=== PATIENT | female | born 1965 | race African-American/Black ===

== ENCOUNTER 2017-09-26 06:50 | Inpatient (IN) | payer OTHER ==
[2017-09-26] MEDS ORDERED: Metoclopramide HCl 10 MG/2 ML VIAL ONE (08:36)
[2017-09-26] MEDS ORDERED: diphenhydrAMINE 50 MG/ML VIAL ONE ×2 (08:36→11:48)
[2017-09-26] MEDS ORDERED: methylPREDNISolone Sod Succ/PF 125 MG/2 ML VIAL ONE (08:36)
[2017-09-26] MEDS ORDERED: Magnesium Sulfate 2 GM/100 ML BAG ONE (10:21)
[2017-09-26] MEDS ORDERED: Ketorolac Tromethamine 30 MG/ML VIAL ONE (11:48)
[2017-09-26] MEDS ORDERED: SODIUM CHLORIDE 0.9% IVPB SCH ×2 (13:45→16:48)
[2017-09-26] MEDS ORDERED: VALPROATE SODIUM IVPB SCH ×2 (13:45→16:48)
--- NOTE | 2017-09-26 14:20 | CT ---
CT OF HEAD NONCONTRAST: INDICATION: Headache. COMPARISON: No prior comparison. FINDINGS: The ventricular system is normal in size. There is no mass effect or midline shift. No evidence of intracranial hemorrhage. The imaged paranasal sinuses and mastoid air cells are clear. IMPRESSION: No acute intracranial abnormalities. POS: [facility]
--- NOTE | 2017-09-26 16:01 | HP ---
PRIMARY CARE PHYSICIAN: Gretchen Hudson M.D. REASON FOR ADMISSION: Intractable migraine headache. HISTORY OF PRESENT ILLNESS: A 52-year-old -[place] female who has long history of migraine h eadache as well as fibromyalgia and she is on disability. She reports that she is originally from [facility] and she had all kind of treatment done in [place]. Over there, she had neurologist, rheumatologi st, psychiatrist and primary care physician. She reports that her migraine headache year by year get ting worse. Most of the time she is getting headache. She has low grade headache all the time, but it is manageable with her routine medication, but her neurologist also required her to go to hospital every few months to get DHE treatment. After that treatment is over, patient remains headache free with a maintenance medication for about a week, but again headache starts and after that intermittent ly she gets severe headache even before going to neurologist's office or primary care physician's off [place] to the abort her headache. Her headache most of the time so intense she requires frequent emerge ncy room visit. Patient reports that she tried all kind of triptan medication in market. She tried had nerve block, Botox injection and new therapy was tried by her neurologist to control her headache. Patient does not have any obvious trigger and her headache is getting so intense so she cannot manage herself and she has to come to the ER as well. After [place], patient went to [place] to live with her brother who . The patient [facility] er and now patient is alone and she moved to [facility]. Here locally, s he does not have any neurologist, but her primary care physician gave appointment with neurologist on coming Saturday. Today, patient was having migraine headache for about 12 hours, it was not getting better. Her home medication was not working. She was feeling miserable. She was having diffuse body ache. She denie s any focal motor symptoms. She denies any nausea, vomiting, or diarrhea. She denies any UTI sympto ms. She denies any fever or chills. She denies any abdominal pain. In the emergency room, this patient was started on valproic acid treatment. After that her headache slowly came down, but even before that patient was given Toradol, magnesium sulfate, Reglan, Solu-Med rol, Benadryl and IV fluid that did not work and that is why ER physician decided to keep this patien t in the hospital for control of her headache. REVIEW OF SYSTEMS: The following complete review of systems was negative, unless otherwise mentioned in the HPI or below: Constitutional: Weight loss or gain, ability to conduct usual activities. Skin: Rash, itching. Eyes: Double vision, pain. ENT/Mouth: Nose bleeding, neck stiffness, pain, tenderness. Cardiovascular: Palpitations, dyspnea on exertion, orthopnea. Respiratory: Shortness of breath, wheezing, cough, hemoptysis, fever or night sweats. Gastrointestinal: Poor appetite, abdominal pain, heartburn, nausea, vomiting, constipation, or diarr hea. Genitourinary: Urgency, frequency, dysuria, nocturia. Musculoskeletal: Pain, swelling. Neurologic/Psychiatric: Anxiety, depression. Allergy/Immunologic: Skin rash, bleeding tendency. Please see my HPI for pertinent positive and negative. All other review of systems reviewed and nega tive except as mentioned in the HPI. ALLERGIES: MOTRIN, PENICILLIN, PHENERGAN, and TORADOL. CURRENT HOME MEDICATIONS: Amitriptyline 100 mg p.o. at bedtime, Klonopin 2 mg p.o. daily, Nexium 20 mg p.o. daily, and Pristiq 50 mg p.o. daily. PAST MEDICAL HISTORY: Chronic migraine headache, hypertension, fibromyalgia, and obesity. PAST SURGICAL HISTORY: Gastric bypass surgery, appendicectomy, , and hysterectomy. PAST PSYCHIATRIC HISTORY: Anxiety and depression. SOCIAL HISTORY: Patient is . She has 2 kids. No history of tobacco, alcohol or illicit dr ug abuse. She is on disability. FAMILY HISTORY: No strong family history of premature coronary artery disease, stroke or cancer. EMERGENCY ROOM COURSE: Patient is given valproic acid, Toradol 30 mg, Solu-Medrol 125 mg, Reglan 10 mg, Benadryl 25 mg x2, IV fluid 2 liter, magnesium sulfate 2 grams. PHYSICAL EXAMINATION: VITAL SIGNS: Blood pressure 153/95, pulse 90, respiratory rate 18, temperature 98.4, saturation 98% on room air, and weight 89.3 kilograms. GENERAL: Patient is currently alert, awake, no obvious acute distress. HEAD: Normocephalic, atraumatic. The patient feels tenderness all over her head. EYES: Pupils round, reactive to light. Extraocular muscle intact. ENT: Oropharynx within normal limits. Moist mucous membranes. NECK: Supple, no JVD, no thyromegaly, no carotid bruits. LUNGS: Clear to auscultation without any rhonchi or rales. CARDIAC: S1 and S2 regular without any murmur. ABDOMEN: Soft, bowel sounds present, nontender, nondistended. No organomegaly, no mass, no suprapub ic tenderness. BACK: Examination unremarkable, no CVA tenderness. EXTREMITIES: Upper extremity passive movements of all joints are normal. Lower extremities: No huber ma. Good peripheral pulsation. No calf tenderness. SKIN: No skin rash. HEMATOLOGICAL SYSTEM: No lymphadenopathy. PSYCHIATRIC: Normal affect. NEUROLOGIC: The patient is alert and oriented x3. Cranial nerves II-XII intact. Motor 5/5 in all f our limbs. Sensation bilaterally symmetrical. Reflexes symmetrical. Gait normal. Planter bilatera l flexor. No focal neurological deficit noted. IMAGING DATA AND LABORATORY DATA: CT brain based on my review, no acute intracranial process. Blood test has not done in the emergency room, but I am going to order CBC, CMP, urine drug screen, urinal ysis. ASSESSMENT AND PLAN/IMPRESSION: 1. Intractable migraine headache, failed emergency room treatment. 2. Obesity. 3. Fibromyalgia. 4. Hypertension. 5. Anxiety and depression. 6. Gastroesophageal reflux disease. PLAN: Observation to medical floor. Neurology consultation for intractable migraine headache. We w ill continue valproic acid drip which has helped the patient in the emergency room. We will continue Toradol p.r.n. basis. We will resume her preventive migraine headache medicine. While in hospital, we will do symptomatic treatment. DVT prophylaxis not needed because we are expecting discharge in 24 hours. Gastrointestinal prophylaxis, Pepcid 20 mg p.o. b.i.d. Code status: The patient is FULL CODE. Patient does not have any surrogate decision maker. Disposition plan based on clinical course , likely 24-48 hours. Pending clinical improvement.
[2017-09-26] MEDS ORDERED: Diabetic Tussin 200 MG/10 ML UDCUP PO PRN (16:48)
[2017-09-26] MEDS ORDERED: Chloraseptic Spray 180 ml Bottle PO PRN (16:48)
[2017-09-26] MEDS ORDERED: Loperamide HCl 2 MG CAP PO PRN (16:48)
[2017-09-26] MEDS ORDERED: Metoclopramide HCl 10 MG/2 ML VIAL IVP PRN (16:48)
[2017-09-26] MEDS ORDERED: Eucerin (Mineral Oil/Petrolatum,White) 30 gm Jar TOP PRN (16:48)
[2017-09-26] MEDS ORDERED: Senokot 8.6 MG TAB PO PRN (16:48)
[2017-09-26] MEDS ORDERED: Artificial Tears 18 DROP/0.9 ML EA EYE PRN (16:48)
[2017-09-26] MEDS ORDERED: Zolpidem Tartrate 5 MG TAB PO PRN (16:48)
[2017-09-26] MEDS ORDERED: Milk Of Magnesia 30 ML UDCUP PO PRN (16:48)
[2017-09-26] MEDS ORDERED: Ondansetron PF 4 MG/2 ML Vial IVP PRN (16:48)
[2017-09-26] MEDS ORDERED: Sodium Chloride 0.65% Nasal 44 ML BOT EA NARE PRN (16:48)
[2017-09-26] MEDS ORDERED: hydrALAZINE 20 MG/ML VIAL SLOW IVP PRN (16:48)
[2017-09-26] MEDS ORDERED: Labetalol HCl 100 MG/20 ML VIAL SLOW IVP PRN (16:48)
[2017-09-26] MEDS ORDERED: Ondansetron ODT 4 MG TAB PO PRN (16:48)
[2017-09-26] MEDS ORDERED: Morphine 5 MG/ML SYRINGE SLOW IVP PRN (16:57)
[2017-09-26 17:01] VITALS: BMI 34.7
[2017-09-26 17:34] LABS: #Lymphocytes 1.2 thou/uL (1.20-3.40); #Monocytes 0.1 thou/uL (0.11-0.59); #Neutrophils 5.5 thou/uL (1.40-6.50); %Basophils 0.7 % (0.0-1.0); %Eosinophils 0.5 % (0.0-10.0); %Lymphocytes 17.9 % (21.0-51.0); %Monocytes 1.5 % (0.0-10.0); %Neutrophils 79.4 % (42.0-75.0); Hemoglobin 12.4 g/dL (12.0-16.0); Mean Corpuscular HGB CONC 31.5 g/dL (32.0-36.0); Mean Corpuscular Hemoglobin 31.1 pg (27.0-31.0); Mean Corpuscular Volume 98.7 fl (81.0-99.0); Mean Platelet Volume 9.2 fL (7.4-10.4); Platelet Count 232 thou/uL (130-400); RBC Distribution Width 11.7 % (11.5-14.5); White Blood Cell (WBC) Count 6.9 thou/uL (4.8-10.8)
[2017-09-26] MEDS: HYDROcodone/Acetaminophen 10/325 mg Tablet PO PRN ×2 (17:58→22:30)
[2017-09-26 17:59] LABS: ALT (SGPT) 24 U/L (8-55); AST (SGOT) 26 U/L (5-34); Alkaline Phosphatase 83 U/L (40-150); Anion Gap 17 mmol/L (10-20); BUN (Urea Nitrogen) 10 mg/dL (9.8-20.1); Bilirubin, Total 0.3 mg/dL (0.2-1.2); Calc. Creatinine Clearance 120 mL/min (70-130); Calcium 9.1 mg/dL (7.8-10.44); Carbon Dioxide 19 mmol/L (22-29); Chloride 109 mmol/L (98-107); Estimated GFR-MDRD Greater than 90; Globulin 3.4 g/dL (2.4-3.5); Glucose 150 mg/dL (70-105); Potassium 4.5 mmol/L (3.5-5.1); Protein, Total 7.4 g/dL (6.0-8.3); Sodium 140 mmol/L (136-145)
[2017-09-26 19:29] LABS: Bilirubin Negative (Negative); Blood, Urine Negative (Negative); Clarity CLEAR (Clear); Glucose, Urine (Dipstick) 100 mg/dL (Negative); Leukocyte Negative (Negative); Nitrite Negative (Negative); Protein, Urine (Dipstick) Negative (Neg-Trace); Specific Gravity, Urine 1.008 (1.002-1.036)
[2017-09-26 19:32] LABS: Bacteria/HPF None Seen HPF (None Seen); Hyaline Casts/LPF 0-3 HYALINE CAST LPF (0-3 Hyaline); RBC/HPF 0-3 HPF (0-3); Squamous Epithelial 0-3 HPF (0-3); WBC/HPF None Seen HPF (0-3)
[2017-09-26] MEDS ORDERED: Famotidine 20 MG TAB PO SCH (21:00)
[2017-09-27] MEDS: Ketorolac Tromethamine 30 MG/ML VIAL IVP PRN ×2 (00:24→09:18)
[2017-09-27] MEDS: diphenhydrAMINE 50 MG/ML VIAL IVP PRN ×2 (00:24→04:50)
[2017-09-27] MEDS: HYDROcodone/Acetaminophen 10/325 mg Tablet PO PRN (04:49)
[2017-09-27] MEDS: Polyethylene Glycol 3350 17 GM Packet PO SCH (07:59)
[2017-09-27] MEDS: Venlafaxine HCl XR 150 MG CAP PO SCH (07:59)
[2017-09-27] MEDS: Atenolol 25 MG TAB PO SCH (08:00)
[2017-09-27] MEDS: Diazepam 5 MG TAB PO SCH ×2 (08:00→19:49)
[2017-09-27] MEDS: Lisinopril 2.5 MG TAB PO SCH (08:01)
[2017-09-27] MEDS: Pregabalin 75 MG CAP PO SCH (08:01)
[2017-09-27] MEDS: Naproxen 500 MG TAB PO SCH ×2 (08:03→19:51)
[2017-09-27] MEDS ORDERED: NAPROXEN 375 MG PO SCH (09:00)
[2017-09-27] MEDS ORDERED: Lisinopril 20 MG TAB PO SCH (09:00)
[2017-09-27] MEDS ORDERED: Pregabalin 25 MG CAP PO SCH (09:00)
[2017-09-27] MEDS ORDERED: Atenolol 50 MG TAB PO SCH (09:00)
[2017-09-27] MEDS ORDERED: Non-Formulary Item 1 EACH (Desvenlafaxine Succinate [Pristiq] 100 MG) PO SCH (09:00)
--- NOTE | 2017-09-27 09:06 | PDOC.PN ---
- Subjective Encounter Start Date: 09/27/17 Encounter Start Time: 07:20 -: old records requested/rev this morning pt reports that she has 8/10 migraine headache, she has not improved yet, when she was talking I did not see any objective signs of pain on her face, her vitals stable. Patient seen and examined. No overnight events - Objective Resuscitation Status: Resuscitation Status FULL:Full Resuscitation MAR Reviewed: Yes Vital Signs & Weight: Vital Signs (12 hours) Temp Pulse Resp BP BP Pulse Ox 09/27/17 08:01 75 129/80 09/27/17 08:00 98.1 F 75 16 129/80 129/80 98 09/27/17 03:37 75 18 120/60 09/27/17 00:24 73 18 160/72 H Weight Weight 202 lb 11.2 oz I&O: 09/26/17 09/27/17 09/28/17 06:59 06:59 06:59 Intake Total 360 Balance 360 Result Diagrams: 09/26/17 17:18 09/26/17 17:18 Phys Exam - Physical Examination Constitutional: NAD HEENT: PERRLA, moist MMs, sclera anicteric Neck: no JVD, supple Respiratory: no wheezing, no rales, no rhonchi Cardiovascular: RRR, no significant murmur, no rub Gastrointestinal: soft, non-tender, no distention, positive bowel sounds Musculoskeletal: no edema, pulses present Neurological: non-focal, normal sensation Lymphatic: no nodes Psychiatric: normal affect, A&O x 3 Skin: no rash, normal turgor Dx/Plan (1) Intractable migraine Code(s): G43.919 - MIGRAINE, UNSP, INTRACTABLE, WITHOUT STATUS MIGRAINOSUS Status: Acute (2) Anxiety and depression Code(s): F41.8 - OTHER SPECIFIED ANXIETY DISORDERS Status: Chronic (3) Fibromyalgia Status: Chronic (4) GERD (gastroesophageal reflux disease) Code(s): K21.9 - GASTRO-ESOPHAGEAL REFLUX DISEASE WITHOUT ESOPHAGITIS Status: Chronic (5) Hypertension Code(s): I10 - ESSENTIAL (PRIMARY) HYPERTENSION Status: Chronic (6) Obesity (BMI 30-39.9) Code(s): E66.9 - OBESITY, UNSPECIFIED Status: Chronic - Plan cont current plan of care * doubt pt is interested in going home * I really doubt that pt is in pain distress objectively. * neurology opinion pending * medication reviewed as below * symptomatic treatment * currently on therapeutic and preventive therapy for migraine * home medication reconciled Review of Systems - Review of Systems Constitutional: negative: fever, chills, sweats, weakness, malaise, other ENT: negative: Ear Pain, Ear Discharge, Nose Pain, Nose Discharge, Nose Congestion, Mouth Pain, Mouth Swelling, Throat Pain, Throat Swelling, Other Respiratory: negative: Cough, Dry, Shortness of Breath, Hemoptysis, SOB with Excertion, Pleuritic Pain, Sputum, Wheezing Cardiovascular: negative: chest pain, palpitations, orthopnea, paroxysmal nocturnal dyspnea, edema, light headedness, other Gastrointestinal: negative: Nausea, Vomiting, Abdominal Pain, Diarrhea, Constipation, Melena, Hematochezia, Other Genitourinary: negative: Dysuria, Frequency, Incontinence, Hematuria, Retention , Other Musculoskeletal: negative: Neck Pain, Shoulder Pain, Arm Pain, Back Pain, Hand Pain, Leg Pain, Foot Pain, Other Neurological: Other (headache). negative: Weakness, Numbness, Incoordination, Change in Speech, Confusion, Seizures - Medications/Allergies Allergies/Adverse Reactions: Allergies Allergy/AdvReac Type Severity Reaction Status Date / Time ibuprofen [From Motrin] Allergy Severe Short of Verified 09/26/17 17:58 Breath promethazine [From Phenergan] Allergy Severe Short of Verified 09/26/17 17:06 Breath Penicillins Allergy Intermediate Severe Verified 09/26/17 17:06 Hives Medications: Current Medications Acetaminophen (Tylenol) 650 mg PO Q4H PRN PRN Reason: Headache/Fever or Pain Hydrocodone Bitart/Acetaminophen ([place] 10/325) 1 tab PO Q4H PRN PRN Reason: Moderate Pain (4-6) Last Admin: 09/27/17 04:49 Dose: 1 tab Al Hydroxide/Mg Hydroxide (Maalox) 30 ml PO Q6H PRN PRN Reason: Heartburn or Indigestion Amitriptyline HCl (Elavil) 100 mg PO HS [facility] Artificial Tears (Tears Naturale) 0 drop EA EYE PRN PRN PRN Reason: Dry Eyes Atenolol (Tenormin) 25 mg PO DAILY [facility] Last Admin: 09/27/17 08:00 Dose: 25 mg Diazepam (Valium) 5 mg PO BID [facility] Last Admin: 09/27/17 08:00 Dose: 5 mg Diphenhydramine HCl (Benadryl) 25 mg IVP Q6H PRN PRN Reason: Anxiety/Restlessness/Sleep Last Admin: 09/27/17 04:50 Dose: 25 mg Guaifenesin (Robitussin Sf) 200 mg PO Q4H PRN PRN Reason: Cough Hydralazine HCl (Apresoline) 10 mg SLOW IVP Q4H PRN PRN Reason: Systolic BP > 180 Ketorolac Tromethamine (Toradol) 15 mg IVP Q6H PRN PRN Reason: Pain Stop: 10/01/17 16:49 Last Admin: 09/27/17 00:24 Dose: 15 mg Labetalol HCl (Normodyne) 20 mg SLOW IVP Q4H PRN PRN Reason: Systolic BP > 180 Lisinopril (Zestril) 2.5 mg PO DAILY [facility] Last Admin: 09/27/17 08:01 Dose: 2.5 mg Loperamide HCl (Imodium) 2 mg PO PRN PRN PRN Reason: Diarrhea/Loose Stools Magnesium Hydroxide (Milk Of Magnesium) 30 ml PO DAILYPRN PRN PRN Reason: Constipation Metoclopramide HCl (Reglan) 5 mg IVP Q4H PRN PRN Reason: Nausea Mineral Oil/White Petrolatum (Eucerin Cream) 0 gm TOP BIDPRN PRN PRN Reason: Dry Skin Morphine Sulfate (Morphine) 4 mg SLOW IVP Q4H PRN PRN Reason: Moderate Pain (4-6) Last Admin: 09/27/17 03:37 Dose: 4 mg Naproxen (Naprosyn) 375 mg PO BID [facility] Last Admin: 09/27/17 08:03 Dose: 375 mg Ondansetron HCl (Zofran Odt) 4 mg PO Q6H PRN PRN Reason: Nausea/Vomiting Last Admin: 09/26/17 17:58 Dose: 4 mg Ondansetron HCl (Zofran) 4 mg IVP Q6H PRN PRN Reason: Nausea/Vomiting Pantoprazole Sodium (Protonix) 40 mg PO DAILY [facility] Last Admin: 09/27/17 07:59 Dose: 40 mg Phenol (Chloraseptic [place] 180 Ml Bot) 0 ml PO PRN PRN PRN Reason: Sore Throat Polyethylene Glycol (Miralax) 17 gm PO DAILY [facility] Last Admin: 09/27/17 07:59 Dose: 17 gm Pregabalin (Lyrica) 150 mg PO DAILY [facility] Last Admin: 09/27/17 08:01 Dose: 150 mg Senna (Senokot) 2 tab PO HSPRN PRN PRN Reason: Constipation Sodium Chloride ([place] Nasal [place] 0.65%) 0 ml EA NARE QIDPRN PRN PRN Reason: Nasal Congestion Sodium Chloride (Flush - Normal Saline) 10 ml IVF Q12HR [facility] Last Admin: 09/27/17 08:03 Dose: 10 ml Sodium Chloride (Flush - Normal Saline) 10 ml IVF PRN PRN PRN Reason: Saline Flush Tramadol HCl (Ultram) 50 mg PO TID PRN PRN Reason: Pain Venlafaxine HCl (Effexor Xr) 150 mg PO DAILY [facility] Last Admin: 09/27/17 07:59 Dose: 150 mg Zolpidem Tartrate (Ambien) 5 mg PO HSPRN PRN PRN Reason: Insomnia Last Admin: 09/26/17 21:07 Dose: 5 mg
[2017-09-27] MEDS ORDERED: Morphine 5 MG/ML SYRINGE SLOW IVP PRN (09:24)
[2017-09-27] MEDS ORDERED: Metoclopramide HCl 10 MG/2 ML VIAL IVP SCH (09:30)
[2017-09-27] MEDS ORDERED: Dexamethasone 4 mg/ml Vial SLOW IVP SCH (09:30)
[2017-09-27] MEDS ORDERED: Valproate Sodium 500 MG in Sodium Chloride 0.9% 100 ML IVPB SCH (09:30)
--- NOTE | 2017-09-27 10:30 | CON ---
DATE OF CONSULTATION: 09/27/2017 CONSULTING PHYSICIAN: Hospitalist Service IMPRESSION: 1. Intractable migraine. 2. Depression. 3. Fibromyalgia. 4. Hypertension. 5. Borderline diabetes. PLAN: 1. Sotero protocol was ordered. 2. Depakote 1000 mg per day for prevention. 3. Office followup once the headache was broken. Ms. Small is a 52-year-old black female who has a reported history of chronic migraines for the last several years. She was seeing a neurologist in [place]. She has been admitted on several occasions f or treatment of intractable migraine. She reports that she was given DHE and lidocaine infusions for 5-10 days at a time. She would have brief intervals of headache relief lasting 1-2 weeks. She has previously failed a beta rashawn, lithium, Topamax, Botox injections, occipital nerve blocks and is c urrently on amitriptyline. She reports never having tried valproic acid. Her headache currently is an 8/10 level at this point. She has previously tried triptans which she was unresponsive to. She i s not having any nausea or vomiting. She was preparing to eat an omelet for breakfast. PAST MEDICAL HISTORY: As listed above. ALLERGIES: MOTRIN, PENICILLIN, TORADOL, PHENERGAN. SOCIAL HISTORY: Unremarkable. FAMILY HISTORY: Noncontributory. REVIEW OF SYSTEMS: No complaints of nausea, vomiting, chest pain, shortness of breath. PHYSICAL EXAMINATION: GENERAL: She is an overweight, middle-aged woman sitting up in bed with her eyes closed. HEENT: Pupils equal and reactive. Conjunctivae clear. Oropharynx clear. VITAL SIGNS: Blood pressure 163/78, pulse 80, respirations 17, temperature 98.6. NEUROLOGIC: She is alert and cooperative. She gives a coherent history. Her speech is fluent and c lear. Exam is nonfocal. CT scan of the brain without contrast was unremarkable. LABORATORY STUDIES: Reviewed. SUMMARY: This is a middle-aged woman with a reported history of chronic migraines which have been fa irly intractable to the numerous treatments. We can try the Sotero protocol and start Depakote as a preventative measure.
[2017-09-27] MEDS: Dihydroergotamine Mesylate 1 MG/ML AMP SLOW IVP SCH ×3 (11:24→23:29)
--- NOTE | 2017-09-27 11:56 | DIS ---
DATE OF ADMISSION: 09/26/2017 DATE OF DISCHARGE: 09/27/2017 PRIMARY CARE PHYSICIAN: Dr. Gretchen Hudson. DISCHARGE DISPOSITION: Home. PRIMARY DISCHARGE DIAGNOSIS: Intractable migraine headache. SECONDARY DISCHARGE DIAGNOSES: Anxiety, depression, fibromyalgia, gastroesophageal reflux disease, h ypertension, obesity with body mass index 34. PRIMARY PROCEDURE/OPERATION: None. RADIOLOGICAL INVESTIGATION: CT brain was normal. SIGNIFICANT LABORATORY DATA: WBC 6.9, hemoglobin 12.4, platelets 232. Sodium 140, creatinine 0.78. LFTs normal. Urinalysis normal. DISCHARGE MEDICATIONS: Amitriptyline 100 mg p.o. at bedtime, atenolol 25 mg p.o. daily, Pristiq 100 mg p.o. daily, diazepam 5 mg p.o. t.i.d., lisinopril 2.5 mg p.o. daily, naproxen one tablet twice yady ly p.r.n., Protonix 40 mg p.o. daily, MiraLax 17 grams p.o. daily, Lyrica 150 mg p.o. daily, tramadol 50 mg p.o. t.i.d. p.r.n., Ambien 10 mg p.o. at bedtime p.r.n. CONTRAINDICATIONS: None. CODE STATUS: FULL CODE. INPATIENT CONSULTANTS: Dr. Constantine Contreras, neurologist, was consulted while in hospital. TEST RESULTS PENDING ON DISCHARGE: None. ALLERGIES: IBUPROFEN, PROMETHAZINE, PENICILLIN. DISCHARGE PLAN: Post hospital, the patient is advised to follow up with primary care physician. The patient is also advised to follow up with neurologist as instructed. HOSPITAL COURSE: A 52-year-old female with above-mentioned medical problem, who was admitted by me. Please see my HPI from yesterday for further details. This patient has a long history of migraine h eadache. She was having unbearable migraine headache and that is why she required an emergency room visit. In the emergency room, she was treated with medicine, but her condition did not improve, requ ired admission. We observed her on the medical floor. We consulted Neurology. During this admissio n, CT brain was normal. All blood tests were unremarkable. She was treated with IV valproic acid, b ut her condition is slowly improving. At this point, the patient is seen and examined at bedside today. Neurologic already saw this patien t. As long as her pain is under control, then we will consider discharging her home later on today a nd she has to follow up with her primary care physician and Neurology after discharge. For further d etails, please see my progress note from today.
[2017-09-27] MEDS: Metoclopramide HCl 10 MG/2 ML VIAL IVP SCH ×2 (15:46→21:51)
[2017-09-27] MEDS: Amitriptyline HCl 100 MG TAB PO SCH (19:50)
[2017-09-28] MEDS: HYDROcodone/Acetaminophen 10/325 mg Tablet PO PRN ×2 (02:40→11:46)
[2017-09-28] MEDS: Metoclopramide HCl 10 MG/2 ML VIAL IVP SCH ×3 (03:41→17:31)
[2017-09-28] MEDS: Dihydroergotamine Mesylate 1 MG/ML AMP SLOW IVP SCH ×3 (04:35→17:40)
[2017-09-28] MEDS: Ketorolac Tromethamine 30 MG/ML VIAL IVP PRN ×2 (06:02→14:55)
[2017-09-28] MEDS: Pregabalin 75 MG CAP PO SCH (08:27)
[2017-09-28] MEDS: Polyethylene Glycol 3350 17 GM Packet PO SCH (08:27)
[2017-09-28] MEDS: Venlafaxine HCl XR 150 MG CAP PO SCH (08:29)
[2017-09-28] MEDS: Naproxen 500 MG TAB PO SCH ×2 (08:29→21:07)
[2017-09-28] MEDS: Lisinopril 2.5 MG TAB PO SCH (08:30)
[2017-09-28] MEDS: Atenolol 25 MG TAB PO SCH (08:30)
[2017-09-28] MEDS: Diazepam 5 MG TAB PO SCH ×2 (08:30→21:06)
[2017-09-28] MEDS: diphenhydrAMINE 50 MG/ML VIAL IVP PRN (14:55)
--- NOTE | 2017-09-28 16:59 | PDOC.PN ---
- Subjective Encounter Start Date: 09/28/17 Encounter Start Time: 13:00 Patient seen and examined. Migraine headache 8.5/10. Slight photophobia. No overnight events. No focal deficits. - Objective Resuscitation Status: Resuscitation Status FULL:Full Resuscitation MAR Reviewed: Yes Vital Signs & Weight: Vital Signs (12 hours) Temp Pulse Resp BP Pulse Ox 09/28/17 15:23 98.4 F 70 16 129/71 95 09/28/17 11:25 98.3 F 71 16 122/70 96 09/28/17 08:30 66 09/28/17 08:00 98.5 F 66 16 09/28/17 07:28 98.5 F 66 16 170/74 H 97 Weight Weight 206 lb 11.2 oz I&O: 09/27/17 09/28/17 09/29/17 06:59 06:59 06:59 Intake Total 360 2224 Output Total 2800 Balance 360 -576 Result Diagrams: 09/26/17 17:18 09/26/17 17:18 Additional Labs: Accuchecks 09/28/17 09/28/17 09/27/17 11:37 05:37 20:58 POC Glucose 134 H 125 H 187 H Phys Exam - Physical Examination Pt in mild-mod distress Respiratory: no wheezing, no rhonchi Cardiovascular: RRR, no rub Gastrointestinal: soft, non-tender, positive bowel sounds Musculoskeletal: no edema Neurological: normal sensation, moves all 4 limbs Dx/Plan - Plan DVT proph w/SCDs IMPRESSION: 1. Intractable Migraine - uncontrolled despite multiple meds. 2. Obesity BMI 35.5 3. HTN 4. Fibromyalgia/Anxiety/Depression. Denies suicidal ideation. 5. GERD PLAN: * Neurology following * DHE per Neurology with Toradol * Started on Valproic acid 1000 mg HS * Will change to inpt status due to intractable Migraine requiring multiple meds * Cont other meds as below Review of Systems - Review of Systems Respiratory: negative: Cough, Dry, Shortness of Breath, Hemoptysis, SOB with Excertion, Pleuritic Pain, Sputum, Wheezing Cardiovascular: negative: chest pain, palpitations, orthopnea, paroxysmal nocturnal dyspnea, edema, light headedness Gastrointestinal: Nausea. negative: Vomiting, Abdominal Pain, Diarrhea, Constipation, Melena, Hematochezia - Medications/Allergies Allergies/Adverse Reactions: Allergies Allergy/AdvReac Type Severity Reaction Status Date / Time ibuprofen [From Motrin] Allergy Severe Short of Verified 09/26/17 17:58 Breath promethazine [From Phenergan] Allergy Severe Short of Verified 09/26/17 17:06 Breath Penicillins Allergy Intermediate Severe Verified 09/26/17 17:06 Hives Medications: Current Medications Acetaminophen (Tylenol) 650 mg PO Q4H PRN PRN Reason: Headache/Fever or Pain Hydrocodone Bitart/Acetaminophen ([place] 10/325) 1 tab PO Q4H PRN PRN Reason: Moderate Pain (4-6) Last Admin: 09/28/17 11:46 Dose: 1 tab Al Hydroxide/Mg Hydroxide (Maalox) 30 ml PO Q6H PRN PRN Reason: Heartburn or Indigestion Amitriptyline HCl (Elavil) 100 mg PO [facility] Last Admin: 09/27/17 19:50 Dose: 100 mg Artificial Tears (Tears Naturale) 0 drop EA EYE PRN PRN PRN Reason: Dry Eyes Atenolol (Tenormin) 25 mg PO DAILY [facility] Last Admin: 09/28/17 08:30 Dose: 25 mg Diazepam (Valium) 5 mg PO BID [facility] Last Admin: 09/28/17 08:30 Dose: 5 mg Dihydroergotamine Mesylate (D.H.E. 45) 1 mg SLOW IVP Q4H [facility] Stop: 09/28/17 17:01 Last Admin: 09/28/17 14:19 Dose: 1 mg Diphenhydramine HCl (Benadryl) 25 mg IVP Q6H PRN PRN Reason: Anxiety/Restlessness/Sleep Last Admin: 09/28/17 14:55 Dose: 25 mg Divalproex Sodium (Depakote Er) 1,000 mg PO [facility] Last Admin: 09/27/17 19:50 Dose: 1,000 mg Guaifenesin (Robitussin Sf) 200 mg PO Q4H PRN PRN Reason: Cough Hydralazine HCl (Apresoline) 10 mg SLOW IVP Q4H PRN PRN Reason: Systolic BP > 180 Last Admin: 09/27/17 19:10 Dose: 10 mg Ketorolac Tromethamine (Toradol) 30 mg IVP Q6H PRN PRN Reason: Pain Stop: 10/03/17 12:57 Last Admin: 09/28/17 14:55 Dose: 30 mg Labetalol HCl (Normodyne) 20 mg SLOW IVP Q4H PRN PRN Reason: Systolic BP > 180 Lisinopril (Zestril) 2.5 mg PO DAILY [facility] Last Admin: 09/28/17 08:30 Dose: 2.5 mg Loperamide HCl (Imodium) 2 mg PO PRN PRN PRN Reason: Diarrhea/Loose Stools Magnesium Hydroxide (Milk Of Magnesium) 30 ml PO DAILYPRN PRN PRN Reason: Constipation Metoclopramide HCl (Reglan) 5 mg IVP Q4H PRN PRN Reason: Nausea Metoclopramide HCl (Reglan) 10 mg IVP Q4H [facility] Stop: 09/28/17 17:01 Last Admin: 09/28/17 13:49 Dose: 10 mg Mineral Oil/White Petrolatum (Eucerin Cream) 0 gm TOP BIDPRN PRN PRN Reason: Dry Skin Morphine Sulfate (Morphine) 4 mg SLOW IVP Q4H PRN PRN Reason: Moderate Pain (4-6) Last Admin: 09/27/17 03:37 Dose: 4 mg Morphine Sulfate (Morphine) 5 mg SLOW IVP Q4H PRN PRN Reason: Pain Naproxen (Naprosyn) 375 mg PO BID [facility] Last Admin: 09/28/17 08:29 Dose: 375 mg Ondansetron HCl (Zofran Odt) 4 mg PO Q6H PRN PRN Reason: Nausea/Vomiting Last Admin: 09/26/17 17:58 Dose: 4 mg Ondansetron HCl (Zofran) 4 mg IVP Q6H PRN PRN Reason: Nausea/Vomiting Pantoprazole Sodium (Protonix) 40 mg PO DAILY [facility] Last Admin: 09/28/17 08:30 Dose: 40 mg Phenol (Chloraseptic [place] 180 Ml Bot) 0 ml PO PRN PRN PRN Reason: Sore Throat Polyethylene Glycol (Miralax) 17 gm PO DAILY [facility] Last Admin: 09/28/17 08:27 Dose: 17 gm Pregabalin (Lyrica) 150 mg PO DAILY [facility] Last Admin: 09/28/17 08:27 Dose: 150 mg Senna (Senokot) 2 tab PO HSPRN PRN PRN Reason: Constipation Sodium Chloride ([place] Nasal [place] 0.65%) 0 ml EA NARE QIDPRN PRN PRN Reason: Nasal Congestion Sodium Chloride (Flush - Normal Saline) 10 ml IVF Q12HR [facility] Last Admin: 09/28/17 08:32 Dose: 10 ml Sodium Chloride (Flush - Normal Saline) 10 ml IVF PRN PRN PRN Reason: Saline Flush Tramadol HCl (Ultram) 50 mg PO TID PRN PRN Reason: Pain Venlafaxine HCl (Effexor Xr) 150 mg PO DAILY [facility] Last Admin: 09/28/17 08:29 Dose: 150 mg Zolpidem Tartrate (Ambien) 5 mg PO HSPRN PRN PRN Reason: Insomnia Last Admin: 09/26/17 21:07 Dose: 5 mg
[2017-09-28] MEDS ORDERED: Dihydroergotamine Mesylate 1 MG/ML AMP SLOW IVP SCH (18:30)
[2017-09-28] MEDS: Amitriptyline HCl 100 MG TAB PO SCH (21:06)
[2017-09-29] MEDS: Pregabalin 75 MG CAP PO SCH (09:28)
[2017-09-29] MEDS: Naproxen 500 MG TAB PO SCH ×2 (09:29→20:06)
[2017-09-29] MEDS: Lisinopril 2.5 MG TAB PO SCH (09:29)
[2017-09-29] MEDS: Atenolol 25 MG TAB PO SCH (09:29)
[2017-09-29] MEDS: Polyethylene Glycol 3350 17 GM Packet PO SCH (09:30)
[2017-09-29] MEDS: Diazepam 5 MG TAB PO SCH ×2 (09:30→20:06)
[2017-09-29] MEDS: Venlafaxine HCl XR 150 MG CAP PO SCH (09:30)
[2017-09-29] MEDS: diphenhydrAMINE 50 MG/ML VIAL IVP PRN (13:34)
[2017-09-29] MEDS: Mag-Al 1200 mg/1200 mg/30 ML UDCUP PO PRN (13:34)
[2017-09-29] MEDS: Ketorolac Tromethamine 30 MG/ML VIAL IVP PRN (13:43)
[2017-09-29] MEDS: HYDROcodone/Acetaminophen 10/325 mg Tablet PO PRN (17:23)
[2017-09-29] MEDS: Amitriptyline HCl 100 MG TAB PO SCH (20:06)
--- NOTE | 2017-09-29 22:17 | PDOC.PN ---
- Subjective Encounter Start Date: 09/29/17 Encounter Start Time: 16:30 Patient seen and examined. Intractable headache 03/28 - controlled with IV Toradol/Reglan. No overnight events - Objective Resuscitation Status: Resuscitation Status FULL:Full Resuscitation MAR Reviewed: Yes Vital Signs & Weight: Vital Signs (12 hours) Temp Pulse Resp BP Pulse Ox 09/29/17 20:00 97.9 F 71 18 09/29/17 16:23 97.9 F 71 18 160/87 H 100 09/29/17 11:12 98 F 70 20 122/68 94 L Weight Weight 206 lb 11.2 oz I&O: 09/28/17 09/29/17 09/30/17 06:59 06:59 06:59 Intake Total 2224 1050 700 Output Total 2800 Balance -576 1050 700 Result Diagrams: 09/26/17 17:18 09/26/17 17:18 Additional Labs: Accuchecks 09/29/17 09/29/17 09/29/17 16:01 10:51 05:24 POC Glucose 117 H 122 H 90 Phys Exam - Physical Examination Constitutional: NAD Respiratory: no wheezing, no rhonchi Cardiovascular: RRR, no rub Gastrointestinal: soft, non-tender, positive bowel sounds Musculoskeletal: no edema Neurological: non-focal, normal sensation, moves all 4 limbs photophobia Psychiatric: A&O x 3 Dx/Plan - Plan DVT proph w/SCDs IMPRESSION: 1. Intractable Migraine - uncontrolled despite multiple meds. 2. Obesity BMI 35.5 3. HTN 4. Fibromyalgia/Anxiety/Depression. Denies suicidal ideation. 5. GERD PLAN: * Neurology following * s/p DHE per Neurology with Toradol * Cont Valproic acid 1000 mg HS * Not stable for dc due to persistent headache * Cont other meds as below * Possible dc in AM if Headache improves Review of Systems - Review of Systems Respiratory: negative: Cough, Dry, Shortness of Breath, Hemoptysis, SOB with Excertion, Pleuritic Pain, Sputum, Wheezing Cardiovascular: negative: chest pain, palpitations, orthopnea, paroxysmal nocturnal dyspnea, edema, light headedness - Medications/Allergies Allergies/Adverse Reactions: Allergies Allergy/AdvReac Type Severity Reaction Status Date / Time ibuprofen [From Motrin] Allergy Severe Short of Verified 09/26/17 17:58 Breath promethazine [From Phenergan] Allergy Severe Short of Verified 09/26/17 17:06 Breath Penicillins Allergy Intermediate Severe Verified 09/26/17 17:06 Hives Medications: Current Medications Acetaminophen (Tylenol) 650 mg PO Q4H PRN PRN Reason: Headache/Fever or Pain Hydrocodone Bitart/Acetaminophen ([place] 10/325) 1 tab PO Q4H PRN PRN Reason: Moderate Pain (4-6) Last Admin: 09/29/17 17:23 Dose: 1 tab Al Hydroxide/Mg Hydroxide (Maalox) 30 ml PO Q6H PRN PRN Reason: Heartburn or Indigestion Last Admin: 09/29/17 13:34 Dose: 30 ml Amitriptyline HCl (Elavil) 100 mg PO [facility] Last Admin: 09/29/17 20:06 Dose: 100 mg Artificial Tears (Tears Naturale) 0 drop EA EYE PRN PRN PRN Reason: Dry Eyes Atenolol (Tenormin) 25 mg PO DAILY [facility] Last Admin: 09/29/17 09:29 Dose: 25 mg Diazepam (Valium) 5 mg PO BID [facility] Last Admin: 09/29/17 20:06 Dose: 5 mg Diphenhydramine HCl (Benadryl) 25 mg IVP Q6H PRN PRN Reason: Anxiety/Restlessness/Sleep Last Admin: 09/29/17 13:34 Dose: 25 mg Divalproex Sodium (Depakote Er) 1,000 mg PO [facility] Last Admin: 09/29/17 20:06 Dose: 1,000 mg Guaifenesin (Robitussin Sf) 200 mg PO Q4H PRN PRN Reason: Cough Hydralazine HCl (Apresoline) 10 mg SLOW IVP Q4H PRN PRN Reason: Systolic BP > 180 Last Admin: 09/27/17 19:10 Dose: 10 mg Ketorolac Tromethamine (Toradol) 30 mg IVP Q6H PRN PRN Reason: Pain Stop: 10/03/17 12:57 Last Admin: 09/29/17 13:43 Dose: 30 mg Labetalol HCl (Normodyne) 20 mg SLOW IVP Q4H PRN PRN Reason: Systolic BP > 180 Lisinopril (Zestril) 2.5 mg PO DAILY [facility] Last Admin: 09/29/17 09:29 Dose: 2.5 mg Loperamide HCl (Imodium) 2 mg PO PRN PRN PRN Reason: Diarrhea/Loose Stools Magnesium Hydroxide (Milk Of Magnesium) 30 ml PO DAILYPRN PRN PRN Reason: Constipation Metoclopramide HCl (Reglan) 5 mg IVP Q4H PRN PRN Reason: Nausea Mineral Oil/White Petrolatum (Eucerin Cream) 0 gm TOP BIDPRN PRN PRN Reason: Dry Skin Morphine Sulfate (Morphine) 4 mg SLOW IVP Q4H PRN PRN Reason: Moderate Pain (4-6) Last Admin: 09/27/17 03:37 Dose: 4 mg Morphine Sulfate (Morphine) 5 mg SLOW IVP Q4H PRN PRN Reason: Pain Naproxen (Naprosyn) 375 mg PO BID [facility] Last Admin: 09/29/17 20:06 Dose: 375 mg Ondansetron HCl (Zofran Odt) 4 mg PO Q6H PRN PRN Reason: Nausea/Vomiting Last Admin: 09/26/17 17:58 Dose: 4 mg Ondansetron HCl (Zofran) 4 mg IVP Q6H PRN PRN Reason: Nausea/Vomiting Pantoprazole Sodium (Protonix) 40 mg PO DAILY [facility] Last Admin: 09/29/17 09:30 Dose: 40 mg Phenol (Chloraseptic [place] 180 Ml Bot) 0 ml PO PRN PRN PRN Reason: Sore Throat Polyethylene Glycol (Miralax) 17 gm PO DAILY [facility] Last Admin: 09/29/17 09:30 Dose: Not Given Pregabalin (Lyrica) 150 mg PO DAILY [facility] Last Admin: 09/29/17 09:28 Dose: 150 mg Senna (Senokot) 2 tab PO HSPRN PRN PRN Reason: Constipation Sodium Chloride ([place] Nasal [place] 0.65%) 0 ml EA NARE QIDPRN PRN PRN Reason: Nasal Congestion Sodium Chloride (Flush - Normal Saline) 10 ml IVF Q12HR [facility] Last Admin: 09/29/17 13:43 Dose: 10 ml Sodium Chloride (Flush - Normal Saline) 10 ml IVF PRN PRN PRN Reason: Saline Flush Tramadol HCl (Ultram) 50 mg PO TID PRN PRN Reason: Pain Venlafaxine HCl (Effexor Xr) 150 mg PO DAILY [facility] Last Admin: 09/29/17 09:30 Dose: 150 mg
[2017-09-30] MEDS: Ketorolac Tromethamine 30 MG/ML VIAL IVP PRN ×4 (02:32→20:45)
[2017-09-30] MEDS: traMADol HCl 50 MG TAB PO PRN ×2 (02:33→11:06)
[2017-09-30] MEDS: Acetaminophen 325 MG TAB PO PRN (02:33)
[2017-09-30] MEDS: diphenhydrAMINE 50 MG/ML VIAL IVP PRN ×3 (08:38→22:04)
[2017-09-30] MEDS: Atenolol 25 MG TAB PO SCH (08:43)
[2017-09-30] MEDS: Diazepam 5 MG TAB PO SCH ×2 (08:43→20:44)
[2017-09-30] MEDS: Pregabalin 75 MG CAP PO SCH (08:43)
[2017-09-30] MEDS: Lisinopril 2.5 MG TAB PO SCH (08:43)
[2017-09-30] MEDS: Polyethylene Glycol 3350 17 GM Packet PO SCH (08:44)
[2017-09-30] MEDS: Naproxen 500 MG TAB PO SCH ×2 (08:46→20:44)
[2017-09-30] MEDS: Venlafaxine HCl XR 150 MG CAP PO SCH (08:51)
[2017-09-30] MEDS: Mag-Al 1200 mg/1200 mg/30 ML UDCUP PO PRN (10:15)
[2017-09-30] MEDS ORDERED: Mag-Al 1200 mg/1200 mg/30 ML UDCUP PO PRN (10:42)
[2017-09-30] MEDS ORDERED: Calcium Carbonate 500 MG ChewTAB PO PRN (10:42)
[2017-09-30] MEDS ORDERED: Gadobenate Dimeglumine 529 MG/1 ML (20ML VIAL) ONE (11:15)
[2017-09-30 12:03] LABS: #Basophils 0.1 thou/uL (0.0-0.2); #Eosinphils 0.6 thou/uL (0.0-0.7); #Monocytes 0.4 thou/uL (0.11-0.59); #Neutrophils 3.4 thou/uL (1.40-6.50); %Basophils 0.9 % (0.0-1.0); %Lymphocytes 30.5 % (21.0-51.0); %Monocytes 6.7 % (0.0-10.0); %Neutrophils 52.9 % (42.0-75.0); Hemoglobin 11.5 g/dL (12.0-16.0); Mean Corpuscular HGB CONC 31.9 g/dL (32.0-36.0); Mean Corpuscular Hemoglobin 31.1 pg (27.0-31.0); Mean Corpuscular Volume 97.6 fl (81.0-99.0); Mean Platelet Volume 8.8 fL (7.4-10.4); Platelet Count 224 thou/uL (130-400); RBC Distribution Width 11.8 % (11.5-14.5); White Blood Cell (WBC) Count 6.5 thou/uL (4.8-10.8)
[2017-09-30 12:24] LABS: ALT (SGPT) 17 U/L (8-55); AST (SGOT) 19 U/L (5-34); Albumin 3.6 g/dL (3.5-5.0); Alkaline Phosphatase 70 U/L (40-150); Anion Gap 12 mmol/L (10-20); BUN (Urea Nitrogen) 10 mg/dL (9.8-20.1); Bilirubin, Total 0.3 mg/dL (0.2-1.2); Calc. Creatinine Clearance 118 mL/min (70-130); Calcium 8.9 mg/dL (7.8-10.44); Carbon Dioxide 24 mmol/L (22-29); Chloride 109 mmol/L (98-107); Estimated GFR-MDRD 89; Globulin 2.8 g/dL (2.4-3.5); Glucose 92 mg/dL (70-105); Magnesium 2.3 mg/dL (1.6-2.6); Potassium 4.2 mmol/L (3.5-5.1); Protein, Total 6.4 g/dL (6.0-8.3); Sodium 141 mmol/L (136-145)
--- NOTE | 2017-09-30 14:50 | MRI ---
BRAIN MRI WITH AND WITHOUT CONTRAST: History Intractable headache. COMPARISON: None. TECHNIQUE: A brain MRI is performed with and without intravenous Gadolinium administration. Multisequential, mu ltiplanar imaging is performed. FINDINGS: No hemorrhage on the axial gradient echo sequence. No parenchymal mass, mass effect, or midline shift. Brain volume is age appropriate. Cortical balderrama-white matter differentiation is preserved. Ventricles and sulci are patent and symmetric. Central arterial flow voids are maintained. Absent restricted diffusion. Minimal T2 and FLAIR white matter hyperintensities, nonspecific. Calvarium has a normal marrow signal intensity. Midline brain parenchymal structures are unremarkabl e. Adequate aeration of the mastoid air cells. Mucous retention cyst in the left maxillary sinus. No pathologic enhancement of the brain parenchyma. IMPRESSION: Unremarkable pre- and postcontrast brain MRI. POS: [facility]
[2017-09-30] MEDS ORDERED: Zolpidem Tartrate 5 MG TAB PO PRN (15:56)
[2017-09-30] MEDS: Amitriptyline HCl 100 MG TAB PO SCH (20:44)
--- NOTE | 2017-09-30 22:17 | PDOC.PN ---
- Subjective Encounter Start Date: 09/30/17 Encounter Start Time: 12:30 Patient seen and examined. Still has intractable headache 7-03/28 with photophobia. Patient states that this headache is slightly different than her usual migraine attacks. No overnight events - Objective Resuscitation Status: Resuscitation Status FULL:Full Resuscitation MAR Reviewed: Yes Vital Signs & Weight: Vital Signs (12 hours) Temp Pulse Resp BP Pulse Ox 09/30/17 20:00 98.2 F 77 16 144/79 H 97 09/30/17 16:00 97.3 F L 69 15 158/88 H 100 09/30/17 12:24 98.5 F 77 14 125/77 97 Weight Weight 206 lb 11.2 oz I&O: 09/29/17 09/30/17 10/01/17 06:59 06:59 06:59 Intake Total 1050 1700 450 Balance 1050 1700 450 Result Diagrams: 09/30/17 11:53 09/30/17 11:53 Additional Labs: Accuchecks 09/30/17 09/30/17 09/30/17 20:31 15:54 10:48 POC Glucose 158 H 143 H 164 H 09/30/17 09/29/17 06:16 21:04 POC Glucose 126 H 170 H Phys Exam - Physical Examination Constitutional: NAD Respiratory: no wheezing, no rhonchi Cardiovascular: RRR, no rub Gastrointestinal: soft, non-tender, positive bowel sounds Musculoskeletal: no edema Neurological: non-focal, normal sensation, moves all 4 limbs Psychiatric: A&O x 3 Dx/Plan - Plan DVT proph w/SCDs IMPRESSION: 1. Intractable Migraine - uncontrolled despite multiple meds. 2. Obesity BMI 35.5 3. HTN 4. Fibromyalgia/Anxiety/Depression. Denies suicidal ideation. 5. GERD PLAN: * Neurology notified of peristent headache - Dr Contreras to see her later today per RN * Will r/o other serious causes of headache since this is different than her usual episode * s/p DHE per Neurology with Toradol * Cont Valproic acid 1000 mg HS * Not stable for dc due to persistent headache * Cont other meds as below * Check labs today Review of Systems - Review of Systems Respiratory: negative: Cough, Dry, Shortness of Breath, Hemoptysis, SOB with Excertion, Pleuritic Pain, Sputum, Wheezing Cardiovascular: negative: chest pain, palpitations, orthopnea, paroxysmal nocturnal dyspnea, edema, light headedness - Medications/Allergies Allergies/Adverse Reactions: Allergies Allergy/AdvReac Type Severity Reaction Status Date / Time ibuprofen [From Motrin] Allergy Severe Short of Verified 09/26/17 17:58 Breath promethazine [From Phenergan] Allergy Severe Short of Verified 09/26/17 17:06 Breath Penicillins Allergy Intermediate Severe Verified 09/26/17 17:06 Hives Medications: Current Medications Acetaminophen (Tylenol) 650 mg PO Q4H PRN PRN Reason: Headache/Fever or Pain Last Admin: 09/30/17 02:33 Dose: 650 mg Hydrocodone Bitart/Acetaminophen ([place] 10/325) 1 tab PO Q4H PRN PRN Reason: Moderate Pain (4-6) Last Admin: 09/29/17 17:23 Dose: 1 tab Al Hydroxide/Mg Hydroxide (Maalox) 30 ml PO Q6H PRN PRN Reason: Heartburn or Indigestion Last Admin: 09/30/17 10:15 Dose: 30 ml Al Hydroxide/Mg Hydroxide (Maalox) 30 ml PO Q6H PRN PRN Reason: Heartburn or Indigestion Amitriptyline HCl (Elavil) 100 mg PO [facility] Last Admin: 09/30/17 20:44 Dose: 100 mg Artificial Tears (Tears Naturale) 0 drop EA EYE PRN PRN PRN Reason: Dry Eyes Atenolol (Tenormin) 25 mg PO DAILY [facility] Last Admin: 09/30/17 08:43 Dose: 25 mg Calcium Carbonate (Tums) 1,000 mg PO Q4H PRN PRN Reason: Heartburn or Indigestion Diazepam (Valium) 5 mg PO BID [facility] Last Admin: 09/30/17 20:44 Dose: 5 mg Diphenhydramine HCl (Benadryl) 25 mg IVP Q6H PRN PRN Reason: Anxiety/Restlessness/Sleep Last Admin: 09/30/17 22:04 Dose: 25 mg Divalproex Sodium (Depakote Er) 1,000 mg PO [facility] Last Admin: 09/30/17 20:44 Dose: 1,000 mg Guaifenesin (Robitussin Sf) 200 mg PO Q4H PRN PRN Reason: Cough Hydralazine HCl (Apresoline) 10 mg SLOW IVP Q4H PRN PRN Reason: Systolic BP > 180 Last Admin: 09/27/17 19:10 Dose: 10 mg Ketorolac Tromethamine (Toradol) 30 mg IVP Q6H PRN PRN Reason: Pain Stop: 10/03/17 12:57 Last Admin: 09/30/17 20:45 Dose: 30 mg Labetalol HCl (Normodyne) 20 mg SLOW IVP Q4H PRN PRN Reason: Systolic BP > 180 Lisinopril (Zestril) 2.5 mg PO DAILY [facility] Last Admin: 09/30/17 08:43 Dose: 2.5 mg Loperamide HCl (Imodium) 2 mg PO PRN PRN PRN Reason: Diarrhea/Loose Stools Magnesium Hydroxide (Milk Of Magnesium) 30 ml PO DAILYPRN PRN PRN Reason: Constipation Metoclopramide HCl (Reglan) 5 mg IVP Q4H PRN PRN Reason: Nausea Mineral Oil/White Petrolatum (Eucerin Cream) 0 gm TOP BIDPRN PRN PRN Reason: Dry Skin Morphine Sulfate (Morphine) 4 mg SLOW IVP Q4H PRN PRN Reason: Moderate Pain (4-6) Last Admin: 09/27/17 03:37 Dose: 4 mg Morphine Sulfate (Morphine) 5 mg SLOW IVP Q4H PRN PRN Reason: Pain Naproxen (Naprosyn) 375 mg PO BID [facility] Last Admin: 09/30/17 20:44 Dose: 375 mg Ondansetron HCl (Zofran Odt) 4 mg PO Q6H PRN PRN Reason: Nausea/Vomiting Last Admin: 09/26/17 17:58 Dose: 4 mg Ondansetron HCl (Zofran) 4 mg IVP Q6H PRN PRN Reason: Nausea/Vomiting Pantoprazole Sodium (Protonix) 40 mg PO BID [facility] Last Admin: 09/30/17 20:45 Dose: 40 mg Phenol (Chloraseptic [place] 180 Ml Bot) 0 ml PO PRN PRN PRN Reason: Sore Throat Polyethylene Glycol (Miralax) 17 gm PO DAILY [facility] Last Admin: 09/30/17 08:44 Dose: 17 gm Pregabalin (Lyrica) 150 mg PO DAILY [facility] Last Admin: 09/30/17 08:43 Dose: 150 mg Senna (Senokot) 2 tab PO HSPRN PRN PRN Reason: Constipation Sodium Chloride ([place] Nasal [place] 0.65%) 0 ml EA NARE QIDPRN PRN PRN Reason: Nasal Congestion Sodium Chloride (Flush - Normal Saline) 10 ml IVF Q12HR [facility] Last Admin: 09/30/17 22:00 Dose: 10 ml Sodium Chloride (Flush - Normal Saline) 10 ml IVF PRN PRN PRN Reason: Saline Flush Tramadol HCl (Ultram) 50 mg PO TID PRN PRN Reason: Pain Last Admin: 09/30/17 11:06 Dose: 50 mg Venlafaxine HCl (Effexor Xr) 150 mg PO DAILY [facility] Last Admin: 09/30/17 08:51 Dose: 150 mg Zolpidem Tartrate (Ambien) 5 mg PO HSPRN PRN PRN Reason: Insomnia Last Admin: 09/30/17 20:52 Dose: 5 mg
[2017-10-01] MEDS: Acetaminophen 325 MG TAB PO PRN (02:01)
[2017-10-01] MEDS: traMADol HCl 50 MG TAB PO PRN (02:01)
[2017-10-01] MEDS: Lisinopril 2.5 MG TAB PO SCH (07:55)
[2017-10-01] MEDS: Naproxen 500 MG TAB PO SCH (07:55)
[2017-10-01] MEDS: Venlafaxine HCl XR 150 MG CAP PO SCH (07:55)
[2017-10-01] MEDS: Pregabalin 75 MG CAP PO SCH (07:55)
[2017-10-01] MEDS: Atenolol 25 MG TAB PO SCH (07:56)
[2017-10-01] MEDS: Diazepam 5 MG TAB PO SCH (07:56)
[2017-10-01] MEDS: diphenhydrAMINE 50 MG/ML VIAL IVP PRN (07:57)
[2017-10-01] MEDS: Polyethylene Glycol 3350 17 GM Packet PO SCH (07:57)
[2017-10-01] MEDS: Ketorolac Tromethamine 30 MG/ML VIAL IVP PRN (07:57)
[2017-10-01 12:48] VITALS: BP 138/80; TEMP 98.2
--- NOTE | 2017-10-01 19:21 | DIS ---
DATE OF DISCHARGE: 10/01/2017 DISCHARGE DISPOSITION: Home. FOLLOWUP: Follow up with primary care physician Dr. Gretchen Hudson in 1 week. Follow up with Ne urology, Dr. Contreras in one week. The patient was seen and examined on the day of discharge. Denies any new complaints. No chest pain , shortness of breath, palpitations. Headache has significantly improved. BRIEF HOSPITAL COURSE: Patient is a 52-year-old -[place] female with long history of migrain e headaches, fibromyalgia, and hypertension, who presented to the emergency room with intractable hea dache. Please refer to the history and physical dated 09/26/2017 for further details. The patient was admitted to the hospital with a diagnosis of intractable migraine. She failed headac he protocol. She was admitted to the hospital. Due to persistent headache, patient was evaluated by Neurology, Dr. Contreras. She also received DHE due to persistent headache despite Sotero protocol. She was also started on Depakote 1000 mg daily for prevention. Two days later, the patient had MRI d ue to persistent headache that was negative. Today, her headache has significantly improved. She wi ll continue Depakote 1000 mg at bedtime. Other home medications were resumed. Plan of care was discussed with the patient in detail. She stated understanding. FINAL DIAGNOSES: 1. Intractable migraine headaches. 2. Obesity with a BMI of 35.5 3. Fibromyalgia. 4. Hypertension. 5. Anxiety and depression. 6. Gastroesophageal reflux disease.
== END 2017-10-01 15:15 | disposition home or self-care (01) | DRG 103 ==
LOC: ERS 06:50 → 2SW 15:01 → OBSVTOIN 15:01 → SURG B 09-28 18:24
PROVIDERS: ADMIT Internal Medicine; ATTEND Internal Medicine
DX: G43.919 Migraine, unspecified, intractable, without status migrainosus (principal); E66.9 Obesity, unspecified; Z68.35 Body mass index [BMI] 35.0-35.9, adult; M79.7 Fibromyalgia; I10 Essential (primary) hypertension; F41.8 Other specified anxiety disorders; K21.9 Gastro-esophageal reflux disease without esophagitis; R73.03 Prediabetes; F32.9 Major depressive disorder, single episode, unspecified
CPT/HCPCS: 36415; 36416; 70450; 70553; 80053; 81001; 83735; 85025; 96360; 96361; 96365; 96366; 96367; 96375; 96376; J2270; A9579; J0360; J1100; J1110; J1200; J1885; J2765; J2930; J3475; J7050; Q0162

== ENCOUNTER 2017-10-12 12:25 | Emergency (ER) | payer OTHER ==
[2017-10-12] MEDS ORDERED: Ketorolac Tromethamine 30 MG/ML VIAL ONE (13:37)
[2017-10-12] MEDS ORDERED: HYDROcodone/Acetaminophen 10/325 mg Tablet ONE (14:00)
--- NOTE | 2017-10-12 15:32 | RAD ---
RIGHT FOREARM TWO VIEWS: 10/12/17 HISTORY: Right forearm pain. FINDINGS/IMPRESSION: There is a mildly displaced fracture involving the distal metaphysis of the right radius. POS: [facility]
--- NOTE | 2017-10-12 15:33 | RAD ---
RIGHT HAND THREE VIEWS: 10/12/17 HISTORY: Right wrist pain. FINDINGS/IMPRESSION: There is a fracture involving the distal radial metaphysis. The bones of the hand appear intact. POS: [facility]
--- NOTE | 2017-10-12 15:33 | RAD ---
RIGHT WRIST THREE VIEWS 10/12/17 HISTORY: Right wrist pain. FINDINGS/IMPRESSION: There is a fracture involving the distal radial metaphysis with mild displacement. POS: [facility]
== END 2017-10-12 15:12 | disposition home or self-care (01) ==
LOC: ERS 12:25
DX: S52.501A Unspecified fracture of the lower end of right radius, initial encounter for closed fracture (principal); E11.9 Type 2 diabetes mellitus without complications; I10 Essential (primary) hypertension; G43.909 Migraine, unspecified, not intractable, without status migrainosus; F41.9 Anxiety disorder, unspecified; F32.9 Major depressive disorder, single episode, unspecified; Z79.899 Other long term (current) drug therapy; W06.XXXA Fall from bed, initial encounter
CPT/HCPCS: 29125; 96372; J1885

== ENCOUNTER 2017-12-24 11:02 | Day surgery (SDC) | payer OTHER ==
[2017-12-23 15:37] VITALS: BMI 32.1
[2017-12-24] MEDS ORDERED: Fentanyl 100 MCG/2 ML VIAL ONE ×2 (12:10→13:01)
[2017-12-24] MEDS ORDERED: Midazolam HCl 2 mg/2 ml Vial ONE ×2 (12:10→12:59)
[2017-12-24] MEDS ORDERED: Clindamycin/D5W 600 mg/50 ml Premix Bag ONE (12:14)
[2017-12-24] MEDS ORDERED: Ondansetron HCl/PF 4 MG/2 ML Vial IVP PRN (13:38)
[2017-12-24] MEDS ORDERED: Ropivacaine HCl/PF 1,000 MG in Sodium Chloride 0.9% 400 ML NERVE BLCK SCH ×2 (13:38→14:00)
[2017-12-24] MEDS ORDERED: Promethazine HCl 25 MG/ML VIAL IM PRN (13:38)
[2017-12-24] MEDS ORDERED: Ketorolac Tromethamine 30 MG/ML VIAL IVP PRN (13:38)
[2017-12-24] MEDS ORDERED: traMADol HCl 50 MG TAB PO PRN ×2 (13:38)
[2017-12-24] MEDS ORDERED: Zolpidem Tartrate 5 MG TAB PO PRN (13:38)
[2017-12-24] MEDS ORDERED: HYDROcodone/Acetaminophen 10/325 mg Tablet PO PRN ×2 (13:38)
[2017-12-24] MEDS ORDERED: Fentanyl 100 MCG/2 ML VIAL IV PRN (13:40)
[2017-12-24] MEDS ORDERED: ROPIVACAINE HCL NERVE BLCK SCH (14:00)
[2017-12-24] MEDS ORDERED: SODIUM CHLORIDE NERVE BLCK SCH (14:00)
[2017-12-24] MEDS ORDERED: ADMIXTURE FEE NERVE BLCK SCH (14:00)
--- NOTE | 2017-12-24 15:55 | RAD ---
TWO VIEWS OF THE RIGHT FOREARM 12/24/17 COMPARISON: 12/08/17 HISTORY: ORIF of distal forearm fracture. FINDINGS/IMPRESSION: Two limited intraoperative fluoroscopic views of the right forearm were submitted for interpretation. The patient has a fracture of the distal radius which appears to be healing. There is a plate and sc rew spanning a fracture of the distal diaphysis of the ulnar. No perihardware lucency is identified. POS: [facility]
--- NOTE | 2017-12-24 19:43 | OP ---
DATE OPERATION: 12/24/2017 OPERATION: Right ulnar shortening osteotomy. PREOPERATIVE DIAGNOSIS: Radial shortening secondary to fracture with ulnar positive variance. POSTOPERATIVE DIAGNOSIS: Radial shortening secondary to fracture with ulnar positive variance. COMPLICATIONS: None. ESTIMATED BLOOD LOSS: Minimal. SURGEON: Antonio Meza M.D. REVENUE ENFORCEMENT COLLECTION AGENT: Denis Santana PA-C. IMPLANTS: A Synthes 3.5 mm LCDC plate x6 hole. INDICATIONS: Ms. Small is a 52-year-old female who fell. She fractured her distal radius. This hea led in a shortened position and she had ulnar positive variance with chronic pain. She was indicated for ulnar shortening osteotomy to rebalance the wrist. Risks have been reviewed which do include on going pain, nerve or vascular injury, nonunion, malunion, hardware complications and others. DESCRIPTION OF PROCEDURE: Ms. Small was identified in the preoperative holding area. Her correct ex tremity was marked. She was carried to the operating room. She was positioned supine. General anes thesia was induced. A multidisciplinary timeout was performed. The right upper extremity was preppe d and draped in sterile fashion. We began the procedure with a lateral incision over the ulna. We d issected down through the subcutaneous tissues to the bony level. We cleared the dorsal surface of t he ulna. At this point, we made 2 boat pilot drill holes for our screw fixation. Next, we measured appro priate length of the ulna based on the patient's contralateral x-ray. We decided to remove 1 cm of t he ulnar bone. This was measured at the diaphysis of the ulna. We then resected this with an oscill ating saw. We protected the soft tissue structures. Next, we placed our push pull guide from Martha long along the proximal fragment of the ulna using a screw outside of the plate. We compressed the oste otomy site. We then placed multiple screws in an eccentric position allowing further compression of our osteotomy through our plate. Six screws were placed. We took x-ray images confirming hardware p lacement. There were no complications. The ulna was of appropriate length when we were finished. A t this point, we thoroughly irrigated with copious lavage. We then closed with 0 Vicryl suture, 2-0 Vicryl suture, and then vani for the skin. A splint was placed.
== END 2017-12-24 16:35 | disposition home or self-care (01) ==
LOC: SDC 11:02
PROVIDERS: ATTEND Orthopaedic Surgery
PROC: 0PBK0ZZ Excision of Right Ulna, Open Approach (ICD-10-PCS; principal; 2017-12-24)
DX: S52.91XA Unspecified fracture of right forearm, initial encounter for closed fracture (principal); I10 Essential (primary) hypertension; E11.9 Type 2 diabetes mellitus without complications; K21.9 Gastro-esophageal reflux disease without esophagitis; G43.909 Migraine, unspecified, not intractable, without status migrainosus; Z79.899 Other long term (current) drug therapy; Z88.0 Allergy status to penicillin; Z88.8 Allergy status to other drugs, medicaments and biological substances; Z99.89 Dependence on other enabling machines and devices; W19.XXXA Unspecified fall, initial encounter
CPT/HCPCS: 76001; C1713; J2250; J3010; J3490; J7050

== ENCOUNTER 2017-12-30 14:55 | Emergency (ER) | payer OTHER ==
[2017-12-30] MEDS ORDERED: Acetaminophen/Codeine 30-300mg Tablet ONE (17:30)
--- NOTE | 2017-12-30 17:30 | RAD ---
TWO VIEWS RIGHT FOREARM: HISTORY: Postoperative radiograph. TECHNIQUE: AP and lateral views of the right forearm are obtained. FINDINGS: Images demonstrate a distal right radial fracture. This appears to be slightly laterally and dorsall y displaced. There is a plate and screws across the distal shaft of the right ulna. Osteotomy changes, as well as plates and screws are in place. IMPRESSION: Postoperative changes seen in the distal right forearm. POS: [facility]
[2017-12-30] MEDS ORDERED: Ketorolac Tromethamine 60 MG/2 ML VIAL ONE (17:59)
== END 2017-12-30 18:26 | disposition home or self-care (01) ==
LOC: ERS 14:55
DX: T84.84XA Pain due to internal orthopedic prosthetic devices, implants and grafts, initial encounter (principal); E11.9 Type 2 diabetes mellitus without complications; I10 Essential (primary) hypertension; G43.909 Migraine, unspecified, not intractable, without status migrainosus; F41.9 Anxiety disorder, unspecified; F32.9 Major depressive disorder, single episode, unspecified; Z79.899 Other long term (current) drug therapy
CPT/HCPCS: 29125; 96372; J1885

== ENCOUNTER 2018-01-27 06:56 | Emergency (ER) | payer OTHER ==
[2018-01-27] MEDS ORDERED: Metoclopramide HCl 10 MG/2 ML VIAL ONE (08:17)
[2018-01-27] MEDS ORDERED: Ketorolac Tromethamine 30 MG/ML VIAL ONE (08:17)
[2018-01-27] MEDS ORDERED: diphenhydrAMINE 50 MG/ML VIAL ONE (08:17)
[2018-01-27] MEDS ORDERED: methylPREDNISolone Sod Succ/PF 125 MG/2 ML VIAL ONE (09:47)
[2018-01-27] MEDS ORDERED: Magnesium Sulfate 2 GM/100 ML BAG ONE (09:49)
== END 2018-01-27 10:55 | disposition home or self-care (01) ==
LOC: ERS 06:56
DX: G43.909 Migraine, unspecified, not intractable, without status migrainosus (principal); E11.9 Type 2 diabetes mellitus without complications; I10 Essential (primary) hypertension; F41.9 Anxiety disorder, unspecified; F32.9 Major depressive disorder, single episode, unspecified; Z79.899 Other long term (current) drug therapy
CPT/HCPCS: 96365; 96367; 96375; J1200; J1885; J2765; J2930; J3475

== ENCOUNTER 2018-04-03 08:46 | Outpatient (CLI) | payer OTHER ==
[2018-04-03] MEDS ORDERED: ISOVUE-370 76%-LOCM 1 ML ONE (12:48)
== END 2018-04-03 08:47 | disposition home or self-care (01) ==
LOC: BICCT 08:46
PROVIDERS: ATTEND Internal Medicine Gastroenterology
DX: R10.13 Epigastric pain (principal); K21.0 Gastro-esophageal reflux disease with esophagitis; Z87.19 Personal history of other diseases of the digestive system; Z98.84 Bariatric surgery status
CPT/HCPCS: 74177

== ENCOUNTER 2018-04-08 03:35 | Emergency (ER) | payer OTHER ==
[2018-04-08] MEDS ORDERED: diphenhydrAMINE 50 MG/ML VIAL ONE ×2 (04:16→07:28)
[2018-04-08] MEDS ORDERED: Metoclopramide HCl 10 MG/2 ML VIAL ONE (04:16)
[2018-04-08] MEDS ORDERED: Acetaminophen 500 MG TAB ONE (04:16)
[2018-04-08] MEDS ORDERED: Ketorolac Tromethamine 30 MG/ML VIAL ONE (04:16)
[2018-04-08] MEDS ORDERED: Magnesium Sulfate 2 GM/100 ML BAG ONE (07:28)
[2018-04-08] MEDS ORDERED: methylPREDNISolone Sod Succ/PF 125 MG/2 ML VIAL ONE (07:28)
[2018-04-08] MEDS ORDERED: Water For Inject, Bacteriostat 30 ML ONE (07:28)
== END 2018-04-08 08:04 | disposition home or self-care (01) ==
LOC: ERS 03:35
DX: G43.909 Migraine, unspecified, not intractable, without status migrainosus (principal); E11.9 Type 2 diabetes mellitus without complications; I10 Essential (primary) hypertension; F41.9 Anxiety disorder, unspecified; F32.9 Major depressive disorder, single episode, unspecified; Z79.899 Other long term (current) drug therapy
CPT/HCPCS: 96365; 96367; 96375; 96376; J1200; J1885; J2765; J2930; J3475

== ENCOUNTER 2018-04-08 19:16 | Emergency (ER) | payer OTHER ==
[2018-04-08] MEDS ORDERED: Haloperidol Lactate 5 MG/ML VIAL ONE (21:18)
[2018-04-08] MEDS ORDERED: Acetaminophen 500 MG TAB ONE (21:18)
== END 2018-04-08 22:10 | disposition home or self-care (01) ==
LOC: ERS 19:16
DX: R51 Headache (principal); F41.9 Anxiety disorder, unspecified; F32.9 Major depressive disorder, single episode, unspecified; I10 Essential (primary) hypertension; E11.9 Type 2 diabetes mellitus without complications; Z79.891 Long term (current) use of opiate analgesic; Z79.899 Other long term (current) drug therapy
CPT/HCPCS: 96372; J1630

== ENCOUNTER 2018-05-05 08:04 | Outpatient (CLI) | payer OTHER ==
--- NOTE | 2018-05-05 14:09 | RAD ---
UPPER GI AND SMALL BOWEL FOLLOW THROUGH: DATE: 05/05/18. HISTORY: History of gastroesophageal reflux disease. History of gastric bypass and intestinal obstruction. I ntractable reflux symptoms. FLUOROSCOPY: Total fluoroscopy time is 1.7 minutes with a total dose of 64.8 uGy*^cm2. FINDINGS: The esophagus has a normal appearance without evidence of a mucosal irregularity. There is no eviden ce of a hiatal hernia. There are postsurgical changes related to gastric bypass procedure, and contr ast does traverse the GE junction and to the small intestine without evidence of holdup. There are p rominent loops of small bowel seen within the mid abdomen, but this finding was also seen on the CT s can examination obtained at [facility] [place] on 04/03/18 and was in the servando on of postsurgical change related to the small bowel anastomosis. There is mild reflux into the duod enum and in the region of the pylorus of the gastric remnant. No additional dilated loops of small b owel are seen. No definite filling defect is seen. Proximal transit time of contrast through the sm all bowel is 1 hour. No gastroesophageal reflux was demonstrated during this examination. IMPRESSION: 1. Postsurgical changes related to gastric bypass procedure. There is no holdup or obstruction at t he level of postsurgical changes. Prominent loops of small bowel in the left mid abdomen are noted i n the region of small bowel anastomosis which were also seen on prior CT exam and likely related to p rior postsurgical changes. There is no evidence of obstruction at this level. 2. Approximate transit time of contrast through the small bowel is 1 hour. POS: [facility]
== END 2018-05-05 08:05 | disposition home or self-care (01) ==
LOC: RAD 08:04
PROVIDERS: ATTEND Internal Medicine Gastroenterology
DX: R93.3 Abnormal findings on diagnostic imaging of other parts of digestive tract (principal); K21.0 Gastro-esophageal reflux disease with esophagitis; Z87.19 Personal history of other diseases of the digestive system; Z98.84 Bariatric surgery status
CPT/HCPCS: 74245

== ENCOUNTER 2018-05-09 14:38 | Emergency (ER) | payer OTHER ==
[2018-05-09 17:22] LABS: #Basophils 0.1 thou/uL (0.0-0.2); #Eosinphils 0.2 thou/uL (0.0-0.7); #Lymphocytes 2.8 thou/uL (1.20-3.40); #Monocytes 0.5 thou/uL (0.11-0.59); #Neutrophils 3.7 thou/uL (1.40-6.50); %Basophils 1.4 % (0.0-1.0); %Eosinophils 2.4 % (0.0-10.0); %Lymphocytes 38.3 % (21.0-51.0); %Monocytes 6.8 % (0.0-10.0); %Neutrophils 51.1 % (42.0-75.0); Hemoglobin 12.3 g/dL (12.0-16.0); Mean Corpuscular Hemoglobin 30.6 pg (27.0-31.0); Mean Corpuscular Volume 95.7 fL (78.0-98.0); Mean Platelet Volume 9.7 fL (7.4-10.4); Platelet Count 218 thou/uL (130-400); RBC Distribution Width 11.8 % (11.5-14.5); Red Blood Cell (RBC) Count 4.02 mill/uL (4.20-5.40); White Blood Cell (WBC) Count 7.2 thou/uL (4.8-10.8)
[2018-05-09 17:42] LABS: ALT (SGPT) 17 U/L (8-55); AST (SGOT) 22 U/L (5-34); Albumin 4.1 g/dL (3.5-5.0); Alkaline Phosphatase 58 U/L (40-150); Anion Gap 15 mmol/L (10-20); BUN (Urea Nitrogen) 18 mg/dL (9.8-20.1); Bilirubin, Total 0.3 mg/dL (0.2-1.2); Calc. Creatinine Clearance 0 mL/min (70-130); Calcium 9.7 mg/dL (7.8-10.44); Carbon Dioxide 22 mmol/L (22-29); Chloride 108 mmol/L (98-107); Estimated GFR-MDRD 86; Globulin 3.2 g/dL (2.4-3.5); Glucose 89 mg/dL (70-105); Potassium 4.7 mmol/L (3.5-5.1); Protein, Total 7.3 g/dL (6.0-8.3); Sodium 140 mmol/L (136-145)
[2018-05-09] MEDS ORDERED: Acetaminophen 500 MG TAB ONE (19:30)
[2018-05-09] MEDS ORDERED: Metoclopramide HCl 10 MG/2 ML VIAL ONE (19:30)
[2018-05-09] MEDS ORDERED: diphenhydrAMINE 50 MG/ML VIAL ONE (19:30)
--- NOTE | 2018-05-09 21:01 | CT ---
CT OF BRAIN PERFORMED WITHOUT CONTRAST ENHANCEMENT: 05/09/18 HISTORY: Headache. COMPARISON: 10/06/17 study. Ventricular and cisternal system is within normal limits. There are no signs of intracerebral hemorrh age or extra-axial fluid collections. The mastoid air cells and visualized sinuses are clear. IMPRESSION: No acute intracranial abnormalities. POS: [facility]
[2018-05-09] MEDS ORDERED: Magnesium Sulfate 2 GM/100 ML BAG ONE (21:07)
[2018-05-09] MEDS ORDERED: Haloperidol Lactate 5 MG/ML VIAL ONE (21:18)
== END 2018-05-09 22:26 | disposition home or self-care (01) ==
LOC: ERS 14:38
DX: R51 Headache (principal); E11.9 Type 2 diabetes mellitus without complications; I10 Essential (primary) hypertension; F41.9 Anxiety disorder, unspecified; Z79.891 Long term (current) use of opiate analgesic; Z79.899 Other long term (current) drug therapy
CPT/HCPCS: 36415; 70450; 80053; 85025; 96365; 96367; 96375; J1200; J1630; J2765; J3475

== ENCOUNTER 2018-06-04 12:33 | Emergency (ER) | payer OTHER ==
[2018-06-04] MEDS ORDERED: Acetaminophen 500 MG TAB ONE (13:10)
[2018-06-04] MEDS ORDERED: diphenhydrAMINE 50 MG/ML VIAL ONE (13:10)
[2018-06-04] MEDS ORDERED: Metoclopramide HCl 10 MG/2 ML VIAL ONE (13:10)
[2018-06-04] MEDS ORDERED: Dexamethasone 10 MG/ML VIAL ONE (13:10)
[2018-06-04] MEDS ORDERED: Ketorolac Tromethamine 30 MG/ML VIAL ONE (13:10)
[2018-06-04] MEDS ORDERED: diphenhydrAMINE 25 MG CAP ONE (13:29)
[2018-06-04] MEDS ORDERED: Haloperidol Lactate 5 MG/ML VIAL ONE (15:43)
[2018-06-04] MEDS ORDERED: Diazepam 5 MG TAB ONE (15:48)
== END 2018-06-04 16:23 | disposition home or self-care (01) ==
LOC: ERS 12:33
DX: G43.909 Migraine, unspecified, not intractable, without status migrainosus (principal); E11.9 Type 2 diabetes mellitus without complications; F32.9 Major depressive disorder, single episode, unspecified; F41.9 Anxiety disorder, unspecified; I10 Essential (primary) hypertension; Z79.899 Other long term (current) drug therapy
CPT/HCPCS: 96372; J1100; J1200; J1630; J1885; J2765

== ENCOUNTER 2018-08-01 00:10 | Emergency (ER) | payer OTHER ==
[2018-08-01] MEDS ORDERED: HYDROcodone/Acetaminophen 5/325 mg Tablet ONE (00:34)
[2018-08-01] MEDS ORDERED: Ondansetron ODT 8 MG TAB ONE (00:34)
[2018-08-01] MEDS ORDERED: Ketorolac Tromethamine 60 MG/2 ML VIAL ONE (00:34)
[2018-08-01] MEDS ORDERED: Acetaminophen 500 MG TAB ONE (00:34)
[2018-08-01] MEDS ORDERED: Dexamethasone 10 MG/ML VIAL ONE (00:34)
[2018-08-01] MEDS ORDERED: diphenhydrAMINE 50 MG CAP ONE (00:34)
[2018-08-01] MEDS ORDERED: Haloperidol Lactate 5 MG/ML VIAL ONE (01:10)
== END 2018-08-01 01:33 | disposition home or self-care (01) ==
LOC: ERS 00:10
DX: G43.909 Migraine, unspecified, not intractable, without status migrainosus (principal); I10 Essential (primary) hypertension; F41.9 Anxiety disorder, unspecified; F32.9 Major depressive disorder, single episode, unspecified; E11.9 Type 2 diabetes mellitus without complications; Z79.899 Other long term (current) drug therapy; Z79.891 Long term (current) use of opiate analgesic
CPT/HCPCS: 96372; J1100; J1630; J1885

== ENCOUNTER 2018-10-22 17:09 | Emergency (ER) | payer OTHER ==
[2018-10-22] MEDS ORDERED: Promethazine HCl 25 MG/ML VIAL ONE (17:47)
[2018-10-22] MEDS ORDERED: diphenhydrAMINE 50 MG/ML VIAL ONE (18:05)
[2018-10-22] MEDS ORDERED: Metoclopramide HCl 10 MG/2 ML VIAL ONE (18:05)
[2018-10-22] MEDS ORDERED: Ketorolac Tromethamine 30 MG/ML VIAL ONE (19:20)
[2018-10-22] MEDS ORDERED: methylPREDNISolone Sod Succ/PF 125 MG/2 ML VIAL ONE (19:20)
[2018-10-22] MEDS ORDERED: Magnesium 2 GM/50 ML BAG (IN WATER) ONE (19:43)
[2018-10-22] MEDS ORDERED: Haloperidol Lactate 5 MG/ML VIAL ONE (20:25)
== END 2018-10-22 20:34 | disposition home or self-care (01) ==
LOC: ERS 17:09
DX: R51 Headache (principal); E11.9 Type 2 diabetes mellitus without complications; I10 Essential (primary) hypertension; F41.9 Anxiety disorder, unspecified; F32.9 Major depressive disorder, single episode, unspecified; Z79.899 Other long term (current) drug therapy
CPT/HCPCS: 96365; 96366; 96368; 96375; J1200; J1630; J1885; J2550; J2765; J2930; J3475

== ENCOUNTER 2018-11-06 08:28 | Outpatient (CLI) | payer OTHER ==
--- NOTE | 2018-11-06 11:47 | RAD ---
DOUBLE CONTRAST UPPER GI: INDICATIONS: History of Benoit-en-Y gastric bypass. Concern for fistulous communication between gastric pouch and e xcluded stomach. The patient is also having some reflux symptoms and esophagitis symptoms. COMPARISON: Prior upper GI evaluation on 05/05/2018. FINDINGS: Again seen are post surgical changes, consistent with a Benoit-en-Y gastric bypass. Contrast is seen t o fill the gastric pouch and empty immediately, across gastrojejunal anastomosis and into the jejunum . There was no kelvin intraluminal mass or ulceration demonstrated. The visualized distal esophagus demonstrated a normal mucosal pattern and contour. There are numerous tertiary contractions involvin g the mid to distal esophagus, which can be seen with esophagitis or presbyesophagus. No hiatal makayla ia was evident. No gastroesophageal reflux was elicited with the Valsalva maneuvers. Additional man euvers were performed in the supine position, to interrogate for the presence of a gastric fistula be tween the gastric pouch and residual stomach. No fistula was demonstrated. There was reflux of cont rast into the excluded duodenal loop, at the later portions of the examination. IMPRESSION: 1. Tertiary contractions of the mid to distal esophagus can be seen with esophagitis or presbyesopha kay. No intraluminal mass, stricture, or gross ulceration is evident within the esophagus. 2. Post surgical change of a Benoit-en-Y gastric bypass, without visualization of a fistula between th e gastric pouch and excluded stomach. POS: [facility]
== END 2018-11-06 08:29 | disposition home or self-care (01) ==
LOC: RAD 08:28
DX: K21.9 Gastro-esophageal reflux disease without esophagitis (principal); R13.10 Dysphagia, unspecified; R14.0 Abdominal distension (gaseous); K22.8 Other specified diseases of esophagus; Z98.84 Bariatric surgery status
CPT/HCPCS: 74247

== ENCOUNTER 2018-11-17 12:22 | Emergency (ER) | payer OTHER ==
[2018-11-17 14:13] LABS: #Eosinphils 0.1 thou/uL (0.0-0.7); #Lymphocytes 1.4 thou/uL (1.20-3.40); #Monocytes 0.6 thou/uL (0.11-0.59); #Neutrophils 3.9 thou/uL (1.40-6.50); %Basophils 0.3 % (0.0-1.0); %Eosinophils 1.5 % (0.0-10.0); %Lymphocytes 23.5 % (21.0-51.0); %Monocytes 9.6 % (0.0-10.0); %Neutrophils 65.2 % (42.0-75.0); Hemoglobin 11.4 g/dL (12.0-16.0); Mean Corpuscular HGB CONC 31.4 g/dL (32.0-36.0); Mean Corpuscular Hemoglobin 31.2 pg (27.0-31.0); Mean Corpuscular Volume 99.1 fL (78.0-98.0); Mean Platelet Volume 8.7 fL (7.4-10.4); Platelet Count 209 thou/uL (130-400); RBC Distribution Width 12.4 % (11.5-14.5); Red Blood Cell (RBC) Count 3.65 mill/uL (4.20-5.40)
--- NOTE | 2018-11-17 14:25 | RAD ---
FExam: Chest one view HISTORY:Weakness Comparison: None available FINDINGS: Lungs: Mild patchy left lateral basilar density Cardiac silhouette:Accentuated by technique Pulmonary vessels: Mild prominence Pleural Spaces: Clear Pneumothorax: None Osseous abnormalities: None IMPRESSION: Mild patchy left lateral basilar density, which could relate to a small area of consolida tion. Recommend follow-up 2 view chest.
[2018-11-17 14:28] LABS: ALT (SGPT) 19 U/L (8-55); AST (SGOT) 30 U/L (5-34); Alkaline Phosphatase 53 U/L (40-150); Anion Gap 12 mmol/L (10-20); BUN (Urea Nitrogen) 11 mg/dL (9.8-20.1); Bilirubin, Total 0.4 mg/dL (0.2-1.2); CK (CPK) 139 U/L (29-168); Calc. Creatinine Clearance 0 mL/min (70-130); Calcium 9.1 mg/dL (7.8-10.44); Carbon Dioxide 24 mmol/L (22-29); Chloride 110 mmol/L (98-107); Estimated GFR-MDRD 82; Globulin 2.7 g/dL (2.4-3.5); Glucose 113 mg/dL (70-105); Potassium 4.3 mmol/L (3.5-5.1); Protein, Total 6.7 g/dL (6.0-8.3); Sodium 142 mmol/L (136-145)
[2018-11-17] MEDS ORDERED: Ketorolac Tromethamine 30 MG/ML VIAL ONE (16:27)
[2018-11-17] MEDS ORDERED: Metoclopramide HCl 10 MG/2 ML VIAL ONE (16:27)
[2018-11-17] MEDS ORDERED: diphenhydrAMINE 50 MG/ML VIAL ONE (16:29)
[2018-11-17] MEDS ORDERED: Haloperidol Lactate 5 MG/ML VIAL ONE (16:38)
[2018-11-17] MEDS ORDERED: Dexamethasone 4 mg/ml Vial ONE (16:38)
== END 2018-11-17 17:28 | disposition home or self-care (01) ==
LOC: ERS 12:22
DX: R51 Headache (principal); R53.1 Weakness; K21.9 Gastro-esophageal reflux disease without esophagitis; E11.9 Type 2 diabetes mellitus without complications; F41.9 Anxiety disorder, unspecified; F32.9 Major depressive disorder, single episode, unspecified; Z79.899 Other long term (current) drug therapy
CPT/HCPCS: 36415; 71045; 80053; 82550; 83880; 84484; 85025; 93005; 96361; 96374; 96375; J1100; J1200; J1630; J1885; J2765

== ENCOUNTER 2018-11-25 17:05 | Emergency (ER) | payer OTHER ==
[~2018-11-25 17:05] MED LIST: ISOVUE-370 76%-LOCM 1 ML ONE
[2018-11-25] MEDS ORDERED: Methocarbamol 1 GM in Sodium Chloride 0.9% 250 ML 250 ML IVPB SCH (17:45)
[2018-11-25] MEDS ORDERED: Acetaminophen 1,000 MG in Premix Bag 1 BAG IVPB SCH (17:45)
[2018-11-25 18:30] LABS: #Basophils 0.1 thou/uL (0.0-0.2); #Eosinphils 0.1 thou/uL (0.0-0.7); #Lymphocytes 2.1 thou/uL (1.20-3.40); #Monocytes 0.7 thou/uL (0.11-0.59); #Neutrophils 3.6 thou/uL (1.40-6.50); %Basophils 0.8 % (0.0-1.0); %Lymphocytes 31.6 % (21.0-51.0); %Neutrophils 54.7 % (42.0-75.0); Hemoglobin 11.5 g/dL (12.0-16.0); Mean Corpuscular HGB CONC 30.8 g/dL (32.0-36.0); Platelet Count 232 thou/uL (130-400); RBC Distribution Width 12.3 % (11.5-14.5); Red Blood Cell (RBC) Count 3.71 mill/uL (4.20-5.40); White Blood Cell (WBC) Count 6.7 thou/uL (4.8-10.8)
--- NOTE | 2018-11-25 18:36 | CT ---
CT BRAIN WITHOUT CONTRAST: HISTORY:Trauma to the head with loss of consciousness. Headache COMPARISON:05/09/2018 FINDINGS: No evidence of acute infarct, hemorrhage, midline shift or abnormal extra-axial fluid collections is seen. The ventricular size is appropriate and the basilar cisterns are patent. The bony calvarium is intact. The visualized paranasal sinuses and mastoid air cells are well aerated. IMPRESSION: No CT evidence of acute intracranial process.
--- NOTE | 2018-11-25 18:39 | CT ---
CT CERVICAL SPINE WITH CORONAL AND SAGITTAL REFORMATIONS AND NO IV CONTRAST: HISTORY: Trauma, neck pain FINDINGS: There is loss of cervical lordosis with straightening of the cervical spine. Degenerative changes are present. No acute fracture, subluxation or facet malalignment is identified.
[2018-11-25 18:49] LABS: BHCG - Serum Negative (NEGATIVE); Pregs Control Background? CLEAR/WHITE (CLR/WHITE); Pregs Control Bar Appear? YES (CONTROL BAR)
[2018-11-25 18:54] LABS: ALT (SGPT) 19 U/L (8-55); AST (SGOT) 34 U/L (5-34); Alkaline Phosphatase 58 U/L (40-150); Anion Gap 12 mmol/L (10-20); BUN (Urea Nitrogen) 11 mg/dL (9.8-20.1); Bilirubin, Total 0.2 mg/dL (0.2-1.2); CK (CPK) 80 U/L (29-168); Calc. Creatinine Clearance 0 mL/min (70-130); Calcium 9.4 mg/dL (7.8-10.44); Carbon Dioxide 23 mmol/L (22-29); Chloride 110 mmol/L (98-107); Estimated GFR-MDRD 84; Globulin 2.8 g/dL (2.4-3.5); Glucose 121 mg/dL (70-105); Potassium 4.3 mmol/L (3.5-5.1); Protein, Total 6.8 g/dL (6.0-8.3); Sodium 141 mmol/L (136-145)
--- NOTE | 2018-11-25 21:05 | CT ---
CT CHEST WITH IV CONTRAST CT ABDOMEN WITH IV CONTRAST CT PELVIS WITH IV CONTRAST CORONAL AND SAGITTAL REFORMATIONS OF THE THORACOLUMBAR SPINE 11/25/18 HISTORY: Trauma, chest and abdominal pain. FINDINGS: No mediastinal hematoma or intimal flap in the aorta is seen to suggest transection. No pleural or pe ricardial effusions are identified. No pneumothoraces are seen. There are mild patchy infiltrates in the lower lung zones, left greater than right. The liver, spleen, pancreas, adrenal glands and kidneys are intact. No free air or free fluid is seen in the abdomen or pelvis. There is fecal material in the rectum and colon. Postop changes are seen i n the stomach. There are degenerative changes in the thoracolumbar spine with mild S-shaped scoliosis. No acute frac ture or subluxation is seen. The urinary bladder is intact. There is mild edema/induration of the sub cutaneous fat of the lower abdominal wall. IMPRESSION: 1. Mild bilateral lung infiltrates. 2. No CT evidence of solid organ injury. POS: [facility]
[2018-11-25] MEDS ORDERED: Azithromycin 250 MG TAB ONE (21:53)
--- NOTE | 2018-11-29 15:34 | EKG ---
Test Reason : Blood Pressure : / mmHG Vent. Rate : 088 BPM Atrial Rate : 088 BPM P-R Int : 154 ms QRS Dur : 084 ms QT Int : 360 ms P-R-T Axes : 040 017 049 degrees QTc Int : 435 ms Normal sinus rhythm Minimal voltage criteria for LVH, may be normal variant Borderline ECG Confirmed by JOSE LUIS CAMPBELL ([id number]), index editor ADAN OGLESBY ([id number]) on 11/29/2018 3:34:01 PM Referred By: Confirmed By:JOSE LUIS CAMPBELL
== END 2018-11-25 22:31 | disposition home or self-care (01) ==
LOC: ERS 17:05
DX: M54.2 Cervicalgia (principal); R91.8 Other nonspecific abnormal finding of lung field; K21.9 Gastro-esophageal reflux disease without esophagitis; M06.9 Rheumatoid arthritis, unspecified; E11.9 Type 2 diabetes mellitus without complications; G43.909 Migraine, unspecified, not intractable, without status migrainosus; F41.9 Anxiety disorder, unspecified; F32.9 Major depressive disorder, single episode, unspecified; Z79.899 Other long term (current) drug therapy; W07.XXXA Fall from chair, initial encounter
CPT/HCPCS: 36415; 70450; 71260; 72125; 74177; 80053; 82550; 84484; 84703; 85025; 93005; 96361; 96365; 96367; J0131; J2800; J7050; Q9966

== ENCOUNTER 2018-11-29 12:36 | Emergency (ER) | payer OTHER ==
[2018-11-29] MEDS ORDERED: Lidocaine 1% w/Epinephrine 1:100K 20 ML VIAL ONE (13:26)
[2018-11-29 13:36] LABS: #Basophils 0.1 thou/uL (0.0-0.2); #Eosinphils 0.1 thou/uL (0.0-0.7); #Lymphocytes 1.4 thou/uL (1.20-3.40); #Monocytes 0.5 thou/uL (0.11-0.59); #Neutrophils 3.5 thou/uL (1.40-6.50); %Basophils 1.5 % (0.0-1.0); %Eosinophils 1.7 % (0.0-10.0); %Lymphocytes 25.9 % (21.0-51.0); %Monocytes 8.5 % (0.0-10.0); %Neutrophils 62.4 % (42.0-75.0); Mean Corpuscular HGB CONC 32.4 g/dL (32.0-36.0); Mean Corpuscular Hemoglobin 32.3 pg (27.0-31.0); Mean Corpuscular Volume 99.7 fL (78.0-98.0); Mean Platelet Volume 7.9 fL (7.4-10.4); Platelet Count 232 thou/uL (130-400); RBC Distribution Width 12.4 % (11.5-14.5); Red Blood Cell (RBC) Count 3.72 mill/uL (4.20-5.40); White Blood Cell (WBC) Count 5.5 thou/uL (4.8-10.8)
--- NOTE | 2018-11-29 13:48 | CT ---
CT OF THE BRAIN WITHOUT CONTRAST: Date: 11/29/18 INDICATION: History of fall with head injury. COMPARISON: Prior exam dated 11/25/18. FINDINGS: No acute infarct, hemorrhage, or hydrocephalus is present. Septum pellucidum and third ventricle are midline. There is a mucus retention cyst within the left inferior maxillary sinus. Mastoid air cells are clear. Skull is intact. IMPRESSION: No acute intracranial abnormality. POS: [facility]
[2018-11-29 13:49] LABS: PTT 29.4 SEC (22.9-36.1); Prothrombin Time 13.6 SEC (12.0-14.7)
[2018-11-29 14:14] LABS: ALT (SGPT) 21 U/L (8-55); AST (SGOT) 48 U/L (5-34); Albumin 3.9 g/dL (3.5-5.0); Alcohol Less than 10 mg/dL (Less than 10); Alkaline Phosphatase 51 U/L (40-150); Anion Gap 16 mmol/L (10-20); BUN (Urea Nitrogen) 11 mg/dL (9.8-20.1); Bilirubin, Total 0.3 mg/dL (0.2-1.2); Calc. Creatinine Clearance 0 mL/min (70-130); Calcium 9.2 mg/dL (7.8-10.44); Carbon Dioxide 19 mmol/L (22-29); Chloride 110 mmol/L (98-107); Estimated GFR-MDRD 88; Globulin 3.8 g/dL (2.4-3.5); Glucose 139 mg/dL (70-105); Magnesium 2.7 mg/dL (1.6-2.6); Potassium 4.8 mmol/L (3.5-5.1); Protein, Total 7.7 g/dL (6.0-8.3); Sodium 140 mmol/L (136-145)
[2018-11-29 14:31] LABS: Bilirubin Negative (Negative); Blood, Urine Negative (Negative); Clarity CLEAR (Clear); Glucose, Urine (Dipstick) Negative (Negative); Leukocyte Negative (Negative); Nitrite Negative (Negative); Protein, Urine (Dipstick) Negative (Neg-Trace); Specific Gravity, Urine 1.005 (1.002-1.036)
[2018-11-29] MEDS ORDERED: Meclizine HCl 25 MG TAB ONE (14:34)
--- NOTE | 2018-11-29 14:43 | RAD ---
EXAM: Portable chest PROVIDED CLINICAL HISTORY: Syncope COMPARISON: 11/17/2018 FINDINGS: Cardiac and mediastinal silhouette is within normal limits. No focal consolidation, pleural fluid or pneumothorax evident. IMPRESSION: No evidence for an acute cardiopulmonary process.
[2018-11-29 14:52] LABS: Amphetamine Not Detected (NotDetected); Barbiturates Screen Detected (NotDetected); Benzodiazepine Screen Not Detected (NotDetected); Cocaine Metabolite Screen Not Detected (NotDetected); Medtox Control Line Valid? VALID (VALID); Medtox Reader # READER 4; Methadone Not Detected (NotDetected); Methamphetamine Not Detected (NotDetected); Opiate Screen Detected (NotDetected); Oxycodone Screen Not Detected (NotDetected); Phencyclidine (PCP) Not Detected (NotDetected); THC/Cannabinoid Screen Not Detected (NotDetected); Tricyclic Screen Detected (NotDetected)
[2018-11-29] MEDS ORDERED: Ketorolac Tromethamine 30 MG/ML VIAL ONE (16:14)
[2018-11-29] MEDS ORDERED: Acetaminophen 500 MG TAB ONE (18:15)
== END 2018-11-29 18:56 | disposition home or self-care (01) ==
LOC: ERS 12:36
DX: R55 Syncope and collapse (principal); S01.512A Laceration without foreign body of oral cavity, initial encounter; R42 Dizziness and giddiness; K21.9 Gastro-esophageal reflux disease without esophagitis; K58.9 Irritable bowel syndrome, unspecified; M06.9 Rheumatoid arthritis, unspecified; E11.9 Type 2 diabetes mellitus without complications; I10 Essential (primary) hypertension; G43.909 Migraine, unspecified, not intractable, without status migrainosus; F41.9 Anxiety disorder, unspecified; F32.9 Major depressive disorder, single episode, unspecified; Z79.899 Other long term (current) drug therapy; W18.30XA Fall on same level, unspecified, initial encounter
CPT/HCPCS: 12013; 36416; 40650; 70450; 71045; 80053; 80306; 80307; 81003; 83735; 83880; 84443; 84484; 85025; 85610; 85730; 93005; 96361; 96374; J1885; J2001; J8499

== ENCOUNTER 2018-12-03 20:49 | Emergency (ER) | payer OTHER ==
--- NOTE | 2018-12-03 21:42 | CT ---
EXAM: Brain CT scan Without contrast: HISTORY: Injury from a ground-level fall COMPARISON: 11/29/2018 FINDINGS: Atrophy and chronic white matter ischemic change. No focal mass or midline shift. No intra or extra-axial hemorrhage. IMPRESSION: No mass or bleed or other significant acute intracranial process.
[2018-12-03] MEDS ORDERED: Ketorolac Tromethamine 30 MG/ML VIAL ONE (22:07)
[2018-12-03] MEDS ORDERED: Ondansetron ODT 4 MG TAB ONE (22:07)
== END 2018-12-03 22:55 | disposition home or self-care (01) ==
LOC: ERS 20:49
DX: R51 Headache (principal); E11.9 Type 2 diabetes mellitus without complications; I10 Essential (primary) hypertension; F41.9 Anxiety disorder, unspecified; F32.9 Major depressive disorder, single episode, unspecified; Z79.899 Other long term (current) drug therapy; W22.8XXA Striking against or struck by other objects, initial encounter
CPT/HCPCS: 70450; 96372; J1885; Q0162

== ENCOUNTER 2018-12-04 18:15 | Inpatient (IN) | payer OTHER ==
[2018-12-04 19:28] LABS: #Lymphocytes 1.2 thou/uL (1.20-3.40); #Monocytes 0.6 thou/uL (0.11-0.59); #Neutrophils 9.9 thou/uL (1.40-6.50); %Basophils 0.1 % (0.0-1.0); %Eosinophils 0.3 % (0.0-10.0); %Lymphocytes 10.1 % (21.0-51.0); %Monocytes 4.9 % (0.0-10.0); %Neutrophils 84.5 % (42.0-75.0); Hemoglobin 11.9 g/dL (12.0-16.0); Mean Corpuscular HGB CONC 31.1 g/dL (32.0-36.0); Mean Corpuscular Hemoglobin 30.3 pg (27.0-31.0); Mean Corpuscular Volume 97.7 fL (78.0-98.0); Platelet Count 271 thou/uL (130-400); RBC Distribution Width 12.3 % (11.5-14.5); Red Blood Cell (RBC) Count 3.92 mill/uL (4.20-5.40); White Blood Cell (WBC) Count 11.7 thou/uL (4.8-10.8)
[2018-12-04 19:45] LABS: ALT (SGPT) 17 U/L (8-55); AST (SGOT) 31 U/L (5-34); Albumin 4.1 g/dL (3.5-5.0); Alkaline Phosphatase 61 U/L (40-150); Anion Gap 14 mmol/L (10-20); BUN (Urea Nitrogen) 10 mg/dL (9.8-20.1); Bilirubin, Total 0.4 mg/dL (0.2-1.2); Calc. Creatinine Clearance 0 mL/min (70-130); Calcium 9.4 mg/dL (7.8-10.44); Carbon Dioxide 25 mmol/L (22-29); Chloride 108 mmol/L (98-107); Estimated GFR-MDRD 80; Globulin 3.2 g/dL (2.4-3.5); Glucose 105 mg/dL (70-105); Potassium 4.3 mmol/L (3.5-5.1); Protein, Total 7.3 g/dL (6.0-8.3); Sodium 143 mmol/L (136-145)
[2018-12-04] MEDS ORDERED: Ketorolac Tromethamine 30 MG/ML VIAL ONE (20:38)
[2018-12-04 21:04] LABS: Acetaminophen Less than 6.0 mcg/mL (10.0-30.0); Alcohol Less than 10 mg/dL (Less than 10); Salicylate Less than 8.0 mg/dL (15.0-30.0)
[2018-12-04 21:09] LABS: Bilirubin Small (Negative); Blood, Urine Negative (Negative); Clarity CLEAR (Clear); Glucose, Urine (Dipstick) Negative (Negative); Leukocyte Negative (Negative); Nitrite Negative (Negative); Protein, Urine (Dipstick) Negative (Neg-Trace); Specific Gravity, Urine 1.013 (1.002-1.036); pH, Urine 6.5 (5.0-9.0)
[2018-12-04 21:23] LABS: Amphetamine Not Detected (NotDetected); Barbiturates Screen Detected (NotDetected); Benzodiazepine Screen Not Detected (NotDetected); Cocaine Metabolite Screen Not Detected (NotDetected); Medtox Control Line Valid? VALID (VALID); Medtox Reader # READER 4; Methadone Not Detected (NotDetected); Methamphetamine Not Detected (NotDetected); Opiate Screen Detected (NotDetected); Oxycodone Screen Not Detected (NotDetected); Phencyclidine (PCP) Not Detected (NotDetected); THC/Cannabinoid Screen Not Detected (NotDetected); Tricyclic Screen Detected (NotDetected)
[2018-12-05] MEDS ORDERED: Senokot S 8.6-50 MG TAB PO PRN (11:16)
--- NOTE | 2018-12-05 12:36 | CT ---
CT HEAD WITHOUT IV CONTRAST COMPARISON: 12/03/2018 HISTORY: Syncope after head injury. Chronic migraine headaches. TECHNIQUE: Axial CT imaging at 5 mm intervals from vertex through skull base without contrast FINDINGS: Mild cerebral volume loss is seen similar to prior study. There is no evidence of an acute infarction , hemorrhage, mass effect, or midline shift. The ventricular system is normal in size, shape, and position. Visualized paranasal sinuses are clear. Osseous structures appear intact. IMPRESSION: No acute intracranial abnormality demonstrated.
[2018-12-05] MEDS: HYDROcodone/Acetaminophen 5/325 mg Tablet PO PRN ×3 (13:18→21:09)
[2018-12-05] MEDS ORDERED: HumaLOG 300 UNITS/3 ML VIAL SC PRN ×2 (13:35)
[2018-12-05] MEDS ORDERED: Dextrose 5% in Water 1,000 ML IV PRN (13:35)
[2018-12-05] MEDS ORDERED: Dextrose 50% Abboject 50 ML SYRINGE SLOW IVP PRN (13:35)
[2018-12-05 14:17] LABS: #Eosinphils 0.1 thou/uL (0.0-0.7); #Lymphocytes 1.9 thou/uL (1.20-3.40); #Monocytes 0.7 thou/uL (0.11-0.59); #Neutrophils 8.5 thou/uL (1.40-6.50); %Basophils 0.3 % (0.0-1.0); %Eosinophils 0.9 % (0.0-10.0); %Lymphocytes 16.8 % (21.0-51.0); %Monocytes 6.2 % (0.0-10.0); %Neutrophils 75.8 % (42.0-75.0); Hemoglobin 11.2 g/dL (12.0-16.0); Mean Corpuscular HGB CONC 31.9 g/dL (32.0-36.0); Mean Corpuscular Hemoglobin 31.3 pg (27.0-31.0); Mean Corpuscular Volume 98.1 fL (78.0-98.0); Mean Platelet Volume 7.9 fL (7.4-10.4); Platelet Count 247 thou/uL (130-400); RBC Distribution Width 12.3 % (11.5-14.5); White Blood Cell (WBC) Count 11.2 thou/uL (4.8-10.8)
--- NOTE | 2018-12-05 14:17 | RAD ---
EXAM: CHEST ONE VIEW HISTORY: Dizziness. COMPARISON: 11/29/2018 FINDINGS: The cardiac silhouette and pulmonary vasculature is within normal limits. The lungs are clear. The os seous structures are intact. There is right convex curvature of the thoracolumbar spine which is probably positional. The patient is also rotated to the left. Radiopaque suture material and surgical clips overlie the left upper quadrant. IMPRESSION: No acute cardiopulmonary process.
[2018-12-05 14:23] LABS: Hemoglobin A1c 4.2 % (4.0-6.0)
[2018-12-05 14:25] LABS: Lactic Acid 1.2 mmol/L (0.5-2.2)
[2018-12-05 14:30] LABS: Anion Gap 14 mmol/L (10-20); BUN (Urea Nitrogen) 13 mg/dL (9.8-20.1); CK (CPK) 443 U/L (29-168); Calc. Creatinine Clearance 109 mL/min (70-130); Carbon Dioxide 21 mmol/L (22-29); Chloride 108 mmol/L (98-107); Estimated GFR-MDRD Greater than 90; Glucose 73 mg/dL (70-105); Potassium 4.3 mmol/L (3.5-5.1); Sodium 139 mmol/L (136-145)
--- NOTE | 2018-12-05 14:38 | HP ---
REASON FOR ADMISSION: Syncope and right head injury. HISTORY OF PRESENT ILLNESS: Ms. Small is a 53-year-old woman, who has a history of vertigo and multiple falls, for which she has been seen recently on 11/29/2018 after she presented with a mechanical fall associated with dizziness after attempting to get out of bed. She was evaluated for any intracranial abnormality and had a CT of the brain that was negative. She fell and landed on the left side of her face and sustained a laceration to the left lower lip, which required suturing. Laboratory studies done at that time were unremarkable and she was discharged home. The patient had a urine drug screen done, which was positive for TCA, barbiturates, and opiates at that time. She was advised to follow up with her primary care physician, as it was felt that her medications may have contributed to the lightheaded and dizzy episode causing her fall. The patient has now returned and once again has experienced a dizzy episode when standing. She complains of a feeling of clogged sensation in her right ear, but denies having any pain or drainage. She has not had any fevers, chills, or sweats recently. Denies having any headaches prior to the fall. She states that she recalls sitting on the edge of the bed having a dizzy spell and felt she had taken her time for standing. Upon standing, she immediately fell and hit the right side of her head. She sustained no lacerations or other injuries. Her brother heard the loud noise and came to her bedside. He states that she was awake, but disoriented for a couple of minutes. There was no full loss of consciousness. She has had generalized weakness at baseline. The patient states that she feels pain involving the right side of her head and face. She denies having any sensory deficits anywhere on her face or upper/lower extremities. She denies experiencing any chest pain or shortness of breath. She has not had any nausea or vomiting. Denies any abdominal pain or cramping. REVIEW OF SYSTEMS: All other review of systems apart from those mentioned above in HPI are negative. PAST MEDICAL HISTORY: 1. Fibromyalgia. 2. Vertigo. 3. Headaches. 4. GERD. 5. Irritable bowel syndrome. 6. Rheumatoid arthritis. 7. Diabetes type 2. 8. Hypertension. 9. Migraine headaches. 10. Anxiety. 11. Depression. PAST SURGICAL HISTORY: 1. Gastric bypass in 2013 and revision in 2014. 2. Hernia repair in November 2015. 3. Appendectomy. 4. . 5. Total hysterectomy in 1993. 6. Plastic surgery in abdominal region in June 2016. 7. Arm surgery in December 2017. SOCIAL HISTORY: The patient lives at home with family. Denies any alcohol use or illicit drug use. She does not smoke. ALLERGIES: 1. PENICILLIN. 2. PHENERGAN. 3. PROMETHAZINE. CURRENT MEDICATIONS: 1. Zonisamide 100 mg p.o. daily. 2. Levsin 0.125 mg sublingual q.4 hours as needed. 3. Famotidine 40 mg p.o. twice daily. 4. Pristiq 100 mg p.o. daily. 5. Perphenazine 2 mg p.o. twice daily. 6. Atarax 25 mg p.o. 3 times daily. 7. Fioricet 1 tablet p.o. 3 times daily as needed. 8. Savella 25 mg p.o. 3 times daily. 9. Lisinopril 2.5 mg p.o. daily. 10. Methocarbamol 500 mg p.o. q.6 hours as needed. 11. Desvenlafaxine succinate ER 100 mg p.o. at bedtime. 12. Elavil 100 mg p.o. at bedtime. 13. MiraLAX 17 g p.o. at bedtime. 14. Depakote ER 1000 mg p.o. at bedtime. 15. Atenolol 25 mg p.o. every morning. PHYSICAL EXAMINATION: GENERAL: The patient appears well developed and well nourished. She is in no acute distress. She is found resting comfortably. VITAL SIGNS: Temperature 98.3, pulse 87, respirations 16, O2 saturation 98% on room air, and blood pressure 175/84. HEENT: Normocephalic and atraumatic. No contusions, swelling, or bruising on her head. She does have an area of bruising over her left cheek, which is old from recent fall 6 days ago. Unable to assess for any bony deformity as the patient does not allow me to palpate. Extraocular movements are normal. No nystagmus. The patient has mild left drooping of the lip, which the patient states has been present since her fall and lip injury last week. She has normal sensation to her face. Oropharynx is clear. No tenderness over the temporal artery bilaterally. NECK: Supple without lymphadenopathy. No cervical spine tenderness. LUNGS: Clear to auscultation bilaterally without any wheezes, rales, or rhonchi. CARDIAC: Regular rate and rhythm. ABDOMEN: Soft, nontender, and nondistended. Normoactive bowel sounds present. No guarding or rigidity. No renal angle tenderness. EXTREMITIES: Without lower limb edema. No calf pain or tenderness. NEUROLOGIC: Alert and oriented x3. The patient is with flat affect. She has power 5/5 in all limbs with no sensory deficit. Physical exam findings were somewhat inconsistent and contradicting. The patient did not allow me to palpate her face or right scalp due to pain and was wincing. However, when asked to point out areas that she felt were not painful, she firmly palpated most of her face, except for the left cheek, and also her forehead, which she did not allow me to palpate due to pain initially. LABORATORY DATA: White blood count 11.7, hemoglobin 11.9, hematocrit 38.3, and platelets 271. Sodium 142, potassium 4.3, BUN 10, creatinine 0.89, GFR 80, calcium 9.4, total bilirubin 0.4, AST 31, ALT 17, and alkaline phosphatase 61. Urinalysis notable for trace ketones, small bilirubin, and 2.0 urobilinogen. Otherwise, negative. Urine toxicology showed less than 8 salicylates, less than 10 plasma alcohol, and less than 6 acetaminophen. Opiates, barbiturates, and tricyclics seen. IMAGING DATA: None. IMPRESSION AND PLAN: 1. Ms. Small is a 53-year-old woman attending again to the ER with complaints of dizziness causing a fall and subsequent injury to the right side of her head. No abnormalities or deformity appreciated on exam. However, exam was limited due to the patient stating she had too much pain to have her head examined. She denies having any headache or blurred vision. She states she continues to experience episodes of dizziness when attempting to stand. CT of the brain has been requested to rule out bleed. The patient is on multiple medications that may be contributing to her symptoms. We will discuss with Dr. Ricketts if MRI and carotid Dopplers would be indicated to ensure she has not experienced a TIA/stroke. Orthostatic blood pressures have been requested. We will repeat laboratory studies today. 2. Type 2 diabetes. We will verify home medications. We will initiate insulin sliding scale and monitor glucose. We will check hemoglobin A1c. 3. Hypertension. Monitor blood pressure. 4. Gastrointestinal prophylaxis. 5. Deep venous thrombosis prophylaxis with mechanical sequential compression devices. 6. Full code status. Her surrogate decision maker is her brother, Rayo Mahajan. The patient's case will be discussed with Dr. Ricketts for further recommendations. Job ID: [id number]
[2018-12-05] MEDS ORDERED: MILNACIPRAN HCL 25 MG PO SCH (17:00)
[2018-12-05] MEDS ORDERED: DESVENLAFAXINE SUCCINATE 100 MG PO SCH (21:00)
[2018-12-05] MEDS: Venlafaxine HCl XR 150 MG CAP PO SCH (21:11)
[2018-12-05] MEDS: Perphenazine 2 MG TAB PO SCH (21:13)
[2018-12-05] MEDS: Amitriptyline HCl 100 MG TAB PO SCH (21:13)
[2018-12-05] MEDS: Famotidine 20 MG TAB PO SCH (21:13)
[2018-12-05] MEDS: Sodium Chloride 0.9% 1,000 ML IV SCH (21:14)
[2018-12-06] MEDS: HYDROcodone/Acetaminophen 5/325 mg Tablet PO PRN ×3 (05:26→19:33)
[2018-12-06 05:45] LABS: #Basophils 0.1 thou/uL (0.0-0.2); #Eosinphils 0.2 thou/uL (0.0-0.7); #Monocytes 0.5 thou/uL (0.11-0.59); #Neutrophils 4.8 thou/uL (1.40-6.50); %Basophils 0.8 % (0.0-1.0); %Eosinophils 2.9 % (0.0-10.0); %Lymphocytes 26.3 % (21.0-51.0); %Neutrophils 63.9 % (42.0-75.0); Hemoglobin 11.5 g/dL (12.0-16.0); Mean Corpuscular HGB CONC 31.8 g/dL (32.0-36.0); Mean Corpuscular Hemoglobin 31.1 pg (27.0-31.0); Mean Corpuscular Volume 97.8 fL (78.0-98.0); Mean Platelet Volume 8.2 fL (7.4-10.4); Platelet Count 240 thou/uL (130-400); RBC Distribution Width 12.2 % (11.5-14.5); White Blood Cell (WBC) Count 7.4 thou/uL (4.8-10.8)
[2018-12-06 06:00] LABS: Anion Gap 14 mmol/L (10-20); BUN (Urea Nitrogen) 15 mg/dL (9.8-20.1); CK (CPK) 268 U/L (29-168); Calc. Creatinine Clearance 106 mL/min (70-130); Calcium 9.3 mg/dL (7.8-10.44); Carbon Dioxide 24 mmol/L (22-29); Chloride 108 mmol/L (98-107); Estimated GFR-MDRD Greater than 90; Glucose 99 mg/dL (70-105); Potassium 4.2 mmol/L (3.5-5.1); Sodium 142 mmol/L (136-145)
[2018-12-06] MEDS ORDERED: Venlafaxine HCl XR 150 MG CAP PO SCH (09:00)
[2018-12-06] MEDS: Famotidine 20 MG TAB PO SCH ×2 (09:12→20:45)
[2018-12-06] MEDS: Venlafaxine HCl XR 150 MG CAP PO SCH ×2 (09:12→20:44)
[2018-12-06] MEDS: Atenolol 25 MG TAB PO SCH (09:12)
[2018-12-06] MEDS: Zonisamide 100 MG CAP PO SCH (09:12)
[2018-12-06] MEDS: Perphenazine 2 MG TAB PO SCH ×2 (09:12→20:44)
[2018-12-06] MEDS ORDERED: ISOVUE-370 76%-LOCM 1 ML ONE (11:07)
--- NOTE | 2018-12-06 13:31 | MRI ---
MRI Brain WO Con: 12/06/2018 6:30 PM CLINICAL HISTORY: Dizziness and collapse. COMPARISON: Head CT previous day FINDINGS: Extra axial spaces: Mild prominence due to parenchymal atrophy. Hemorrhage: None. Ventricular system: Normal in size and morphology for the patient's age. Basal cisterns: Normal. Cerebral parenchyma: Microvascular ischemic changes. Midline shift: None. Cerebellum: Normal. Brainstem: Normal. Paranasal sinuses:Mucosal thickening and retention cyst formation. IMPRESSION: No acute intracranial abnormality. Mild chronic ischemic disease in cerebral white matter.
--- NOTE | 2018-12-06 17:36 | PDOC.PN ---
- Subjective Encounter Start Date: 12/06/18 Encounter Start Time: 15:33 Subjective: Patient with persistent pain across forehead and on left side of head. -: No change from yesterday. States she has been seen by PT and -: given exercises to do. Not mobilising on her own. States she has continued to have issues with her balance, uses furniture and kay to get around at home. This has been ongoing. Reports seeing Neurologist this upcoming week in [place]. Wants to switch to a local neurologist, so has cancelled appointments. Has been tolerating food intake. Per nurse has been sleeping heavily throughout the day. Has been woken up to assess how she is feeling. Patient then requests analgesia and states she is in significant pain. When told it has been just an hour since last dose, she states she is feeling well enough to wait for her next scheduled dose. Denies any chest pain, or sob. No lower leg swelling. No n/v. No abdo pain. No urinary symptoms or bowel problems. Remains afebrile. No cough or hemoptysis. - Objective Vital Signs & Weight: Vital Signs (12 hours) Temp Pulse Resp BP Pulse Ox 12/06/18 15:28 98.6 F 65 18 130/83 96 12/06/18 11:32 98.6 F 65 17 117/78 91 L 12/06/18 07:08 98.6 F 79 19 133/82 92 L 12/06/18 05:47 98.6 F 90 16 111/76 94 L Weight Weight 181 lb 10.574 oz I&O: 12/05/18 12/06/18 12/07/18 06:59 06:59 06:59 Intake Total 240 Balance 240 Result Diagrams: 12/06/18 05:20 12/06/18 05:20 Additional Labs: Accuchecks 12/06/18 12/06/18 12/05/18 11:33 05:47 20:04 POC Glucose 154 H 93 171 H Phys Exam - Physical Examination Constitutional: NAD HEENT: PERRLA, oral pharynx no lesions no tenderness to bilateral temples Neck: supple, full ROM patient reluctant but able to move neck without difficulty when encouraged and when distracted. Respiratory: clear to auscultation bilateral Cardiovascular: RRR Gastrointestinal: soft, non-tender, no distention Musculoskeletal: no edema Neurological: non-focal, normal sensation, moves all 4 limbs Psychiatric: normal affect, A&O x 3 Skin: no rash, normal turgor Dx/Plan (1) Intractable migraine Code(s): G43.919 - MIGRAINE, UNSP, INTRACTABLE, WITHOUT STATUS MIGRAINOSUS Status: Acute (2) Anxiety and depression Code(s): F41.8 - OTHER SPECIFIED ANXIETY DISORDERS Status: Chronic (3) Fibromyalgia Status: Chronic (4) Hypertension Code(s): I10 - ESSENTIAL (PRIMARY) HYPERTENSION Status: Chronic (5) Obesity (BMI 30-39.9) Code(s): E66.9 - OBESITY, UNSPECIFIED Status: Chronic - Plan cont current plan of care, PT/OT, incentive spirometry, DVT proph w/SCDs Hypoxia, 92% on RA. Possibly due to sleeping heavily with head flexed fwd -: D-Dimer requested, if elevated will obtain CTA Chest. -: COLLINS persisting, will check ESR and ANTHONY despite unremarkable exam -: S/P MRI no acute changes. Awaiting Echo results. -: UE weakness. Generally unsteady. Consult placed for rehab screening. * .
[2018-12-06] MEDS: Sodium Chloride 0.9% 1,000 ML IV SCH (18:46)
--- NOTE | 2018-12-06 18:50 | CT ---
CONTRAST ENHANCED CTA CHEST: 12/06/18 HISTORY: Elevated D-dimer. Contrast enhanced CTA of the chest is performed. 2D and 3D reconstructed images performed on an [employer] 3D workstation. Images demonstrate gastric surgical changes seen. There is areas of lung parenchymal scarring in both lung bases, left worse than right. There is a small filling defect in the right upper lobe pulmonary artery compatible with pulmonary em bolus. No other definite pulmonary emboli seen. IMPRESSION: Right upper lobe pulmonary endovascular arterial filling defect compatible with a pulmonary embolus. POS: [facility]
[2018-12-06] MEDS: Amitriptyline HCl 100 MG TAB PO SCH (20:45)
[2018-12-06] MEDS ORDERED: Enoxaparin Sodium 80 MG/0.8 ML SYRINGE SC SCH (23:15)
[2018-12-07] MEDS: HYDROcodone/Acetaminophen 5/325 mg Tablet PO PRN ×2 (06:03→18:42)
[2018-12-07 06:49] LABS: #Basophils 0.1 thou/uL (0.0-0.2); #Eosinphils 0.2 thou/uL (0.0-0.7); #Lymphocytes 2.5 thou/uL (1.20-3.40); #Monocytes 0.5 thou/uL (0.11-0.59); #Neutrophils 3.1 thou/uL (1.40-6.50); %Basophils 0.9 % (0.0-1.0); %Lymphocytes 39.7 % (21.0-51.0); %Monocytes 7.7 % (0.0-10.0); %Neutrophils 48.7 % (42.0-75.0); Hemoglobin 10.5 g/dL (12.0-16.0); Mean Corpuscular HGB CONC 31.6 g/dL (32.0-36.0); Mean Corpuscular Hemoglobin 31.4 pg (27.0-31.0); Mean Corpuscular Volume 99.4 fL (78.0-98.0); Mean Platelet Volume 8.2 fL (7.4-10.4); Platelet Count 212 thou/uL (130-400); RBC Distribution Width 12.1 % (11.5-14.5); Red Blood Cell (RBC) Count 3.33 mill/uL (4.20-5.40); White Blood Cell (WBC) Count 6.4 thou/uL (4.8-10.8)
[2018-12-07 07:03] LABS: Anion Gap 13 mmol/L (10-20); BUN (Urea Nitrogen) 14 mg/dL (9.8-20.1); CK (CPK) 157 U/L (29-168); Calc. Creatinine Clearance 106 mL/min (70-130); Calcium 8.8 mg/dL (7.8-10.44); Carbon Dioxide 23 mmol/L (22-29); Chloride 110 mmol/L (98-107); Estimated GFR-MDRD Greater than 90; Glucose 66 mg/dL (70-105); Potassium 4.6 mmol/L (3.5-5.1); Sodium 141 mmol/L (136-145)
[2018-12-07] MEDS ORDERED: Enoxaparin Sodium 80 MG/0.8 ML SYRINGE SC SCH (09:00)
[2018-12-07] MEDS: Atenolol 25 MG TAB PO SCH (09:02)
[2018-12-07] MEDS: Famotidine 20 MG TAB PO SCH ×2 (09:02→19:44)
[2018-12-07] MEDS: Perphenazine 2 MG TAB PO SCH ×2 (09:02→19:44)
[2018-12-07] MEDS: Venlafaxine HCl XR 150 MG CAP PO SCH ×2 (09:02→19:44)
[2018-12-07] MEDS: Zonisamide 100 MG CAP PO SCH (09:02)
[2018-12-07] MEDS ORDERED: diphenhydrAMINE 50 MG/ML VIAL IVP SCH (13:15)
[2018-12-07] MEDS ORDERED: Metoclopramide HCl 10 MG/2 ML VIAL IVP SCH (13:15)
[2018-12-07] MEDS ORDERED: Sodium Chloride 0.9% 500 ML IV SCH (13:15)
--- NOTE | 2018-12-07 14:17 | PDOC.PN ---
- Subjective Encounter Start Date: 12/07/18 Encounter Start Time: 10:00 Subjective: Patient reports she still has a headache on the left side of her face -: Denies CP, SOB when in bed, but LOU -: Denies other complaints today - Objective Vital Signs & Weight: Vital Signs (12 hours) Temp Pulse Resp BP BP Pulse Ox 12/07/18 07:13 97.3 F L 71 18 135/83 95 12/07/18 04:00 97.4 F L 58 L 20 108/56 L 93 L Weight Weight 82.4 kg I&O: 12/06/18 12/07/18 12/08/18 06:59 06:59 06:59 Intake Total 490 Balance 490 Result Diagrams: 12/07/18 05:54 12/07/18 05:54 Additional Labs: Accuchecks 12/07/18 12/07/18 12/06/18 11:54 04:19 19:21 POC Glucose 90 77 95 12/06/18 15:32 POC Glucose 115 H Phys Exam - Physical Examination Constitutional: NAD HEENT: PERRLA, moist MMs Mild pain with palpation to left side of head and forehead Neck: no nodes, full ROM Respiratory: clear to auscultation bilateral Cardiovascular: RRR Gastrointestinal: soft, non-tender Musculoskeletal: no edema, pulses present multiple phalanges with avulsion fractures, left foot Neurological: non-focal, normal sensation Psychiatric: normal affect, A&O x 3 Skin: no rash, normal turgor Dx/Plan (1) Pulmonary embolism Code(s): I26.99 - OTHER PULMONARY EMBOLISM WITHOUT ACUTE COR PULMONALE Status : Acute (2) Intractable migraine Code(s): G43.919 - MIGRAINE, UNSP, INTRACTABLE, WITHOUT STATUS MIGRAINOSUS Status: Acute (3) Anxiety and depression Code(s): F41.8 - OTHER SPECIFIED ANXIETY DISORDERS Status: Chronic (4) Fibromyalgia Status: Chronic (5) GERD (gastroesophageal reflux disease) Code(s): K21.9 - GASTRO-ESOPHAGEAL REFLUX DISEASE WITHOUT ESOPHAGITIS Status: Chronic (6) Hypertension Code(s): I10 - ESSENTIAL (PRIMARY) HYPERTENSION Status: Chronic - Plan out of bed/ambulate Fluids/reglan/benadryl for COLLINS, may try mag IVPB, consult added for neuro -: Will convert patient to Eliquis from [place] for PE -: Continue home meds * . Review of Systems - Medications/Allergies Allergies/Adverse Reactions: Allergies Allergy/AdvReac Type Severity Reaction Status Date / Time promethazine [From Phenergan] Allergy Severe Short of Verified 12/23/17 15:38 Breath Penicillins Allergy Intermediate Severe Verified 12/23/17 15:38 Hives Medications: Current Medications Acetaminophen (Tylenol) 650 mg PO Q4H PRN PRN Reason: Fever > 101 Hydrocodone Bitart/Acetaminophen ([place] 5/325) 1 tab PO Q4H PRN PRN Reason: Moderate Pain (4-6) Last Admin: 12/07/18 06:03 Dose: 1 tab Amitriptyline HCl (Elavil) 100 mg PO [facility] Last Admin: 12/06/18 20:45 Dose: 100 mg Apixaban (Eliquis) 5 mg PO BID [facility] Atenolol (Tenormin) [facility] Last Admin: 12/07/18 09:02 Dose: 25 mg Dextrose/Water (Dextrose 50%) 25 gm SLOW IVP PRN PRN PRN Reason: Hypoglycemia Diphenhydramine HCl (Benadryl) 50 mg IVP NOW [facility] Stop: 12/07/18 15:15 Last Admin: 12/07/18 13:23 Dose: 50 mg Divalproex Sodium (Depakote Er) 1,000 mg PO [facility] Last Admin: 12/06/18 20:46 Dose: 1,000 mg Famotidine (Pepcid) 20 mg PO BID [facility] Last Admin: 12/07/18 09:02 Dose: 20 mg Glucagon (Glucagon) 1 mg IM PRN PRN PRN Reason: Hypoglycemia Dextrose/Water (D5w) 1,000 mls @ 0 mls/hr IV .Q0M PRN PRN Reason: Hypoglycemia Insulin Human Lispro (Humalog) 0 units SC .MILD SLIDING SCALE PRN PRN Reason: Mild Correctional Scale Insulin Human Lispro (Humalog) 0 units SC .BEDTIME SLIDING SC PRN PRN Reason: Bedtime Correctional Scale Metoclopramide HCl (Reglan) 10 mg IVP NOW [facility] Stop: 12/07/18 15:15 Last Admin: 12/07/18 13:23 Dose: 10 mg Milnacipran Hcl [ (Savella] 25 Mg) 0 each PO [facility] Perphenazine (Trilafon) 2 mg PO BID [facility] Last Admin: 12/07/18 09:02 Dose: 2 mg Senna/Docusate Sodium (Senokot S) 2 tab PO BID PRN PRN Reason: Constipation Sodium Chloride (Flush - Normal Saline) 10 ml IVF Q12HR PRN PRN Reason: Saline Flush Sodium Chloride (Flush - Normal Saline) 10 ml IVF PRN PRN PRN Reason: Saline Flush Venlafaxine HCl (Effexor Xr) 150 mg PO BID [facility] Last Admin: 12/07/18 09:02 Dose: 150 mg Zonisamide (Zonisamide) 100 mg PO DAILY [facility] Last Admin: 12/07/18 09:02 Dose: 100 mg
[2018-12-07] MEDS: Amitriptyline HCl 100 MG TAB PO SCH (19:44)
[2018-12-07] MEDS: Apixaban 5 MG TAB PO SCH (19:44)
[2018-12-08 06:20] LABS: #Eosinphils 0.2 thou/uL (0.0-0.7); #Lymphocytes 1.8 thou/uL (1.20-3.40); #Monocytes 0.4 thou/uL (0.11-0.59); #Neutrophils 2.8 thou/uL (1.40-6.50); %Basophils 0.4 % (0.0-1.0); %Eosinophils 3.3 % (0.0-10.0); %Monocytes 8.3 % (0.0-10.0); %Neutrophils 52.9 % (42.0-75.0); Hemoglobin 10.3 g/dL (12.0-16.0); Mean Corpuscular HGB CONC 31.5 g/dL (32.0-36.0); Mean Corpuscular Volume 98.3 fL (78.0-98.0); Mean Platelet Volume 8.1 fL (7.4-10.4); Platelet Count 238 thou/uL (130-400); RBC Distribution Width 12.3 % (11.5-14.5); Red Blood Cell (RBC) Count 3.34 mill/uL (4.20-5.40); White Blood Cell (WBC) Count 5.2 thou/uL (4.8-10.8)
[2018-12-08 07:04] LABS: Anion Gap 14 mmol/L (10-20); BUN (Urea Nitrogen) 14 mg/dL (9.8-20.1); Calc. Creatinine Clearance 105 mL/min (70-130); Calcium 8.9 mg/dL (7.8-10.44); Carbon Dioxide 22 mmol/L (22-29); Chloride 110 mmol/L (98-107); Estimated GFR-MDRD Greater than 90; Glucose 80 mg/dL (70-105); Potassium 5.2 mmol/L (3.5-5.1); Sodium 141 mmol/L (136-145)
[2018-12-08] MEDS ORDERED: Loperamide HCl 2 MG CAP PO PRN (08:31)
[2018-12-08] MEDS ORDERED: Artificial Tears 18 DROP/0.9 ML EA EYE PRN (08:31)
[2018-12-08] MEDS ORDERED: Cepastat Lozenges 1 LOZ PO PRN (08:31)
[2018-12-08] MEDS ORDERED: Ondansetron ODT 4 MG TAB PO PRN (08:31)
[2018-12-08] MEDS ORDERED: Loratadine 10 MG TAB PO PRN (08:31)
[2018-12-08] MEDS ORDERED: hydrALAZINE 20 MG/ML VIAL SLOW IVP PRN (08:31)
[2018-12-08] MEDS ORDERED: Sodium Chloride 0.65% Nasal 44 ML BOT EA NARE PRN (08:31)
[2018-12-08] MEDS ORDERED: Diabetic Tussin 200 MG/10 ML UDCUP PO PRN (08:31)
[2018-12-08] MEDS ORDERED: Bisacodyl 10 MG SUPP PR PRN (08:31)
[2018-12-08] MEDS ORDERED: Eucerin (Mineral Oil/Petrolatum,White) 30 gm Jar TOP PRN (08:31)
[2018-12-08] MEDS ORDERED: Ondansetron PF 4 MG/2 ML Vial IVP PRN (08:31)
[2018-12-08] MEDS: HYDROcodone/Acetaminophen 5/325 mg Tablet PO PRN ×2 (09:30→21:06)
[2018-12-08] MEDS: Apixaban 5 MG TAB PO SCH ×2 (09:31→21:05)
[2018-12-08] MEDS: Venlafaxine HCl XR 150 MG CAP PO SCH ×2 (09:31→21:06)
[2018-12-08] MEDS: Perphenazine 2 MG TAB PO SCH ×2 (09:31→21:05)
[2018-12-08] MEDS: Zonisamide 100 MG CAP PO SCH (09:32)
[2018-12-08] MEDS: Famotidine 20 MG TAB PO SCH ×2 (09:32→21:05)
[2018-12-08] MEDS: Atenolol 25 MG TAB PO SCH (09:33)
--- NOTE | 2018-12-08 10:41 | PDOC.PN ---
- Subjective Encounter Start Date: 12/08/18 Encounter Start Time: 07:50 -: old records requested/rev Patient seen and examined. No new complaints. No overnight events - Objective MAR Reviewed: Yes Vital Signs & Weight: Vital Signs (12 hours) Temp Pulse Resp BP BP Pulse Ox 12/08/18 09:33 65 146/87 H 12/08/18 07:26 98.1 F 64 20 113/75 96 Weight Weight 181 lb 10.574 oz I&O: 12/07/18 12/08/18 12/09/18 06:59 06:59 06:59 Intake Total 490 490 Balance 490 490 Result Diagrams: 12/08/18 05:41 12/08/18 05:41 Additional Labs: Accuchecks 12/08/18 12/07/18 12/07/18 05:58 19:25 15:59 POC Glucose 92 110 92 12/07/18 11:54 POC Glucose 90 Radiology Reviewed by me: Yes Phys Exam - Physical Examination Constitutional: NAD HEENT: PERRLA, moist MMs, sclera anicteric Neck: no JVD, supple Respiratory: no wheezing, no rales, no rhonchi Cardiovascular: RRR, no significant murmur, no rub Gastrointestinal: soft, non-tender, no distention, positive bowel sounds Musculoskeletal: no edema, pulses present Neurological: non-focal, normal sensation, moves all 4 limbs Lymphatic: no nodes Psychiatric: normal affect, A&O x 3 Skin: no rash, normal turgor Dx/Plan (1) Pulmonary embolism Code(s): I26.99 - OTHER PULMONARY EMBOLISM WITHOUT ACUTE COR PULMONALE Status : Acute (2) Anxiety and depression Code(s): F41.8 - OTHER SPECIFIED ANXIETY DISORDERS Status: Chronic (3) Fibromyalgia Status: Chronic (4) GERD (gastroesophageal reflux disease) Code(s): K21.9 - GASTRO-ESOPHAGEAL REFLUX DISEASE WITHOUT ESOPHAGITIS Status: Chronic (5) Hypertension Code(s): I10 - ESSENTIAL (PRIMARY) HYPERTENSION Status: Chronic (6) Obesity (BMI 30-39.9) Code(s): E66.9 - OBESITY, UNSPECIFIED Status: Chronic - Plan cont current plan of care, plan discussed w/ family, social sciences chair * continue elliquis * continue PT/OT and rehab screen * medication reviewed as below * symptomatic treatment. Review of Systems - Review of Systems ENT: negative: Ear Pain, Ear Discharge, Nose Pain, Nose Discharge, Nose Congestion, Mouth Pain, Mouth Swelling, Throat Pain, Throat Swelling, Other Respiratory: negative: Cough, Dry, Shortness of Breath, Hemoptysis, SOB with Excertion, Pleuritic Pain, Sputum, Wheezing Cardiovascular: negative: chest pain, palpitations, orthopnea, paroxysmal nocturnal dyspnea, edema, light headedness, other Gastrointestinal: negative: Nausea, Vomiting, Abdominal Pain, Diarrhea, Constipation, Melena, Hematochezia, Other Genitourinary: negative: Dysuria, Frequency, Incontinence, Hematuria, Retention , Other Musculoskeletal: negative: Neck Pain, Shoulder Pain, Arm Pain, Back Pain, Hand Pain, Leg Pain, Foot Pain, Other - Medications/Allergies Allergies/Adverse Reactions: Allergies Allergy/AdvReac Type Severity Reaction Status Date / Time promethazine [From Phenergan] Allergy Severe Short of Verified 12/23/17 15:38 Breath Penicillins Allergy Intermediate Severe Verified 12/23/17 15:38 Hives Medications: Current Medications Acetaminophen (Tylenol) 650 mg PO Q4H PRN PRN Reason: Fever > 101 Hydrocodone Bitart/Acetaminophen ([place] 5/325) 1 tab PO Q4H PRN PRN Reason: Moderate Pain (4-6) Last Admin: 12/08/18 09:30 Dose: 1 tab Amitriptyline HCl (Elavil) 100 mg PO [facility] Last Admin: 12/07/18 19:44 Dose: 100 mg Apixaban (Eliquis) 5 mg PO BID [facility] Last Admin: 12/08/18 09:31 Dose: 5 mg Artificial Tears (Tears Naturale) 2 drop EA EYE PRN PRN PRN Reason: Dry Eyes Atenolol (Tenormin) 25 mg PO QAM [facility] Last Admin: 12/08/18 09:33 Dose: 25 mg Bisacodyl (Dulcolax) 10 mg [place] DAILYPRN PRN PRN Reason: Constipation Calcium Carbonate (Tums) 1,000 mg PO Q4H PRN PRN Reason: Heartburn or Indigestion Dextrose/Water (Dextrose 50%) 25 gm SLOW IVP PRN PRN PRN Reason: Hypoglycemia Divalproex Sodium (Depakote Er) 1,000 mg PO [facility] Last Admin: 12/07/18 19:51 Dose: 1,000 mg Famotidine (Pepcid) 20 mg PO BID [facility] Last Admin: 12/08/18 09:32 Dose: 20 mg Glucagon (Glucagon) 1 mg IM PRN PRN PRN Reason: Hypoglycemia Guaifenesin (Robitussin Sf) 200 mg PO Q4H PRN PRN Reason: Cough Hydralazine HCl (Apresoline) 10 mg SLOW IVP Q4H PRN PRN Reason: SBP > 180 and HR < 70 Dextrose/Water (D5w) 1,000 mls @ 0 mls/hr IV .Q0M PRN PRN Reason: Hypoglycemia Insulin Human Lispro (Humalog) 0 units SC .MILD SLIDING SCALE PRN PRN Reason: Mild Correctional Scale Insulin Human Lispro (Humalog) 0 units SC .BEDTIME SLIDING SC PRN PRN Reason: Bedtime Correctional Scale Loperamide HCl (Imodium) 2 mg PO PRN PRN PRN Reason: Diarrhea/Loose Stools Loratadine (Claritin) 10 mg PO DAILYPRN PRN PRN Reason: Sinus Symptoms Mineral Oil/White Petrolatum (Eucerin Cream) 0 gm TOP BIDPRN PRN PRN Reason: Dry Skin Ondansetron HCl (Zofran Odt) 4 mg PO Q6H PRN PRN Reason: Nausea/Vomiting Ondansetron HCl (Zofran) 4 mg IVP Q6H PRN PRN Reason: Nausea/Vomiting Milnacipran Hcl [ (Savella] 25 Mg) 0 each PO [facility] Perphenazine (Trilafon) 2 mg PO BID [facility] Last Admin: 12/08/18 09:31 Dose: 2 mg Senna/Docusate Sodium (Senokot S) 2 tab PO BID PRN PRN Reason: Constipation Sodium Chloride (Flush - Normal Saline) 10 ml IVF Q12HR PRN PRN Reason: Saline Flush Sodium Chloride (Flush - Normal Saline) 10 ml IVF PRN PRN PRN Reason: Saline Flush Sodium Chloride ([place] Nasal [place] 0.65%) 0 ml EA NARE QIDPRN PRN PRN Reason: Nasal Congestion Throat Lozenges (Cepastat Lozenges) 1 ruthann PO Q2H PRN PRN Reason: Sore Throat Venlafaxine HCl (Effexor Xr) 150 mg PO BID [facility] Last Admin: 12/08/18 09:31 Dose: 150 mg Zonisamide (Zonisamide) 100 mg PO DAILY [facility] Last Admin: 12/08/18 09:32 Dose: 100 mg
[2018-12-08] MEDS: Dihydroergotamine Mesylate 1 MG/ML AMP SLOW IVP PRN ×2 (13:46→20:57)
[2018-12-08] MEDS: Metoclopramide HCl 10 MG/2 ML VIAL IVP PRN (20:57)
[2018-12-08] MEDS: Amitriptyline HCl 100 MG TAB PO SCH (21:05)
[2018-12-09] MEDS: HYDROcodone/Acetaminophen 5/325 mg Tablet PO PRN (03:42)
[2018-12-09] MEDS: Perphenazine 2 MG TAB PO SCH ×2 (08:13→19:59)
[2018-12-09] MEDS: Apixaban 5 MG TAB PO SCH ×2 (08:13→19:58)
[2018-12-09] MEDS: Venlafaxine HCl XR 150 MG CAP PO SCH ×2 (08:13→19:58)
[2018-12-09] MEDS: Atenolol 25 MG TAB PO SCH (08:13)
[2018-12-09] MEDS: Zonisamide 100 MG CAP PO SCH (08:14)
[2018-12-09] MEDS: Famotidine 20 MG TAB PO SCH ×2 (08:14→19:59)
[2018-12-09] MEDS: Metoclopramide HCl 10 MG/2 ML VIAL IVP PRN ×2 (09:16→17:02)
[2018-12-09] MEDS: Dihydroergotamine Mesylate 1 MG/ML AMP SLOW IVP PRN ×2 (09:17→17:02)
--- NOTE | 2018-12-09 13:35 | PDOC.PN ---
- Subjective Encounter Start Date: 12/09/18 Encounter Start Time: 09:15 Patient seen and examined. No new complaints. No overnight events - Objective MAR Reviewed: Yes Vital Signs & Weight: Vital Signs (12 hours) Temp Pulse Resp BP BP Pulse Ox 12/09/18 12:01 97.9 F 60 18 157/89 H 97 12/09/18 08:13 61 107/71 Weight Weight 181 lb 10.574 oz I&O: 12/08/18 12/09/18 12/10/18 06:59 06:59 06:59 Intake Total 490 490 Balance 490 490 Result Diagrams: 12/08/18 05:41 12/08/18 05:41 Additional Labs: Accuchecks 12/09/18 12/09/18 12/08/18 11:21 05:03 19:42 POC Glucose 77 124 H 147 H 12/08/18 16:10 POC Glucose 101 Phys Exam - Physical Examination Constitutional: NAD HEENT: PERRLA, moist MMs, sclera anicteric Neck: no JVD, supple Respiratory: no wheezing, no rales, no rhonchi Cardiovascular: RRR, no significant murmur, no rub Gastrointestinal: soft, non-tender, no distention, positive bowel sounds Musculoskeletal: no edema, pulses present Neurological: non-focal, normal sensation, moves all 4 limbs Psychiatric: normal affect Skin: no rash, normal turgor Dx/Plan (1) Pulmonary embolism Code(s): I26.99 - OTHER PULMONARY EMBOLISM WITHOUT ACUTE COR PULMONALE Status : Acute (2) Anxiety and depression Code(s): F41.8 - OTHER SPECIFIED ANXIETY DISORDERS Status: Chronic (3) Fibromyalgia Status: Chronic (4) GERD (gastroesophageal reflux disease) Code(s): K21.9 - GASTRO-ESOPHAGEAL REFLUX DISEASE WITHOUT ESOPHAGITIS Status: Chronic (5) Hypertension Code(s): I10 - ESSENTIAL (PRIMARY) HYPERTENSION Status: Chronic (6) Obesity (BMI 30-39.9) Code(s): E66.9 - OBESITY, UNSPECIFIED Status: Chronic - Plan cont current plan of care, plan discussed w/ family, PT/OT, psychosocial rehabilitation counselor * medication reviewed as below * symptomatic treatment * await placement * continue elliquis. Review of Systems - Review of Systems ENT: negative: Ear Pain, Ear Discharge, Nose Pain, Nose Discharge, Nose Congestion, Mouth Pain, Mouth Swelling, Throat Pain, Throat Swelling, Other Respiratory: negative: Cough, Dry, Shortness of Breath, Hemoptysis, SOB with Excertion, Pleuritic Pain, Sputum, Wheezing Cardiovascular: negative: chest pain, palpitations, orthopnea, paroxysmal nocturnal dyspnea, edema, light headedness, other Gastrointestinal: negative: Nausea, Vomiting, Abdominal Pain, Diarrhea, Constipation, Melena, Hematochezia, Other Genitourinary: negative: Dysuria, Frequency, Incontinence, Hematuria, Retention , Other Musculoskeletal: negative: Neck Pain, Shoulder Pain, Arm Pain, Back Pain, Hand Pain, Leg Pain, Foot Pain, Other Skin: negative: Rash, Lesions, Fadi, Bruising, Other - Medications/Allergies Allergies/Adverse Reactions: Allergies Allergy/AdvReac Type Severity Reaction Status Date / Time promethazine [From Phenergan] Allergy Severe Short of Verified 12/23/17 15:38 Breath Penicillins Allergy Intermediate Severe Verified 12/23/17 15:38 Hives Medications: Current Medications Acetaminophen (Tylenol) 650 mg PO Q4H PRN PRN Reason: Fever > 101 Hydrocodone Bitart/Acetaminophen ([place] 5/325) 1 tab PO Q4H PRN PRN Reason: Moderate Pain (4-6) Last Admin: 12/09/18 03:42 Dose: 1 tab Amitriptyline HCl (Elavil) 100 mg PO [facility] Last Admin: 12/08/18 21:05 Dose: 100 mg Apixaban (Eliquis) 5 mg PO BID [facility] Last Admin: 12/09/18 08:13 Dose: 5 mg Artificial Tears (Tears Naturale) 2 drop EA EYE PRN PRN PRN Reason: Dry Eyes Atenolol (Tenormin) [address] [facility] Last Admin: 12/09/18 08:13 Dose: 25 mg Bisacodyl (Dulcolax) 10 mg [place] DAILYPRN PRN PRN Reason: Constipation Calcium Carbonate (Tums) 1,000 mg PO Q4H PRN PRN Reason: Heartburn or Indigestion Dextrose/Water (Dextrose 50%) 25 gm SLOW IVP PRN PRN PRN Reason: Hypoglycemia Dihydroergotamine Mesylate (D.H.E. 45) 0.5 mg SLOW IVP Q6H PRN PRN Reason: Headache Last Admin: 12/09/18 09:17 Dose: 0.5 mg Divalproex Sodium (Depakote Er) 1,000 mg PO [facility] Last Admin: 12/08/18 21:05 Dose: 1,000 mg Famotidine (Pepcid) 20 mg PO BID [facility] Last Admin: 12/09/18 08:14 Dose: 20 mg Glucagon (Glucagon) 1 mg IM PRN PRN PRN Reason: Hypoglycemia Guaifenesin (Robitussin Sf) 200 mg PO Q4H PRN PRN Reason: Cough Hydralazine HCl (Apresoline) 10 mg SLOW IVP Q4H PRN PRN Reason: SBP > 180 and HR < 70 Dextrose/Water (D5w) 1,000 mls @ 0 mls/hr IV .Q0M PRN PRN Reason: Hypoglycemia Insulin Human Lispro (Humalog) 0 units SC .MILD SLIDING SCALE PRN PRN Reason: Mild Correctional Scale Insulin Human Lispro (Humalog) 0 units SC .BEDTIME SLIDING SC PRN PRN Reason: Bedtime Correctional Scale Loperamide HCl (Imodium) 2 mg PO PRN PRN PRN Reason: Diarrhea/Loose Stools Loratadine (Claritin) 10 mg PO DAILYPRN PRN PRN Reason: Sinus Symptoms Metoclopramide HCl (Reglan) 10 mg IVP Q6H PRN PRN Reason: Headache Last Admin: 12/09/18 09:16 Dose: 10 mg Mineral Oil/White Petrolatum (Eucerin Cream) 0 gm TOP BIDPRN PRN PRN Reason: Dry Skin Ondansetron HCl (Zofran Odt) 4 mg PO Q6H PRN PRN Reason: Nausea/Vomiting Ondansetron HCl (Zofran) 4 mg IVP Q6H PRN PRN Reason: Nausea/Vomiting Milnacipran Hcl [ (Savella] 25 Mg) 0 each PO [facility] Perphenazine (Trilafon) 2 mg PO BID [facility] Last Admin: 12/09/18 08:13 Dose: 2 mg Senna/Docusate Sodium (Senokot S) 2 tab PO BID PRN PRN Reason: Constipation Sodium Chloride (Flush - Normal Saline) 10 ml IVF Q12HR PRN PRN Reason: Saline Flush Sodium Chloride (Flush - Normal Saline) 10 ml IVF PRN PRN PRN Reason: Saline Flush Sodium Chloride ([place] Nasal [place] 0.65%) 0 ml EA NARE QIDPRN PRN PRN Reason: Nasal Congestion Throat Lozenges (Cepastat Lozenges) 1 ruthann PO Q2H PRN PRN Reason: Sore Throat Venlafaxine HCl (Effexor Xr) 150 mg PO BID [facility] Last Admin: 12/09/18 08:13 Dose: 150 mg Zonisamide (Zonisamide) 100 mg PO DAILY [facility] Last Admin: 12/09/18 08:14 Dose: 100 mg
[2018-12-09] MEDS: Amitriptyline HCl 100 MG TAB PO SCH (19:59)
[2018-12-10 06:01] LABS: Hemoglobin 12.3 g/dL (12.0-16.0); Platelet Count 263 thou/uL (130-400)
[2018-12-10] MEDS: Zonisamide 100 MG CAP PO SCH (07:31)
[2018-12-10] MEDS: Atenolol 25 MG TAB PO SCH (07:31)
[2018-12-10] MEDS: Famotidine 20 MG TAB PO SCH ×2 (07:31→20:06)
[2018-12-10] MEDS: Apixaban 5 MG TAB PO SCH ×2 (07:31→20:06)
[2018-12-10] MEDS: Perphenazine 2 MG TAB PO SCH ×2 (07:32→20:06)
[2018-12-10] MEDS: Venlafaxine HCl XR 150 MG CAP PO SCH ×2 (07:32→20:06)
[2018-12-10] MEDS: Dihydroergotamine Mesylate 1 MG/ML AMP SLOW IVP PRN (07:33)
[2018-12-10] MEDS: HYDROcodone/Acetaminophen 5/325 mg Tablet PO PRN ×2 (08:44→16:49)
--- NOTE | 2018-12-10 14:27 | PDOC.PN ---
- Subjective Encounter Start Date: 12/10/18 Encounter Start Time: 09:15 Patient seen and examined. No new complaints. No overnight events - Objective MAR Reviewed: Yes Vital Signs & Weight: Vital Signs (12 hours) Temp Pulse Resp BP BP Pulse Ox 12/10/18 11:15 98.2 F 63 18 145/84 H 95 12/10/18 08:01 98.1 F 61 16 115/78 93 L 12/10/18 07:31 61 12/10/18 03:00 97.6 F 62 18 101/71 94 L Weight Weight 181 lb 10.574 oz I&O: 12/09/18 12/10/18 12/11/18 06:59 06:59 06:59 Intake Total 490 500 Balance 490 500 Result Diagrams: 12/10/18 05:45 12/10/18 05:45 Additional Labs: Accuchecks 12/10/18 12/10/18 12/09/18 11:11 04:38 20:01 POC Glucose 79 114 H 146 H 12/09/18 12/09/18 16:30 14:35 POC Glucose 113 H 102 Phys Exam - Physical Examination Constitutional: NAD HEENT: PERRLA, moist MMs, sclera anicteric Neck: no JVD, supple, full ROM Respiratory: no wheezing, no rales, no rhonchi Cardiovascular: RRR, no significant murmur, no rub Gastrointestinal: soft, non-tender, no distention, positive bowel sounds Musculoskeletal: no edema, pulses present Neurological: non-focal, normal sensation Lymphatic: no nodes Psychiatric: normal affect, A&O x 3 Skin: no rash, normal turgor Dx/Plan (1) Pulmonary embolism Code(s): I26.99 - OTHER PULMONARY EMBOLISM WITHOUT ACUTE COR PULMONALE Status : Acute (2) Anxiety and depression Code(s): F41.8 - OTHER SPECIFIED ANXIETY DISORDERS Status: Chronic (3) Fibromyalgia Status: Chronic (4) GERD (gastroesophageal reflux disease) Code(s): K21.9 - GASTRO-ESOPHAGEAL REFLUX DISEASE WITHOUT ESOPHAGITIS Status: Chronic (5) Hypertension Code(s): I10 - ESSENTIAL (PRIMARY) HYPERTENSION Status: Chronic (6) Obesity (BMI 30-39.9) Code(s): E66.9 - OBESITY, UNSPECIFIED Status: Chronic - Plan cont current plan of care, plan discussed w/ family, PT/OT, social media editor * medication reviewed as below * symptomatic treatment * continue elliquis * await rehab placement * medically stable for now. Review of Systems - Review of Systems ENT: negative: Ear Pain, Ear Discharge, Nose Pain, Nose Discharge, Nose Congestion, Mouth Pain, Mouth Swelling, Throat Pain, Throat Swelling, Other Respiratory: negative: Cough, Dry, Shortness of Breath, Hemoptysis, SOB with Excertion, Pleuritic Pain, Sputum, Wheezing Cardiovascular: negative: chest pain, palpitations, orthopnea, paroxysmal nocturnal dyspnea, edema, light headedness, other Gastrointestinal: negative: Nausea, Vomiting, Abdominal Pain, Diarrhea, Constipation, Melena, Hematochezia, Other Genitourinary: negative: Dysuria, Frequency, Incontinence, Hematuria, Retention , Other Musculoskeletal: negative: Neck Pain, Shoulder Pain, Arm Pain, Back Pain, Hand Pain, Leg Pain, Foot Pain, Other Skin: negative: Rash, Lesions, Fadi, Bruising, Other - Medications/Allergies Allergies/Adverse Reactions: Allergies Allergy/AdvReac Type Severity Reaction Status Date / Time promethazine [From Phenergan] Allergy Severe Short of Verified 12/23/17 15:38 Breath Penicillins Allergy Intermediate Severe Verified 12/23/17 15:38 Hives Medications: Current Medications Acetaminophen (Tylenol) 650 mg PO Q4H PRN PRN Reason: Fever > 101 Hydrocodone Bitart/Acetaminophen ([place] 5/325) 1 tab PO Q4H PRN PRN Reason: Moderate Pain (4-6) Last Admin: 12/10/18 08:44 Dose: 1 tab Amitriptyline HCl (Elavil) 100 mg PO HS [facility] Last Admin: 12/09/18 19:59 Dose: 100 mg Apixaban (Eliquis) 5 mg PO BID [facility] Last Admin: 12/10/18 07:31 Dose: 5 mg Artificial Tears (Tears Naturale) 2 drop EA EYE PRN PRN PRN Reason: Dry Eyes Atenolol (Tenormin) 25 mg PO QAM [facility] Last Admin: 12/10/18 07:31 Dose: 25 mg Bisacodyl (Dulcolax) 10 mg [place] DAILYPRN PRN PRN Reason: Constipation Calcium Carbonate (Tums) 1,000 mg PO Q4H PRN PRN Reason: Heartburn or Indigestion Dextrose/Water (Dextrose 50%) 25 gm SLOW IVP PRN PRN PRN Reason: Hypoglycemia Dihydroergotamine Mesylate (D.H.E. 45) 0.5 mg SLOW IVP Q6H PRN PRN Reason: Headache Last Admin: 12/10/18 07:33 Dose: 0.5 mg Divalproex Sodium (Depakote Er) 1,000 mg PO [facility] Last Admin: 12/09/18 19:58 Dose: 1,000 mg Famotidine (Pepcid) 20 mg PO BID [facility] Last Admin: 12/10/18 07:31 Dose: 20 mg Glucagon (Glucagon) 1 mg IM PRN PRN PRN Reason: Hypoglycemia Guaifenesin (Robitussin Sf) 200 mg PO Q4H PRN PRN Reason: Cough Hydralazine HCl (Apresoline) 10 mg SLOW IVP Q4H PRN PRN Reason: SBP > 180 and HR < 70 Dextrose/Water (D5w) 1,000 mls @ 0 mls/hr IV .Q0M PRN PRN Reason: Hypoglycemia Insulin Human Lispro (Humalog) 0 units SC .MILD SLIDING SCALE PRN PRN Reason: Mild Correctional Scale Insulin Human Lispro (Humalog) 0 units SC .BEDTIME SLIDING SC PRN PRN Reason: Bedtime Correctional Scale Loperamide HCl (Imodium) 2 mg PO PRN PRN PRN Reason: Diarrhea/Loose Stools Loratadine (Claritin) 10 mg PO DAILYPRN PRN PRN Reason: Sinus Symptoms Metoclopramide HCl (Reglan) 10 mg IVP Q6H PRN PRN Reason: Headache Last Admin: 12/09/18 17:02 Dose: 10 mg Mineral Oil/White Petrolatum (Eucerin Cream) 0 gm TOP BIDPRN PRN PRN Reason: Dry Skin Ondansetron HCl (Zofran Odt) 4 mg PO Q6H PRN PRN Reason: Nausea/Vomiting Ondansetron HCl (Zofran) 4 mg IVP Q6H PRN PRN Reason: Nausea/Vomiting Milnacipran Hcl [ (Savella] 25 Mg) 0 each PO [facility] Perphenazine (Trilafon) 2 mg PO BID [facility] Last Admin: 12/10/18 07:32 Dose: 2 mg Senna/Docusate Sodium (Senokot S) 2 tab PO BID PRN PRN Reason: Constipation Sodium Chloride (Flush - Normal Saline) 10 ml IVF Q12HR PRN PRN Reason: Saline Flush Sodium Chloride (Flush - Normal Saline) 10 ml IVF PRN PRN PRN Reason: Saline Flush Sodium Chloride ([place] Nasal [place] 0.65%) 0 ml EA NARE QIDPRN PRN PRN Reason: Nasal Congestion Throat Lozenges (Cepastat Lozenges) 1 ruthann PO Q2H PRN PRN Reason: Sore Throat Venlafaxine HCl (Effexor Xr) 150 mg PO BID [facility] Last Admin: 12/10/18 07:32 Dose: 150 mg Zonisamide (Zonisamide) 100 mg PO DAILY [facility] Last Admin: 12/10/18 07:31 Dose: 100 mg
[2018-12-10 15:22] LABS: ANA Symphony (Qualitative) Negative (Negative); ANA Symphony (Quantitative) 0.2 Ratio (< 0.7 Negative); dsDNA IgG Antibody Less than 0.5 IU/mL (<10 Negative)
[2018-12-10] MEDS: Acetaminophen 325 MG TAB PO PRN (19:16)
[2018-12-10] MEDS: Amitriptyline HCl 100 MG TAB PO SCH (20:06)
[2018-12-11] MEDS: HYDROcodone/Acetaminophen 5/325 mg Tablet PO PRN ×3 (05:46→20:10)
[2018-12-11] MEDS: Venlafaxine HCl XR 150 MG CAP PO SCH ×2 (07:44→20:09)
[2018-12-11] MEDS: Atenolol 25 MG TAB PO SCH (07:44)
[2018-12-11] MEDS: Perphenazine 2 MG TAB PO SCH ×2 (07:44→20:09)
[2018-12-11] MEDS: Famotidine 20 MG TAB PO SCH ×2 (07:44→20:09)
[2018-12-11] MEDS: Zonisamide 100 MG CAP PO SCH (07:44)
[2018-12-11] MEDS: Apixaban 5 MG TAB PO SCH ×2 (07:45→20:09)
--- NOTE | 2018-12-11 10:21 | PDOC.PN ---
- Subjective Encounter Start Date: 12/11/18 Encounter Start Time: 08:40 Patient seen and examined. No new complaints. No overnight events - Objective MAR Reviewed: Yes Vital Signs & Weight: Vital Signs (12 hours) Temp Pulse Resp BP Pulse Ox 12/11/18 07:44 63 12/11/18 07:00 97.7 F 76 16 134/80 95 Weight Weight 181 lb 10.574 oz I&O: 12/10/18 12/11/18 12/12/18 06:59 06:59 06:59 Intake Total 500 951 Balance 500 951 Result Diagrams: 12/10/18 05:45 12/10/18 05:45 Additional Labs: Accuchecks 12/11/18 12/10/18 12/10/18 05:35 19:28 16:47 POC Glucose 70 92 81 12/10/18 11:11 POC Glucose 79 Phys Exam - Physical Examination Constitutional: NAD HEENT: PERRLA, moist MMs, sclera anicteric Neck: no JVD, supple Respiratory: no wheezing, no rales, no rhonchi Cardiovascular: RRR, no significant murmur, no rub Gastrointestinal: soft, non-tender, no distention, positive bowel sounds Musculoskeletal: no edema, pulses present Neurological: non-focal, normal sensation, moves all 4 limbs Lymphatic: no nodes Psychiatric: normal affect, A&O x 3 Skin: no rash, normal turgor Dx/Plan (1) Pulmonary embolism Code(s): I26.99 - OTHER PULMONARY EMBOLISM WITHOUT ACUTE COR PULMONALE Status : Acute (2) Anxiety and depression Code(s): F41.8 - OTHER SPECIFIED ANXIETY DISORDERS Status: Chronic (3) Fibromyalgia Status: Chronic (4) GERD (gastroesophageal reflux disease) Code(s): K21.9 - GASTRO-ESOPHAGEAL REFLUX DISEASE WITHOUT ESOPHAGITIS Status: Chronic (5) Hypertension Code(s): I10 - ESSENTIAL (PRIMARY) HYPERTENSION Status: Chronic (6) Obesity (BMI 30-39.9) Code(s): E66.9 - OBESITY, UNSPECIFIED Status: Chronic - Plan cont current plan of care, plan discussed w/ family, PT/OT, social secretary * rehab declined * will need snu vs swing bed placement * medication reviewed as below * symptomatic treatment * continue elliquis. Review of Systems - Review of Systems ENT: negative: Ear Pain, Ear Discharge, Nose Pain, Nose Discharge, Nose Congestion, Mouth Pain, Mouth Swelling, Throat Pain, Throat Swelling, Other Respiratory: negative: Cough, Dry, Shortness of Breath, Hemoptysis, SOB with Excertion, Pleuritic Pain, Sputum, Wheezing Cardiovascular: negative: chest pain, palpitations, orthopnea, paroxysmal nocturnal dyspnea, edema, light headedness, other Gastrointestinal: negative: Nausea, Vomiting, Abdominal Pain, Diarrhea, Constipation, Melena, Hematochezia, Other Genitourinary: negative: Dysuria, Frequency, Incontinence, Hematuria, Retention , Other Musculoskeletal: negative: Neck Pain, Shoulder Pain, Arm Pain, Back Pain, Hand Pain, Leg Pain, Foot Pain, Other Skin: negative: Rash, Lesions, Fadi, Bruising, Other - Medications/Allergies Allergies/Adverse Reactions: Allergies Allergy/AdvReac Type Severity Reaction Status Date / Time promethazine [From Phenergan] Allergy Severe Short of Verified 12/23/17 15:38 Breath Penicillins Allergy Intermediate Severe Verified 12/23/17 15:38 Hives Medications: Current Medications Acetaminophen (Tylenol) 650 mg PO Q4H PRN PRN Reason: Fever > 101 Last Admin: 12/10/18 19:16 Dose: 650 mg Hydrocodone Bitart/Acetaminophen ([place] 5/325) 1 tab PO Q4H PRN PRN Reason: Moderate Pain (4-6) Last Admin: 12/11/18 05:46 Dose: 1 tab Amitriptyline HCl (Elavil) 100 mg PO HS [facility] Last Admin: 12/10/18 20:06 Dose: 100 mg Apixaban (Eliquis) 5 mg PO BID [facility] Last Admin: 12/11/18 07:45 Dose: 5 mg Artificial Tears (Tears Naturale) 2 drop EA EYE PRN PRN PRN Reason: Dry Eyes Atenolol (Tenormin) 25 mg PO QAM [facility] Last Admin: 12/11/18 07:44 Dose: 25 mg Bisacodyl (Dulcolax) 10 mg [place] DAILYPRN PRN PRN Reason: Constipation Calcium Carbonate (Tums) 1,000 mg PO Q4H PRN PRN Reason: Heartburn or Indigestion Dextrose/Water (Dextrose 50%) 25 gm SLOW IVP PRN PRN PRN Reason: Hypoglycemia Dihydroergotamine Mesylate (D.H.E. 45) 0.5 mg SLOW IVP Q6H PRN PRN Reason: Headache Last Admin: 12/10/18 07:33 Dose: 0.5 mg Divalproex Sodium (Depakote Er) 1,000 mg PO HS [facility] Last Admin: 12/10/18 20:06 Dose: 1,000 mg Famotidine (Pepcid) 20 mg PO BID [facility] Last Admin: 12/11/18 07:44 Dose: 20 mg Glucagon (Glucagon) 1 mg IM PRN PRN PRN Reason: Hypoglycemia Guaifenesin (Robitussin Sf) 200 mg PO Q4H PRN PRN Reason: Cough Hydralazine HCl (Apresoline) 10 mg SLOW IVP Q4H PRN PRN Reason: SBP > 180 and HR < 70 Dextrose/Water (D5w) 1,000 mls @ 0 mls/hr IV .Q0M PRN PRN Reason: Hypoglycemia Insulin Human Lispro (Humalog) 0 units SC .MILD SLIDING SCALE PRN PRN Reason: Mild Correctional Scale Insulin Human Lispro (Humalog) 0 units SC .BEDTIME SLIDING SC PRN PRN Reason: Bedtime Correctional Scale Loperamide HCl (Imodium) 2 mg PO PRN PRN PRN Reason: Diarrhea/Loose Stools Loratadine (Claritin) 10 mg PO DAILYPRN PRN PRN Reason: Sinus Symptoms Metoclopramide HCl (Reglan) 10 mg IVP Q6H PRN PRN Reason: Headache Last Admin: 12/09/18 17:02 Dose: 10 mg Mineral Oil/White Petrolatum (Eucerin Cream) 0 gm TOP BIDPRN PRN PRN Reason: Dry Skin Ondansetron HCl (Zofran Odt) 4 mg PO Q6H PRN PRN Reason: Nausea/Vomiting Ondansetron HCl (Zofran) 4 mg IVP Q6H PRN PRN Reason: Nausea/Vomiting Milnacipran Hcl [ (Savella] 25 Mg) 0 each PO [facility] Perphenazine (Trilafon) 2 mg PO BID [facility] Last Admin: 12/11/18 07:44 Dose: 2 mg Senna/Docusate Sodium (Senokot S) 2 tab PO BID PRN PRN Reason: Constipation Sodium Chloride (Flush - Normal Saline) 10 ml IVF Q12HR PRN PRN Reason: Saline Flush Sodium Chloride (Flush - Normal Saline) 10 ml IVF PRN PRN PRN Reason: Saline Flush Sodium Chloride ([place] Nasal [place] 0.65%) 0 ml EA NARE QIDPRN PRN PRN Reason: Nasal Congestion Throat Lozenges (Cepastat Lozenges) 1 ruthann PO Q2H PRN PRN Reason: Sore Throat Venlafaxine HCl (Effexor Xr) 150 mg PO BID [facility] Last Admin: 12/11/18 07:44 Dose: 150 mg Zonisamide (Zonisamide) 100 mg PO DAILY [facility] Last Admin: 12/11/18 07:44 Dose: 100 mg
[2018-12-11] MEDS: Amitriptyline HCl 100 MG TAB PO SCH (20:09)
[2018-12-12] MEDS: HYDROcodone/Acetaminophen 5/325 mg Tablet PO PRN ×3 (02:59→20:25)
[2018-12-12] MEDS: Famotidine 20 MG TAB PO SCH ×2 (08:39→20:23)
[2018-12-12] MEDS: Venlafaxine HCl XR 150 MG CAP PO SCH ×2 (08:39→20:23)
[2018-12-12] MEDS: Perphenazine 2 MG TAB PO SCH ×2 (08:39→20:23)
[2018-12-12] MEDS: Atenolol 25 MG TAB PO SCH (08:39)
[2018-12-12] MEDS: Apixaban 5 MG TAB PO SCH ×2 (08:39→20:22)
[2018-12-12] MEDS: Zonisamide 100 MG CAP PO SCH (08:39)
[2018-12-12 10:02] LABS: Hemoglobin 12.4 g/dL (12.0-16.0); Platelet Count 275 thou/uL (130-400)
--- NOTE | 2018-12-12 10:10 | PDOC.PN ---
- Subjective Encounter Start Date: 12/12/18 Encounter Start Time: 07:40 Patient seen and examined. No new complaints. No overnight events - Objective MAR Reviewed: Yes Vital Signs & Weight: Vital Signs (12 hours) Temp Pulse Resp BP BP Pulse Ox 12/12/18 08:39 60 12/12/18 07:23 60 16 109/73 93 L 12/12/18 07:16 98.0 F 57 L 16 75/46 L 92 L Weight Weight 181 lb 10.574 oz I&O: 12/11/18 12/12/18 12/13/18 06:59 06:59 06:59 Intake Total 951 500 Balance 951 500 Result Diagrams: 12/12/18 09:41 12/10/18 05:45 Additional Labs: Accuchecks 12/12/18 12/11/18 12/11/18 04:44 19:48 16:47 POC Glucose 94 75 106 12/11/18 11:26 POC Glucose 89 Phys Exam - Physical Examination Constitutional: NAD HEENT: PERRLA, moist MMs, sclera anicteric Neck: no JVD, supple Respiratory: no wheezing, no rales, no rhonchi Cardiovascular: RRR, no significant murmur, no rub Gastrointestinal: soft, non-tender, no distention, positive bowel sounds Musculoskeletal: no edema, pulses present Neurological: non-focal, normal sensation Lymphatic: no nodes Psychiatric: normal affect, A&O x 3 Skin: no rash, normal turgor Dx/Plan (1) Pulmonary embolism Code(s): I26.99 - OTHER PULMONARY EMBOLISM WITHOUT ACUTE COR PULMONALE Status : Acute (2) Anxiety and depression Code(s): F41.8 - OTHER SPECIFIED ANXIETY DISORDERS Status: Chronic (3) Fibromyalgia Status: Chronic (4) GERD (gastroesophageal reflux disease) Code(s): K21.9 - GASTRO-ESOPHAGEAL REFLUX DISEASE WITHOUT ESOPHAGITIS Status: Chronic (5) Hypertension Code(s): I10 - ESSENTIAL (PRIMARY) HYPERTENSION Status: Chronic (6) Obesity (BMI 30-39.9) Code(s): E66.9 - OBESITY, UNSPECIFIED Status: Chronic - Plan cont current plan of care, plan discussed w/ family, psych social worker * medication reviewed as below * symptomatic treatment * see discharge summery * rehab and swing bed declined. Review of Systems - Review of Systems ENT: negative: Ear Pain, Ear Discharge, Nose Pain, Nose Discharge, Nose Congestion, Mouth Pain, Mouth Swelling, Throat Pain, Throat Swelling, Other Respiratory: negative: Cough, Dry, Shortness of Breath, Hemoptysis, SOB with Excertion, Pleuritic Pain, Sputum, Wheezing Cardiovascular: negative: chest pain, palpitations, orthopnea, paroxysmal nocturnal dyspnea, edema, light headedness, other Gastrointestinal: negative: Nausea, Vomiting, Abdominal Pain, Diarrhea, Constipation, Melena, Hematochezia, Other Genitourinary: negative: Dysuria, Frequency, Incontinence, Hematuria, Retention , Other Musculoskeletal: negative: Neck Pain, Shoulder Pain, Arm Pain, Back Pain, Hand Pain, Leg Pain, Foot Pain, Other - Medications/Allergies Allergies/Adverse Reactions: Allergies Allergy/AdvReac Type Severity Reaction Status Date / Time promethazine [From Phenergan] Allergy Severe Short of Verified 12/23/17 15:38 Breath Penicillins Allergy Intermediate Severe Verified 12/23/17 15:38 Hives Medications: Current Medications Acetaminophen (Tylenol) 650 mg PO Q4H PRN PRN Reason: Fever > 101 Last Admin: 12/10/18 19:16 Dose: 650 mg Hydrocodone Bitart/Acetaminophen ([place] 5/325) 1 tab PO Q4H PRN PRN Reason: Moderate Pain (4-6) Last Admin: 12/12/18 02:59 Dose: 1 tab Amitriptyline HCl (Elavil) 100 mg PO HS [facility] Last Admin: 12/11/18 20:09 Dose: 100 mg Apixaban (Eliquis) 5 mg PO BID [facility] Last Admin: 12/12/18 08:39 Dose: 5 mg Artificial Tears (Tears Naturale) 2 drop EA EYE PRN PRN PRN Reason: Dry Eyes Aten[facility] ([facility]in) [facility] [place] Last Admin: 12/12/18 08:39 Dose: 25 mg Bisacodyl (Dulcolax) 10 mg IN DAILYPRN PRN PRN Reason: Constipation Calcium Carbonate (Tums) 1,000 mg PO Q4H PRN PRN Reason: Heartburn or Indigestion Dextrose/Water (Dextrose 50%) 25 gm SLOW IVP PRN PRN PRN Reason: Hypoglycemia Dihydroergotamine Mesylate (D.H.E. 45) 0.5 mg SLOW IVP Q6H PRN PRN Reason: Headache Last Admin: 12/10/18 07:33 Dose: 0.5 mg Divalproex Sodium (Depakote Er) 1,000 mg PO HS [facility] Last Admin: 12/11/18 20:09 Dose: 1,000 mg Famotidine (Pepcid) 20 mg PO BID [facility] Last Admin: 12/12/18 08:39 Dose: 20 mg Glucagon (Glucagon) 1 mg IM PRN PRN PRN Reason: Hypoglycemia Guaifenesin (Robitussin Sf) 200 mg PO Q4H PRN PRN Reason: Cough Hydralazine HCl (Apresoline) 10 mg SLOW IVP Q4H PRN PRN Reason: SBP > 180 and HR < 70 Dextrose/Water (D5w) 1,000 mls @ 0 mls/hr IV .Q0M PRN PRN Reason: Hypoglycemia Insulin Human Lispro (Humalog) 0 units SC .MILD SLIDING SCALE PRN PRN Reason: Mild Correctional Scale Insulin Human Lispro (Humalog) 0 units SC .BEDTIME SLIDING SC PRN PRN Reason: Bedtime Correctional Scale Loperamide HCl (Imodium) 2 mg PO PRN PRN PRN Reason: Diarrhea/Loose Stools Loratadine (Claritin) 10 mg PO DAILYPRN PRN PRN Reason: Sinus Symptoms Metoclopramide HCl (Reglan) 10 mg IVP Q6H PRN PRN Reason: Headache Last Admin: 12/09/18 17:02 Dose: 10 mg Mineral Oil/White Petrolatum (Eucerin Cream) 0 gm TOP BIDPRN PRN PRN Reason: Dry Skin Ondansetron HCl (Zofran Odt) 4 mg PO Q6H PRN PRN Reason: Nausea/Vomiting Ondansetron HCl (Zofran) 4 mg IVP Q6H PRN PRN Reason: Nausea/Vomiting Milnacipran Hcl [ (Savella] 25 Mg) 0 each PO TID-[facility] Perphenazine (Trilafon) 2 mg PO BID [facility] Last Admin: 12/12/18 08:39 Dose: 2 mg Senna/Docusate Sodium (Senokot S) 2 tab PO BID PRN PRN Reason: Constipation Sodium Chloride (Flush - Normal Saline) 10 ml IVF Q12HR PRN PRN Reason: Saline Flush Sodium Chloride (Flush - Normal Saline) 10 ml IVF PRN PRN PRN Reason: Saline Flush Sodium Chloride ([place] Nasal [place] 0.65%) 0 ml EA NARE QIDPRN PRN PRN Reason: Nasal Congestion Throat Lozenges (Cepastat Lozenges) 1 ruthann PO Q2H PRN PRN Reason: Sore Throat Venlafaxine HCl (Effexor Xr) 150 mg PO BID [facility] Last Admin: 12/12/18 08:39 Dose: 150 mg Zonisamide (Zonisamide) 100 mg PO DAILY [facility] Last Admin: 12/12/18 08:39 Dose: 100 mg
--- NOTE | 2018-12-12 10:43 | DIS ---
DATE OF ADMISSION: 12/07/2018 DATE OF DISCHARGE: 12/12/2018 PRIMARY CARE PHYSICIAN: Dr. Gretchen Hudson. DISCHARGE DISPOSITION: Home. PRIMARY DISCHARGE DIAGNOSIS: Pulmonary embolism. SECONDARY DISCHARGE DIAGNOSES: Obesity, hypertension, gastroesophageal reflux disease, fibromyalgia, anxiety, and depression. PRIMARY PROCEDURE/OPERATION: None. RADIOLOGICAL INVESTIGATION: CT brain, MRI brain, CT angiography, echocardiography. SIGNIFICANT LABORATORY DATA: Hemoglobin 12.3. D-dimer 1.09. Creatinine 0.85. Urinalysis unremarkable. ANTHONY, negative. DISCHARGE MEDICATIONS: 1. Levsin 0.125 mg sublingual q.4 hourly p.r.n. 2. Amitriptyline 100 mg p.o. q.h.s. 3. Atenolol 25 mg p.o. daily. 4. Butalbital 1 tablet t.i.d. p.r.n. 5. Pristiq 100 mg daily and 100 mg p.o. q.h.s. 6. Pepcid 40 mg p.o. b.i.d. 7. Atarax 25 mg t.i.d. p.r.n. 8. Lisinopril 2.5 mg daily. 9. Robaxin 500 mg q.6 hourly p.r.n. 10. Savella 25 mg t.i.d. 11. Perphenazine 2 mg b.i.d. 12. MiraLAX 17 g p.o. daily. 13. Ambien 10 mg q.h.s. p.r.n. 14. Zonisamide 100 mg daily. 15. Eliquis 5 mg p.o. b.i.d. 16. Depakote ER 1000 mg p.o. at bedtime. CONTRAINDICATION: None. CODE STATUS: Full code. INPATIENT OFFSET PRESS ASSISTANT: None. ALLERGIES: 1. PROMETHAZINE. 2. PENICILLIN. DISCHARGE PLAN: Post hospital, the patient will follow up with primary care physician. HOSPITAL COURSE: A 53-year-old female, who was admitted by Rachael Chaudhary, please see her H and P for further details. During this admission, the patient was admitted for shortness of breath and she was found with pulmonary embolism based on CT angiography veining. The patient was treated with Eliquis while in the hospital. She was having recurrent admission in our hospital and that is why we consulted outpatient case manager to send her to rehab. We tried to send her to rehab skilled [facility], but all facility denied her. At this point, there is no other option. She is medically stable. She is tolerating p.o. well. Because of her psychiatric problems, she is continuously high risk for recurrent admission. Otherwise, the patient is okay to be discharged with safe discharge plan. We will ask outpatient case manager to assist with discharge needs on discharge. The patient is seen and examined at bedside today. Please see my progress note from today for further detail. Job ID: [id number]
--- NOTE | 2018-12-12 12:08 | CT ---
Head CT without contrast 12/12/2018: COMPARISON: 12/05/2018 HISTORY: Fall, trauma, pain TECHNIQUE: Axial CT imaging at 5 mm intervals from vertex through skull base without contrast FINDINGS: The imaged paranasal sinuses and mastoid air cells are well aerated. No displaced calvarial fracture. No intracranial hemorrhage, midline shift, mass effect, or ventricular enlargement. IMPRESSION: No acute findings.
[2018-12-12] MEDS: Amitriptyline HCl 100 MG TAB PO SCH (20:22)
[2018-12-13] MEDS: HYDROcodone/Acetaminophen 5/325 mg Tablet PO PRN ×2 (05:51→20:12)
[2018-12-13] MEDS: Atenolol 25 MG TAB PO SCH (08:09)
[2018-12-13] MEDS: Zonisamide 100 MG CAP PO SCH (08:09)
[2018-12-13] MEDS: Venlafaxine HCl XR 150 MG CAP PO SCH ×2 (08:09→20:09)
[2018-12-13] MEDS: Apixaban 5 MG TAB PO SCH ×2 (08:09→20:09)
[2018-12-13] MEDS: Perphenazine 2 MG TAB PO SCH ×2 (08:09→20:09)
[2018-12-13] MEDS: Famotidine 20 MG TAB PO SCH ×2 (08:10→20:09)
--- NOTE | 2018-12-13 10:05 | PDOC.PN ---
- Subjective Encounter Start Date: 12/13/18 Encounter Start Time: 08:00 Patient seen and examined. No new complaints. No overnight events - Objective MAR Reviewed: Yes Vital Signs & Weight: Vital Signs (12 hours) Temp Pulse Resp BP BP BP Pulse Ox 12/13/18 08:09 65 115/79 12/13/18 08:07 98.5 F 66 14 115/79 92 L 12/13/18 08:00 92 L 12/13/18 03:55 98.3 F 57 L 20 99/69 94 L 12/13/18 00:00 98.5 F 61 20 102/64 97 Weight Weight 181 lb 10.574 oz I&O: 12/12/18 12/13/18 12/14/18 06:59 06:59 06:59 Intake Total 500 1120 Balance 500 1120 Result Diagrams: 12/12/18 09:41 12/12/18 09:41 Additional Labs: Accuchecks 12/13/18 12/12/18 12/12/18 05:00 19:36 16:22 POC Glucose 85 178 H 81 12/12/18 11:24 POC Glucose 146 H Phys Exam - Physical Examination Constitutional: NAD HEENT: PERRLA, moist MMs, sclera anicteric Neck: no JVD, supple Respiratory: no wheezing, no rales, no rhonchi Cardiovascular: RRR, no significant murmur, no rub Gastrointestinal: soft, non-tender, no distention, positive bowel sounds Musculoskeletal: no edema, pulses present Neurological: moves all 4 limbs Lymphatic: no nodes Psychiatric: normal affect Skin: no rash, normal turgor Dx/Plan (1) Pulmonary embolism Code(s): I26.99 - OTHER PULMONARY EMBOLISM WITHOUT ACUTE COR PULMONALE Status : Acute (2) Anxiety and depression Code(s): F41.8 - OTHER SPECIFIED ANXIETY DISORDERS Status: Chronic (3) Fibromyalgia Status: Chronic (4) GERD (gastroesophageal reflux disease) Code(s): K21.9 - GASTRO-ESOPHAGEAL REFLUX DISEASE WITHOUT ESOPHAGITIS Status: Chronic (5) Hypertension Code(s): I10 - ESSENTIAL (PRIMARY) HYPERTENSION Status: Chronic (6) Obesity (BMI 30-39.9) Code(s): E66.9 - OBESITY, UNSPECIFIED Status: Chronic - Plan cont current plan of care, plan discussed w/ family, PT/OT, social media sr strategy manager * pt will need snu on discharge, otherwise she will be bounce back * continue current medical treatment * symptomatic treatment * she can not take care of herself. Review of Systems - Review of Systems ENT: negative: Ear Pain, Ear Discharge, Nose Pain, Nose Discharge, Nose Congestion, Mouth Pain, Mouth Swelling, Throat Pain, Throat Swelling, Other Respiratory: negative: Cough, Dry, Shortness of Breath, Hemoptysis, SOB with Excertion, Pleuritic Pain, Sputum, Wheezing Cardiovascular: negative: chest pain, palpitations, orthopnea, paroxysmal nocturnal dyspnea, edema, light headedness, other Gastrointestinal: negative: Nausea, Vomiting, Abdominal Pain, Diarrhea, Constipation, Melena, Hematochezia, Other Genitourinary: negative: Dysuria, Frequency, Incontinence, Hematuria, Retention , Other Musculoskeletal: negative: Neck Pain, Shoulder Pain, Arm Pain, Back Pain, Hand Pain, Leg Pain, Foot Pain, Other Other: not reliable due to cognitive status - Medications/Allergies Allergies/Adverse Reactions: Allergies Allergy/AdvReac Type Severity Reaction Status Date / Time promethazine [From Phenergan] Allergy Severe Short of Verified 12/23/17 15:38 Breath Penicillins Allergy Intermediate Severe Verified 12/23/17 15:38 Hives Medications: Current Medications Acetaminophen (Tylenol) 650 mg PO Q4H PRN PRN Reason: Fever > 101 Last Admin: 12/10/18 19:16 Dose: 650 mg Hydrocodone Bitart/Acetaminophen ([place] 5/325) 1 tab PO Q4H PRN PRN Reason: Moderate Pain (4-6) Last Admin: 12/13/18 05:51 Dose: 1 tab Amitriptyline HCl (Elavil) [address] [facility] Last Admin: 12/12/18 20:22 Dose: 100 mg Apixaban (Eliquis) 5 mg PO BID [facility] Last Admin: 12/13/18 08:09 Dose: 5 mg Artificial Tears (Tears Naturale) 2 drop EA EYE PRN PRN PRN Reason: Dry Eyes Atenolol (Tenormin) 25 mg PO QAM [facility] Last Admin: 12/13/18 08:09 Dose: 25 mg Bisacodyl (Dulcolax) 10 mg [place] DAILYPRN PRN PRN Reason: Constipation Calcium Carbonate (Tums) 1,000 mg PO Q4H PRN PRN Reason: Heartburn or Indigestion Dextrose/Water (Dextrose 50%) 25 gm SLOW IVP PRN PRN PRN Reason: Hypoglycemia Dihydroergotamine Mesylate (D.H.E. 45) 0.5 mg SLOW IVP Q6H PRN PRN Reason: Headache Last Admin: 12/10/18 07:33 Dose: 0.5 mg Divalproex Sodium (Depakote Er) 1,000 mg PO HS [facility] Last Admin: 12/12/18 20:23 Dose: 1,000 mg Famotidine (Pepcid) 20 mg PO BID [facility] Last Admin: 12/13/18 08:10 Dose: 20 mg Glucagon (Glucagon) 1 mg IM PRN PRN PRN Reason: Hypoglycemia Guaifenesin (Robitussin Sf) 200 mg PO Q4H PRN PRN Reason: Cough Hydralazine HCl (Apresoline) 10 mg SLOW IVP Q4H PRN PRN Reason: SBP > 180 and HR < 70 Dextrose/Water (D5w) 1,000 mls @ 0 mls/hr IV .Q0M PRN PRN Reason: Hypoglycemia Insulin Human Lispro (Humalog) 0 units SC .MILD SLIDING SCALE PRN PRN Reason: Mild Correctional Scale Insulin Human Lispro (Humalog) 0 units SC .BEDTIME SLIDING SC PRN PRN Reason: Bedtime Correctional Scale Loperamide HCl (Imodium) 2 mg PO PRN PRN PRN Reason: Diarrhea/Loose Stools Loratadine (Claritin) 10 mg PO DAILYPRN PRN PRN Reason: Sinus Symptoms Metoclopramide HCl (Reglan) 10 mg IVP Q6H PRN PRN Reason: Headache Last Admin: 12/09/18 17:02 Dose: 10 mg Mineral Oil/White Petrolatum (Eucerin Cream) 0 gm TOP BIDPRN PRN PRN Reason: Dry Skin Ondansetron HCl (Zofran Odt) 4 mg PO Q6H PRN PRN Reason: Nausea/Vomiting Ondansetron HCl (Zofran) 4 mg IVP Q6H PRN PRN Reason: Nausea/Vomiting Milnacipran Hcl [ (Savella] 25 Mg) 0 each PO TID-[facility] Perphenazine (Trilafon) 2 mg PO BID [facility] Last Admin: 12/13/18 08:09 Dose: 2 mg Senna/Docusate Sodium (Senokot S) 2 tab PO BID PRN PRN Reason: Constipation Sodium Chloride (Flush - Normal Saline) 10 ml IVF Q12HR PRN PRN Reason: Saline Flush Sodium Chloride (Flush - Normal Saline) 10 ml IVF PRN PRN PRN Reason: Saline Flush Sodium Chloride ([place] Nasal [place] 0.65%) 0 ml EA NARE QIDPRN PRN PRN Reason: Nasal Congestion Throat Lozenges (Cepastat Lozenges) 1 ruthann PO Q2H PRN PRN Reason: Sore Throat Venlafaxine HCl (Effexor Xr) 150 mg PO BID [facility] Last Admin: 12/13/18 08:09 Dose: 150 mg Zonisamide (Zonisamide) 100 mg PO DAILY [facility] Last Admin: 12/13/18 08:09 Dose: 100 mg
[2018-12-13] MEDS: Amitriptyline HCl 100 MG TAB PO SCH (20:09)
[2018-12-14 06:39] LABS: Hemoglobin 12.3 g/dL (12.0-16.0); Platelet Count 270 thou/uL (130-400)
[2018-12-14] MEDS: Atenolol 25 MG TAB PO SCH (08:51)
[2018-12-14] MEDS: Perphenazine 2 MG TAB PO SCH ×2 (09:43→20:15)
[2018-12-14] MEDS: Zonisamide 100 MG CAP PO SCH (09:43)
[2018-12-14] MEDS: Famotidine 20 MG TAB PO SCH ×2 (09:43→20:15)
[2018-12-14] MEDS: Apixaban 5 MG TAB PO SCH ×2 (09:43→20:14)
[2018-12-14] MEDS: Venlafaxine HCl XR 150 MG CAP PO SCH ×2 (09:43→20:15)
--- NOTE | 2018-12-14 09:50 | PDOC.PN ---
- Subjective Encounter Start Date: 12/14/18 Encounter Start Time: 08:40 Patient seen and examined. No new complaints. No overnight events - Objective MAR Reviewed: Yes Vital Signs & Weight: Vital Signs (12 hours) Temp Pulse Resp BP BP Pulse Ox 12/14/18 08:51 55 L 96/56 L 12/14/18 07:54 97.8 F 55 L 18 96/56 L 93 L 12/14/18 05:02 97.6 F 97 16 97/66 100 Weight Weight 181 lb 10.574 oz I&O: 12/13/18 12/14/18 12/15/18 06:59 06:59 06:59 Intake Total 1120 950 Balance 1120 950 Result Diagrams: 12/14/18 06:04 12/14/18 06:04 Additional Labs: Accuchecks 12/14/18 12/13/18 12/13/18 05:00 19:40 16:26 POC Glucose 87 83 77 12/13/18 12:31 POC Glucose 125 H Phys Exam - Physical Examination Constitutional: NAD HEENT: PERRLA, moist MMs Neck: no JVD, supple Respiratory: no wheezing, no rales, no rhonchi Cardiovascular: RRR, no significant murmur, no rub Gastrointestinal: soft, non-tender, no distention, positive bowel sounds Musculoskeletal: no edema, pulses present Neurological: non-focal, normal sensation Lymphatic: no nodes Psychiatric: normal affect Skin: no rash, normal turgor Dx/Plan (1) Pulmonary embolism Code(s): I26.99 - OTHER PULMONARY EMBOLISM WITHOUT ACUTE COR PULMONALE Status : Acute (2) Anxiety and depression Code(s): F41.8 - OTHER SPECIFIED ANXIETY DISORDERS Status: Chronic (3) Fibromyalgia Status: Chronic (4) GERD (gastroesophageal reflux disease) Code(s): K21.9 - GASTRO-ESOPHAGEAL REFLUX DISEASE WITHOUT ESOPHAGITIS Status: Chronic (5) Hypertension Code(s): I10 - ESSENTIAL (PRIMARY) HYPERTENSION Status: Chronic (6) Obesity (BMI 30-39.9) Code(s): E66.9 - OBESITY, UNSPECIFIED Status: Chronic - Plan cont current plan of care, plan discussed w/ family, rn social services * continue current medical treatment * symptomatic treatment * will need safe discharge plan. Review of Systems - Review of Systems ENT: negative: Ear Pain, Ear Discharge, Nose Pain, Nose Discharge, Nose Congestion, Mouth Pain, Mouth Swelling, Throat Pain, Throat Swelling, Other Respiratory: negative: Cough, Dry, Shortness of Breath, Hemoptysis, SOB with Excertion, Pleuritic Pain, Sputum, Wheezing Cardiovascular: negative: chest pain, palpitations, orthopnea, paroxysmal nocturnal dyspnea, edema, light headedness, other Gastrointestinal: negative: Nausea, Vomiting, Abdominal Pain, Diarrhea, Constipation, Melena, Hematochezia, Other Genitourinary: negative: Dysuria, Frequency, Incontinence, Hematuria, Retention , Other Musculoskeletal: negative: Neck Pain, Shoulder Pain, Arm Pain, Back Pain, Hand Pain, Leg Pain, Foot Pain, Other - Medications/Allergies Allergies/Adverse Reactions: Allergies Allergy/AdvReac Type Severity Reaction Status Date / Time promethazine [From Phenergan] Allergy Severe Short of Verified 12/23/17 15:38 Breath Penicillins Allergy Intermediate Severe Verified 12/23/17 15:38 Hives Medications: Current Medications Acetaminophen (Tylenol) 650 mg PO Q4H PRN PRN Reason: Fever > 101 Last Admin: 12/10/18 19:16 Dose: 650 mg Hydrocodone Bitart/Acetaminophen ([place] 5/325) 1 tab PO Q4H PRN PRN Reason: Moderate Pain (4-6) Last Admin: 12/13/18 20:12 Dose: 1 tab Amitriptyline HCl (Elavil) 100 mg PO HS [facility] Last Admin: 12/13/18 20:09 Dose: 100 mg Apixaban (Eliquis) 5 mg PO BID [facility] Last Admin: 12/14/18 09:43 Dose: 5 mg Artificial Tears (Tears Naturale) 2 drop EA EYE PRN PRN PRN Reason: Dry Eyes Atenolol (Tenormin) 25 mg PO QAM [facility] Last Admin: 12/14/18 08:51 Dose: Not Given Bisacodyl (Dulcolax) 10 mg [place] DAILYPRN PRN PRN Reason: Constipation Calcium Carbonate (Tums) 1,000 mg PO Q4H PRN PRN Reason: Heartburn or Indigestion Dextrose/Water (Dextrose 50%) 25 gm SLOW IVP PRN PRN PRN Reason: Hypoglycemia Dihydroergotamine Mesylate (D.H.E. 45) 0.5 mg SLOW IVP Q6H PRN PRN Reason: Headache Last Admin: 12/10/18 07:33 Dose: 0.5 mg Divalproex Sodium (Depakote Er) 1,000 mg PO [facility] Last Admin: 12/13/18 20:09 Dose: 1,000 mg Famotidine (Pepcid) 20 mg PO BID [facility] Last Admin: 12/14/18 09:43 Dose: 20 mg Glucagon (Glucagon) 1 mg IM PRN PRN PRN Reason: Hypoglycemia Guaifenesin (Robitussin Sf) 200 mg PO Q4H PRN PRN Reason: Cough Hydralazine HCl (Apresoline) 10 mg SLOW IVP Q4H PRN PRN Reason: SBP > 180 and HR < 70 Dextrose/Water (D5w) 1,000 mls @ 0 mls/hr IV .Q0M PRN PRN Reason: Hypoglycemia Insulin Human Lispro (Humalog) 0 units SC .MILD SLIDING SCALE PRN PRN Reason: Mild Correctional Scale Insulin Human Lispro (Humalog) 0 units SC .BEDTIME SLIDING SC PRN PRN Reason: Bedtime Correctional Scale Loperamide HCl (Imodium) 2 mg PO PRN PRN PRN Reason: Diarrhea/Loose Stools Loratadine (Claritin) 10 mg PO DAILYPRN PRN PRN Reason: Sinus Symptoms Metoclopramide HCl (Reglan) 10 mg IVP Q6H PRN PRN Reason: Headache Last Admin: 12/09/18 17:02 Dose: 10 mg Mineral Oil/White Petrolatum (Eucerin Cream) 0 gm TOP BIDPRN PRN PRN Reason: Dry Skin Ondansetron HCl (Zofran Odt) 4 mg PO Q6H PRN PRN Reason: Nausea/Vomiting Ondansetron HCl (Zofran) 4 mg IVP Q6H PRN PRN Reason: Nausea/Vomiting Milnacipran Hcl [ (Savella] 25 Mg) 0 each PO [facility] Perphenazine (Trilafon) 2 mg PO BID [facility] Last Admin: 12/14/18 09:43 Dose: 2 mg Senna/Docusate Sodium (Senokot S) 2 tab PO BID PRN PRN Reason: Constipation Sodium Chloride (Flush - Normal Saline) 10 ml IVF Q12HR PRN PRN Reason: Saline Flush Sodium Chloride (Flush - Normal Saline) 10 ml IVF PRN PRN PRN Reason: Saline Flush Sodium Chloride ([place] Nasal [place] 0.65%) 0 ml EA NARE QIDPRN PRN PRN Reason: Nasal Congestion Throat Lozenges (Cepastat Lozenges) 1 ruthann PO Q2H PRN PRN Reason: Sore Throat Venlafaxine HCl (Effexor Xr) 150 mg PO BID [facility] Last Admin: 12/14/18 09:43 Dose: 150 mg Zonisamide (Zonisamide) 100 mg PO DAILY [facility] Last Admin: 12/14/18 09:43 Dose: 100 mg
[2018-12-14] MEDS: HYDROcodone/Acetaminophen 5/325 mg Tablet PO PRN (19:02)
[2018-12-14] MEDS: Amitriptyline HCl 100 MG TAB PO SCH (20:15)
[2018-12-15] MEDS: Apixaban 5 MG TAB PO SCH ×2 (08:47→21:13)
[2018-12-15] MEDS: Atenolol 25 MG TAB PO SCH (08:47)
[2018-12-15] MEDS: Zonisamide 100 MG CAP PO SCH (08:47)
[2018-12-15] MEDS: Famotidine 20 MG TAB PO SCH ×2 (08:47→21:14)
[2018-12-15] MEDS: Perphenazine 2 MG TAB PO SCH ×2 (08:47→21:14)
[2018-12-15] MEDS: Venlafaxine HCl XR 150 MG CAP PO SCH ×2 (08:47→21:13)
--- NOTE | 2018-12-15 10:13 | PDOC.PN ---
- Subjective Encounter Start Date: 12/15/18 Encounter Start Time: 08:40 Patient seen and examined. No new complaints. No overnight events - Objective MAR Reviewed: Yes Vital Signs & Weight: Vital Signs (12 hours) Temp Pulse Resp BP BP Pulse Ox 12/15/18 08:47 67 107/68 12/15/18 08:45 93 L 12/15/18 08:00 97.5 F L 66 20 107/68 93 L Weight Weight 181 lb 10.574 oz I&O: 12/14/18 12/15/18 12/16/18 06:59 06:59 06:59 Intake Total 950 300 Balance 950 300 Result Diagrams: 12/14/18 06:04 12/14/18 06:04 Additional Labs: Accuchecks 12/15/18 12/14/18 12/14/18 04:21 19:42 16:25 POC Glucose 95 145 H 96 12/14/18 11:13 POC Glucose 96 Phys Exam - Physical Examination Constitutional: NAD HEENT: PERRLA, moist MMs, sclera anicteric Neck: no JVD, supple Respiratory: no wheezing, no rales, no rhonchi Cardiovascular: RRR, no significant murmur, no rub Gastrointestinal: soft, non-tender, no distention, positive bowel sounds Musculoskeletal: no edema, pulses present Neurological: non-focal, normal sensation Lymphatic: no nodes Psychiatric: normal affect Skin: no rash, normal turgor Dx/Plan (1) Pulmonary embolism Code(s): I26.99 - OTHER PULMONARY EMBOLISM WITHOUT ACUTE COR PULMONALE Status : Acute (2) Anxiety and depression Code(s): F41.8 - OTHER SPECIFIED ANXIETY DISORDERS Status: Chronic (3) Fibromyalgia Status: Chronic (4) GERD (gastroesophageal reflux disease) Code(s): K21.9 - GASTRO-ESOPHAGEAL REFLUX DISEASE WITHOUT ESOPHAGITIS Status: Chronic (5) Hypertension Code(s): I10 - ESSENTIAL (PRIMARY) HYPERTENSION Status: Chronic (6) Obesity (BMI 30-39.9) Code(s): E66.9 - OBESITY, UNSPECIFIED Status: Chronic - Plan cont current plan of care, plan discussed w/ family, director of social work * medication reviewed as below * symptomatic treatment * needs placement * stable otherwise * discussed with family. Review of Systems - Review of Systems ENT: negative: Ear Pain, Ear Discharge, Nose Pain, Nose Discharge, Nose Congestion, Mouth Pain, Mouth Swelling, Throat Pain, Throat Swelling, Other Respiratory: negative: Cough, Dry, Shortness of Breath, Hemoptysis, SOB with Excertion, Pleuritic Pain, Sputum, Wheezing Cardiovascular: negative: chest pain, palpitations, orthopnea, paroxysmal nocturnal dyspnea, edema, light headedness, other Gastrointestinal: negative: Nausea, Vomiting, Abdominal Pain, Diarrhea, Constipation, Melena, Hematochezia, Other Genitourinary: negative: Dysuria, Frequency, Incontinence, Hematuria, Retention , Other Musculoskeletal: negative: Neck Pain, Shoulder Pain, Arm Pain, Back Pain, Hand Pain, Leg Pain, Foot Pain, Other - Medications/Allergies Allergies/Adverse Reactions: Allergies Allergy/AdvReac Type Severity Reaction Status Date / Time promethazine [From Phenergan] Allergy Severe Short of Verified 12/23/17 15:38 Breath Penicillins Allergy Intermediate Severe Verified 12/23/17 15:38 Hives Medications: Current Medications Acetaminophen (Tylenol) 650 mg PO Q4H PRN PRN Reason: Fever > 101 Last Admin: 12/10/18 19:16 Dose: 650 mg Hydrocodone Bitart/Acetaminophen ([place] 5/325) 1 tab PO Q4H PRN PRN Reason: Moderate Pain (4-6) Last Admin: 12/14/18 19:02 Dose: 1 tab Amitriptyline HCl (Elavil) 100 mg PO HS [facility] Last Admin: 12/14/18 20:15 Dose: 100 mg Apixaban (Eliquis) 5 mg PO BID [facility] Last Admin: 12/15/18 08:47 Dose: 5 mg Artificial Tears (Tears Naturale) 2 drop EA EYE PRN PRN PRN Reason: Dry Eyes Atenolol (Tenormin) 25 mg PO QAM [facility] Last Admin: 12/15/18 08:47 Dose: 25 mg Bisacodyl (Dulcolax) 10 mg [place] DAILYPRN PRN PRN Reason: Constipation Calcium Carbonate (Tums) 1,000 mg PO Q4H PRN PRN Reason: Heartburn or Indigestion Dextrose/Water (Dextrose 50%) 25 gm SLOW IVP PRN PRN PRN Reason: Hypoglycemia Dihydroergotamine Mesylate (D.H.E. 45) 0.5 mg SLOW IVP Q6H PRN PRN Reason: Headache Last Admin: 12/10/18 07:33 Dose: 0.5 mg Divalproex Sodium (Depakote Er) 1,000 mg PO [facility] Last Admin: 12/14/18 20:15 Dose: 1,000 mg Famotidine (Pepcid) 20 mg PO BID [facility] Last Admin: 12/15/18 08:47 Dose: 20 mg Glucagon (Glucagon) 1 mg IM PRN PRN PRN Reason: Hypoglycemia Guaifenesin (Robitussin Sf) 200 mg PO Q4H PRN PRN Reason: Cough Hydralazine HCl (Apresoline) 10 mg SLOW IVP Q4H PRN PRN Reason: SBP > 180 and HR < 70 Dextrose/Water (D5w) 1,000 mls @ 0 mls/hr IV .Q0M PRN PRN Reason: Hypoglycemia Insulin Human Lispro (Humalog) 0 units SC .MILD SLIDING SCALE PRN PRN Reason: Mild Correctional Scale Insulin Human Lispro (Humalog) 0 units SC .BEDTIME SLIDING SC PRN PRN Reason: Bedtime Correctional Scale Loperamide HCl (Imodium) 2 mg PO PRN PRN PRN Reason: Diarrhea/Loose Stools Loratadine (Claritin) 10 mg PO DAILYPRN PRN PRN Reason: Sinus Symptoms Metoclopramide HCl (Reglan) 10 mg IVP Q6H PRN PRN Reason: Headache Last Admin: 12/09/18 17:02 Dose: 10 mg Mineral Oil/White Petrolatum (Eucerin Cream) 0 gm TOP BIDPRN PRN PRN Reason: Dry Skin Ondansetron HCl (Zofran Odt) 4 mg PO Q6H PRN PRN Reason: Nausea/Vomiting Ondansetron HCl (Zofran) 4 mg IVP Q6H PRN PRN Reason: Nausea/Vomiting Milnacipran Hcl [ (Savella] 25 Mg) 0 each PO [facility] Perphenazine (Trilafon) 2 mg PO BID [facility] Last Admin: 12/15/18 08:47 Dose: 2 mg Senna/Docusate Sodium (Senokot S) 2 tab PO BID PRN PRN Reason: Constipation Sodium Chloride (Flush - Normal Saline) 10 ml IVF Q12HR PRN PRN Reason: Saline Flush Sodium Chloride (Flush - Normal Saline) 10 ml IVF PRN PRN PRN Reason: Saline Flush Sodium Chloride ([place] Nasal [place] 0.65%) 0 ml EA NARE QIDPRN PRN PRN Reason: Nasal Congestion Throat Lozenges (Cepastat Lozenges) 1 ruthann PO Q2H PRN PRN Reason: Sore Throat Venlafaxine HCl (Effexor Xr) 150 mg PO BID [facility] Last Admin: 12/15/18 08:47 Dose: 150 mg Zonisamide (Zonisamide) 100 mg PO DAILY [facility] Last Admin: 12/15/18 08:47 Dose: 100 mg
[2018-12-15] MEDS: Amitriptyline HCl 100 MG TAB PO SCH (21:14)
[2018-12-15] MEDS: Acetaminophen 325 MG TAB PO PRN (21:14)
[2018-12-16] MEDS: Acetaminophen 325 MG TAB PO PRN (04:38)
[2018-12-16 07:55] LABS: Hemoglobin 12.1 g/dL (12.0-16.0); Platelet Count 229 thou/uL (130-400)
[2018-12-16] MEDS: Apixaban 5 MG TAB PO SCH ×2 (09:45→20:35)
[2018-12-16] MEDS: Atenolol 25 MG TAB PO SCH (09:45)
[2018-12-16] MEDS: Zonisamide 100 MG CAP PO SCH (09:46)
[2018-12-16] MEDS: Perphenazine 2 MG TAB PO SCH ×2 (09:46→20:35)
[2018-12-16] MEDS: Famotidine 20 MG TAB PO SCH ×2 (09:46→20:35)
[2018-12-16] MEDS: Venlafaxine HCl XR 150 MG CAP PO SCH ×2 (09:46→20:35)
--- NOTE | 2018-12-16 10:43 | PDOC.PN ---
- Subjective Encounter Start Date: 12/16/18 Encounter Start Time: 08:00 Patient seen and examined. No new complaints. No overnight events - Objective MAR Reviewed: Yes Vital Signs & Weight: Vital Signs (12 hours) Temp Pulse Resp BP Pulse Ox 12/16/18 09:45 76 12/16/18 08:00 98 12/16/18 06:59 97.8 F 56 L 18 118/80 98 Weight Weight 181 lb 10.574 oz I&O: 12/15/18 12/16/18 12/17/18 06:59 06:59 06:59 Intake Total 300 780 Balance 300 780 Result Diagrams: 12/16/18 07:35 12/16/18 07:35 Additional Labs: Accuchecks 12/16/18 12/15/18 12/15/18 05:09 20:04 15:23 POC Glucose 87 157 H 77 12/15/18 11:43 POC Glucose 121 H EKG Reviewed by me: Yes Phys Exam - Physical Examination Constitutional: NAD HEENT: PERRLA, moist MMs, sclera anicteric Neck: no JVD, supple Respiratory: no wheezing, no rales, no rhonchi Cardiovascular: RRR, no significant murmur, no rub Gastrointestinal: soft, non-tender, no distention, positive bowel sounds Musculoskeletal: no edema, pulses present Neurological: non-focal, normal sensation Lymphatic: no nodes Psychiatric: normal affect Skin: no rash, normal turgor Dx/Plan (1) Pulmonary embolism Code(s): I26.99 - OTHER PULMONARY EMBOLISM WITHOUT ACUTE COR PULMONALE Status : Acute (2) Anxiety and depression Code(s): F41.8 - OTHER SPECIFIED ANXIETY DISORDERS Status: Chronic (3) Fibromyalgia Status: Chronic (4) GERD (gastroesophageal reflux disease) Code(s): K21.9 - GASTRO-ESOPHAGEAL REFLUX DISEASE WITHOUT ESOPHAGITIS Status: Chronic (5) Hypertension Code(s): I10 - ESSENTIAL (PRIMARY) HYPERTENSION Status: Chronic (6) Obesity (BMI 30-39.9) Code(s): E66.9 - OBESITY, UNSPECIFIED Status: Chronic - Plan cont current plan of care, plan discussed w/ family, PT/OT, social worker health services * medication reviewed as below * symptomatic treatment * needs safe discharge plan to prevent readmission * continue elliquis. Review of Systems - Review of Systems ENT: negative: Ear Pain, Ear Discharge, Nose Pain, Nose Discharge, Nose Congestion, Mouth Pain, Mouth Swelling, Throat Pain, Throat Swelling, Other Respiratory: negative: Cough, Dry, Shortness of Breath, Hemoptysis, SOB with Excertion, Pleuritic Pain, Sputum, Wheezing Cardiovascular: negative: chest pain, palpitations, orthopnea, paroxysmal nocturnal dyspnea, edema, light headedness, other Gastrointestinal: negative: Nausea, Vomiting, Abdominal Pain, Diarrhea, Constipation, Melena, Hematochezia, Other Genitourinary: negative: Dysuria, Frequency, Incontinence, Hematuria, Retention , Other Musculoskeletal: negative: Neck Pain, Shoulder Pain, Arm Pain, Back Pain, Hand Pain, Leg Pain, Foot Pain, Other - Medications/Allergies Allergies/Adverse Reactions: Allergies Allergy/AdvReac Type Severity Reaction Status Date / Time promethazine [From Phenergan] Allergy Severe Short of Verified 12/23/17 15:38 Breath Penicillins Allergy Intermediate Severe Verified 12/23/17 15:38 Hives Medications: Current Medications Acetaminophen (Tylenol) 650 mg PO Q4H PRN PRN Reason: Fever > 101 Last Admin: 12/16/18 04:38 Dose: 650 mg Amitriptyline HCl (Elavil) 100 mg PO [facility] Last Admin: 12/15/18 21:14 Dose: 100 mg Apixaban (Eliquis) 5 mg PO BID [facility] Last Admin: 12/16/18 09:45 Dose: 5 mg Artificial Tears (Tears Naturale) 2 drop EA EYE PRN PRN PRN Reason: Dry Eyes Atenolol (Tenormin) 25 mg PO [facility] Last Admin: 12/16/18 09:45 Dose: 25 mg Bisacodyl (Dulcolax) 10 mg [place] DAILYPRN PRN PRN Reason: Constipation Calcium Carbonate (Tums) 1,000 mg PO Q4H PRN PRN Reason: Heartburn or Indigestion Dextrose/Water (Dextrose 50%) 25 gm SLOW IVP PRN PRN PRN Reason: Hypoglycemia Dihydroergotamine Mesylate (D.H.E. 45) 0.5 mg SLOW IVP Q6H PRN PRN Reason: Headache Last Admin: 12/10/18 07:33 Dose: 0.5 mg Divalproex Sodium (Depakote Er) 1,000 mg PO [facility] Last Admin: 12/15/18 21:14 Dose: 1,000 mg Famotidine (Pepcid) 20 mg PO BID [facility] Last Admin: 12/16/18 09:46 Dose: 20 mg Glucagon (Glucagon) 1 mg IM PRN PRN PRN Reason: Hypoglycemia Guaifenesin (Robitussin Sf) 200 mg PO Q4H PRN PRN Reason: Cough Hydralazine HCl (Apresoline) 10 mg SLOW IVP Q4H PRN PRN Reason: SBP > 180 and HR < 70 Dextrose/Water (D5w) 1,000 mls @ 0 mls/hr IV .Q0M PRN PRN Reason: Hypoglycemia Insulin Human Lispro (Humalog) 0 units SC .MILD SLIDING SCALE PRN PRN Reason: Mild Correctional Scale Insulin Human Lispro (Humalog) 0 units SC .BEDTIME SLIDING SC PRN PRN Reason: Bedtime Correctional Scale Loperamide HCl (Imodium) 2 mg PO PRN PRN PRN Reason: Diarrhea/Loose Stools Loratadine (Claritin) 10 mg PO DAILYPRN PRN PRN Reason: Sinus Symptoms Metoclopramide HCl (Reglan) 10 mg IVP Q6H PRN PRN Reason: Headache Last Admin: 12/09/18 17:02 Dose: 10 mg Mineral Oil/White Petrolatum (Eucerin Cream) 0 gm TOP BIDPRN PRN PRN Reason: Dry Skin Ondansetron HCl (Zofran Odt) 4 mg PO Q6H PRN PRN Reason: Nausea/Vomiting Ondansetron HCl (Zofran) 4 mg IVP Q6H PRN PRN Reason: Nausea/Vomiting Milnacipran Hcl [ (Savella] 25 Mg) 0 each PO [facility] Perphenazine (Trilafon) 2 mg PO BID [facility] Last Admin: 12/16/18 09:46 Dose: 2 mg Senna/Docusate Sodium (Senokot S) 2 tab PO BID PRN PRN Reason: Constipation Sodium Chloride (Flush - Normal Saline) 10 ml IVF Q12HR PRN PRN Reason: Saline Flush Sodium Chloride (Flush - Normal Saline) 10 ml IVF PRN PRN PRN Reason: Saline Flush Sodium Chloride ([place] Nasal [place] 0.65%) 0 ml EA NARE QIDPRN PRN PRN Reason: Nasal Congestion Throat Lozenges (Cepastat Lozenges) 1 ruthann PO Q2H PRN PRN Reason: Sore Throat Venlafaxine HCl (Effexor Xr) 150 mg PO BID [facility] Last Admin: 12/16/18 09:46 Dose: 150 mg Zonisamide (Zonisamide) 100 mg PO DAILY [facility] Last Admin: 12/16/18 09:46 Dose: 100 mg
[2018-12-16] MEDS: Calcium Carbonate 500 MG ChewTAB PO PRN ×3 (10:58→19:45)
[2018-12-16] MEDS: Amitriptyline HCl 100 MG TAB PO SCH (20:35)
[2018-12-17] MEDS: Zonisamide 100 MG CAP PO SCH (08:14)
[2018-12-17] MEDS: Apixaban 5 MG TAB PO SCH ×2 (08:14→21:19)
[2018-12-17] MEDS: Famotidine 20 MG TAB PO SCH ×2 (08:14→21:19)
[2018-12-17] MEDS: Atenolol 25 MG TAB PO SCH (08:14)
[2018-12-17] MEDS: Perphenazine 2 MG TAB PO SCH ×2 (08:14→21:19)
[2018-12-17] MEDS: Venlafaxine HCl XR 150 MG CAP PO SCH ×2 (09:43→21:19)
[2018-12-17 13:13] VITALS: BMI 28.8
--- NOTE | 2018-12-17 17:08 | PDOC.PN ---
- Subjective Encounter Start Date: 12/17/18 Encounter Start Time: 16:45 Subjective: f/u for PE on Eliquis and s/p fall with head injury requiring -: sutures. Hospital day 12 today. Remains confused per nursing and -: works with PT intermittently. - Objective MAR Reviewed: Yes Vital Signs & Weight: Vital Signs (12 hours) Temp Pulse Resp BP BP Pulse Ox 12/17/18 08:14 76 112/71 12/17/18 08:00 97.4 F L 76 18 112/71 97 Weight Admit Weight 181 lb 10.574 oz Weight 173 lb 9.28 oz I&O: 12/16/18 12/17/18 12/18/18 06:59 06:59 06:59 Intake Total 780 860 Balance 780 860 Result Diagrams: 12/16/18 07:35 12/16/18 07:35 Additional Labs: Accuchecks 12/17/18 12/17/18 12/17/18 16:47 11:43 04:06 POC Glucose 125 H 109 73 12/16/18 19:28 POC Glucose 117 H Radiology Reviewed by me: Yes (CT Brain - no acute injury) Phys Exam - Physical Examination Constitutional: NAD HEENT: PERRLA, sclera anicteric, oral pharynx no lesions Neck: no nodes, no JVD, supple, full ROM Respiratory: no wheezing, no rales, no rhonchi, clear to auscultation bilateral S1, S2 Cardiovascular: RRR, no significant murmur, no rub, gallop Gastrointestinal: soft, non-tender, no distention, positive bowel sounds Musculoskeletal: no edema, pulses present Neurological: normal sensation, moves all 4 limbs A x O x 2 Skin: normal turgor, cap refill <2 seconds Dx/Plan (1) Pulmonary embolism Code(s): I26.99 - OTHER PULMONARY EMBOLISM WITHOUT ACUTE COR PULMONALE Status : Acute Qualifiers: Chronicity: acute Comment: Continue Eliquis 5mg BID (2) Anxiety and depression Code(s): F41.8 - OTHER SPECIFIED ANXIETY DISORDERS Status: Chronic Comment: Continue Elavil, Effexor (3) Fibromyalgia Status: Chronic Comment: Supportive mgmt, PT for mobilization (4) GERD (gastroesophageal reflux disease) Code(s): K21.9 - GASTRO-ESOPHAGEAL REFLUX DISEASE WITHOUT ESOPHAGITIS Status: Chronic Comment: Pepcid 20mg BID (5) Hypertension Code(s): I10 - ESSENTIAL (PRIMARY) HYPERTENSION Status: Chronic Qualifiers: Hypertension type: essential hypertension Qualified Code(s): I10 - Essential (primary) hypertension Comment: Continue Atenolol 25mg daily - Plan PT/OT, administrator social welfare, out of bed/ambulate, DVT proph w/SCDs Stable overall -: Continue Eliquis 5mg BID -: CM assisting with placement options -: PT for mobilization -: AM lab: H/H * .
[2018-12-17] MEDS: Acetaminophen 325 MG TAB PO PRN (21:18)
[2018-12-17] MEDS: Amitriptyline HCl 100 MG TAB PO SCH (21:19)
[2018-12-18 05:49] LABS: Hemoglobin 11.3 g/dL (12.0-16.0); Platelet Count 248 thou/uL (130-400)
[2018-12-18 06:16] LABS: Calc. Creatinine Clearance 100 mL/min (70-130); Estimated GFR-MDRD Greater than 90
[2018-12-18] MEDS: Zonisamide 100 MG CAP PO SCH (09:35)
[2018-12-18] MEDS: Venlafaxine HCl XR 150 MG CAP PO SCH ×2 (09:36→20:41)
[2018-12-18] MEDS: Apixaban 5 MG TAB PO SCH ×2 (09:36→20:41)
[2018-12-18] MEDS: Perphenazine 2 MG TAB PO SCH ×2 (09:36→20:42)
[2018-12-18] MEDS: Famotidine 20 MG TAB PO SCH ×2 (09:36→20:41)
[2018-12-18] MEDS: Atenolol 25 MG TAB PO SCH (09:36)
[2018-12-18] MEDS ORDERED: Metoclopramide HCl 10 MG TAB PO PRN (12:18)
--- NOTE | 2018-12-18 12:19 | PQF ---
DATE: 12-18-18 ATTN: DR. OWEN HERNANDEZ Please exercise your independent, professional judgment in responding to the clarification form. Clinical indicators are provided on the bottom of this form for your review Please check appropriate box(s): This patient has been hospitalized for 13 days. Why was this query not initiated over 2 weeks ago? Dr. Hernandez [ x ] Encephalopathy: Type: [ ] Acute [ x ] Subacute [ ] Chronic Etiology: [ x ] Metabolic [ x ] Toxic [ ] Other (please specify) [ ] Transient Alteration of Awareness [ ] Other diagnosis [ ] Unable to determine In addition, please specify: Present on Admission (POA): [ x ] Yes [ ] No [ ] Unable to determine For continuity of documentation, please document condition throughout progress notes and discharge summary. Thank You. CLINICAL INDICATORS - SIGNS / SYMPTOMS / LABS: ER DX: POLYPHARMACY, AMS, MULTIPLE FALLS ER: SLUGGISH SPEECH, REPORTS SHE CALLED EMS TODAY FOR "A BAD HAIRCUT" H&P: SHE COMPLAINS OF A FEELING OF CLOGGED SENSATION IN HER RIGHT EAR, BUT DENIES PAIN OR DRAINAGE. PN DR. HERNANDEZ 12-17-18: HOSPITAL DAY 12 TODAY. REMAINS CONFUSED PER NURSING RISK FACTORS: ER: WEAKNESS, KNOWN ABUSE OF PRESCRIPTION DRUGS, GERD, IBS, DM 2, MIGRAINES, FIBROMYALGIA, BIPOLAR TREATMENTS: NEURO CONSULT 12-07-18 (This form is maintained as a part of the permanent medical record) 2014 [email or web address], [employer]. All Rights Reserved [place] [email or web address] Office: [phone] [facility]
[2018-12-18] MEDS: Acetaminophen 325 MG TAB PO PRN (13:49)
--- NOTE | 2018-12-18 14:28 | PDOC.PN ---
- Subjective Encounter Start Date: 12/18/18 Encounter Start Time: 14:25 Subjective: f/u for PE on Eliquis and s/p fall with head injury and continued -: confusion. Ambulated with PT intermittently today. Family wishing to -: take pt home with HH. - Objective MAR Reviewed: Yes Vital Signs & Weight: Vital Signs (12 hours) Temp Pulse Resp BP BP Pulse Ox 12/18/18 09:36 63 109/76 12/18/18 07:53 97.6 F 63 16 109/76 95 Weight Admit Weight 181 lb 10.574 oz Weight 173 lb 9.28 oz I&O: 12/17/18 12/18/18 12/19/18 06:59 06:59 06:59 Intake Total 860 Output Total 2 Balance 860 -2 Result Diagrams: 12/18/18 05:39 12/18/18 05:39 Additional Labs: Accuchecks 12/18/18 12/18/18 12/17/18 11:35 05:12 20:33 POC Glucose 149 H 84 105 12/17/18 16:47 POC Glucose 125 H Phys Exam - Physical Examination Constitutional: NAD HEENT: PERRLA, sclera anicteric, oral pharynx no lesions Neck: no nodes, no JVD, supple, full ROM Respiratory: no wheezing, no rales, no rhonchi, clear to auscultation bilateral S1, S2 Cardiovascular: RRR, no significant murmur, no rub, gallop Gastrointestinal: soft, non-tender, no distention, positive bowel sounds Musculoskeletal: no edema, pulses present Neurological: normal sensation, moves all 4 limbs A x O x 2 Skin: normal turgor, cap refill <2 seconds Dx/Plan (1) Pulmonary embolism Code(s): I26.99 - OTHER PULMONARY EMBOLISM WITHOUT ACUTE COR PULMONALE Status : Acute Qualifiers: Chronicity: acute Comment: Continue Eliquis 5mg BID (2) Toxic metabolic encephalopathy Code(s): G92 - TOXIC ENCEPHALOPATHY Status: Acute Comment: Suspect multifactorial including multiple psychotropic medications, fluctuating mental status and thought processes (3) Anxiety and depression Code(s): F41.8 - OTHER SPECIFIED ANXIETY DISORDERS Status: Chronic Comment: Continue Elavil, Effexor (4) Fibromyalgia Status: Chronic Comment: Supportive mgmt, PT for mobilization (5) GERD (gastroesophageal reflux disease) Code(s): K21.9 - GASTRO-ESOPHAGEAL REFLUX DISEASE WITHOUT ESOPHAGITIS Status: Chronic Comment: Pepcid 20mg BID (6) Hypertension Code(s): I10 - ESSENTIAL (PRIMARY) HYPERTENSION Status: Chronic Qualifiers: Hypertension type: essential hypertension Qualified Code(s): I10 - Essential (primary) hypertension Comment: Continue Atenolol 25mg daily - Plan plan discussed w/ family, PT/OT, healthcare social worker, out of bed/ambulate, DVT proph w/SCDs Stable currently -: Continue Eliquis -: OOB with PT -: CM assisting with Home Health coordination including PT -: Likely home in am * .
[2018-12-18] MEDS: Amitriptyline HCl 100 MG TAB PO SCH (20:41)
--- NOTE | 2018-12-19 08:18 | DIS ---
DATE OF ADMISSION: 12/07/2018 DATE OF DISCHARGE: 12/18/2018 DISCHARGE DIAGNOSES: 1. Right upper lobe pulmonary embolus, on Eliquis. 2. Toxic metabolic encephalopathy, multifactorial including polypharmacy. 3. Anxiety/depression. 4. Fibromyalgia. 5. Gastroesophageal reflux disease. 6. Hypertension. 7. Generalized weakness with history of falls. CONSULTATIONS: Dr. Contreras with Neurology Service. PERTINENT LAB AND X-RAY FINDINGS: Hemoglobin A1c 4.2. Lactic acid level 1.2. BNP 12.8. Troponin I negative x4. CBC showed a hemoglobin ranging between 10.3 to 12.4. Urine drug screen dated 12/04/2018, positive for opiates, barbiturates, and tricyclics. Plasma alcohol level less than 10. ANTHONY screen, negative, 12/06/2018. CT of the brain without contrast dated 12/05/2018, showed no acute intracranial process. Portable chest x-ray dated 12/05/2018, showed no acute cardiopulmonary process. MRI of the brain dated 12/06/2018 showed no acute intracranial process. CT angiogram of the chest dated 12/06/2018, showed right upper lobe pulmonary filling defect consistent with pulmonary embolus. 2D transthoracic echocardiogram dated 12/06/2018 showed ejection fraction of 50% to 55%. [id number] tricuspid regurgitation. CT of the brain without contrast dated 12/12/2018 showed no acute intracranial process. HOSPITAL COURSE: Patient was initially admitted after presenting status post mechanical fall with mild head injury. Patient underwent extensive evaluation including multiple neuro imaging studies showing no acute intracranial process. Patient underwent MRI imaging showing no evidence of stroke or tumor. Patient was noted with encephalopathic findings likely toxic and metabolic in nature. Patient on multiple medications with potential for sedation and alteration of awareness in the context of known prior history of anxiety, depression, and migraine headaches. Patient was evaluated by Physical Therapy Service with initially antalgic gait, needing standby/contact guard assistance with a rolling walker for short distance ambulation. Metabolic screening was essentially negative, except urine drug screen confirming the presence of opiates, barbiturates, and tricyclics. Patient was evaluated for ongoing assisted care, however, placement to facility was unsuccessful due to the patient's encephalopathic changes. Patient remained clinically stable during the hospital course, tolerating regular oral intake and voiding appropriately. Patient continued to receive general nursing care with assistance for activities of daily living. After discussions with the family after approximately 2-week hospital stay, the family decided to have patient return home with Home Health Services including Physical Therapy and pursue potential outpatient psychiatric evaluation. I have examined the patient at the time of discharge and discussed followup instructions. Family in agreement and ready for discharge on 12/18/2018. DISCHARGE MEDICATIONS: 1. Elavil 100 mg p.o. at bedtime. 2. Atenolol 25 mg p.o. q.a.m. 3. Fioricet 1 tablet p.o. t.i.d. p.r.n. headache. 4. Pristiq 100 mg p.o. daily. 5. Desvenlafaxine 100 mg p.o. at bedtime. 6. Pepcid 40 mg p.o. b.i.d. 7. Hydroxyzine 25 mg p.o. t.i.d. p.r.n. 8. Levsin SL 0.125 mg sublingually q.4 hours p.r.n. 9. Prinivil 2.5 mg p.o. daily. 10. Robaxin 500 mg p.o. q.6 hours p.r.n. 11. Savella 25 mg p.o. t.i.d. 12. Perphenazine 2 mg p.o. b.i.d. 13. Ambien 10 mg p.o. at bedtime p.r.n. 14. Zonisamide 100 mg p.o. daily. 15. Eliquis 5 mg p.o. b.i.d. 16. Depakote extended release 1000 mg p.o. at bedtime. FOLLOWUP: Patient is to follow up with Dr. Gretchen Hudson within 7 days of discharge. CONDITION ON DISCHARGE: Fair. ACTIVITY: Ad jose, rolling walker with ambulation and standby assistance. SPECIAL INSTRUCTIONS: Patient is to initiate home health services with physical therapy. DIET: Regular. CODE STATUS: Full. DISPOSITION: Home with [facility], 12/18/2018. Job ID: [id number]
[2018-12-19] MEDS: Venlafaxine HCl XR 150 MG CAP PO SCH ×2 (09:13→20:01)
[2018-12-19] MEDS: Atenolol 25 MG TAB PO SCH (09:13)
[2018-12-19] MEDS: Perphenazine 2 MG TAB PO SCH (09:13)
[2018-12-19] MEDS: Apixaban 5 MG TAB PO SCH ×2 (09:13→20:01)
[2018-12-19] MEDS: Zonisamide 100 MG CAP PO SCH (09:14)
[2018-12-19] MEDS: Famotidine 20 MG TAB PO SCH ×2 (09:14→20:01)
--- NOTE | 2018-12-19 15:47 | PDOC.PN ---
- Subjective Encounter Start Date: 12/19/18 Encounter Start Time: 11:00 Subjective: feels weak -: communicating well -: amb with assistance, brother and neice in room - Objective MAR Reviewed: Yes Vital Signs & Weight: Vital Signs (12 hours) Temp Pulse Resp BP BP Pulse Ox 12/19/18 09:13 60 115/78 12/19/18 09:07 94 L 12/19/18 08:00 97.5 F L 59 L 18 115/78 94 L 12/19/18 04:00 16 Weight Admit Weight 181 lb 10.574 oz Weight 173 lb 9.28 oz I&O: 12/18/18 12/19/18 12/20/18 06:59 06:59 06:59 Output Total 2 Balance -2 Result Diagrams: 12/18/18 05:39 12/18/18 05:39 Additional Labs: Accuchecks 12/19/18 12/19/18 12/18/18 11:59 04:35 19:38 POC Glucose 90 88 148 H Phys Exam - Physical Examination HEENT: PERRLA, moist MMs Neck: no JVD, supple Respiratory: no wheezing, no rales Cardiovascular: RRR, no significant murmur Gastrointestinal: soft, non-tender, positive bowel sounds Musculoskeletal: no edema, pulses present Neurological: non-focal, moves all 4 limbs Psychiatric: A&O x 3 Dx/Plan (1) Pulmonary embolism Code(s): I26.99 - OTHER PULMONARY EMBOLISM WITHOUT ACUTE COR PULMONALE Status : Acute Qualifiers: Chronicity: acute Comment: Continue Eliquis 5mg BID (2) Toxic metabolic encephalopathy Code(s): G92 - TOXIC ENCEPHALOPATHY Status: Acute Comment: Suspect multifactorial including multiple psychotropic medications, fluctuating mental status and thought processes (3) Anxiety and depression Code(s): F41.8 - OTHER SPECIFIED ANXIETY DISORDERS Status: Chronic Comment: Continue Elavil, Effexor (4) Fibromyalgia Status: Chronic Comment: Supportive mgmt, PT for mobilization (5) GERD (gastroesophageal reflux disease) Code(s): K21.9 - GASTRO-ESOPHAGEAL REFLUX DISEASE WITHOUT ESOPHAGITIS Status: Chronic Qualifiers: Esophagitis presence: without esophagitis Qualified Code(s): K21.9 - Gastro -esophageal reflux disease without esophagitis Comment: Pepcid 20mg BID (6) Hypertension Code(s): I10 - ESSENTIAL (PRIMARY) HYPERTENSION Status: Chronic Qualifiers: Hypertension type: essential hypertension Qualified Code(s): I10 - Essential (primary) hypertension Comment: Continue Atenolol 25mg daily (7) Polypharmacy Code(s): Z79.899 - OTHER [facility] (CURRENT) DRUG THERAPY Status: Chronic - Plan awaiting discharge plan -: is on eliquis, atenolol, depakote, effexor, zonisamide -: d/w family at bedside and CM -: not sure if our pharmacy carries all her home meds -: out pt med reconciliation is done for discharge. * . Patient has multiple psychotropic meds and has high potential for interactions and side effects. Keeping above in mind outpt meds are reconciled. Still needs 2 person assist to stand but has ambulated 150ft after getting up with PT. Review of Systems - Medications/Allergies Allergies/Adverse Reactions: Allergies Allergy/AdvReac Type Severity Reaction Status Date / Time promethazine [From Phenergan] Allergy Severe Short of Verified 12/23/17 15:38 Breath Penicillins Allergy Intermediate Severe Verified 12/23/17 15:38 Hives Medications: Current Medications Acetaminophen (Tylenol) 650 mg PO Q4H PRN PRN Reason: Fever > 101 Last Admin: 12/18/18 13:49 Dose: 650 mg Apixaban (Eliquis) 5 mg PO BID [facility] Last Admin: 12/19/18 09:13 Dose: 5 mg Artificial Tears (Tears Naturale) 2 drop EA EYE PRN PRN PRN Reason: Dry Eyes Atenolol (Tenormin) 25 mg PO [facility] Last Admin: 12/19/18 09:13 Dose: 25 mg Bisacodyl (Dulcolax) 10 mg OK DAILYPRN PRN PRN Reason: Constipation Calcium Carbonate (Tums) 1,000 mg PO Q4H PRN PRN Reason: Heartburn or Indigestion Last Admin: 12/16/18 19:45 Dose: 1,000 mg Dextrose/Water (Dextrose 50%) 25 gm SLOW IVP PRN PRN PRN Reason: Hypoglycemia Divalproex Sodium (Depakote Er) 1,000 mg PO [facility] Last Admin: 12/18/18 20:41 Dose: 1,000 mg Famotidine (Pepcid) 20 mg PO BID [facility] Last Admin: 12/19/18 09:14 Dose: 20 mg Glucagon (Glucagon) 1 mg IM PRN PRN PRN Reason: Hypoglycemia Guaifenesin (Robitussin Sf) 200 mg PO Q4H PRN PRN Reason: Cough Hydralazine HCl (Apresoline) 10 mg SLOW IVP Q4H PRN PRN Reason: SBP > 180 and HR < 70 Dextrose/Water (D5w) 1,000 mls @ 0 mls/hr IV .Q0M PRN PRN Reason: Hypoglycemia Insulin Human Lispro (Humalog) 0 units SC .MILD SLIDING SCALE PRN PRN Reason: Mild Correctional Scale Insulin Human Lispro (Humalog) 0 units SC .BEDTIME SLIDING SC PRN PRN Reason: Bedtime Correctional Scale Mineral Oil/White Petrolatum (Eucerin Cream) 0 gm TOP BIDPRN PRN PRN Reason: Dry Skin Ondansetron HCl (Zofran Odt) 4 mg PO Q6H PRN PRN Reason: Nausea/Vomiting Ondansetron HCl (Zofran) 4 mg IVP Q6H PRN PRN Reason: Nausea/Vomiting Milnacipran Hcl [ (Savella] 25 Mg) 0 each PO TID-WM [facility] Polyethylene Glycol (Miralax) 17 gm PO HS [facility] Senna/Docusate Sodium (Senokot S) 2 tab PO BID PRN PRN Reason: Constipation Sodium Chloride (Flush - Normal Saline) 10 ml IVF Q12HR PRN PRN Reason: Saline Flush Sodium Chloride (Flush - Normal Saline) 10 ml IVF PRN PRN PRN Reason: Saline Flush Sodium Chloride ([place] Nasal [place] 0.65%) 0 ml EA NARE QIDPRN PRN PRN Reason: Nasal Congestion Throat Lozenges (Cepastat Lozenges) 1 ruthann PO Q2H PRN PRN Reason: Sore Throat Venlafaxine HCl (Effexor Xr) 150 mg PO BID [facility] Last Admin: 12/19/18 09:13 Dose: Not Given Zonisamide (Zonisamide) 100 mg PO DAILY [facility] Last Admin: 12/19/18 09:14 Dose: Not Given
[2018-12-19] MEDS: Acetaminophen 325 MG TAB PO PRN (16:38)
[2018-12-19 19:23] VITALS: BP 113/77; TEMP 98.4
[2018-12-19] MEDS ORDERED: Polyethylene Glycol 3350 17 GM Packet PO SCH (21:00)
--- NOTE | 2018-12-22 07:23 | DIS ---
DATE OF ADMISSION: 12/07/2018 DATE OF DISCHARGE: 12/19/2018 ADDENDUM: Please note this is an addendum to the discharge summary dictated by Dr. Hernandez on 12/18/2018. The patient stayed for another 24 hours for placement purposes. She was accepted to [facility] and was discharged on the in the evening. Prior to discharge, the patient and her family were given complete updates by me. Please refer to complete details on the discharge summary dictated by Dr. Hernandez on 12/18/2018. Please see a [id number] documentation for the day of discharge on [facility]. A total of 35 minutes was spent on discharge plan. Job ID: [id number]
== END 2018-12-19 22:05 | DRG 175 ==
LOC: ERS 18:15 → T4-A 23:54 → OBSVTOIN 12-07 13:00
PROVIDERS: ADMIT Internal Medicine; ATTEND Internal Medicine
DX: I26.99 Other pulmonary embolism without acute cor pulmonale (principal); G92 Toxic encephalopathy; R29.6 Repeated falls; M79.7 Fibromyalgia; K21.9 Gastro-esophageal reflux disease without esophagitis; M06.9 Rheumatoid arthritis, unspecified; E11.9 Type 2 diabetes mellitus without complications; G43.909 Migraine, unspecified, not intractable, without status migrainosus; F41.9 Anxiety disorder, unspecified; F32.9 Major depressive disorder, single episode, unspecified; E66.9 Obesity, unspecified; Z90.710 Acquired absence of both cervix and uterus; Z90.49 Acquired absence of other specified parts of digestive tract; Z88.0 Allergy status to penicillin; Z88.8 Allergy status to other drugs, medicaments and biological substances; Z79.899 Other long term (current) drug therapy; Z68.28 Body mass index [BMI] 28.0-28.9, adult
CPT/HCPCS: 36415; 36416; 70450; 70551; 71045; 71275; 80048; 80053; 80306; 80307; 81003; 82550; 82565; 83036; 83605; 83880; 84484; 85014; 85018; 85025; 85049; 85379; 85652; 86038; 86225; 93005; 93010; 93306; 96374; J1110; J1200; J1650; J1885; J2765; Q0175; Q9966

== ENCOUNTER 2019-02-05 19:34 | Emergency (ER) | payer OTHER ==
[~2019-02-05 19:34] MED LIST changes: +Iopamidol 370 76% 50 ML VIAL FS ONE
[2019-02-05 21:39] LABS: #Eosinphils 0.1 thou/uL (0.0-0.7); #Lymphocytes 1.9 thou/uL (1.20-3.40); #Monocytes 0.6 thou/uL (0.11-0.59); #Neutrophils 4.7 thou/uL (1.40-6.50); %Basophils 0.3 % (0.0-1.0); %Eosinophils 1.3 % (0.0-10.0); %Monocytes 8.4 % (0.0-10.0); %Neutrophils 63.9 % (42.0-75.0); Hemoglobin 10.8 g/dL (12.0-16.0); Mean Corpuscular Hemoglobin 30.6 pg (27.0-31.0); Mean Corpuscular Volume 95.5 fL (78.0-98.0); Mean Platelet Volume 9.2 fL (7.4-10.4); Platelet Count 189 thou/uL (130-400); RBC Distribution Width 12.7 % (11.5-14.5); Red Blood Cell (RBC) Count 3.53 mill/uL (4.20-5.40); White Blood Cell (WBC) Count 7.3 thou/uL (4.8-10.8)
[2019-02-05 21:52] LABS: ALT (SGPT) 10 U/L (8-55); AST (SGOT) 9 U/L (5-34); Albumin 3.3 g/dL (3.5-5.0); Alkaline Phosphatase 77 U/L (40-150); Anion Gap 14 mmol/L (10-20); BUN (Urea Nitrogen) 10 mg/dL (9.8-20.1); Bilirubin, Total 0.4 mg/dL (0.2-1.2); Calc. Creatinine Clearance 0 mL/min (70-130); Calcium 8.8 mg/dL (7.8-10.44); Carbon Dioxide 22 mmol/L (22-29); Chloride 106 mmol/L (98-107); Estimated GFR-MDRD Greater than 90; Globulin 3.1 g/dL (2.4-3.5); Glucose 90 mg/dL (70-105); Lipase 15 U/L (8-78); Potassium 3.8 mmol/L (3.5-5.1); Protein, Total 6.4 g/dL (6.0-8.3); Sodium 138 mmol/L (136-145)
[2019-02-05] MEDS ORDERED: Morphine 4 MG/ML VIAL ONE (22:08)
--- NOTE | 2019-02-05 23:08 | CT ---
CT OF ABDOMEN AND PELVIS PERFORMED WITH CONTRAST ENHANCEMENT: 02/05/19 HISTORY: Abdominal pain and bloating. History of gastric bypass in 2013. Gallbladder removed three weeks ago. COMPARISON: A 11/25/18 study. Left lower lobe infiltrative changes are worse as compared to that prior exam. The liver, spleen, and pancreas regions appear unremarkable. The gallbladder appears contracted with what appears to be air density within the contracted gallbladder lumen. It is possible that this is r elated to tiny stones or may just represent some reflux of air. There is no other air seen within the biliary system. There is a more linear oriented density near what would be the gallbladder neck. Cou ld represent a calcification in a vessel. Does not have atypical appearance of stone but could repres ent some small stones near the gallbladder neck region. Right and left adrenal glands and right and left kidneys are normal in appearance. There is no signif icant periaortic or mesenteric adenopathy. There is evidence of previous gastric bypass. There is mikal e dilatation to the proximal jejunum to the level of the anastomotic suture line and this finding is fairly stable as compared to the prior exam. CT OF PELVIS PERFORMED WITH CONTRAST ENHANCEMENT: Moderate amount of stool is seen in the rectosigmoid region. Also elsewhere within the colon. There is no free fluid or pericolonic inflammatory change. An appendix is not definitely identified. IMPRESSION: 1. Worsening left lower infiltrate. 2. Contracted gallbladder with what appears to be some air density within the gallbladder. Less likely tiny stones with central gas. There is no other air in the biliary tree. There is also some ca lcification near the gallbladder neck which could represent small stones or represent some type of va scular calcification. I doubt that these findings are significant. 3. Postop gastric bypass changes appear stable. 4. Moderate amount of stool throughout the colon. 5. Discussion with nurse practioner revealed the patient had recent cholecystectomy and changes are therefore postop , again probably not significant. POS: OFF
[2019-02-05 23:45] LABS: Bilirubin Negative (Negative); Blood, Urine Negative (Negative); Clarity Clear (Clear); Glucose, Urine (Dipstick) Negative (Negative); Leukocyte Negative (Negative); Nitrite Negative (Negative); Protein, Urine (Dipstick) Negative (Neg-Trace)
[2019-02-05 23:46] LABS: Specific Gravity, Urine 1.025 (1.002-1.036)
[2019-02-06] MEDS ORDERED: Morphine 4 MG/ML VIAL ONE (00:20)
== END 2019-02-06 01:30 | disposition short-term general hospital (02) ==
LOC: ERS 19:34
DX: R10.84 Generalized abdominal pain (principal); J18.1 Lobar pneumonia, unspecified organism; E11.9 Type 2 diabetes mellitus without complications; I10 Essential (primary) hypertension; M06.9 Rheumatoid arthritis, unspecified; F31.9 Bipolar disorder, unspecified; F41.9 Anxiety disorder, unspecified
CPT/HCPCS: 36415; 74177; 80053; 81003; 83605; 83690; 85025; 87040; 96365; 96375; 96376; J1956; J2270; Q9966; Q9967

== ENCOUNTER 2019-05-15 23:22 | Emergency (ER) | payer OTHER ==
[2019-05-15 23:47] LABS: #Eosinphils 0.1 thou/uL (0.0-0.7); #Lymphocytes 1.6 thou/uL (1.20-3.40); #Monocytes 0.7 thou/uL (0.11-0.59); #Neutrophils 3.8 thou/uL (1.40-6.50); %Basophils 0.3 % (0.0-1.0); %Eosinophils 1.8 % (0.0-10.0); %Lymphocytes 25.5 % (21.0-51.0); %Monocytes 11.5 % (0.0-10.0); %Neutrophils 60.9 % (42.0-75.0); Hemoglobin 10.6 g/dL (12.0-16.0); Mean Corpuscular HGB CONC 33.1 g/dL (32.0-36.0); Mean Corpuscular Hemoglobin 31.3 pg (27.0-31.0); Mean Corpuscular Volume 94.6 fL (78.0-98.0); Mean Platelet Volume 9.3 fL (7.4-10.4); Platelet Count 170 thou/uL (130-400); RBC Distribution Width 11.1 % (11.5-14.5); Red Blood Cell (RBC) Count 3.39 mill/uL (4.20-5.40); White Blood Cell (WBC) Count 6.2 thou/uL (4.8-10.8)
[2019-05-15] MEDS ORDERED: Naloxone HCl 0.4 mg/ml Vial ONE (23:54)
--- NOTE | 2019-05-15 23:57 | CT ---
CT Brain WO Con HISTORY: Fall with head injury. COMPARISON: 04/10/2019 study. FINDINGS: The ventricular and cisternal system is mildly prominent for age. There are no signs of int racerebral hemorrhage or extra-axial fluid collections Retention cyst is seen within the left maxillary sinus. IMPRESSION: No acute intracranial abnormalities.
--- NOTE | 2019-05-15 23:57 | RAD ---
XR Chest 1 View Portable HISTORY: Fall COMPARISON: 04/10/2019 study FINDINGS: Heart size appears borderline for technique. Mediastinal structures are unremarkable. The l ungs are clear of infiltrates. Postoperative changes in the region of the stomach are seen. IMPRESSION: Borderline heart size.
--- NOTE | 2019-05-15 23:59 | CT ---
CT Cervical Spine WO Con HISTORY: Fall with neck injury. Findings: The vertebral bodies are normal in appearance. Degenerative osteophytes are seen along the course of the spine without significant disc narrowing. The facets appear to be in normal alignment. There is no evidence of canal or foraminal stenosis. There is no CT evidence of fracture. The lung apices are clear. IMPRESSION: No CT evidence of fracture the cervical spine.
[2019-05-16 00:06] LABS: ALT (SGPT) 12 U/L (8-55); AST (SGOT) 19 U/L (5-34); Alkaline Phosphatase 43 U/L (40-110); Anion Gap 18 mmol/L (10-20); BUN (Urea Nitrogen) 15 mg/dL (9.8-20.1); Bilirubin, Total 0.3 mg/dL (0.2-1.2); Calc. Creatinine Clearance 0 mL/min (70-130); Carbon Dioxide 21 mmol/L (22-29); Chloride 107 mmol/L (98-107); Estimated GFR-MDRD Greater than 90; Globulin 2.9 g/dL (2.4-3.5); Glucose 93 mg/dL (70-105); Potassium 4.5 mmol/L (3.5-5.1); Protein, Total 6.9 g/dL (6.0-8.3); Sodium 141 mmol/L (136-145)
[2019-05-16 00:07] LABS: Acetaminophen Less than 6.0 mcg/mL (10.0-30.0); Alcohol Less than 10 mg/dL (Less than 10); CK (CPK) 54 U/L (29-168); Lipase 50 U/L (8-78); Salicylate Less than 8.0 mg/dL (15.0-30.0)
== END 2019-05-16 00:30 | disposition home or self-care (01) ==
LOC: ERS 23:22
DX: R41.0 Disorientation, unspecified (principal); T88.7XXA Unspecified adverse effect of drug or medicament, initial encounter; E11.9 Type 2 diabetes mellitus without complications; I10 Essential (primary) hypertension; G43.909 Migraine, unspecified, not intractable, without status migrainosus; K21.9 Gastro-esophageal reflux disease without esophagitis; M06.9 Rheumatoid arthritis, unspecified; M79.7 Fibromyalgia; Z79.899 Other long term (current) drug therapy; W06.XXXA Fall from bed, initial encounter
CPT/HCPCS: 51701; 70450; 71045; 72125; 80053; 80307; 82550; 83690; 84443; 84484; 85025; 93005; 96374; A4353; J2310

== ENCOUNTER 2019-05-29 09:29 | Emergency (ER) | payer OTHER ==
[2019-05-29] MEDS ORDERED: Naloxone HCl 0.4 mg/ml Vial ONE (10:25)
[2019-05-29] MEDS ORDERED: Ketorolac Tromethamine 30 MG/ML VIAL ONE (12:50)
== END 2019-05-29 13:08 | disposition home or self-care (01) ==
LOC: ERS 09:29
DX: R10.11 Right upper quadrant pain (principal); R10.31 Right lower quadrant pain; E11.9 Type 2 diabetes mellitus without complications; I10 Essential (primary) hypertension; G43.909 Migraine, unspecified, not intractable, without status migrainosus; F41.9 Anxiety disorder, unspecified; F31.9 Bipolar disorder, unspecified; M06.9 Rheumatoid arthritis, unspecified; Z79.899 Other long term (current) drug therapy; W19.XXXA Unspecified fall, initial encounter
CPT/HCPCS: 96374; 96375; J1885; J2310

== ENCOUNTER 2019-06-21 10:30 | Emergency (ER) | payer OTHER | END 2019-06-21 12:08 | disposition home or self-care (01) | LOC: ERS 10:30 | DX: H11.31 Conjunctival hemorrhage, right eye (principal); E11.9 Type 2 diabetes mellitus without complications; I10 Essential (primary) hypertension; G43.909 Migraine, unspecified, not intractable, without status migrainosus; Z79.899 Other long term (current) drug therapy | CPT/HCPCS: 99283 ==

== ENCOUNTER 2019-06-28 02:08 | Inpatient (IN) | payer OTHER ==
[2019-06-28 02:56] LABS: #Lymphocytes 0.9 thou/uL (1.20-3.40); #Monocytes 0.5 thou/uL (0.11-0.59); #Neutrophils 5.8 thou/uL (1.40-6.50); %Basophils 0.2 % (0.0-1.0); %Eosinophils 0.2 % (0.0-10.0); %Lymphocytes 12.4 % (21.0-51.0); %Monocytes 6.3 % (0.0-10.0); Hemoglobin 11.1 g/dL (12.0-16.0); Mean Corpuscular HGB CONC 32.7 g/dL (32.0-36.0); Mean Corpuscular Hemoglobin 31.6 pg (27.0-31.0); Mean Corpuscular Volume 96.7 fL (78.0-98.0); Mean Platelet Volume 10.4 fL (7.4-10.4); Platelet Count 201 thou/uL (130-400); RBC Distribution Width 11.9 % (11.5-14.5); Red Blood Cell (RBC) Count 3.52 mill/uL (4.20-5.40); White Blood Cell (WBC) Count 7.2 thou/uL (4.8-10.8)
[2019-06-28 03:43] LABS: Bilirubin Small (Negative); Blood, Urine Negative (Negative); Glucose, Urine (Dipstick) Negative (Negative); Leukocyte Negative (Negative); Nitrite Negative (Negative); Protein, Urine (Dipstick) Negative (Neg-Trace)
[2019-06-28 03:44] LABS: Clarity Clear (Clear)
[2019-06-28 03:46] LABS: Amphetamine Not Detected (NotDetected); Barbiturates Screen Detected (NotDetected); Benzodiazepine Screen Detected (NotDetected); Cocaine Metabolite Screen Not Detected (NotDetected); Medtox Control Line Valid? VALID (VALID); Medtox Reader # READER 4; Methadone Not Detected (NotDetected); Methamphetamine Not Detected (NotDetected); Opiate Screen Not Detected (NotDetected); Oxycodone Screen Not Detected (NotDetected); Phencyclidine (PCP) Not Detected (NotDetected); THC/Cannabinoid Screen Not Detected (NotDetected); Tricyclic Screen Detected (NotDetected)
[2019-06-28 03:56] LABS: Albumin 3.2 g/dL (3.5-5.0)
[2019-06-28 03:57] LABS: Chloride 104 mmol/L (98-107); Potassium 3.8 mmol/L (3.5-5.1); Sodium 136 mmol/L (136-145)
[2019-06-28 03:58] LABS: Calcium 8.4 mg/dL (7.8-10.44); Glucose 108 mg/dL (70-105)
[2019-06-28 03:59] LABS: Globulin 2.5 g/dL (2.4-3.5); Protein, Total 5.7 g/dL (6.0-8.3)
[2019-06-28 04:00] LABS: Alcohol Less than 10 mg/dL (Less than 10); Anion Gap 13 mmol/L (10-20); Bilirubin, Total 0.3 mg/dL (0.2-1.2); Carbon Dioxide 23 mmol/L (22-29)
[2019-06-28 04:01] LABS: Alkaline Phosphatase 54 U/L (40-110)
[2019-06-28 04:02] LABS: BUN (Urea Nitrogen) 18 mg/dL (9.8-20.1); Calc. Creatinine Clearance 0 mL/min (70-130); Estimated GFR-MDRD Greater than 90
[2019-06-28 04:03] LABS: AST (SGOT) 14 U/L (5-34); Acetaminophen Less than 6.0 mcg/mL (10.0-30.0); CK (CPK) 115 U/L (29-168); Lipase 30 U/L (8-78); Salicylate Less than 8.0 mg/dL (15.0-30.0)
[2019-06-28 04:04] LABS: ALT (SGPT) 12 U/L (8-55)
[2019-06-28] MEDS ORDERED: Fentanyl 100 MCG/2 ML VIAL ONE (06:26)
[2019-06-28] MEDS ORDERED: Levofloxacin 500 mg/D5W 100 ml Premix Bag ONE (06:42)
[2019-06-28] MEDS ORDERED: Multivitamins, Adult 10 ML, Thiamine HCl 100 MG, Folic Acid 1 MG in Dextrose 5 %-0.45 %... IV SCH (06:45)
--- NOTE | 2019-06-28 06:47 | HP ---
CHIEF COMPLAINT: Weakness, vomiting, abdominal pain. HISTORY OF PRESENT ILLNESS: The patient is a 54-year-old female, who underwent a laparoscopic Benoit-en-Y gastric bypass in [place] in 2013 for morbid obesity and she had to have that revised in 2014 in [place]. Since then, she has also had ventral hernia repairs, a cholecystectomy, a section. She can recall some events. Her brother is here who does not know a lot of her medical history. Much of her past experience is done through the chart and records. I did call Dr. Membreno who she claimed did a surgery in March on her at the [facility] who does not recall whom she is and had no information to add. PAST MEDICAL HISTORY: Significant for hypertension, vertigo, fibromyalgia, and headaches. MEDICATIONS: Atenolol, amitriptyline, lisinopril, and Depakote. ALLERGIES: PHENERGAN AND PENICILLIN. SOCIAL HISTORY: She is . No tobacco or alcohol. FAMILY HISTORY: Noncontributory. PHYSICAL EXAMINATION: VITAL SIGNS: Temperature is 98.1, pulse 83, blood pressure 133/80. She is very lethargic and somewhat confused. HEENT: No jaundice. LUNGS: Clear. HEART: Regular rate and rhythm. ABDOMEN: Distended. She has a hypertrophic midline scar and multiple laparoscopy scars across her abdomen. She is tender on the right side of her abdomen. EXTREMITIES: Unremarkable. LABORATORY DATA: White count 7.2, H and H 11 and 34, platelet count 201. Electrolytes are actually fine. LFTs are normal. Creatinine is 0.7. She had a CT scan of the abdomen and pelvis, which shows an obstructed biliopancreatic limb of bypass with a jejunojejunostomy anastomosis obstruction. No evidence of perforation. Distal bowel decompressed. 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 PLAN: Fluid resuscitation, multivitamins, thiamine. Will plan on exploratory laparotomy. Job ID: [id number]
--- NOTE | 2019-06-28 07:38 | CT ---
PRELIMINARY REPORT/[facility]/EMERGENCY AFTER HOURS PROCEDURE PROCEDURE INFORMATION: Exam: CT Head Without Contrast Exam date and time: 06/28/2019 2:59 AM Clinical history: 54 years old, female; Injury or trauma; Fall; Initial encounter; Blunt trauma (contusions or hematomas); Consciousness not specified; Patient HX: F54 presents to ED via EMS who reports PT was found in bathtub in contorted position. PT reported to EMS she took ambien. EMS reports PT does not have any strength in legs. EMS report brother at home is process engineer. PT reports her stomach and L leg are hurting TECHNIQUE: Imaging protocol: Computed tomography of the head without contrast. COMPARISON: No relevant prior studies available. FINDINGS: Brain: No hemorrhage. Unremarkable white matter. No mass effect. Ventricles: No ventriculomegaly. Bones/joints: No acute fracture. Sinuses: Visualized sinuses are unremarkable. No fluid levels. Mastoid air cells: Visualized mastoid air cells are well aerated. Soft tissues: Small focal lateral orbital scalp swelling. IMPRESSION: No acute intracranial abnormality. Thank you for allowing us to participate in the care of your patient. Dictated and Authenticated by: Candice Coyle MD 06/28/2019 3:23 AM Central Time ([place] & [place]) FINAL REPORT BY DR. ORONA EMERGENCY AFTER HOURS STUDY CT BRAIN NONCONTRAST: DATE: 06/28/2019 3:01 AM HISTORY: 54-year-old female status post acute blunt head trauma FINDINGS: There is no evidence of acute intra-axial or extra-axial hemorrhage. There is no midline shift or any other mass effect. There is no extra-axial fluid collection. There is no evidence of obstructive hydrocephalus. Calvarium is intact. Agree with preliminary report by [facility]. IMPRESSION: No acute intracranial findings. Transcribed Date/Time: 06/28/2019 7:49 AM
--- NOTE | 2019-06-28 07:41 | CT ---
PRELIMINARY REPORT/[facility]/EMERGENCY AFTER HOURS PROCEDURE PROCEDURE INFORMATION: Exam: CT Cervical Spine Without Contrast Exam date and time: 06/28/2019 2:59 AM Clinical history: 54 years old, female; Injury or trauma; Fall; Initial encounter; Blunt trauma; Sammie ent HX: F54 presents to ED via EMS who reports PT was found in bathtub in contorted position. PT reported to EMS she took ambien. EMS reports PT does not have any strength in legs. EMS report brother at home is produce department supervisor. PT reports her stomach and L leg are hurting TECHNIQUE: Imaging protocol: Computed tomography images of the cervical spine without contrast. COMPARISON: No relevant prior studies available. FINDINGS: Vertebrae: No acute fracture. Normal alignment. Discs/Spinal canal/Neural foramina: No spinal stenosis. No neural foraminal narrowing. Soft tissues: Unremarkable. Lungs: Lung apices are normal. IMPRESSION: No acute findings. Thank you for allowing us to participate in the care of your patient. Dictated and Authenticated by: Candice Coyle MD 06/28/2019 3:47 AM Central Time ([place] & [place]) FINAL REPORT BY DR. ORONA EMERGENCY AFTER HOURS STUDY CT CERVICAL SPINE NONCONTRAST: DATE: 06/28/2019 3:01 AM HISTORY: cervical trauma FINDINGS: There are no jumped or perched facets. There is no evidence of acute fracture. The vertebral body hei ghts are maintained. There is no prevertebral soft tissue swelling. Agree with preliminary report by [facility]. IMPRESSION: No evidence of acute fracture or acute traumatic subluxation. Transcribed Date/Time: 06/28/2019 7:53 AM
--- NOTE | 2019-06-28 09:26 | RAD ---
RADIOGRAPH CHEST 1 VIEW: DATE: 06/28/2019 HISTORY: 54-year-old female with altered mental status. Rule out aspiration. FINDINGS: There are no airspace densities, pulmonary edema, pneumothorax, or cardiomegaly. The lateral costophr enic angles are sharp. IMPRESSION: No acute cardiopulmonary findings.
[2019-06-28] MEDS ORDERED: Ondansetron PF 4 MG/2 ML Vial IVP PRN ×2 (10:04→10:38)
[2019-06-28] MEDS ORDERED: hydrALAZINE 20 MG/ML VIAL SLOW IVP PRN (10:04)
--- NOTE | 2019-06-28 10:17 | CT ---
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 Initial Report created on 06/28/2019 3:43 AM Central Time ([place] & [place]) PROCEDURE INFORMATION: Exam: CT Abdomen And Pelvis With Contrast Exam date and time: 06/28/2019 3:03 AM Clinical history: 54 years old, female; Abdominal pain; Patient HX: F54 presents to ED via EMS who re ports PT was found in bathtub in contorted position. PT reported to EMS she took ambien. EMS reports PT does not have any strength in legs. EMS report brother at home is photograph mounter. PT reports her stomach and L leg are hurting TECHNIQUE: Imaging protocol: Computed tomography of the abdomen and pelvis with intravenous contrast. COMPARISON: No relevant prior studies available. FINDINGS: Liver: Normal. No mass. Gallbladder and bile ducts: There has been a cholecystectomy. No ductal dilation. Pancreas: Unremarkable. Spleen: Normal. Adrenals: No mass. Kidneys and ureters: Normal. No hydronephrosis. Stomach and bowel: Findings compatible with RYGB with fluid distention of the biliopancreatic limb an d to a lesser degree excluded stomach is consistent with jejuno-jejunal anastomosis obstruction. No signs of perforation. The distal small bowel is decompressed. There is moderate volume of colonic stool. Appendix: No evidence of appendicitis. Intraperitoneal space: No free air. Vasculature: No abdominal aortic aneurysm. Lymph nodes: No enlarged lymph nodes. Bladder: Unremarkable as visualized. Reproductive: There has been a hysterectomy. Bones/joints: Subacute rib fractures. No acute fracture. Soft tissues: Anterolateral abdominal wall subcutaneous stranding. IMPRESSION: RYGB with dilation of the excluded biliopancreatic limb is consistent with jejuno-jejunal anastomosis obstruction. No signs of perforation Thank you for allowing us to participate in the care of your patient. Dictated and Authenticated by: Candice Coyle MD 06/28/2019 3:43 AM Central Time ([place] & [place]) FINAL REPORT EMERGENCY AFTER HOURS ABDOMEN AND PELVIC CT SCAN WITH IV CONTRAST: Date: 06/28/19 Time: 0305 hours COMPARISON: 02/05/19. FINDINGS: Evidence for gastric bypass surgery. Prominent dilatation of the biliopancreatic limb, as well as the excluded stomach, evidence for jejuno-jejunal anastomotic obstruction. No evidence for other signifi cant acute process. This report is in agreement with the preliminary report. POS: SOLOMON
[2019-06-28] MEDS ORDERED: Zolpidem Tartrate 5 MG TAB PO PRN (10:38)
[2019-06-28] MEDS ORDERED: diphenhydrAMINE 25 MG CAP PO PRN (10:38)
[2019-06-28] MEDS ORDERED: diphenhydrAMINE 50 MG/ML VIAL IM PRN (10:38)
[2019-06-28] MEDS ORDERED: Naloxone HCl 0.4 mg/ml Vial IV PRN (10:38)
[2019-06-28] MEDS ORDERED: diphenhydrAMINE 50 MG/ML VIAL IVP PRN (10:38)
[2019-06-28] MEDS ORDERED: Promethazine HCl 25 MG/ML VIAL IM PRN (10:38)
[2019-06-28] MEDS ORDERED: Communication Order-Pharmacy FS SCH (10:45)
[2019-06-28] MEDS ORDERED: Meropenem 500 MG in Sodium Chloride 0.9% 100 ML IVPB SCH (11:00)
[2019-06-28] MEDS ORDERED: PROPOFOL 200 MG/20 ML VIAL ONE (11:25)
[2019-06-28] MEDS ORDERED: Lidocaine 1% PF 5 ML VIAL ONE (11:25)
[2019-06-28] MEDS ORDERED: Succinylcholine Chloride 20 MG/ML 10 ml SYRINGE FS ONE (11:25)
[2019-06-28] MEDS ORDERED: Dexamethasone 20 MG/5 ML VIAL ONE (11:25)
[2019-06-28] MEDS ORDERED: Ondansetron PF 4 MG/2 ML Vial ONE (11:25)
[2019-06-28] MEDS ORDERED: Rocuronium Bromide 10 MG/ML (10ML VIAL) ONE (11:25)
[2019-06-28] MEDS: Sodium Chloride 0.9% 1,000 ML IV SCH ×2 (12:10→14:08)
[2019-06-28] MEDS: Ketorolac Tromethamine 30 MG/ML VIAL IVP SCH ×2 (12:33→17:20)
[2019-06-28] MEDS: Acetaminophen 1,000 MG in Premix Bag 1 BAG IVPB SCH ×2 (12:34→17:21)
[2019-06-28 15:30] VITALS: BMI 26.2
[2019-06-28] MEDS ORDERED: Iopamidol-370 76% 500 ML 1 ML ONE (16:47)
[2019-06-28] MEDS: Meropenem 2 GM, Admixture Fee 1 EACH in Sodium Chloride 0.9% 100 ML IVPB SCH (20:18)
[2019-06-28] MEDS: Famotidine/PF 20 mg/2ml Vial SLOW IVP SCH (20:19)
[2019-06-28] MEDS: Famotidine 20 MG TAB PO SCH (20:29)
[2019-06-28] MEDS ORDERED: Chloraseptic Spray 180 ml Bottle PO PRN (21:53)
[2019-06-28] MEDS ORDERED: Sodium Chloride 0.9% 1,000 ML IV SCH (22:00)
[2019-06-29] MEDS: Ketorolac Tromethamine 30 MG/ML VIAL IVP SCH ×4 (00:02→17:17)
[2019-06-29] MEDS: Acetaminophen 1,000 MG in Premix Bag 1 BAG IVPB SCH ×2 (00:03→06:13)
[2019-06-29] MEDS: Sodium Chloride 0.9% 1,000 ML IV SCH ×3 (04:22→18:06)
[2019-06-29] MEDS: Meropenem 2 GM, Admixture Fee 1 EACH in Sodium Chloride 0.9% 100 ML IVPB SCH ×3 (04:26→20:46)
[2019-06-29 05:04] LABS: Anion Gap 12 mmol/L (10-20); BUN (Urea Nitrogen) 14 mg/dL (9.8-20.1); Calc. Creatinine Clearance 111 mL/min (70-130); Calcium 7.5 mg/dL (7.8-10.44); Carbon Dioxide 21 mmol/L (22-29); Chloride 113 mmol/L (98-107); Estimated GFR-MDRD Greater than 90; Glucose 91 mg/dL (70-105); Potassium 3.8 mmol/L (3.5-5.1); Sodium 142 mmol/L (136-145)
[2019-06-29 06:16] LABS: Band 17 % (5-11); Hemoglobin 8.4 g/dL (12.0-16.0); Lymphocytes 17 % (21-51); MDiff Complete? YES; Mean Corpuscular HGB CONC 32.8 g/dL (32.0-36.0); Mean Corpuscular Hemoglobin 32.2 pg (27.0-31.0); Mean Corpuscular Volume 98.1 fL (78.0-98.0); Mean Platelet Volume 9.6 fL (7.4-10.4); Neutrophil 66 % (42-75); Platelet Count 151 thou/uL (130-400); RBC Distribution Width 11.7 % (11.5-14.5); Red Blood Cell (RBC) Count 2.62 mill/uL (4.20-5.40); White Blood Cell (WBC) Count 5.5 thou/uL (4.8-10.8)
[2019-06-29] MEDS: Famotidine/PF 20 mg/2ml Vial SLOW IVP SCH ×2 (08:40→20:46)
[2019-06-29] MEDS: Enoxaparin Sodium 40 MG/0.4 ML SYRINGE SC SCH (08:41)
[2019-06-29] MEDS: Famotidine 20 MG TAB PO SCH ×2 (08:42→20:47)
--- NOTE | 2019-06-29 09:59 | PRG ---
DATE OF SERVICE: 06/29/2019 SUBJECTIVE: The patient reports that her pain is about 7/10. She denies nausea or vomiting. OBJECTIVE: VITAL SIGNS: On examination temperature is 98.4, pulse 85, and blood pressure 91/62. GENERAL: She is awake and alert. ABDOMEN: NG tube is put out 400. 980 urine, still little bit dark. Her abdomen is slightly distended. The dressing is dry. LABORATORY DATA: Her white count is 5.5, H and H 8.4 and 25, and platelet count 151. Her chloride 113, CO2 of 21, and creatinine 0.6. ASSESSMENT: Small-bowel obstruction, status post lysis of adhesions and enterotomy repair, stable. PLAN: Ambulate. Discontinue Blanca. Job ID: [id number]
--- NOTE | 2019-06-29 10:05 | OP ---
DATE OF PROCEDURE: 06/28/2019 PREOPERATIVE DIAGNOSES: 1. Small-bowel obstruction. 2. A biliopancreatic limb of gastric bypass. PROCEDURES PERFORMED: 1. Exploratory laparotomy. 2. Extensive lysis of adhesions. 3. Repair of enterotomy x4. INDICATIONS: This is a 54-year-old female, who in 2013 had a gastric bypass done laparoscopically in [place]. She underwent revision of that in 2014, and a subsequent ventral hernia repair and abdominoplasty. She said there was mesh inserted. Over the last month, she has had intermittent nausea, vomiting, and abdominal pain, which became much worse over the last [address] scan showed a distended biliopancreatic limb with transition zone near the jejunojejunostomy. FINDINGS: Very dense adhesions. Transition zone found. Enterotomies repaired. DESCRIPTION OF PROCEDURE: After informed consent was obtained, the patient was taken to the operating room and given general endotracheal anesthesia. She was placed in supine position. Her abdomen was prepped and draped in the usual fashion. She had a midline hypertrophic scar. A 10 blade was used to slowly advanced through this scar tissue. Eventually, I was able to get down to the fascial layer and carefully opened up the fascia using blunt dissection with hemostats and curved Kevin's because the bowel was right underneath the fascia and very adherent. Once the fascia had been opened, it was just a very slow tedious process of lysis of adhesions as it was basically a concrete abdomen and the bowel was very, very friable. The distended loop was especially friable and unfortunately got into it with release of enteric fluid under pressure. This was retrieved. The enterotomy was temporarily closed with a [id number] 3-0 Vicryl suture and continued a very slow tedious process of lysis of adhesions to try and determine the anatomy. I was able to find the ileocecal valve and traced it proximally, but it went into this anastomotic wad. I then was able to find this dilated loop, which I traced down. The source of the obstruction was adjacent to this wad, that was the anastomosis, but separate from it, and once the adhesions were lysed, we could see a transition point, so that was released. In the process of taking down the bowel, there were 4 enterotomies. A Bookwalter retractor was used to obtain better retraction, and sequentially, these enterotomies were closed transversely with interrupted 3-0 Vicryl sutures. Once they were all closed, the abdomen was thoroughly irrigated. Irrigation fluid removed. Hemostasis assured. The bowel once again inspected. I could not find any further enterotomies. The fascia was closed. I attempted to close it with a running looped #1 PDS, but the needle would not penetrate the dense abdominal wall fascia, so I closed her abdomen with interrupted #1 Prolene sutures [id number]. Then, the subcu was irrigated. Hemostasis was achieved with electrocautery. Skin loosely approximated with skin vani and paresh of Telfa were placed in between the vani. A sterile bandage applied. The patient tolerated the procedure well, transferred to Recovery in fair condition. Job ID: [id number]
[2019-06-29] MEDS: fentaNYL Citrate/PF 2,000 MCG in Sodium Chloride 0.9% 60 ML IV PRN (16:38)
[2019-06-30] MEDS: Ketorolac Tromethamine 30 MG/ML VIAL IVP SCH ×4 (00:12→17:17)
[2019-06-30] MEDS: Sodium Chloride 0.9% 1,000 ML IV SCH ×3 (04:05→20:35)
[2019-06-30] MEDS: Meropenem 2 GM, Admixture Fee 1 EACH in Sodium Chloride 0.9% 100 ML IVPB SCH ×3 (05:05→20:36)
--- NOTE | 2019-06-30 09:39 | PRG ---
DATE OF SERVICE: 06/30/2019 SUBJECTIVE: The patient states she is feeling pretty good. Minimal pain. No nausea or vomiting. No flatus. OBJECTIVE: VITAL SIGNS: On examination, her temperature is 97.8, pulse 86, blood pressure 118/76. NG output is a lot less, it is 100 for the last 24 hours. It has bilious color to it. GENERAL: She is awake and alert. LABORATORY DATA: White count 5.5, hemoglobin and hematocrit of 8.4 and 25, platelet count of 151. Electrolytes are fine. Her wound looks good. We pulled out the paresh and re-dress the wound. ASSESSMENT: Doing well. PLAN: Discontinue NG, ambulate. Job ID: [id number]
[2019-06-30] MEDS: Enoxaparin Sodium 40 MG/0.4 ML SYRINGE SC SCH (09:49)
[2019-06-30] MEDS: Famotidine/PF 20 mg/2ml Vial SLOW IVP SCH ×2 (09:50→20:36)
[2019-06-30] MEDS: Famotidine 20 MG TAB PO SCH ×2 (10:07→20:41)
[2019-06-30] MEDS: fentaNYL Citrate/PF 2,000 MCG in Sodium Chloride 0.9% 60 ML IV PRN (21:53)
[2019-07-01] MEDS: Ketorolac Tromethamine 30 MG/ML VIAL IVP SCH ×3 (00:29→13:29)
[2019-07-01] MEDS: Meropenem 2 GM, Admixture Fee 1 EACH in Sodium Chloride 0.9% 100 ML IVPB SCH ×3 (05:00→21:02)
[2019-07-01] MEDS: Sodium Chloride 0.9% 1,000 ML IV SCH ×3 (05:37→21:02)
[2019-07-01] MEDS: Enoxaparin Sodium 40 MG/0.4 ML SYRINGE SC SCH (09:23)
[2019-07-01] MEDS: Famotidine/PF 20 mg/2ml Vial SLOW IVP SCH ×2 (09:23→21:02)
--- NOTE | 2019-07-01 09:26 | PRG ---
DATE OF SERVICE: 07/01/2019 SUBJECTIVE: The patient says she is feeling pretty good. No nausea or vomiting. She is passing gas. She says that she has trouble peeing at home unless she drinks bottle of water. They had to put the catheter back in because she was not urinating, but she has good urine output. OBJECTIVE: VITAL SIGNS: Her temperature is 98, pulse 84, blood pressure 133/79. GENERAL: She is awake and alert. : Incision looks good. There was very minimal serous drainage on the bandage. This was replaced. ABDOMEN: Less distended. ASSESSMENT: Doing well. PLAN: Clear liquid diet. Discontinue Blanca. Ambulate. Job ID: [id number]
[2019-07-01] MEDS: Famotidine 20 MG TAB PO SCH ×2 (09:28→21:00)
[2019-07-02] MEDS: Meropenem 2 GM, Admixture Fee 1 EACH in Sodium Chloride 0.9% 100 ML IVPB SCH ×3 (03:30→20:33)
[2019-07-02] MEDS: fentaNYL Citrate/PF 2,000 MCG in Sodium Chloride 0.9% 60 ML IV PRN (03:30)
[2019-07-02] MEDS: Sodium Chloride 0.9% 1,000 ML IV SCH ×2 (04:38→17:58)
[2019-07-02] MEDS ORDERED: DC PCA Order Set 1 EACH FS ONE (07:40)
[2019-07-02] MEDS ORDERED: HYDROcodone/Acetaminophen 10/325 mg Tablet PO PRN (07:40)
[2019-07-02 08:05] LABS: #Eosinphils 0.1 thou/uL (0.0-0.7); #Lymphocytes 0.9 thou/uL (1.20-3.40); #Monocytes 0.6 thou/uL (0.11-0.59); #Neutrophils 6.1 thou/uL (1.40-6.50); %Basophils 0.1 % (0.0-1.0); %Eosinophils 1.4 % (0.0-10.0); %Lymphocytes 11.9 % (21.0-51.0); %Monocytes 7.1 % (0.0-10.0); %Neutrophils 79.5 % (42.0-75.0); Hemoglobin 7.9 g/dL (12.0-16.0); Mean Corpuscular HGB CONC 32.4 g/dL (32.0-36.0); Mean Corpuscular Hemoglobin 31.3 pg (27.0-31.0); Mean Corpuscular Volume 96.6 fL (78.0-98.0); Mean Platelet Volume 8.4 fL (7.4-10.4); Platelet Count 227 thou/uL (130-400); RBC Distribution Width 11.4 % (11.5-14.5); Red Blood Cell (RBC) Count 2.52 mill/uL (4.20-5.40); White Blood Cell (WBC) Count 7.7 thou/uL (4.8-10.8)
[2019-07-02 08:23] LABS: Anion Gap 12 mmol/L (10-20); BUN (Urea Nitrogen) 5 mg/dL (9.8-20.1); Calc. Creatinine Clearance 113 mL/min (70-130); Calcium 8.3 mg/dL (7.8-10.44); Carbon Dioxide 23 mmol/L (22-29); Chloride 106 mmol/L (98-107); Estimated GFR-MDRD Greater than 90; Glucose 98 mg/dL (70-105); Potassium 3.4 mmol/L (3.5-5.1); Sodium 138 mmol/L (136-145)
[2019-07-02] MEDS: HYDROcodone/Acetaminophen 10/325 mg Tablet PO PRN ×3 (09:11→18:35)
[2019-07-02] MEDS: Famotidine 20 MG TAB PO SCH ×2 (09:11→20:30)
[2019-07-02] MEDS: Famotidine/PF 20 mg/2ml Vial SLOW IVP SCH ×2 (09:13→21:53)
[2019-07-02] MEDS: Enoxaparin Sodium 40 MG/0.4 ML SYRINGE SC SCH (09:13)
[2019-07-03] MEDS: Sodium Chloride 0.9% 1,000 ML IV SCH ×2 (00:39→07:33)
[2019-07-03] MEDS: HYDROcodone/Acetaminophen 10/325 mg Tablet PO PRN (03:46)
[2019-07-03] MEDS: Meropenem 2 GM, Admixture Fee 1 EACH in Sodium Chloride 0.9% 100 ML IVPB SCH (03:46)
[2019-07-03 07:55] VITALS: BP 137/83; TEMP 97.9
[2019-07-03] MEDS: Enoxaparin Sodium 40 MG/0.4 ML SYRINGE SC SCH (09:12)
[2019-07-03] MEDS: Famotidine 20 MG TAB PO SCH (09:12)
[2019-07-03] MEDS: Famotidine/PF 20 mg/2ml Vial SLOW IVP SCH (09:13)
--- NOTE | 2019-07-04 03:57 | DIS ---
DATE OF ADMISSION: 06/28/2019 DATE OF DISCHARGE: 07/03/2019 DISCHARGE DIAGNOSIS: Small bowel obstruction, multiple dense adhesions. PROCEDURES DURING ADMISSION: Exploratory laparotomy, lysis of adhesions, and repair of enterotomies. HOSPITAL COURSE: Patient was admitted. She had an obstructed biliopancreatic limb which was not able to be decompressed with NG tube. She was taken to the operating room, where she underwent a laparotomy. She had incredible adhesions. It took 4 hours to take adhesion down to get to the dilated bowel. It turned out that it was not an anastomotic problem, but just from adhesions. This area was freed up. Enterotomies repaired. Postoperatively, she did well. Her bowel function returned. She is tolerating a regular diet. She is discharged home on hydrocodone and Zofran. She will follow up with me in 2 weeks. Job ID: [id number]
== END 2019-07-03 10:50 | disposition home or self-care (01) | DRG 337 ==
LOC: ERS 02:08 → SDC 06:57 → SURG A 11:39
PROVIDERS: ADMIT Surgery; ATTEND Surgery
PROC: 0DN80ZZ Release Small Intestine, Open Approach (ICD-10-PCS; principal; 2019-06-28)
DX: K56.50 Intestinal adhesions [bands], unspecified as to partial versus complete obstruction (principal); K86.89 Other specified diseases of pancreas; R41.82 Altered mental status, unspecified; Z90.49 Acquired absence of other specified parts of digestive tract; I10 Essential (primary) hypertension; Z88.0 Allergy status to penicillin
CPT/HCPCS: 36415; 51701; 70450; 71045; 72125; 74177; 80048; 80053; 80306; 80307; 81003; 82550; 83690; 84484; 85025; 93005; 96374; A4353; J0131; J1100; J1650; J1885; J1956; J2001; J2185; J2405; J2704; J3010; J3411; J3490; J7042; Q9967; S0028

== ENCOUNTER 2019-07-09 12:05 | Inpatient (IN) | payer OTHER ==
[2019-07-09 14:12] LABS: Bilirubin Negative (Negative); Blood, Urine Negative (Negative); Clarity Clear (Clear); Glucose, Urine (Dipstick) Normal (Negative); Leukocyte Negative Leu/uL (Negative); Nitrite Negative (Negative); Protein, Urine (Dipstick) 20 mg/dL (Neg-Trace)
[2019-07-09 14:51] LABS: #Eosinphils 0.1 thou/uL (0.0-0.7); #Lymphocytes 2.2 thou/uL (1.20-3.40); #Neutrophils 8.7 thou/uL (1.40-6.50); %Basophils 0.4 % (0.0-1.0); %Eosinophils 0.4 % (0.0-10.0); %Lymphocytes 17.9 % (21.0-51.0); %Monocytes 8.7 % (0.0-10.0); %Neutrophils 72.6 % (42.0-75.0); Hemoglobin 10.5 g/dL (12.0-16.0); Mean Corpuscular HGB CONC 31.7 g/dL (32.0-36.0); Mean Corpuscular Hemoglobin 30.9 pg (27.0-31.0); Mean Corpuscular Volume 97.7 fL (78.0-98.0); Mean Platelet Volume 7.5 fL (7.4-10.4); Platelet Count 594 thou/uL (130-400); RBC Distribution Width 13.4 % (11.5-14.5); Red Blood Cell (RBC) Count 3.39 mill/uL (4.20-5.40)
[2019-07-09 14:57] LABS: ALT (SGPT) 15 U/L (8-55); Lipase 52 U/L (8-78)
[2019-07-09 15:10] LABS: AST (SGOT) 24 U/L (5-34); Albumin 3.5 g/dL (3.5-5.0); Alkaline Phosphatase 79 U/L (40-110); Anion Gap 15 mmol/L (10-20); BUN (Urea Nitrogen) 12 mg/dL (9.8-20.1); Bilirubin, Total 0.6 mg/dL (0.2-1.2); Calc. Creatinine Clearance 0 mL/min (70-130); Calcium 8.9 mg/dL (7.8-10.44); Carbon Dioxide 22 mmol/L (22-29); Chloride 102 mmol/L (98-107); Estimated GFR-MDRD Greater than 90; Globulin 3.4 g/dL (2.4-3.5); Glucose 73 mg/dL (70-105); Potassium 3.7 mmol/L (3.5-5.1); Protein, Total 6.9 g/dL (6.0-8.3); Sodium 135 mmol/L (136-145)
[2019-07-09] MEDS ORDERED: Ondansetron PF 4 MG/2 ML Vial ONE ×2 (15:25→16:32)
[2019-07-09 15:28] LABS: Hypochromia SLIGHT = 6-15 cells (100X) (0-5/hpf); MDiff Complete? YES; Platelet Morphology Comment Appears Increased; Polychromasia MODERATE = 3-4 cells (100X) (0-2/hpf); Schistocytes SLIGHT = 2-5 cells (100X) (0-1/hpf); Tear Drops SLIGHT = 2-5 cells (100X) (0-1/hpf)
[2019-07-09] MEDS ORDERED: Morphine 2 MG/ML SYRINGE ONE (16:32)
--- NOTE | 2019-07-09 19:28 | CT ---
CT ABDOMEN WITH CONTRAST CT PELVIS WITH CONTRAST: DATE: 07/09/2019 HISTORY: 54-year-old female with recurrent upper abdominal pain. COMPARISON: 06/28/2019 TECHNIQUE: IV injection of iodinated contrast media: administered. Oral contrast media:Not administered FINDINGS: Postsurgical changes involving stomach and proximal small intestine, probably representing Benoit-en-Y gastric bypass surgery. There is an even greater degree of severe dilation of the same proximal postsurgical small bowel loops filled with a large amount of fluid on today's CT compared to the prev ious. The small intestine distal to this is collapsed. Moderate to large volume of colonic stool. No signs of colonic diverticulitis. No major pathology of liver, kidneys, abdominal aorta, pancreas, adrenals, spleen, or urinary bladder, other than distention of the bladder. Midline skin vani. No pneumoperitoneum or ascites. Lung bases are grossly clear. No pleural effusion. IMPRESSION: 1. Status post Benoit-en-Y gastric bypass surgery. 2. Evidence for high-grade bowel obstruction involving site of surgery: Severe dilation of involved b owel loops, greater than previously.
[2019-07-09] MEDS ORDERED: Morphine 4 MG/ML VIAL ONE (21:41)
[2019-07-09] MEDS ORDERED: Morphine 2 MG/ML SYRINGE SLOW IVP PRN (22:14)
[2019-07-09] MEDS ORDERED: Benzocaine 20% Spray 60 ML CAN ONE (22:28)
[2019-07-09] MEDS ORDERED: Oxymetazoline HCl 0.05% (30 ML BOT) ONE (22:28)
[2019-07-10 03:03] VITALS: BMI 26.1
[2019-07-10] MEDS: Sodium Chloride 0.9% 1,000 ML IV SCH ×4 (03:34→23:31)
[2019-07-10 05:58] LABS: #Eosinphils 0.1 thou/uL (0.0-0.7); #Lymphocytes 1.7 thou/uL (1.20-3.40); #Monocytes 0.8 thou/uL (0.11-0.59); #Neutrophils 6.9 thou/uL (1.40-6.50); %Basophils 0.3 % (0.0-1.0); %Eosinophils 0.7 % (0.0-10.0); %Lymphocytes 17.8 % (21.0-51.0); %Monocytes 8.7 % (0.0-10.0); %Neutrophils 72.5 % (42.0-75.0); Hemoglobin 9.4 g/dL (12.0-16.0); Mean Corpuscular HGB CONC 32.1 g/dL (32.0-36.0); Mean Corpuscular Volume 96.4 fL (78.0-98.0); Mean Platelet Volume 6.9 fL (7.4-10.4); Platelet Count 583 thou/uL (130-400); RBC Distribution Width 13.1 % (11.5-14.5); Red Blood Cell (RBC) Count 3.03 mill/uL (4.20-5.40); White Blood Cell (WBC) Count 9.6 thou/uL (4.8-10.8)
[2019-07-10 06:22] LABS: Anion Gap 15 mmol/L (10-20); BUN (Urea Nitrogen) 13 mg/dL (9.8-20.1); Calc. Creatinine Clearance 96 mL/min (70-130); Calcium 8.4 mg/dL (7.8-10.44); Carbon Dioxide 24 mmol/L (22-29); Chloride 104 mmol/L (98-107); Estimated GFR-MDRD Greater than 90; Glucose 68 mg/dL (70-105); Potassium 3.5 mmol/L (3.5-5.1); Sodium 139 mmol/L (136-145)
--- NOTE | 2019-07-10 08:15 | RAD ---
Exam: 1 view abdomen HISTORY: Small bowel obstruction Comparison none FINDINGS: Midline skin vani are noted. There are suture chains. Nasogastric tube terminates in the left upper quadrant. Distal sidehole is at the GE junction. Consider advancement Contrast opacifies the moderately distended urinary bladder. Residual contrast is noted in the right hemicolon. Copious amount of fecal material. Correlate for constipation. No significant small bowel distention on supine projection. IMPRESSION: 1. Copious amount of fecal material. Correlate for constipation. 2. Nasogastric tube as described above. Consider advancing nasogastric tube. CODE T
[2019-07-10] MEDS: Morphine 4 MG/ML VIAL SLOW IVP PRN ×3 (11:16→19:23)
[2019-07-10] MEDS ORDERED: Dextrose 50% Abboject 50 ML SYRINGE SLOW IVP PRN (12:28)
[2019-07-10] MEDS ORDERED: Ondansetron PF 4 MG/2 ML Vial IVP PRN (12:28)
[2019-07-10] MEDS ORDERED: hydrALAZINE 20 MG/ML VIAL SLOW IVP PRN (12:28)
[2019-07-10] MEDS ORDERED: Dextrose 5% in Water 1,000 ML IV PRN (12:28)
[2019-07-10] MEDS: D5 1/2 NS w/20 mEq KCL 1,000 ML IV SCH ×2 (12:54→20:27)
--- NOTE | 2019-07-10 15:40 | SPC ---
Ultrasound-guidedrightupper extremity PICC placement: 07/10/2019 HISTORY: Access requested for TPN FINDINGS: Informed consent obtained prior to the procedure. Preprocedural imaging demonstrates lack o f a basilic vein bilaterally. The left brachial vein is very small and thus the right brachial vein was utilized for access. Right antecubital fossa prepped and draped in normal sterile fashion. Skin overlying theright brachialvein anesthetized with 1% buffered lidocaine. With direct sonographic guidance, vascular access is obtained via the right brachialvein and an 0.018in wire was advanced to the cavoatrial junction. Intravascular length is calculated at 33 cm and of the PICC is cut accord ingly. Needle is removed and replaced with a peel-away sheath. The PICC was advanced over the wire. Wire and peel-away sheath were removed. The tip of the catheter overlies the cavoatrial junction. The port flushes well and the catheter is ready for use. Exposure data: 0.8 minutes of fluoroscopic time 2997 mGy per centimeter squared IMPRESSION: Successful ultrasound guided placement of a rightupper extremity PICC.
--- NOTE | 2019-07-10 18:16 | HP ---
CHIEF COMPLAINT: Abdominal pain. HISTORY OF PRESENT ILLNESS: The patient is a 54-year-old female, who was recently treated for a bowel obstruction of the Benoit limb. She had undergone gastric bypass in [place] in 2013, and then she had a leak, and then she had a revision, and then she had a ventral hernia repair, cholecystectomy, and section. She had extensive very dense adhesions at the time of surgery. She had 4 enterotomies repaired, difficult procedure. She was found to have a transition zone that was freed up from her biliopancreatic limb, but was due to adhesions, and she seemed to get better, and she was discharged and was doing fine until 3 days ago when she had recurrent symptoms of pain and nausea. She tried to deal with it, but seemed to be getting worse, so she came to the emergency room. PAST MEDICAL HISTORY: Significant for hypertension, fibromyalgia, and headaches. PAST SURGICAL HISTORY: Benoit-en-Y gastric bypass, hysterectomy, cholecystectomy, section. MEDICATIONS: 1. Atenolol. 2. Amitriptyline. 3. Lisinopril. 4. Depakote. ALLERGIES: PHENERGAN AND PENICILLIN. SOCIAL HISTORY: She is . No tobacco or alcohol. FAMILY HISTORY: Noncontributory. PHYSICAL EXAMINATION: VITAL SIGNS: Temperature 98.1, pulse 80, blood pressure 135/83. She has an NG tube in her nose which is draining bilious fluid. She has had about 300 out at NG tube. GENERAL: She does not appear to be in any distress. HEENT: Otherwise unremarkable. LUNGS: Clear. HEART: Regular rate and rhythm. ABDOMEN: Somewhat distended. She does not really have any significant tenderness. She has a fresh scar on the abdomen with vani intact. No evidence of infection. LABORATORY DATA: Her white count is 9.6, hemoglobin and hematocrit of 9.4 and 29, platelet count of 584. Her electrolytes are fine. Glucose 68. DIAGNOSTIC DATA: She had a CT scan of the abdomen showing a recurrence of the obstruction at the biliopancreatic limb. ASSESSMENT: Recurrent small-bowel obstruction. PLAN: Bowel rest, NG suction, IV hydration. We will start a central line. Start TPN. Job ID: [id number]
[2019-07-10] MEDS: Fat Emulsion 250 ML, Multivitamins, Adult 10 ML, Multitrace-5 5 ML in D15W-AA 5% with L... IV SCH (22:14)
[2019-07-11] MEDS: Morphine 4 MG/ML VIAL SLOW IVP PRN ×5 (02:42→21:28)
[2019-07-11 04:45] LABS: #Eosinphils 0.2 thou/uL (0.0-0.7); #Lymphocytes 1.4 thou/uL (1.20-3.40); #Monocytes 0.6 thou/uL (0.11-0.59); %Basophils 0.5 % (0.0-1.0); %Eosinophils 2.1 % (0.0-10.0); %Lymphocytes 17.2 % (21.0-51.0); %Monocytes 7.1 % (0.0-10.0); %Neutrophils 73.2 % (42.0-75.0); Hemoglobin 8.8 g/dL (12.0-16.0); Mean Corpuscular Hemoglobin 30.8 pg (27.0-31.0); Mean Corpuscular Volume 96.1 fL (78.0-98.0); Mean Platelet Volume 6.7 fL (7.4-10.4); Platelet Count 578 thou/uL (130-400); RBC Distribution Width 13.4 % (11.5-14.5); Red Blood Cell (RBC) Count 2.85 mill/uL (4.20-5.40); White Blood Cell (WBC) Count 8.2 thou/uL (4.8-10.8)
[2019-07-11] MEDS: D5 1/2 NS w/20 mEq KCL 1,000 ML IV SCH ×3 (04:46→23:22)
[2019-07-11 04:57] LABS: Anion Gap 10 mmol/L (10-20); BUN (Urea Nitrogen) 8 mg/dL (9.8-20.1); Calc. Creatinine Clearance 104 mL/min (70-130); Calcium 8.7 mg/dL (7.8-10.44); Carbon Dioxide 28 mmol/L (22-29); Chloride 105 mmol/L (98-107); Estimated GFR-MDRD Greater than 90; Glucose 133 mg/dL (70-105); Potassium 3.5 mmol/L (3.5-5.1); Sodium 139 mmol/L (136-145)
[2019-07-11] MEDS: Sodium Chloride 0.9% 1,000 ML IV SCH ×3 (06:46→23:23)
[2019-07-11] MEDS: Enoxaparin Sodium 30 MG/0.3 ML SYRINGE SC SCH (09:25)
[2019-07-11] MEDS: Pantoprazole 40 MG VIAL IVP SCH (09:31)
--- NOTE | 2019-07-11 09:51 | PRG ---
DATE OF SERVICE: 07/11/2019 SUBJECTIVE: Ms. Small feels slightly better. She is still having high NG output. She has minimal pain. OBJECTIVE: GASTROINTESTINAL: Her abdomen is distended with deep occasional bowel sounds. Midline wounds are healing well. The vani are in place. There is no drainage. ASSESSMENT: Readmission for recurrent pain and nausea after recent a laparotomy and lysis of adhesions. PLAN: Continue TPN and IV fluids. I wrote to check some vitamin levels and give her some thiamine daily. Job ID: [id number]
[2019-07-11 11:20] LABS: Vitamin D, 25 Hydroxy 12.2 ng/ml (> 30.0)
[2019-07-11 11:26] LABS: Ferritin 106.4 ng/mL (10-291)
[2019-07-11] MEDS: Fat Emulsion 250 ML, Multivitamins, Adult 10 ML, Multitrace-5 5 ML in D15W-AA 5% with L... IV SCH (22:32)
[2019-07-12 07:00] LABS: #Eosinphils 0.4 thou/uL (0.0-0.7); #Lymphocytes 1.7 thou/uL (1.20-3.40); #Monocytes 0.6 thou/uL (0.11-0.59); #Neutrophils 6.3 thou/uL (1.40-6.50); %Basophils 0.3 % (0.0-1.0); %Eosinophils 4.5 % (0.0-10.0); %Lymphocytes 18.6 % (21.0-51.0); %Monocytes 6.5 % (0.0-10.0); %Neutrophils 70.1 % (42.0-75.0); Hemoglobin 9.1 g/dL (12.0-16.0); Mean Corpuscular Hemoglobin 30.8 pg (27.0-31.0); Mean Corpuscular Volume 96.2 fL (78.0-98.0); Mean Platelet Volume 6.7 fL (7.4-10.4); Platelet Count 505 thou/uL (130-400); RBC Distribution Width 13.5 % (11.5-14.5); Red Blood Cell (RBC) Count 2.94 mill/uL (4.20-5.40); White Blood Cell (WBC) Count 8.9 thou/uL (4.8-10.8)
[2019-07-12] MEDS: D5 1/2 NS w/20 mEq KCL 1,000 ML IV SCH ×3 (07:11→23:16)
[2019-07-12] MEDS: Sodium Chloride 0.9% 1,000 ML IV SCH ×3 (07:11→23:15)
[2019-07-12 07:22] LABS: Anion Gap 10 mmol/L (10-20); BUN (Urea Nitrogen) 13 mg/dL (9.8-20.1); Calc. Creatinine Clearance 119 mL/min (70-130); Calcium 8.4 mg/dL (7.8-10.44); Carbon Dioxide 28 mmol/L (22-29); Chloride 104 mmol/L (98-107); Estimated GFR-MDRD Greater than 90; Glucose 199 mg/dL (70-105); Potassium 4.4 mmol/L (3.5-5.1); Sodium 138 mmol/L (136-145)
[2019-07-12] MEDS: Enoxaparin Sodium 30 MG/0.3 ML SYRINGE SC SCH (08:51)
[2019-07-12] MEDS: Pantoprazole 40 MG VIAL IVP SCH (08:51)
--- NOTE | 2019-07-12 08:53 | PRG ---
DATE OF SERVICE: 07/12/2019 SUBJECTIVE: Ms. Small states that she feels much better. She would like to have her NG tube out. She is walking. She is sitting in the chair. She states that she is passing gas. OBJECTIVE: Her abdomen is soft, minimally distended. She does have bowel sounds. Midline wound dressings are changed. She has one little area of purulent drainage between vani. I probed this with a Q-tip to reveal no significant pocket of pus underneath. 4x4s and tape were replaced. ASSESSMENT: Resolving ileus, status post lysis of adhesions with still persistent dilated afferent limb on her CT scan. PLAN: We will clamp NG. If doing well later on, we will remove. Continue to encourage ambulation. Job ID: [id number]
[2019-07-12] MEDS ORDERED: Venlafaxine HCl XR 75 MG CAP PO SCH (11:15)
[2019-07-12] MEDS: Morphine 4 MG/ML VIAL SLOW IVP PRN ×3 (13:52→21:55)
[2019-07-12] MEDS: Fat Emulsion 250 ML, Multivitamins, Adult 10 ML, Multitrace-5 5 ML in D15W-AA 5% with L... IV SCH (23:00)
[2019-07-13] MEDS: D5 1/2 NS w/20 mEq KCL 1,000 ML IV SCH ×3 (03:48→23:18)
[2019-07-13] MEDS: Sodium Chloride 0.9% 1,000 ML IV SCH ×3 (05:16→23:18)
[2019-07-13 06:09] LABS: #Basophils 0.1 thou/uL (0.0-0.2); #Eosinphils 0.4 thou/uL (0.0-0.7); #Lymphocytes 2.1 thou/uL (1.20-3.40); #Monocytes 0.6 thou/uL (0.11-0.59); #Neutrophils 5.5 thou/uL (1.40-6.50); %Basophils 0.7 % (0.0-1.0); %Eosinophils 5.1 % (0.0-10.0); %Lymphocytes 24.4 % (21.0-51.0); %Monocytes 7.1 % (0.0-10.0); %Neutrophils 62.7 % (42.0-75.0); Hemoglobin 9.6 g/dL (12.0-16.0); Mean Corpuscular HGB CONC 31.8 g/dL (32.0-36.0); Mean Corpuscular Hemoglobin 30.6 pg (27.0-31.0); Mean Corpuscular Volume 96.3 fL (78.0-98.0); Mean Platelet Volume 6.8 fL (7.4-10.4); Platelet Count 517 thou/uL (130-400); RBC Distribution Width 13.6 % (11.5-14.5); Red Blood Cell (RBC) Count 3.12 mill/uL (4.20-5.40); White Blood Cell (WBC) Count 8.7 thou/uL (4.8-10.8)
[2019-07-13 06:29] LABS: Anion Gap 10 mmol/L (10-20); BUN (Urea Nitrogen) 13 mg/dL (9.8-20.1); Calc. Creatinine Clearance 121 mL/min (70-130); Calcium 8.6 mg/dL (7.8-10.44); Carbon Dioxide 27 mmol/L (22-29); Chloride 107 mmol/L (98-107); Estimated GFR-MDRD Greater than 90; Glucose 95 mg/dL (70-105); Magnesium 2.1 mg/dL (1.6-2.6); Phosphorus 3.5 mg/dL (2.3-4.7); Potassium 4.5 mmol/L (3.5-5.1); Sodium 139 mmol/L (136-145)
[2019-07-13] MEDS: Pantoprazole 40 MG VIAL IVP SCH (08:42)
[2019-07-13] MEDS: Enoxaparin Sodium 30 MG/0.3 ML SYRINGE SC SCH ×2 (09:29→14:31)
[2019-07-13] MEDS: Venlafaxine HCl XR 75 MG CAP PO SCH ×2 (09:30→14:32)
--- NOTE | 2019-07-13 10:50 | CT ---
CT OF ABDOMEN AND PELVIS PERFORMED WITH CONTRAST ENHANCEMENT: HISTORY: The patient was status post gastric bypass in 2013. Evaluation for obstruction. COMPARISON: An 07/09/2019 study. FINDINGS: The lung bases show some linear change within the left base consistent with some atelectasis. The li hiram, spleen, and pancreas regions appear unremarkable. Gallbladder has been removed. Right and left adrenal glands and right and left kidneys are normal. There is no significant periaor tic adenopathy. Postoperative changes of the stomach are again demonstrated. The patient has underg one what appears to be a Benoit-En-Y procedure. The dilatation of the stomach continues to the Y conne ction with anastomotic suture line is seen. The degree of distention is less pronounced than on the previous examination. There is a moderate amount of stool incidentally noted within the colon. Surg ical vani are seen in the midline. CT OF PELVIS PERFORMED WITH CONTRAST ENHANCEMENT: The bladder is distended. No adenopathy, mass, or free fluid. IMPRESSION: The patient is status post a Benoit-En-Y gastric bypass-type procedure. There is now an nasogastric tu be present within the stomach. The degree of distention of the stomach and small bowel to the level of the Y connection of the Benoit-En- is less distended than on the previous examination but still show s some moderate distention. No free fluid or abscess. POS: SOLOMON
[2019-07-13] MEDS ORDERED: Iopamidol-370 76% 500 ML 1 ML ONE (11:18)
[2019-07-13] MEDS ORDERED: Chloraseptic Spray 180 ml Bottle PO PRN (13:09)
[2019-07-13] MEDS: Morphine 4 MG/ML VIAL SLOW IVP PRN (17:30)
[2019-07-13] MEDS: Fat Emulsion 250 ML, Multivitamins, Adult 10 ML, Multitrace-5 5 ML in D15W-AA 5% with L... IV SCH (22:45)
[2019-07-13] MEDS: Mag-Al 1200 mg/1200 mg/30 ML UDCUP PO PRN (23:08)
--- NOTE | 2019-07-14 07:49 | PRG ---
DATE OF SERVICE: 07/14/2019 SUBJECTIVE: The patient says she feels really well. She denies any pain. Denies any nausea. She had a little bit of reflux last night. She is hungry. She wants to try and eat some thing. She is passing flatus, but no bowel movement. OBJECTIVE: VITAL SIGNS: On examination, temperature is 98.7, pulse 94, and blood pressure 135/85. GENERAL: She looks good. ABDOMEN: Soft and nontender. There is still a little bit of distention. The vani were removed. LABORATORY DATA: White count is 8.7, H and H of 9.6 and 30, and platelet count 517. We repeated her CT scan that showed improvement, but not back to normal on the biliopancreatic limb. ASSESSMENT: Improving biliopancreatic obstruction. PLAN: We will try some sips of clear liquids. Continue ambulation. If she does not get better, we will recommend a decompressive gastrostomy tube into the remnant stomach. Hopefully, she will open up. Job ID: [id number]
[2019-07-14] MEDS: D5 1/2 NS w/20 mEq KCL 1,000 ML IV SCH ×3 (08:32→13:15)
[2019-07-14] MEDS: Mag-Al 1200 mg/1200 mg/30 ML UDCUP PO PRN (08:32)
[2019-07-14] MEDS: Sodium Chloride 0.9% 1,000 ML IV SCH ×2 (08:48→14:47)
[2019-07-14] MEDS: Pantoprazole 40 MG VIAL IVP SCH (08:49)
[2019-07-14] MEDS: Enoxaparin Sodium 30 MG/0.3 ML SYRINGE SC SCH (08:50)
[2019-07-14] MEDS: Venlafaxine HCl XR 75 MG CAP PO SCH (08:50)
[2019-07-14] MEDS: Fat Emulsion 250 ML, Multivitamins, Adult 10 ML, Multitrace-5 5 ML in D15W-AA 5% with L... IV SCH (22:05)
[2019-07-15] MEDS: D5 1/2 NS w/20 mEq KCL 1,000 ML IV SCH ×5 (03:30→20:43)
[2019-07-15] MEDS: Sodium Chloride 0.9% 1,000 ML IV SCH ×2 (03:37→06:39)
[2019-07-15] MEDS: Venlafaxine HCl XR 75 MG CAP PO SCH (08:08)
[2019-07-15] MEDS: Enoxaparin Sodium 30 MG/0.3 ML SYRINGE SC SCH (08:08)
[2019-07-15] MEDS: Pantoprazole 40 MG VIAL IVP SCH (08:09)
--- NOTE | 2019-07-15 09:28 | PRG ---
DATE OF SERVICE: 07/15/2019 SUBJECTIVE: The patient states she feels fine. She is wondering when she is going to be able to go home. She is tolerating clear liquids well. She denies any abdominal pain. No nausea or vomiting. She had a bowel movement that was normal in caliber and color. OBJECTIVE: VITAL SIGNS: Temperature is 98.4, pulse 96, blood pressure 108/78. GENERAL: She is awake and alert. ABDOMEN: Soft, nondistended, nontender. Incision looks good. ASSESSMENT: Improving small-bowel obstruction. PLAN: Full liquid diet. Wean off TPN. Should be able to go home tomorrow. Job ID: [id number]
--- NOTE | 2019-07-15 12:45 | PQF ---
CLINICAL DOCUMENTATION IMPROVEMENT CLARIFICATION FORM: ICD-10 Updated PLEASE DO AN ADDENDUM TO THE PROGRESS NOTE WITH ANY DOCUMENTATION UPDATES OR ADDITIONS AND CARRY THROUGH TO DC SUMMARY. THANK YOU. DATE: 07/15/2019 ATTN: Dr. Rodriguez Please exercise your independent, professional judgment in responding to the clarification form. Clinical indicators are provided on the bottom of this form for your review Please check appropriate box(s): [ ] Recurrent small-bowel obstruction is a complication of Benoit-en-Y gastric bypass surgery. [ ] Recurrent small-bowel obstruction is not a complication of Benoit-en-Y gastric bypass surgery. [ ] Other diagnosis [x ] Unable to determine In addition, please specify: Present on Admission (POA): [ x ] Yes [ ] No [ ] Unable to determine CLINICAL INDICATORS - SIGNS / SYMPTOMS / LABS / RESULTS AND LOCATION IN MR H&P 07/09: 54 yo female, who was recently treated for a bowel obstruction of the Benoit limb Recurrent small-bowel obstruction 07/12 ([place]) Resolving ileus, s/p lysis of adhesions with still persistent dilated afferent limb on her CT scan 07/14 (Michael) Improving biliopancreatic obstruction RISKS: H&P 07/09: recently treated for a bowel obstruction of the Benoit limb. She had undergone gastric bypass in [place] in 2013, and then she had a leak, and then she had a revision. and then had a ventral hernia repair, cholecystectomy, and c section. PMH: Benoit-en Y gastric bypass. TREATMENT: H&P 07/09: Bowel rest, NG suction, IV hydration. Start TPN Thank you, Edel (This form is maintained as a part of the permanent medical record) 2014 [employer]. All Rights Reserved Edel Hayes RN, BSN [email or web address] Office: [phone] [facility]amil
[2019-07-15] MEDS: Fat Emulsion 250 ML, Multivitamins, Adult 10 ML, Multitrace-5 5 ML in D15W-AA 5% with L... IV SCH (20:44)
[2019-07-16 06:12] LABS: ALT (SGPT) 26 U/L (8-55); AST (SGOT) 22 U/L (5-34); Albumin 3.3 g/dL (3.5-5.0); Alkaline Phosphatase 79 U/L (40-110); Anion Gap 11 mmol/L (10-20); BUN (Urea Nitrogen) 15 mg/dL (9.8-20.1); Bilirubin, Total 0.5 mg/dL (0.2-1.2); Calc. Creatinine Clearance 103 mL/min (70-130); Calcium 8.9 mg/dL (7.8-10.44); Carbon Dioxide 23 mmol/L (22-29); Chloride 105 mmol/L (98-107); Estimated GFR-MDRD Greater than 90; Globulin 3.1 g/dL (2.4-3.5); Glucose 87 mg/dL (70-105); Magnesium 2.3 mg/dL (1.6-2.6); Phosphorus 5.4 mg/dL (2.3-4.7); Potassium 4.8 mmol/L (3.5-5.1); Protein, Total 6.4 g/dL (6.0-8.3); Sodium 134 mmol/L (136-145)
[2019-07-16 07:53] VITALS: BP 98/67; TEMP 98.2
[2019-07-16] MEDS: Enoxaparin Sodium 30 MG/0.3 ML SYRINGE SC SCH (09:46)
[2019-07-16] MEDS: Pantoprazole 40 MG VIAL IVP SCH (09:46)
[2019-07-16] MEDS: Venlafaxine HCl XR 75 MG CAP PO SCH (09:46)
--- NOTE | 2019-07-18 00:15 | PQF ---
GILBERTO ESPINOZA JOHN A JR MD [id number] [facility] 3316 [id number] CLINICAL DOCUMENTATION CLARIFICATION FORM: POST DISCHARGE Addendum to original discharge summary date: ____ Late entry note date: __ DATE:07/17/2019 ATTN:RYLEE GREENBERG JR, MD Please exercise your independent, professional judgment in responding to the clarification form. Clinical indicators are provided on the bottom of this form for your review Please check appropriate box(s) to clarify if the following diagnosis has been ruled in or ruled out: Biliopancreatic obstruction [ ] Ruled in diagnosis [ ] Continue to treat [ ] Resolved [ ] Ruled out diagnosis [ ] Cannot rule out diagnosis [ ] Other diagnosis [ x ] Unable to determine For continuity of documentation, please document condition throughout progress notes and discharge summary. Thank You. CLINICAL INDICATORS - SIGNS / SYMPTOMS / LABS She had a ventral hernia repair ,cholecystectomy and section.She had extensive very dense adhesions at the time of surgery.She was found to have a transition ...zone that was freed up from her biliopancreatic limb-Documented in H&P on 07/[address] scan of the abdomen showing a recurrence of the obstruction at the biliopancreatic limb-Documented in H&P on 07/09 by Rylee Greenberg. Recurrent small-bowel obstruction-Documented in H&P on 07/09 by Rylee Greenberg. Improving biliopancreatic obstruction -Documented in PN on 07/14 by Rylee Greenberg. We repeated her CT scan that showed improvement,But not back to normal on the biliopancreatic limb-Documented in PN on 07/14 by Rylee Greenberg. RISK FACTORS Past surgical history: Benoit -en- Y gastric bypass,Cholecystectomy-Documented in H&P on 07/09 by Rylee Greenberg. Recurrent small-bowel obstruction-Documented in H&P on 07/09 by Rylee Greenberg. TREATMENTS We will try some sips of clear liquids-Documented in PN on 07/14 by Rylee Greenberg. We will recommend a decompressive gastrostomy tube into the remnant stomach- Documented in PN on 07/14 by Rylee Greenberg Continue TPN and IV fluids-Documented in PN on 07/11 by [place] [employer] Department Supervisor [employer] (This form is maintained as a part of the permanent medical record) 2014 [employer] All Rights Reserved [email or web address] [not provided] MTDD
== END 2019-07-16 11:22 | disposition home or self-care (01) | DRG 390 ==
LOC: ERS 12:05 → SJJU 20:00
PROVIDERS: ADMIT Surgery; ATTEND Surgery
PROC: 02HV33Z Insertion of Infusion Device into Superior Vena Cava, Percutaneous Approach (ICD-10-PCS; principal; 2019-07-10)
PROC: B548ZZA Ultrasonography of Superior Vena Cava, Guidance (ICD-10-PCS; 2019-07-10)
DX: K56.609 Unspecified intestinal obstruction, unspecified as to partial versus complete obstruction (principal); I10 Essential (primary) hypertension; M79.7 Fibromyalgia; K56.7 Ileus, unspecified; R63.0 Anorexia; Z90.710 Acquired absence of both cervix and uterus; Z90.49 Acquired absence of other specified parts of digestive tract; Z98.84 Bariatric surgery status; Z88.0 Allergy status to penicillin; Z68.26 Body mass index [BMI] 26.0-26.9, adult
CPT/HCPCS: 36415; 36416; 36569; 74018; 74177; 80048; 80053; 81003; 82306; 82607; 82728; 83690; 83735; 84100; 84425; 85025; 96361; 96374; 96375; 96376; C1751; C9113; J0360; J1650; J2270; J2405; J3411; Q9967

== ENCOUNTER 2019-07-22 10:00 | Inpatient (IN) | payer OTHER ==
[2019-07-22] MEDS ORDERED: cefTRIAXone\\ROCEPHIN 2 GM VIAL ONE (10:37)
[2019-07-22] MEDS ORDERED: Iopamidol-370 76% 500 ML 1 ML ONE (11:43)
[2019-07-22] MEDS ORDERED: Azithromycin 500 MG VIAL ONE (12:15)
[2019-07-22 14:19] LABS: Bilirubin Small (Negative); Blood, Urine Negative (Negative); Glucose, Urine (Dipstick) Negative (Negative); Leukocyte Trace (Negative); Nitrite Negative (Negative); Protein, Urine (Dipstick) 100 mg/dL (Neg-Trace)
[2019-07-22 14:20] LABS: Clarity Hazy (Clear)
[2019-07-22 14:21] LABS: Bacteria/HPF 1+ HPF (None Seen); RBC/HPF 0-3 HPF (0-3); WBC/HPF 21-50 HPF (0-3); Yeast-Budding 2+ HPF (None Seen)
--- NOTE | 2019-07-22 14:56 | CT ---
CTA THORAX UTILIZING IV CONTRAST WITH PE PROTOCOL AND 3D REFORMATTED IMAGING: Date: 07/22/19 INDICATION: Sepsis and vomiting since Thanksgiving with history of surgery 2 weeks ago. COMPARISON: None. FINDINGS: No central or segmental pulmonary embolus is evident. There is perihilar air space opacity suspicious for pneumonia. More confluent air space opacity is seen within both lower lobes. No pleural effusion is evident. Mildly prominent hilar lymph nodes (largest lymph node measures 8 mm). Visualized upper abdomen demonstrates postsurgical change of a gastric bypass. There is fluid distent ion of the gastric pouch and efferent limb of the proximal small bowel. Mild fluid distention is seen within the stomach and duodenum. Gas is present within the visualized aspect of the colon with a sma ll amount of fecal material. There is mild thoracic scoliosis. There is scattered degenerative change. IMPRESSION: 1. No central or segmental pulmonary embolus. 2. Perihilar air space opacities are suspicious for pneumonia. 3. Mildly prominent right hilar nodes suspicious for reactive lymphadenopathy. 4. Slight gastric distention of the gastric pouch and efferent gastrojejunal limb within the left up per quadrant of the abdomen. Findings could be related to a postoperative ileus. Distal obstruction i s not entirely excluded. POS: OFF
--- NOTE | 2019-07-22 15:07 | CT ---
CT ABDOMEN AND PELVIS WITH IV CONTRAST: Date: 07/22/19 INDICATION: History of sepsis with vomiting since Thanks[place]. COMPARISON: None. FINDINGS: There are bilateral perihilar air space opacities suspicious for pneumonia. There is postsurgical change of gastric bypass with dilatation of the gastric pouch, as well as the g astrojejunal limb. There is transition to normal caliber bowel at the level of the jejunojejunal anas tomosis. There is also fluid distention of the afferent limb. There is also postprocedural change inv olving the lower anterior aspect of the abdominal wall likely related to a prior abdominoplasty. A mi ld amount of retained stool is seen within the colon. No drainable fluid collection is evident. No en larged lymph nodes are noted. The visualized liver, spleen, pancreas, adrenal glands, and kidneys are normal appearing. No acute osseous abnormality is evident. There is scattered degenerative and osteoarthritic change. IMPRESSION: 1. Postoperative change of a gastric bypass. There is fluid distention of the excluded gastric pouch , as well as the efferent and afferent limb with transition to a normal caliber bowel at the level of the jejunojejunal anastomosis within the left lower quadrant abdomen. Findings may reflect obstructi on at this level. 2. Cholecystectomy. 3. Mild amount of retained stool within the colon. 3. Other chronic findings as above. POS: OFF
[2019-07-22 15:10] LABS: ALT (SGPT) 14 U/L (8-55); AST (SGOT) 11 U/L (5-34); Albumin 3.8 g/dL (3.5-5.0); Alkaline Phosphatase 86 U/L (40-110); Anion Gap 18 mmol/L (10-20); BUN (Urea Nitrogen) 32 mg/dL (9.8-20.1); Bilirubin, Total 0.5 mg/dL (0.2-1.2); Calc. Creatinine Clearance 0 mL/min (70-130); Calcium 9.2 mg/dL (7.8-10.44); Carbon Dioxide 21 mmol/L (22-29); Chloride 100 mmol/L (98-107); Estimated GFR-MDRD 32; Globulin 3.6 g/dL (2.4-3.5); Glucose 145 mg/dL (70-105); Lipase 12 U/L (8-78); Protein, Total 7.4 g/dL (6.0-8.3); Sodium 135 mmol/L (136-145)
[2019-07-22 15:17] LABS: Lactic Acid 2.2 mmol/L (0.5-2.2)
[2019-07-22 15:18] LABS: Hemoglobin 10.3 g/dL (12.0-16.0); Mean Corpuscular HGB CONC 32.1 g/dL (32.0-36.0); Mean Corpuscular Hemoglobin 30.7 pg (27.0-31.0); Mean Corpuscular Volume 95.9 fL (78.0-98.0); Platelet Count 270 thou/uL (130-400); RBC Distribution Width 13.5 % (11.5-14.5); Red Blood Cell (RBC) Count 3.35 mill/uL (4.20-5.40); White Blood Cell (WBC) Count 13.5 thou/uL (4.8-10.8)
[2019-07-22 15:19] LABS: Band 33 % (5-11); Eosinophils 1 % (0-10); Lymphocytes 7 % (21-51); MDiff Complete? YES; Monocytes 3 % (0-10); Neutrophil 56 % (42-75); Polychromasia SLIGHT = 2-3 cells (100X) (0-2/hpf)
[2019-07-22] MEDS ORDERED: Acetaminophen 650 MG Suppository PR PRN (16:23)
[2019-07-22] MEDS ORDERED: Acetaminophen 325 MG TAB PO PRN (16:23)
--- NOTE | 2019-07-22 17:24 | HP ---
PRIMARY CARE PROVIDER: Gretchen Hudson MD. CHIEF COMPLAINT: Vomiting. HISTORY OF PRESENT ILLNESS: Ms. Small is a pleasant 54-year-old lady, who was seen at [facility] on 07/22/2019. She was hospitalized at this facility from June 28 to of this year for a small-bowel obstruction. She underwent exploratory laparotomy and extensive lysis of adhesions. She was admitted again on 07/09/2019 for abdominal pain. She was discharged home on . She reports doing well at the time of discharge. She was on a clear liquid diet at the time of discharge. Over the last 4 days, she developed nausea and vomiting. She reports vomiting multiple times. She denies any cough or fever. She reports generalized weakness. She reports inability to tolerate diet, vomiting about 20 to 25 minutes after having anything to drink. She denies any chest pain. She reports occasional shortness of breath with exertion. She denies any abdominal pain. In the emergency room, she was found to have pneumonia and was referred to Hospitalist Service for admission. REVIEW OF SYSTEMS: All systems were reviewed and found to be negative except for the pertinent positives mentioned above. PAST MEDICAL HISTORY: 1. Fibromyalgia. 2. Vertigo. 3. Headaches. 4. Gastroesophageal reflux disease. 5. Irritable bowel syndrome. 6. Rheumatoid arthritis. 7. Diabetes mellitus, type 2. 8. Hypertension. 9. Migraine headaches. 10. Anxiety. 11. Depression. 12. Bowel obstruction. PAST SURGICAL HISTORY: 1. Surgery for bowel obstruction in 06/2019. 2. Gastric bypass in 2013 and revision in 2014. 3. Hernia repair in 11/2015. 4. Appendectomy. 5. . 6. Total hysterectomy in 1993. 7. Plastic surgery in abdominal region in 06/2016. 8. Arm surgery in 12/2017. FAMILY HISTORY: The patient denies any family history of premature coronary artery disease. SOCIAL HISTORY: Patient denies tobacco, alcohol or recreational drug use. ALLERGIES: PENICILLIN, PHENERGAN, AND PROMETHAZINE. CURRENT MEDICATIONS: These need to be clarified. In the past, the patient was on; 1. Zofran. 2. Childress. 3. Atenolol. 4. Pristiq. 5. Famotidine. 6. Lisinopril. 7. Savella. 8. MiraLAX. 9. Zonisamide. 10. Apixaban. 11. Divalproex. CODE STATUS: I discussed her code status. She is full code. PHYSICAL EXAMINATION: GENERAL: On examination, Ms. Small is awake and alert, not in acute distress. VITAL SIGNS: Blood pressure is 164/85, pulse 90, respiratory rate 18, and oxygen saturation 99% on room air. She is afebrile. EYES: No scleral icterus, no conjunctival pallor. ENT: Dry mucosal membranes. No oropharyngeal erythema or exudates. NECK: Supple, nontender, trachea is midline. RESPIRATORY: Accessory muscles of breathing are not active. Chest wall movements are symmetric bilaterally. Lungs are clear to auscultation bilaterally. CARDIOVASCULAR: S1 and S2 are heard, regular. Peripheral pulses palpable. No carotid bruit. No pericardial rub. ABDOMEN: Soft, nontender, bowel sounds are heard. NEUROLOGIC: Cranial nerves 2 through 12 are intact. MUSCULOSKELETAL: Power is 5/5 in all 4 extremities. SKIN: Abdominal incision healing well. LYMPHATIC: No cervical lymphadenopathy. PSYCHIATRIC: Normal mood, normal affect, the patient is oriented to person, place, and time. LABORATORY DATA: Ms. Small's labs and investigations were reviewed. She has leukocytosis with 13,500 white cells, of which 56% are neutrophils and 33% are band neutrophils. She has normocytic anemia with hemoglobin 10.3 and normal platelet count. Decreased sodium of 135, normal potassium, elevated blood urea nitrogen of 32, elevated creatinine of 1.97, last known creatinine was 0.67 on 07/16/2019. Unremarkable LFTs. Normal lactic acid. Urinalysis that is positive for trace leukocyte esterase, 21 to 50 wbc's, and 4 to [address] cells[address] She had CT angiogram of the chest, which did not show central or segmental pulmonary embolism. She had perihilar airspace opacities, suspicious for pneumonia. She has mildly prominent right hilar nodes, suspicious for reactive lymphadenopathy. She also had findings that suggested postoperative ileus. She went on to have CT scan of abdomen and pelvis, which showed findings reflective of obstruction. ASSESSMENT AND PLAN: Ms. Small is a pleasant 54-year-old lady, who was seen at [facility] on 07/22/2019. Her problem list includes: 1. Pneumonia: Ms. Small is presenting with pneumonia, most likely secondary to aspiration from recurrent episodes of vomiting. She will be admitted to the hospital for further management. She has already received ceftriaxone and azithromycin, which I will continue. We will await blood cultures. 2. Ileus versus bowel obstruction: Emergency room physician will contact Surgical Service and notify them of this admission for opinion and help with management. 3. Hypertension: We will add p.r.n. intravenous antihypertensive medications. 4. Nausea and vomiting: We will add p.r.n. Zofran. Many thanks for allowing me to participate in your patient's care. Please feel free to contact me with any questions or concerns. LEVEL OF RISK: Moderate. LEVEL OF COMPLEXITY: Moderate. Job ID: [id number] MTDD
[2019-07-22] MEDS: Sodium Chloride 0.9% 1,000 ML IV SCH (18:56)
[2019-07-22 22:59] VITALS: BMI 23.9
[2019-07-23 05:12] LABS: #Eosinphils 0.1 thou/uL (0.0-0.7); #Lymphocytes 1.2 thou/uL (1.20-3.40); #Monocytes 0.6 thou/uL (0.11-0.59); #Neutrophils 7.7 thou/uL (1.40-6.50); %Basophils 0.2 % (0.0-1.0); %Eosinophils 1.3 % (0.0-10.0); %Lymphocytes 12.8 % (21.0-51.0); %Monocytes 6.4 % (0.0-10.0); %Neutrophils 79.3 % (42.0-75.0); Hemoglobin 7.6 g/dL (12.0-16.0); Mean Corpuscular HGB CONC 32.2 g/dL (32.0-36.0); Mean Corpuscular Hemoglobin 31.1 pg (27.0-31.0); Mean Corpuscular Volume 96.6 fL (78.0-98.0); Mean Platelet Volume 9.8 fL (7.4-10.4); Platelet Count 200 thou/uL (130-400); RBC Distribution Width 13.3 % (11.5-14.5); Red Blood Cell (RBC) Count 2.44 mill/uL (4.20-5.40); White Blood Cell (WBC) Count 9.7 thou/uL (4.8-10.8)
[2019-07-23 05:23] LABS: Anion Gap 12 mmol/L (10-20); BUN (Urea Nitrogen) 24 mg/dL (9.8-20.1); Calc. Creatinine Clearance 84 mL/min (70-130); Calcium 8.2 mg/dL (7.8-10.44); Carbon Dioxide 21 mmol/L (22-29); Chloride 111 mmol/L (98-107); Estimated GFR-MDRD Greater than 90; Glucose 73 mg/dL (70-105); Potassium 3.7 mmol/L (3.5-5.1); Sodium 140 mmol/L (136-145)
[2019-07-23] MEDS: Sodium Chloride 0.9% 1,000 ML IV SCH (05:53)
[2019-07-23] MEDS ORDERED: FLU VACC QS2019-20(6MOS UP)/PF 60 MCG/0.5 ML SYRINGE IM ONE (09:00)
[2019-07-23] MEDS ORDERED: cefTRIAXone\\ROCEPHIN 1 GM in Sodium Chloride 0.9% 100 ML IVPB SCH (11:00)
[2019-07-23] MEDS ORDERED: Dextrose 5% in Water 1,000 ML IV PRN (11:58)
[2019-07-23] MEDS ORDERED: Dextrose 50% Abboject 50 ML SYRINGE SLOW IVP PRN (11:58)
[2019-07-23] MEDS ORDERED: Azithromycin 500 MG in Sodium Chloride 0.9% 250 ML 250 ML IVPB SCH (12:00)
--- NOTE | 2019-07-23 12:32 | CON ---
DATE OF CONSULTATION: CHIEF COMPLAINT: Vomiting. HISTORY OF PRESENT ILLNESS: The patient is a 54-year-old female, who underwent a complicated Benoit-en-Y gastric bypass in [place] in 2013, complicated by leak and multiple subsequent surgeries. She had a recent exploratory laparotomy here on 06/28 for an obstructed biliopancreatic limb. She was found to have a very hostile abdomen, that was completely socked in with adhesions. She sustained several enterotomies during that surgery, which were repaired. She was discharged and came back a week later with recurrent symptoms. She was discharged last week, doing well, and now she comes back with vomiting and the most recent CT shows that the biliopancreatic limb is improved, but now she has an obstruction at the Benoit limb at the anastomosis. PAST MEDICAL HISTORY: 1. Hypertension. 2. Diabetes. 3. Vertigo. 4. Rheumatoid arthritis. 5. Fibromyalgia. 6. Migraine headaches. PAST SURGERIES: 1. Gastric bypass. 2. Laparotomy. 3. Cholecystectomy. 4. Ventral hernia repair. 5. Recent exploratory laparotomy. MEDICATIONS: Include; 1. Atenolol. 2. Amitriptyline. 3. Lisinopril. 4. Depakote. ALLERGIES: TO PHENERGAN AND PENICILLIN. SOCIAL HISTORY: She is . Her son lives in [place]. No tobacco or alcohol. REVIEW OF SYSTEMS: GENERAL: She says she feels fine now. She is passing flatus, having bowel movements. She has does not have any further nausea. PHYSICAL EXAMINATION: VITAL SIGNS: Temperature 98.3, pulse 89, and blood pressure 104/69. GENERAL: She looks good. ABDOMEN: Soft, nondistended, and nontender. The incision has healed well. LABORATORY DATA: Her white count is 9.7, hemoglobin and hematocrit 7.6 and 25, and platelet count 200. LFTs normal. Her electrolytes are fine. CT angiogram was done, no PE. CT of the abdomen shows a Benoit limb obstruction at the anastomosis. There is a little bit of distention of the biliopancreatic limb, but it is much improved from before. ASSESSMENT: Recurrent obstruction, possibly related to an anastomotic problem, which was impossible for me to discern where it was on the last surgery. PLAN: I recommend she go back to [place] to the original hospital and have them evaluated her. I have told her we will go ahead and provide her with all of her records because it was done at a [facility] in [place]. Job ID: [id number]
--- NOTE | 2019-07-23 13:30 | PQF ---
CLINICAL DOCUMENTATION IMPROVEMENT CLARIFICATION FORM: ICD-10 Updated PLEASE DO AN ADDENDUM TO THE PROGRESS NOTE WITH ANY DOCUMENTATION UPDATES OR ADDITIONS AND CARRY THROUGH TO DC SUMMARY. THANK YOU. DATE: 07/23/19 ATTN: DR. IVAN Please exercise your independent, professional judgment in responding to the clarification form. Clinical indicators are provided on the bottom of this form for your review Please check appropriate box(s) to clarify if the following diagnosis has been ruled in or ruled out: "SEPSIS" [ x ] Ruled in diagnosis [ ] Continue to treat [ x ] Resolved [ ] Ruled out diagnosis [ ] Cannot rule out diagnosis [ ] Other diagnosis [ ] Unable to determine In addition, please specify: Present on Admission (POA): [ x ] Yes [ ] No [ ] Unable to determine For continuity of documentation, please document condition throughout progress notes and discharge summary. Thank You. CLINICAL INDICATORS - SIGNS / SYMPTOMS / LABS / RESULTS AND LOCATION IN MR ER NOTE: "SEPSIS" WBC 07/22: 13.5 RISKS: PNEUMONIA (ER NOTE) ILEUS VS BOWEL OBSTRUCTION (H&P 07/23) TREATMENT: BLOOD AND URINE CULTURES 07/22 IV AZITHROMYCIN (START 07/23) IV FLUIDS (07/22-PRESENT) IV ROCEPHIN (07/22-PRESENT) (This form is maintained as a part of the permanent medical record) 2014 [employer] All Rights Reserved PARIHS [email or web address] Office: [phone] MTDD
--- NOTE | 2019-07-23 13:50 | PQF ---
CLINICAL DOCUMENTATION IMPROVEMENT CLARIFICATION FORM: ICD-10 Updated PLEASE DO AN ADDENDUM TO THE PROGRESS NOTE WITH ANY DOCUMENTATION UPDATES OR ADDITIONS AND CARRY THROUGH TO DC SUMMARY. THANK YOU. Date: 07/23/19 ATTN: DR. IVAN Please exercise your independent, professional judgment in responding to the clarification form. Clinical indicators are provided on the bottom of this form for your review Please check appropriate box(s): [ x ] Protein Calorie Malnutrition: [ ] Mild [ x] Moderate [ ] Severe [ ] Other Malnutrition (please specify) __ [ ] Underweight without malnutrition [ ] Cachexia [ ] Other diagnosis [ ] Unable to determine In addition, please specify: Present on Admission (POA): [ x] Yes [ ] No [ ] Unable to determine CLINICAL INDICATORS - SIGNS / SYMPTOMS / LABS / RESULTS AND LOCATION IN MR DIETARY ASSESSMENT 07/23: "SEVERE MALNUTRITION IN THE CONTEXT OF ACUTE ILLNESS OF INJURY" "PATIENT REPORTS A POOR APPETITE SINCE PREVIOUS ADMIT AND HAS BEEN EATING A CLEAR LIQUID DIET SINCE THEN." "STATES SHE WAS UNABLE TO KEEP ANYTHING DOWN X1 WEEK 2/2 N/V. 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: < 50% of estimated energy requirement for > 5 days Weight Loss: >1-2%/1 week; >5%/1 month; >7.5%/3 months Other: moderate body fat loss; moderate muscle mass loss; moderate- severe fluid accumulation; measurably reduced dispensing lead strength Moderate Malnutrition (in chronic illness) Energy Intake: <75% of estimated energy requirement for >1 month Weight Loss: 5%/1 month; 7.5%/3 months; 10%/6 months; 20%/1 year Other: mild body fat loss; mild muscle mass loss; mild fluid accumulation Severe Malnutrition (in chronic illness) Energy Intake: <75% of estimated energy requirement for >1 month Weight Loss: >5%/1 month; >7.5%/3 months; >10%/6 months; >20%/1 year Other: severe body fat loss; severe muscle mass loss; severe fluid accumulation ; measurably reduced dispensing lead strength (This form is maintained as a part of the permanent medical record) 2014 [employer] All Rights Reserved PARISH [email or web address] Office: [phone] [facility] CENTERYamil
[2019-07-23 16:02] VITALS: BP 141/69; TEMP 98.5
--- NOTE | 2019-07-23 19:27 | DIS ---
DATE OF ADMISSION: 07/22/2019 DATE OF DISCHARGE: 07/23/2019 PRIMARY CARE PROVIDER: Dr. Gretchen Hudson. DISCHARGE DIAGNOSES: 1. Aspiration pneumonia. 2. Bowel obstruction. 3. Moderate protein-calorie malnutrition. CONDITION OF PATIENT ON THE DAY OF DISCHARGE: Stable. I assessed Ms. Small on the day of discharge. She reports that she is tolerating clear fluid diet. Vital signs are stable. S1 and S2 are heard, regular. Lungs are clear to auscultation bilaterally. CONSULTATIONS DURING THIS HOSPITALIZATION: General Surgery, Dr. Rodriguez. HOSPITAL COURSE: Ms. Small is a pleasant 54-year-old lady, who was admitted to [facility] on 07/22/2019, for pneumonia in the context of recurrent vomiting. She was also found to have recurrent bowel obstruction. She improved with intravenous antibiotics and fluids. General Surgery Service recommended that she go back to [place] to the [facility] where she had her gastric bypass surgery and have them evaluate her. The patient is tolerating clear fluid diet. She wishes to go home and then go to [place] to follow up with her surgeons there. She is being discharged with a prescription for levofloxacin 750 mg daily for 1 week. She has been advised to follow up with her primary care provider in 3 to 5 days if possible or with her surgeon in [place]. She has also been advised to follow up with her primary care provider for final blood culture report. Many thanks for allowing me to participate in your patient's care. Please feel free to contact me with any questions or concerns. POST-ACUTE DISCHARGE FOLLOWUP: With primary care provider and with her surgeon in [place]. DIET: Clear fluid diet. ACTIVITY: As tolerated. Many thanks for allowing me to participate in your patient's care. Please feel free to contact me with any questions or concerns. DISCHARGE DESTINATION: Home. TIME SPENT: Total amount of time spent coordinating this discharge: 32 minutes. Job ID: [id number]
== END 2019-07-23 17:46 | disposition home or self-care (01) | DRG 871 ==
LOC: ERS 10:00 → 2NO 17:55
PROVIDERS: ADMIT Internal Medicine; ATTEND Internal Medicine
DX: A41.9 Sepsis, unspecified organism (principal); J69.0 Pneumonitis due to inhalation of food and vomit; K56.609 Unspecified intestinal obstruction, unspecified as to partial versus complete obstruction; E44.0 Moderate protein-calorie malnutrition; K21.9 Gastro-esophageal reflux disease without esophagitis; M79.7 Fibromyalgia; M06.9 Rheumatoid arthritis, unspecified; E11.9 Type 2 diabetes mellitus without complications; I10 Essential (primary) hypertension; F41.9 Anxiety disorder, unspecified; F32.9 Major depressive disorder, single episode, unspecified; Z98.84 Bariatric surgery status; Z90.49 Acquired absence of other specified parts of digestive tract; Z90.710 Acquired absence of both cervix and uterus; Z88.0 Allergy status to penicillin; Z88.8 Allergy status to other drugs, medicaments and biological substances; Z68.23 Body mass index [BMI] 23.0-23.9, adult
CPT/HCPCS: 36415; 36416; 71275; 74177; 80048; 80053; 81003; 81015; 83605; 83690; 85025; 87040; 87086; 96361; 96365; 96366; 96367; J0456; J0696; J1610; J3490; J7050; Q9967

== ENCOUNTER 2019-08-01 04:01 | Inpatient (IN) | payer OTHER ==
[2019-08-01 06:39] LABS: #Eosinphils 0.1 thou/uL (0.0-0.7); #Monocytes 0.4 thou/uL (0.11-0.59); %Basophils 0.1 % (0.0-1.0); %Eosinophils 0.5 % (0.0-10.0); %Lymphocytes 8.2 % (21.0-51.0); %Monocytes 3.5 % (0.0-10.0); %Neutrophils 87.8 % (42.0-75.0); Hemoglobin 10.2 g/dL (12.0-16.0); Mean Corpuscular Hemoglobin 30.5 pg (27.0-31.0); Mean Corpuscular Volume 95.4 fL (78.0-98.0); Mean Platelet Volume 7.4 fL (7.4-10.4); Platelet Count 344 thou/uL (130-400); RBC Distribution Width 14.3 % (11.5-14.5); Red Blood Cell (RBC) Count 3.34 mill/uL (4.20-5.40); White Blood Cell (WBC) Count 12.6 thou/uL (4.8-10.8)
[2019-08-01 07:04] LABS: ALT (SGPT) 7 U/L (8-55); AST (SGOT) 19 U/L (5-34); Albumin 3.5 g/dL (3.5-5.0); Alkaline Phosphatase 75 U/L (40-110); Anion Gap 16 mmol/L (10-20); BUN (Urea Nitrogen) 16 mg/dL (9.8-20.1); Bilirubin, Total 0.3 mg/dL (0.2-1.2); Calc. Creatinine Clearance 0 mL/min (70-130); Calcium 8.8 mg/dL (7.8-10.44); Carbon Dioxide 23 mmol/L (22-29); Chloride 106 mmol/L (98-107); Estimated GFR-MDRD Greater than 90; Globulin 3.7 g/dL (2.4-3.5); Glucose 101 mg/dL (70-105); Potassium 5.5 mmol/L (3.5-5.1); Protein, Total 7.2 g/dL (6.0-8.3); Sodium 139 mmol/L (136-145)
[2019-08-01 08:25] LABS: Acetaminophen Less than 6.0 mcg/mL (10.0-30.0); Alcohol Less than 10 mg/dL (Less than 10); Salicylate Less than 8.0 mg/dL (15.0-30.0)
--- NOTE | 2019-08-01 09:07 | CT ---
PRELIMINARY REPORT/DIRECT RADIOLOGY/EMERGENCY AFTER HOURS PROCEDURE: This report was discussed with Terell Green MD by Yumiko Carey on Aug 01, 2019 07:03:00 WRAPPER SIZER. Addendum electronically signed by Yumiko Carey on August 01, 2019 7:04:41 AM WRAPPER SIZER EXAM: CT Abdomen and Pelvis with Intravenous Contrast CLINICAL HISTORY: ER 9... Pt c/o generalized abdominal pain, nausea and vomiting. Hx bowel obstructio n; Surgical hx of gastric bypass, (2013), revision (2014), hernia repair (11/2015), umbilical, appende ctomy, section, total hysterectomy TECHNIQUE: Axial computed tomography images of the abdomen and pelvis with intravenous contrast. CONTRAST: With; ISO 370, 90 ML COMPARISON: None provided. FINDINGS: LUNG BASES: Bibasilar airspace disease. No pneumothorax Or pleural effusion. LIVER: Unremarkable. GALLBLADDER AND BILE DUCTS: The gallbladder is surgically absent. PANCREAS: Unremarkable. SPLEEN: Unremarkable. ADRENAL GLANDS: Unremarkable. KIDNEYS, URETERS, AND BLADDER: Unremarkable. No hydronephrosis or nephrolithiasis. No ureteral or karly dder calculi. STOMACH AND BOWEL: Major portion of the stomach was resected. There is dilated C-loop of the duodenu m as well as the proximal jejunum. The dilatation is seen to the level of the distal anastomotic sut ures best seen in coronal image 26/127. The loops of bowel distal to this anastomosis appear normal in caliber. The large bowel appear unremarkable. APPENDIX: The appendix is surgically absent. PERITONEUM: No free fluid. No free air. LYMPH NODES: No lymphadenopathy. REPRODUCTIVE: Unremarkable as visualized. The uterus is surgically absent. VASCULATURE: No aortic aneurysm. BONES: No fracture or suspicious osseous abnormality. ABDOMINAL WALL AND SOFT TISSUES: Unremarkable. IMPRESSION: Dilated C-loop of the duodenum and the proximal jejunum to the level of distal anastomoti c sutures in the left upper abdomen. The loops of bowel distal to this appear normal in caliber. Fi ndings raise suspicion of a proximal small bowel obstruction with transition at the level of the anas tomotic sutures. Surgical consultation recommended. ELECTRONICALLY SIGNED BY: Guille Dunham MD Aug 01, 2019 6:59:30 AM WRAPPER SIZER FINAL REPORT ABDOMEN AND PELVIC CT SCAN WITH IV CONTRAST: EMERGENCY AFTER HOURS EXAM TIME: 6:30 AM. DATE: 08/01/2019. COMPARISON: 07/22/2019. There is again noted to be significant dilatation of the excluded gastric pouch, efferent and afferen t limb with transition to a more normal-caliber bowel at the level of the jejunal anastomosis. The a mount of dilatation has definitely worsened with more dilatation and more distention than on the 07/22 study, evidence for worsening obstruction. Stable chronic lung changes. This report is in agreement with the preliminary report. POS: LOUIE
[2019-08-01 09:24] LABS: Bacteria/HPF None Seen HPF (None Seen); Bilirubin Negative (Negative); Clarity Clear (Clear); Glucose, Urine (Dipstick) Normal (Negative); Leukocyte Negative Leu/uL (Negative); Mucous/LPF 2+ LPF (<2+); Nitrite Negative (Negative); Protein, Urine (Dipstick) 30 mg/dL (Neg-Trace); Squamous Epithelial None Seen HPF (0-3); Urobilinogen 3 mg/dL (Less than 2)
--- NOTE | 2019-08-01 09:27 | CT ---
PRELIMINARY REPORT/DIRECT RADIOLOGY/EMERGENCY AFTER HOURS PROCEDURE: EXAM: CT Head Without Intravenous Contrast. CLINICAL HISTORY: ER9; F56, Brother reports that patient takes ambien sometimes for insomnia and he s aw her rocking on side of couch. When he came back in room, she was on ground and he is unsure if she hit her head or not. PT DROUSY UPON ARRIVAL TO ED BUT ARROUSABLE TO VOICE. TECHNIQUE: Axial computed tomography images of the head/brain without intravenous contrast. COMPARISON: None provided. FINDINGS: BRAIN: No acute intraparenchymal hemorrhage. No mass lesion. No CT evidence for acute territorial inf arct. No midline shift or extra-axial collection. Chronic microvascular ischemic disease seen. VENTRICLES: No hydrocephalus. ORBITS: The orbits are unremarkable. SINUSES AND MASTOIDS: The paranasal sinuses and mastoid air cells are clear. SOFT TISSUES: No significant facial or scalp soft tissue swelling evident. No radiopaque foreign body is seen. BONES: No acute skull fracture. IMPRESSION: No acute intracranial abnormality. ELECTRONICALLY SIGNED BY: Guille Dunham MD Aug 01, 2019 5:04:55 AM BILINGUAL STUDENT TUTOR FINAL REPORT BRAIN CT WITHOUT IV CONTRAST: EMERGENT AFTER HOURS EXAM TIME: 4:50 AM. DATE: 08/01/2019. No mass or bleed or other acute process. This report is in agreement with the preliminary report. POS: SOLOMON
[2019-08-01 09:31] LABS: Blood, Urine Trace (Negative)
[2019-08-01 09:33] LABS: Amphetamine Not Detected (NotDetected); Barbiturates Screen Not Detected (NotDetected); Benzodiazepine Screen Not Detected (NotDetected); Cocaine Metabolite Screen Not Detected (NotDetected); Medtox Control Line Valid? VALID (VALID); Medtox Reader # READER 1; Methadone Not Detected (NotDetected); Methamphetamine Not Detected (NotDetected); Opiate Screen Detected (NotDetected); Oxycodone Screen Not Detected (NotDetected); Phencyclidine (PCP) Not Detected (NotDetected); THC/Cannabinoid Screen Not Detected (NotDetected); Tricyclic Screen Detected (NotDetected)
[2019-08-01] MEDS ORDERED: Iopamidol 370 76% 100 ML VIAL ONE (11:04)
[2019-08-01] MEDS ORDERED: Ondansetron PF 4 MG/2 ML Vial SLOW IVP PRN (11:43)
[2019-08-01 11:47] VITALS: BMI 23.8
[2019-08-01] MEDS: Sodium Chloride 0.45% 1,000 ML IV SCH ×2 (12:15→20:07)
--- NOTE | 2019-08-01 16:54 | CON ---
DATE OF CONSULTATION: 08/01/2019 REQUESTING PHYSICIAN: Dr. Yates. REASON FOR CONSULTATION: Bowel obstruction, possible anastomotic stricture. HISTORY OF PRESENT ILLNESS: Radha Small is a 54-year-old woman, seen recently in the GI Clinic by Dr. Brooks and her physician special events assistant. She briefly has a history of Benoit-en-Y gastric bypass back in 2013 with subsequent revision. The following year, she has had progressive nausea, vomiting, and multiple episodes of bowel obstruction. Significant weight loss over the past year. She has had multiple recent hospitalizations for small bowel obstruction with CT demonstrating dilation of the bowel down to the jejunojejunal anastomosis particularly involving the biliopancreatic limb. Dr. Rodriguez performed an exploratory laparotomy and found the abdomen to be full of adhesions. The abdomen was quite hostile in the process of adhesiolysis for enterotomies occurred. She had been referred back to her surgeon at [facility] in [place], but has not followed up with them yet. She presented to the hospital with characteristic obstructive symptoms of nausea and generalized abdominal pain. She is passing gas, no bowel movement today. CT scan here on admission again demonstrates dilated C-loop of the duodenum and proximal jejunum to the level of the distal anastomotic sutures in the left upper abdomen, raising the suspicion of proximal small bowel obstruction at that site. Dr. Yates has evaluated the patient and does not consider the patient to be a great surgical candidate. She is requesting that we consider EGD to see if we can reach this distal anastomotic site and perhaps perform dilation if feasible. REVIEW OF SYSTEMS: Full review of systems including constitutional, head, eyes, ears, nose, throat, GI, , cardiovascular, respiratory, musculoskeletal, and neurologic systems is negative except as noted in the HPI. PAST MEDICAL HISTORY: Fibromyalgia, vertigo, headaches, gastroesophageal reflux disease, irritable bowel syndrome, rheumatoid arthritis, diabetes type 2, hypertension, migraine headaches, depression/anxiety, multiple presentations for bowel obstruction, exploratory laparotomy in June 2019, gastric bypass in 2013 with revision in 2014, hernia repair in November 2015, appendectomy, , hysterectomy in 1993, plastic surgery in the abdominal region in June 2016, arm surgery in December 2017. FAMILY HISTORY: Noncontributory. SOCIAL HISTORY: No tobacco, alcohol, or drug use. ALLERGIES: PENICILLIN, PHENERGAN, AND PROMETHAZINE. OUTPATIENT MEDICATIONS: 1. Zolpidem. 2. Naproxen. 3. Savella. 4. Lisinopril. 5. Hydrocodone/acetaminophen. 6. Pepcid. 7. Divalproex. 8. Pristiq. 9. Fioricet. 10. Atenolol. 11. Amitriptyline. PHYSICAL EXAMINATION: VITAL SIGNS: Temperature 98.4, pulse 99, blood pressure 150/88, and oxygen saturation 96% on room air. GENERAL: A 54-year-old woman, lying in bed comfortably, in no acute distress. SKIN: No jaundice. No rashes were palpable. EYES: No scleral icterus. Extraocular movements intact. ENT: Mucous membranes moist. No oral lesions. LYMPH: No submandibular or supraclavicular lymphadenopathy. THYROID: Nontender to palpation. HEART: Regular rate and rhythm. LUNGS: Clear to auscultation bilaterally. ABDOMEN: Multiple surgical scars well healed. The abdomen is soft. Bowel sounds are high-pitched, but present. Tender to palpation diffusely, but no guarding or rebound tenderness. EXTREMITIES: No peripheral edema. VESSELS: Radial pulses 2+ bilaterally. NEURO: Cranial nerves II through XII intact bilaterally. No focal deficits. LABORATORY STUDIES: WBC 12.6, hemoglobin 10.2, and platelets 344. Sodium 139, potassium 5.5, BUN 16, creatinine 0.67, lactic acid 0.4, total bilirubin 0.3, alkaline phosphatase 75, AST 19, ALT 7, and albumin 3.5. Lipase less than 4. Urine tox screen positive for opiates and tricyclics. Tylenol and alcohol levels are negative. IMAGING STUDIES: CT of the abdomen and pelvis as detailed in the HPI. Brain CT shows no acute intracranial abnormality. ASSESSMENT AND PLAN: 1. Recurrent small bowel obstruction, with CT suggesting this is at the level of the jejunojejunal anastomosis. 2. Prior history of Benoit-en-Y gastric bypass with subsequent revision. 3. Intraabdominal adhesive disease. I discussed the case with Dr. Yates and also the patient and her family. The patient has a hostile abdomen and recent exploratory laparotomy was unsuccessful at alleviating the patient's symptoms or CT findings. I do think it would be reasonable to pursue upper endoscopy to try to reach this area at the jejunojejunal anastomosis for further characterization. If it appears to be an intrinsic stricture, endoscopic dilation might prove beneficial. However, my suspicion is that it might be difficult to reach this area, and even if I were able to reach it, extrinsic compression due to adhesive disease would not really be amenable to endoscopic dilation. However, it is certainly worth a try given the progression of the patient's symptoms. We will plan for EGD tomorrow. Thank you for the consultation. Please call anytime with questions or concerns. Job ID: [id number]
--- NOTE | 2019-08-01 18:55 | HP ---
CHIEF COMPLAINT: Nausea and vomiting. HISTORY OF PRESENT ILLNESS: Ms. Small is a 54-year-old woman, whose family member brought her to the emergency room after she fell out of her chair. She has apparently had problems with getting dizzy and presyncopal after taking her medications. She has also been complaining of abdominal pain and having frequent episodes of nausea and vomiting according to her family. The patient herself is unable to give much history. She is extremely drowsy and somewhat difficult to arouse. When she does wake up, she is an extremely vague historian. For example, she is unable to name the hospital or surgeon where she had her previous gastric bypass. She was also unable to name what surgery she has had and besides that bypass except to say that she has had her gallbladder out. The CT of the head did not show any acute changes, but admission was requested due to findings concerning for small bowel obstruction on her CT scan. After reviewing her CT images and report, I asked one of our bariatric surgeons to evaluate her since it looks like the area of stenosis may be at her jejunostomy. On further investigation of the patient's recent history, she has been admitted multiple times to our hospital and about one month ago, Dr. Rodriguez performed an exploratory laparotomy for this same problem. He was able to find a transition point and did lysis of adhesions to relieve her obstruction, but apparently this was not durable and she now returns with a very similar appearing CT of the abdomen. At the time of her last surgery, Dr. Rodriguez felt that any further surgery should be done at a [facility] center or that she should return to her original bariatric surgeon. It is unclear exactly what procedures the patient has had done, but reportedly she had a gastric bypass in 2013 with subsequent revision for some sort of complication or leak. However, the patient is unable to give me any detail. At the time of her last surgery by Dr. Rodriguez, she had an extremely hostile abdomen with dense adhesions and he was unable to define the anatomy of her previous surgeries. PAST SURGICAL HISTORY: Unclear. According to the chart, she has had gastric bypass with subsequent revision , cholecystectomy, and recent ex lap with lysis of adhesions. On imaging, it appears likely that she has had a hysterectomy and her gallbladder is surgically absent, but I am unable to clarify exactly what surgery she has had done due to her mental status. REVIEW OF SYSTEMS: Very limited. The patient states that she has not had any other problems recently except for headache. She denies any hematemesis or melena. She states that it has been 7 days since her last bowel movement. 10 system review of systems is otherwise negative, but again the patient is a poor historian and much of her recent history was obtained through conversation with her family member and review of her chart. PHYSICAL EXAMINATION: GENERAL: Reveals an extremely drowsy patient, who is somewhat difficult to arouse. When she does answer questions, she does this in a very soft, high-pitched voice with frequent pauses and often answers that she does not know the answer to the question. HEENT: Unremarkable. NECK: Supple without lymphadenopathy or thyroid nodules. HEART: Regular in its rate and rhythm. I do not appreciate any murmurs, rubs, or gallops. LUNGS: Clear to auscultation, but she is not taking deep breaths to command. ABDOMEN: Soft, and she does not exhibit any tenderness to palpation. She has a healed midline incision as well as multiple laparoscopic incisions. No palpable hernias or masses, although the scar itself is quite thick. Abdomen is not significantly distended. She does not exhibit any rigidity, rebound, or guarding. EXTREMITIES: Warm, well perfused without edema. NEUROLOGIC: No focal deficits, but decreased level of consciousness and an extremely poor historian. LABORATORY DATA: On review of her chart, she has had 11 CTs of the brain and 2 MRIs due to her mental status and depression. White count is mildly elevated at 12.6, hematocrit 31, platelets 344. Electrolytes are unremarkable except for a slightly high potassium at 5.5. BUN and creatinine, however, are normal. Albumin is 3.5, lipase is less than 4, and LFTs are unremarkable. CT images are reviewed and I agree with the written report. She does appear to have a very dilated biliary limb down to the level of the jejunostomy with decompression of the distal small bowel. On review of this, it does not appear significantly different from the CTs that she has had in recent months and going back as far as January, she had dilation of this limb. It also appears that she has an unusually short segment of bowel between her gastric pouch and her jejunostomy. It is possible that some of the bowel was resected at the time of her revision, but I do not have any records nor can the patient tell me where her surgery was performed to request such records. She has a large amount of stool in the colon. I do not appreciate any fecalization of the small bowel. ASSESSMENT: Chronic obstruction apparently near the side of the jejunostomy. I think the patient is decompressing retrograde into her biliary limb and suspect that there may be a stricture or stenosis near the jejunostomy. Since she appears to have a short distance between her jejunostomy and gastrojejunostomy, this may be able to be evaluated endoscopically. I will ask one of the industrial laborer to evaluate her. We are working on trying to get her transferred either to her original surgeon or to a [facility] or a tertiary care facility since our bariatric surgeons does not feel that she is a candidate for surgical intervention at our facility. I have asked the hospitalist to see her for medical management. She is on multiple medications, but it is unclear to me what the purpose of some of these medication is and many of them have neurologic or psychiatric effects, which may be contributing to her decreased mental status. Job ID: [id number]
[2019-08-01 20:00] LABS: Anion Gap 15 mmol/L (10-20); BUN (Urea Nitrogen) 13 mg/dL (9.8-20.1); Calc. Creatinine Clearance 111 mL/min (70-130); Calcium 7.9 mg/dL (7.8-10.44); Carbon Dioxide 20 mmol/L (22-29); Chloride 110 mmol/L (98-107); Estimated GFR-MDRD Greater than 90; Glucose 66 mg/dL (70-105); Potassium 4.4 mmol/L (3.5-5.1); Sodium 141 mmol/L (136-145)
[2019-08-01] MEDS: Enoxaparin Sodium 40 MG/0.4 ML SYRINGE SC SCH (20:07)
[2019-08-01] MEDS: Pantoprazole 40 MG VIAL IVP SCH (20:08)
[2019-08-01] MEDS ORDERED: Temazepam 15 MG CAP PO PRN (20:38)
[2019-08-01] MEDS ORDERED: Sodium Chloride 0.9% (PF) 10 ML VIAL FS PRN (20:41)
[2019-08-01] MEDS: Dextrose 5 %-0.45 % NaCl 1,000 ML IV SCH (21:29)
--- NOTE | 2019-08-02 01:31 | CON ---
DATE OF CONSULTATION: 08/01/2019 REQUESTING PHYSICIAN: Dr. Yates. REASON FOR CONSULTATION: Medical management for patient with a bowel obstruction, possible anastomotic stricture. HISTORY OF PRESENT ILLNESS: Ms. Garcia is a 54-year-old female, who presented to the emergency room today for evaluation of altered mental status and fall. The patient had a CT scan of the abdomen which showed possible small bowel obstruction. Dr. Yates admitted the patient and noted that the patient was not a great surgical candidate due to multiple abdominal surgeries. Dr. Rodriguez had done an exploratory lap recently and found that the abdomen full of adhesions and was hostile to the process of lysis of these adhesions. She had been referred back to the surgeon at [facility] in [place], but she has not followed up with them. Today, she is passing gas, but has not reported a bowel movement in several days. Dr. Yates also requested Dr. Cevallos to evaluate patient for possible EGD and then dilatation of the stricture if found. We have been consulted for medical management. REVIEW OF SYSTEMS: The patient complains of intermittent abdominal pain which is ongoing for the last several weeks. Denied any nausea or vomiting. Does have a history of headaches, but reports that she does not have one currently. She denied any chest pain, shortness of breath. All systems are reviewed and are negative unless mentioned in the HPI. PAST MEDICAL HISTORY: Pertinent for fibromyalgia, vertigo, headaches, GERD, irritable bowel syndrome, rheumatoid arthritis, diabetes type 2, although this patient does deny this on exam, hypertension, migraine headaches, depression and anxiety. She has had multiple ER visits and admissions for bowel obstruction. PAST SURGICAL HISTORY: Exploratory lap in June of 2018, gastric bypass in 2013 and revision in 2014, hernia repair in 2016. Has had an appendectomy, , hysterectomy, plastic surgery in abdomen region, arm surgery in 2018. SOCIAL HISTORY: No tobacco, alcohol, or drug use. ALLERGIES: PENICILLINS, PHENERGAN. HOME MEDICATIONS: Elavil 150 mg p.o. at bedtime; atenolol 25 mg p.o. daily; Fioricet 1 tablet p.o. q.8 hours as needed; Pristiq 100 mg p.o. daily; Depakote ER 500 mg p.o. b.i.d.; Pepcid 40 mg p.o. b.i.d.; hydrocodone, Tylenol 1 tablet p.o. q.6 hours, she has the 10/325; lisinopril 5 mg p.o. daily; Savella 25 mg p.o. daily, naproxen 375 mg p.o. b.i.d. as needed, and Ambien 10 mg p.o. at bedtime p.r.n. PHYSICAL EXAMINATION: VITAL SIGNS: Temperature is 98.4, pulse is 99, respiratory rate is 16, pO2 sats are 96% on room air, blood pressure 150/88. CONSTITUTIONAL: The patient is alert and oriented to person, place, and time. She is nontoxic appearing. HEENT: Head is atraumatic and normocephalic. Eyes, pupils are equally round and reactive to light. Eyelids are normal to inspection. ENT, mouth exam is normal. Mucous membranes are moist. RESPIRATORY: Chest, breath sounds are clear. Chest expansion is equal. CARDIOVASCULAR: Regular rate and rhythm. Heart sounds are normal. ABDOMEN: Nontender. Bowel sounds are heard. NEUROLOGIC: The patient is alert and oriented to person, place, and time. Speech is normal. EXTREMITIES: Upper extremity, normal range of motion. Strength is normal. Radial pulses are normal. Lower extremity, normal range of motion. Motor strength is normal. Pedal pulses are normal. No edema is noted. SKIN: Warm, dry. Normal in color of that skin that is visualized. PLAN/ASSESSMENT: 1. Small-bowel obstruction. Per Dr. Yates's note, she is not a great surgical candidate. Dr. Cevallos from GI has been consulted and will take the patient to endo lab in the morning for an EGD. The patient is n.p.o. after midnight. 2. History of hypertension. We will restart home medications. 3. History of gastroesophageal reflux disease. Restart home medications. 4. History of migraine headaches. We have restarted the Depakote and Elavil. We have not restarted the Fioricet. 5. History of depression and anxiety. We have restarted the Pristiq. 6. History of some insomnia. Evidently, patient was quite somnolent in the emergency room, it is possible reaction to the Ambien she took and she has also got a prescription for hydrocodone and Tylenol, which she reports that she takes intermittently as needed for abdominal pain; she has that plus Fioricet and the Elavil, all she took together potentially could cause the somnolence that was noted. She is alert and oriented during our exam and we will hold the Ambien and the hydrocodone for now. The patient is n.p.o. Her glucose on recheck this afternoon was 66. We have changed the IV fluids to D5 half-normal at 100 mL per hour as patient is n.p.o. 7. The patient was initially hyperkalemic at 5.5 and got fluids all day and rechecked and this has normalized to 4.4 after fluids. CBC and comprehensive metabolic panel have been ordered in the morning with Dr. Yates. 8. We appreciate the consultation and we will follow with you. Job ID: [id number]
[2019-08-02] MEDS: Dextrose 5 %-0.45 % NaCl 1,000 ML IV SCH ×3 (05:12→23:57)
[2019-08-02 06:42] LABS: Prothrombin Time 22.3 SEC (12.0-14.7)
[2019-08-02 06:58] LABS: ALT (SGPT) Less than 7 U/L (8-55); AST (SGOT) 14 U/L (5-34); Albumin 2.4 g/dL (3.5-5.0); Alkaline Phosphatase 60 U/L (40-110); Anion Gap 12 mmol/L (10-20); BUN (Urea Nitrogen) 8 mg/dL (9.8-20.1); Bilirubin, Total 0.2 mg/dL (0.2-1.2); Calc. Creatinine Clearance 101 mL/min (70-130); Calcium 7.8 mg/dL (7.8-10.44); Carbon Dioxide 22 mmol/L (22-29); Cardiac Risk 3.5 (Less than 4.5); Chloride 111 mmol/L (98-107); Cholesterol 94 mg/dl (< 200 Desired); Estimated GFR-MDRD Greater than 90; Globulin 2.7 g/dL (2.4-3.5); Glucose 96 mg/dL (70-105); HDL Cholesterol 27 mg/dL (>60 Neg Risk); LDL Cholesterol, Calculated 47 mg/dL; Protein, Total 5.1 g/dL (6.0-8.3); Sodium 141 mmol/L (136-145); Triglycerides 98 mg/dL (Less than 150)
[2019-08-02] MEDS: Atenolol 25 MG TAB PO SCH (08:35)
[2019-08-02] MEDS: Pantoprazole 40 MG VIAL IVP SCH ×2 (08:36→21:26)
[2019-08-02] MEDS: Venlafaxine HCl XR 150 MG CAP PO SCH (08:36)
[2019-08-02] MEDS: Lisinopril 5 MG TAB PO SCH (08:36)
[2019-08-02] MEDS ORDERED: MILNACIPRAN HCL 25 MG PO SCH (09:00)
[2019-08-02] MEDS ORDERED: Non-Formulary Item 1 EACH (Desvenlafaxine Succinate [Pristiq] 100 MG) PO SCH (09:00)
[2019-08-02] MEDS ORDERED: PROPOFOL 200 MG/20 ML VIAL ONE (10:38)
[2019-08-02 12:42] LABS: #Eosinphils 0.2 thou/uL (0.0-0.7); #Lymphocytes 1.5 thou/uL (1.20-3.40); #Monocytes 0.7 thou/uL (0.11-0.59); #Neutrophils 5.8 thou/uL (1.40-6.50); %Basophils 0.3 % (0.0-1.0); %Eosinophils 2.1 % (0.0-10.0); %Monocytes 8.1 % (0.0-10.0); %Neutrophils 71.5 % (42.0-75.0); Hemoglobin 8.6 g/dL (12.0-16.0); Mean Corpuscular Hemoglobin 31.5 pg (27.0-31.0); Mean Corpuscular Volume 95.6 fL (78.0-98.0); Mean Platelet Volume 7.7 fL (7.4-10.4); Platelet Count 278 thou/uL (130-400); RBC Distribution Width 14.4 % (11.5-14.5); Red Blood Cell (RBC) Count 2.72 mill/uL (4.20-5.40); White Blood Cell (WBC) Count 8.1 thou/uL (4.8-10.8)
--- NOTE | 2019-08-02 13:16 | PDOC.GSPN ---
Surgery Progress Note: Subj - Subjective Narrative: Patient had EGD today. The JJ jejunostomy was able to be reached easily. The biliary limb is wide open distended and with a lot of particulate fluid in it. The distal limb is patent but angulated and much smaller. No stricture or obstruction was found within reach of the scope. I believe that the patient just has a relative obstruction to the distal limb which causes preferential reflux into the biliary limb. The endoscopist was able to pass the scope all the way into the gastric remnant which appeared grossly normal. He did note that the entire inspected proximal intestine appeared to be aperistaltic. Surgery Progress Note: Obj - Vital signs Vital signs: Vital Signs - Most Recent Temp Pulse Resp BP Pulse Ox 98.0 F 75 18 110/70 96 08/02/19 11:35 08/02/19 11:35 08/02/19 11:35 08/02/19 11:35 08/02/19 11:35 Surgery Progress Note: Results - Labs Result Diagrams: 08/02/19 12:34 08/02/19 06:24 Lab results: Laboratory Results - last 24 hr 08/02/19 08/02/19 08/02/19 06:14 06:24 06:24 WBC RBC Hgb Hct MCV MCH MCHC RDW Plt Count MPV Neutrophils % Lymphocytes % Monocytes % Eosinophils % Basophils % Neutrophils # Lymphocytes # Monocytes # Eosinophils # Basophils # PT INR APTT Sodium 141 Potassium 4.0 Chloride 111 H Carbon Dioxide 22 Anion Gap 12 BUN 8 L Creatinine 0.64 Estimated GFR (MDRD) Greater than 90 Glucose 96 POC Glucose 101 Calcium 7.8 Total Bilirubin 0.2 AST 14 ALT Less than 7 L Alkaline Phosphatase 60 Serum Total Protein 5.1 L Albumin 2.4 L Globulin 2.7 Albumin/Globulin Ratio 0.9 L Prealbumin 11.0 L Triglycerides 98 Cholesterol 94 LDL Cholesterol, Calc 47 HDL Cholesterol 27 Heart Disease Risk Ratio 3.5 08/02/19 08/02/19 08/02/19 06:24 11:59 12:34 WBC 8.1 RBC 2.72 L Hgb 8.6 L Hct 26.0 L MCV 95.6 MCH 31.5 H MCHC 33.0 RDW 14.4 Plt Count 278 MPV 7.7 Neutrophils % 71.5 Lymphocytes % 18.0 L Monocytes % 8.1 Eosinophils % 2.1 Basophils % 0.3 Neutrophils # 5.8 Lymphocytes # 1.5 Monocytes # 0.7 H Eosinophils # 0.2 Basophils # 0.0 PT 22.3 H INR 2.0 APTT 24.0 Sodium Potassium Chloride Carbon Dioxide Anion Gap BUN Creatinine Estimated GFR (MDRD) Glucose POC Glucose 83 Calcium Total Bilirubin AST ALT Alkaline Phosphatase Serum Total Protein Albumin Globulin Albumin/Globulin Ratio Prealbumin Triglycerides Cholesterol LDL Cholesterol, Calc HDL Cholesterol Heart Disease Risk Ratio Surgery Progress Note: A/P - Plan Plan: Patient with no definite obstruction but likely with preferential reflux into the biliary limb and stomach rather than through the somewhat angulated and narrower distal intestine. Options are continued attempted oral intake as tolerated versus the feeding tube into the efferent limb. I will discuss this with the patient once she is more awake. I think she would benefit from a feeding tube. She may also potentially be a candidate for a PEG-J, which would have the additional benefit of decompressing the gastric remnant and biliary limb. I don't think she is a candidate for an operative J-tube, or repeat surgery. However, if she prefers to obtain a second opinion, transfer to [facility] can be pursued. We have requested her records from [facility] and [place] as well as from [facility] but nothing has been sent yet.
--- NOTE | 2019-08-02 13:41 | PDOC.HOSPP ---
- Subjective Encounter Date: 08/02/19 Encounter Time: 09:20 Subjective: Pt seen for followup re: hypertension. Feels better. Passing flatus, no bowel movement. - Objective Vital Signs & Weight: Vital Signs (12 hours) Temp Pulse Resp BP Pulse Ox 08/02/19 11:35 98.0 F 75 18 110/70 96 08/02/19 07:19 98.2 F 85 18 135/83 99 08/02/19 07:12 98.2 F 85 18 135/83 97 08/02/19 03:58 98.1 F 70 18 141/81 H 96 Weight Weight 143 lb 8.335 oz I&O: 08/01/19 08/02/19 08/03/19 06:59 06:59 06:59 Intake Total 2375 Balance 2375 Result Diagrams: 08/02/19 12:34 08/02/19 06:24 Additional Labs: Accuchecks 08/02/19 08/02/19 08/01/19 11:59 06:14 23:04 POC Glucose 83 101 107 Labs and MARs reviewed by [place] Hospitalist ROS - Review of Systems Constitutional: denies: fever, chills, sweats, weakness, malaise Cardiovascular: denies: chest pain, palpitations, orthopnea, paroxysmal noc. dyspnea, edema, light headedness - Medication Medications: Active Medications Generic Name Dose Route Start Last Admin Trade Name Freq PRN Reason Stop Dose Admin Amitriptyline HCl 150 mg 08/01/19 21:00 08/01/19 21:26 Elavil PO 150 mg HS JOSHUA Administration Atenolol 25 mg 08/02/19 09:00 08/02/19 08:35 Tenormin PO 25 mg DAILY JOSHUA Administration Divalproex Sodium 500 mg 08/01/19 21:00 08/02/19 08:35 Depakote Er PO 500 mg BID JOSHUA Administration Enoxaparin Sodium 40 mg 08/01/19 21:00 08/01/19 20:07 Lovenox SC 40 mg 2100 JOSHUA Administration Dextrose/Sodium Chloride 1,000 mls @ 100 mls/hr 08/01/19 20:45 08/02/19 05:12 D5 1/2 Ns IV 1,000 mls .Q10H JOSHUA Administration Lisinopril 5 mg 08/02/19 09:00 08/02/19 08:36 Zestril PO 5 mg DAILY JOSHUA Administration Pantoprazole Sodium 40 mg 08/01/19 21:00 08/02/19 08:36 Protonix IVP 40 mg Q12HR JOSHUA Administration Venlafaxine HCl 150 mg 08/02/19 09:00 08/02/19 08:36 Effexor Xr PO 150 mg DAILY JOSHUA Administration - Exam General Appearance: NAD, awake alert Eye: anicteric sclera ENT: normocephalic atraumatic, moist mucosa Neck: supple, no thyromegaly Heart: RRR, no rubs Respiratory: CTAB, no wheezes Gastrointestinal: soft, non-tender, diminished bowl sounds Extremities: no clubbing Psychiatric: normal affect, normal behavior Hosp A/P (1) Hypertension Code(s): I10 - ESSENTIAL (PRIMARY) HYPERTENSION Status: Chronic Qualifiers: Hypertension type: essential hypertension Qualified Code(s): I10 - Essential (primary) hypertension (2) GERD (gastroesophageal reflux disease) Code(s): K21.9 - GASTRO-ESOPHAGEAL REFLUX DISEASE WITHOUT ESOPHAGITIS Status: Chronic Qualifiers: Esophagitis presence: without esophagitis Qualified Code(s): K21.9 - Gastro -esophageal reflux disease without esophagitis (3) Anxiety and depression Code(s): F41.8 - OTHER SPECIFIED ANXIETY DISORDERS Status: Chronic (4) Fibromyalgia Status: Chronic - Plan HTN controlled. GERD stable. Depression mild, stable.
--- NOTE | 2019-08-02 14:47 | OP ---
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 PROCEDURE PERFORMED: Esophagogastroduodenoscopy, diagnostic. INDICATIONS: 1. Recurrent nausea and vomiting. 2. Abdominal pain. 3. Recurrent small bowel obstructions. MEDICATIONS: See Anesthesia record. FINDINGS: After discussion of the risks, benefits, and alternatives of the procedure, informed consent was obtained and witnessed. Pre-endoscopic cardiopulmonary examination was satisfactory. Time-out was performed before sedation was achieved. Sedation was achieved with Anesthesia assistance in the endoscopy unit. A Pentax adult upper endoscope was placed into the oropharynx and passed through the cricopharyngeus under direct visualization. The esophageal mucosa appears normal throughout with a normal-appearing Z-line. The endoscope was advanced into the gastric pouch. The gastric pouch is quite small, measuring approximately 4 cm in length. It was viewed in forward and retroflexed views and the mucosa appeared normal. There was an exposed staple at the anastomosis line , but this appears overall healthy. No stricture at this anastomosis. The endoscope was advanced into the small bowel. There is an approximately 10 cm length of small bowel, which appears normal, and then at 50 to 55 cm, there is another anastomotic area. The origin of the efferent limb and the lumen of the afferent limb are visualized in this area. Notably, the origin of the efferent limb is relatively small and angulated away compared to the lumen of the afferent limb in this area , which is more of a straight shot from the gastric pouch. I advanced the endoscope down both limbs. First, I advanced the endoscope down the afferent or pancreatobiliary limb. This is essentially diffusely dilated and full of liquid and particulate food matter throughout the entire length. The mucosa appeared normal. I was able to advance the scope all the way to the pylorus and then into the gastric remnant in retrograde manner and this all appeared normal with the exception of liquid and particulate food matter. I then withdrew the scope back to the anastomotic area and advanced the scope to the origin of the efferent limb. Again, the origin of the efferent limb is relatively small and angulated, though there is no fibrosis or inflammation in this area. Nothing amenable to any endoscopic dilation. I advanced the endoscope down to efferent limb to a distance of 90 cm and that mucosa appeared normal. The upper endoscope was then completely withdrawn and the patient allowed to recover. The patient tolerated the procedure well. There were no immediate postprocedure complications. IMPRESSION: 1. The afferent limb is dilated and filled with particulate food matter throughout, but there is no evidence of obstruction or fibrosis. Afferent limb was examined to the gastric remnant, which appeared normal. 2. Origin of the efferent limb is relatively small and angulated, but there is no stricture evident. 3. Small gastric pouch with normal mucosa, no evidence of ulceration. RECOMMENDATIONS: 1. Liquid or low residue diet. 2. Symptomatic treatment. 3. I discussed the case with Dr. Yates, who was also present for the endoscopy. There is no endoscopic therapy that is going to be of any benefit. Follow up with surgical recommendations. GI will sign off. Please call back with questions or concerns. Job ID: [id number] [facility]
[2019-08-02] MEDS: Enoxaparin Sodium 40 MG/0.4 ML SYRINGE SC SCH (21:24)
[2019-08-03] MEDS: Dextrose 5 %-0.45 % NaCl 1,000 ML IV SCH ×4 (02:08→20:51)
[2019-08-03 05:38] LABS: #Eosinphils 0.2 thou/uL (0.0-0.7); #Lymphocytes 2.1 thou/uL (1.20-3.40); #Monocytes 0.7 thou/uL (0.11-0.59); #Neutrophils 2.8 thou/uL (1.40-6.50); %Basophils 0.1 % (0.0-1.0); %Eosinophils 3.5 % (0.0-10.0); %Lymphocytes 36.3 % (21.0-51.0); %Monocytes 11.4 % (0.0-10.0); %Neutrophils 48.7 % (42.0-75.0); Hemoglobin 8.2 g/dL (12.0-16.0); Mean Corpuscular HGB CONC 31.5 g/dL (32.0-36.0); Mean Corpuscular Hemoglobin 30.8 pg (27.0-31.0); Mean Corpuscular Volume 97.8 fL (78.0-98.0); Mean Platelet Volume 7.2 fL (7.4-10.4); Platelet Count 313 thou/uL (130-400); RBC Distribution Width 14.5 % (11.5-14.5); Red Blood Cell (RBC) Count 2.67 mill/uL (4.20-5.40); White Blood Cell (WBC) Count 5.8 thou/uL (4.8-10.8)
[2019-08-03 06:00] LABS: ALT (SGPT) Less than 7 U/L (8-55); AST (SGOT) 9 U/L (5-34); Albumin 2.3 g/dL (3.5-5.0); Alkaline Phosphatase 53 U/L (40-110); Anion Gap 9 mmol/L (10-20); BUN (Urea Nitrogen) 4 mg/dL (9.8-20.1); Bilirubin, Total 0.2 mg/dL (0.2-1.2); Calc. Creatinine Clearance 99 mL/min (70-130); Calcium 7.7 mg/dL (7.8-10.44); Carbon Dioxide 24 mmol/L (22-29); Chloride 112 mmol/L (98-107); Estimated GFR-MDRD Greater than 90; Globulin 2.5 g/dL (2.4-3.5); Glucose 101 mg/dL (70-105); Potassium 3.3 mmol/L (3.5-5.1); Protein, Total 4.8 g/dL (6.0-8.3); Sodium 142 mmol/L (136-145)
[2019-08-03] MEDS: Atenolol 25 MG TAB PO SCH (09:38)
[2019-08-03] MEDS: Venlafaxine HCl XR 150 MG CAP PO SCH (09:38)
[2019-08-03] MEDS: Lisinopril 5 MG TAB PO SCH (09:39)
[2019-08-03] MEDS: Pantoprazole 40 MG VIAL IVP SCH ×2 (09:40→20:29)
[2019-08-03] MEDS ORDERED: Potassium Chloride 40 MEQ in Sodium Chloride 0.9% 250 ML 250 ML IVPB SCH (10:00)
--- NOTE | 2019-08-03 15:41 | PDOC.HOSPP ---
- Subjective Encounter Date: 08/03/19 Encounter Time: 09:00 Subjective: Pt seen for followup re: hypertension. - Objective Vital Signs & Weight: Vital Signs (12 hours) Temp Pulse Resp BP BP Pulse Ox 08/03/19 15:02 97.9 F 72 16 137/85 99 08/03/19 12:00 97.9 F 74 16 95/59 L 96 08/03/19 11:08 97.9 F 74 16 95/59 L 96 08/03/19 09:39 57 L 109/72 08/03/19 09:38 57 L 109/72 08/03/19 07:29 98.4 F 57 L 20 109/72 97 08/03/19 04:11 98.3 F 57 L 16 112/75 95 Weight Weight 143 lb 8.335 oz I&O: 08/02/19 08/03/19 08/04/19 06:59 06:59 06:59 Intake Total 2375 3350 Balance 2375 3350 Result Diagrams: 08/03/19 05:29 08/03/19 05:29 Additional Labs: Accuchecks 08/03/19 08/03/19 08/02/19 11:14 05:58 23:30 POC Glucose 129 H 102 122 H 08/02/19 15:42 POC Glucose 128 H Hospitalist ROS - Review of Systems Cardiovascular: denies: chest pain, palpitations, orthopnea, paroxysmal noc. dyspnea, edema, light headedness Gastrointestinal: reports: constipation. denies: nausea, vomiting, abdominal pain, diarrhea, melena, hematochezia - Medication Medications: Active Medications Generic Name Dose Route Start Last Admin Trade Name Herbert PRN Reason Stop Dose Admin Amitriptyline HCl 150 mg 08/01/19 21:00 08/02/19 21:24 Elavil PO 150 mg HS JOSHUA Administration Atenolol 25 mg 08/02/19 09:00 08/03/19 09:38 Tenormin PO Not Given DAILY JSOHUA Divalproex Sodium 500 mg 08/01/19 21:00 08/03/19 09:38 Depakote Er PO 500 mg BID JOSHUA Administration Enoxaparin Sodium 40 mg 08/01/19 21:00 08/02/19 21:24 Lovenox SC 40 mg 2100 JOSHUA Administration Dextrose/Sodium Chloride 1,000 mls @ 100 mls/hr 08/01/19 20:45 08/03/19 09:41 D5 1/2 Ns IV 1,000 mls .Q10H JOSHUA Administration Lisinopril 5 mg 08/02/19 09:00 08/03/19 09:39 Zestril PO 5 mg DAILY JOSHUA Administration Pantoprazole Sodium 40 mg 08/01/19 21:00 08/03/19 09:40 Protonix IVP 40 mg Q12HR JOSHUA Administration Venlafaxine HCl 150 mg 08/02/19 09:00 08/03/19 09:38 Effexor Xr PO 150 mg DAILY JOSHUA Administration - Exam General Appearance: NAD, awake alert Eye: anicteric sclera ENT: moist mucosa Neck: supple Heart: RRR Respiratory: CTAB Gastrointestinal: soft, non-tender Psychiatric: normal affect, normal behavior Hosp A/P (1) Hypertension Code(s): I10 - ESSENTIAL (PRIMARY) HYPERTENSION Status: Chronic Qualifiers: Hypertension type: essential hypertension Qualified Code(s): I10 - Essential (primary) hypertension (2) GERD (gastroesophageal reflux disease) Code(s): K21.9 - GASTRO-ESOPHAGEAL REFLUX DISEASE WITHOUT ESOPHAGITIS Status: Chronic Qualifiers: Esophagitis presence: without esophagitis Qualified Code(s): K21.9 - Gastro -esophageal reflux disease without esophagitis (3) Anxiety and depression Code(s): F41.8 - OTHER SPECIFIED ANXIETY DISORDERS Status: Chronic (4) Fibromyalgia Status: Chronic - Plan Pt awaiting transfer to different facility. HTN controlled.Continue to monitor vital signs and titrate antihypertensives as needed. GERD stable.
--- NOTE | 2019-08-03 18:45 | PDOC.GSPN ---
Surgery Progress Note: Subj - Subjective Narrative: Feels okay. Taking small amounts of PO. Awaiting transfer to [place]. Will monitor PO intake; if inadequate may need to place PICC and start TPN unless patient decides to get endoscopic feeding tube. Surgery Progress Note: Obj - Vital signs Vital signs: Vital Signs - Most Recent Temp Pulse Resp BP Pulse Ox 97.9 F 72 16 137/85 99 08/03/19 15:02 08/03/19 15:02 08/03/19 15:02 08/03/19 15:02 08/03/19 15:02 Surgery Progress Note: Results - Labs Result Diagrams: 08/03/19 05:29 08/03/19 05:29 Lab results: Laboratory Results - last 24 hr 08/03/19 08/03/19 11:14 15:48 POC Glucose 129 H 64 L
[2019-08-03] MEDS: Enoxaparin Sodium 40 MG/0.4 ML SYRINGE SC SCH (20:29)
[2019-08-03] MEDS ORDERED: Fioricet 325/50/40 mg Tablet PO PRN (20:40)
[2019-08-04] MEDS: Venlafaxine HCl XR 150 MG CAP PO SCH (08:51)
[2019-08-04] MEDS: Atenolol 25 MG TAB PO SCH (08:53)
[2019-08-04] MEDS: Lisinopril 5 MG TAB PO SCH (08:53)
[2019-08-04] MEDS: Pantoprazole 40 MG VIAL IVP SCH ×2 (08:53→20:45)
[2019-08-04] MEDS ORDERED: D5 1/2 NS 500 ML IV SCH (10:15)
--- NOTE | 2019-08-04 15:04 | PDOC.GSPN ---
Surgery Progress Note: Subj - Subjective Narrative: Patient is feeling better. She is tolerating her diet and keeping her food down. She is passing gas but hasn't had a bowel movement. Pain is better and no nausea currently. Abdomen is soft and nondistended. Assessment/plan: Persistent partial small bowel obstruction near the jejunojejunostomy. This appears to be due to angulation and relative small caliber of the efferent limb compared to the biliary limb. Patient does not want to have a nasojejunal feeding tube placed and is awaiting transfer to [facility] to consider other options. Surgery Progress Note: Obj - Vital signs Vital signs: Vital Signs - Most Recent Temp Pulse Resp BP Pulse Ox 97.2 F L 83 16 128/80 97 08/04/19 11:25 08/04/19 11:25 08/04/19 11:25 08/04/19 11:25 08/04/19 11:25 Surgery Progress Note: Results - Labs Result Diagrams: 08/03/19 05:29 08/03/19 05:29 Lab results: Laboratory Results - last 24 hr 08/04/19 05:27 POC Glucose 97
[2019-08-04] MEDS ORDERED: Ondansetron PF 4 MG/2 ML Vial IVP PRN (15:14)
[2019-08-04] MEDS ORDERED: Ketorolac Tromethamine 30 MG/ML VIAL IVP PRN (15:47)
[2019-08-04] MEDS ORDERED: Ketorolac Tromethamine 30 MG/ML VIAL ONE (15:49)
[2019-08-04] MEDS: Dextrose 5 %-0.45 % NaCl 1,000 ML IV SCH ×2 (16:07→17:21)
[2019-08-04] MEDS: Acetaminophen 500 MG TAB PO PRN (17:21)
--- NOTE | 2019-08-04 17:53 | PDOC.HOSPP ---
- Subjective Encounter Date: 08/04/19 Encounter Time: 08:40 Subjective: Pt seen for followup re: hypertension. feels better. Wants to try crackers by making them soggy in the chicken. - Objective Vital Signs & Weight: Vital Signs (12 hours) Temp Pulse Resp BP BP Pulse Ox 08/04/19 15:25 98.2 F 63 18 144/85 H 98 08/04/19 11:25 97.2 F L 83 16 128/80 97 08/04/19 08:54 98 08/04/19 08:53 75 128/85 08/04/19 07:28 98.0 F 75 15 128/85 98 Weight Weight 143 lb 8.335 oz I&O: 08/03/19 08/04/19 08/05/19 06:59 06:59 06:59 Intake Total 3350 2595 Balance 3350 2595 Result Diagrams: 08/03/19 05:29 08/03/19 05:29 Additional Labs: Accuchecks 08/04/19 08/04/19 08/03/19 15:56 05:27 20:41 POC Glucose 80 97 106 Labs and MARs reviewed by ri Hospitalist ROS - Review of Systems Cardiovascular: denies: chest pain, palpitations, orthopnea, paroxysmal noc. dyspnea, edema, light headedness Genitourinary: denies: dysuria, frequency, incontinence, hematuria, retention - Medication Medications: Active Medications Generic Name Dose Route Start Last Admin Trade Name Freq PRN Reason Stop Dose Admin Acetaminophen 1,000 mg 08/04/19 17:06 08/04/19 17:21 Tylenol PO 1,000 mg Q6H PRN Administration Pain Acetaminophen/Butalbital/Caffeine 1 tab 08/03/19 20:40 08/03/19 20:52 Fioricet PO 08/08/19 20:41 1 tab Q8H PRN Administration Headache Amitriptyline HCl 150 mg 08/01/19 21:00 08/03/19 20:29 Elavil PO 150 mg HS JOSHUA Administration Atenolol 25 mg 08/02/19 09:00 08/04/19 08:53 Tenormin PO 25 mg DAILY JOSHUA Administration Divalproex Sodium 500 mg 08/01/19 21:00 08/04/19 08:54 Depakote Er PO 500 mg BID JOSHUA Administration Enoxaparin Sodium 40 mg 08/01/19 21:00 08/03/19 20:29 Lovenox SC 40 mg 2100 JOSHUA Administration Dextrose/Sodium Chloride 1,000 mls @ 100 mls/hr 08/04/19 17:15 08/04/19 17:21 D5 1/2 Ns IV 1,000 mls .Q10H JOSHUA Administration Ketorolac Tromethamine 15 mg 08/04/19 15:47 08/04/19 15:52 Toradol IVP 08/09/19 15:48 15 mg Q6H PRN Administration Pain Lisinopril 5 mg 08/02/19 09:00 08/04/19 08:53 Zestril PO 5 mg DAILY JOSHUA Administration Pantoprazole Sodium 40 mg 08/01/19 21:00 08/04/19 08:53 Protonix IVP 40 mg Q12HR JOSHUA Administration Venlafaxine HCl 150 mg 08/02/19 09:00 08/04/19 08:51 Effexor Xr PO 150 mg DAILY JOSHUA Administration - Exam General Appearance: NAD Eye: anicteric sclera ENT: moist mucosa Neck: supple Heart: RRR Respiratory: CTAB Gastrointestinal: soft Psychiatric: normal affect Hosp A/P (1) Hypertension Code(s): I10 - ESSENTIAL (PRIMARY) HYPERTENSION Status: Chronic Qualifiers: Hypertension type: essential hypertension Qualified Code(s): I10 - Essential (primary) hypertension (2) GERD (gastroesophageal reflux disease) Code(s): K21.9 - GASTRO-ESOPHAGEAL REFLUX DISEASE WITHOUT ESOPHAGITIS Status: Chronic Qualifiers: Esophagitis presence: without esophagitis Qualified Code(s): K21.9 - Gastro -esophageal reflux disease without esophagitis (3) Anxiety and depression Code(s): F41.8 - OTHER SPECIFIED ANXIETY DISORDERS Status: Chronic (4) Fibromyalgia Status: Chronic - Plan PRN toradol for pain. Pt awaiting transfer to different facility. Continue to monitor vital signs and titrate antihypertensives as needed. GERD stable.
[2019-08-04] MEDS: Enoxaparin Sodium 40 MG/0.4 ML SYRINGE SC SCH (20:45)
[2019-08-05] MEDS: Dextrose 5 %-0.45 % NaCl 1,000 ML IV SCH ×2 (03:07→13:10)
[2019-08-05] MEDS: Venlafaxine HCl XR 150 MG CAP PO SCH (08:32)
[2019-08-05] MEDS: Lisinopril 5 MG TAB PO SCH (08:32)
[2019-08-05] MEDS: Atenolol 25 MG TAB PO SCH (08:33)
[2019-08-05] MEDS: Pantoprazole 40 MG VIAL IVP SCH ×3 (08:34→20:38)
--- NOTE | 2019-08-05 17:18 | PDOC.GSPN ---
Surgery Progress Note: Subj - Subjective Narrative: Patient states that she is feeling better today. Not having any pain or nausea. Taking about 25% of her meals, sometimes more, and drinking plenty of fluids. She is concerned about making an outpatient appointment at [facility] because of transportation issues. Surgery Progress Note: Obj - Vital signs Vital signs: Vital Signs - Most Recent Temp Pulse Resp BP Pulse Ox 97.3 F L 65 15 135/82 97 08/05/19 11:06 08/05/19 15:25 08/05/19 15:25 08/05/19 15:25 08/05/19 15:25 - Physical Exam Abdomen: soft, non tender, nondistended, decreased bowel sounds Surgery Progress Note: Results - Labs Result Diagrams: 08/03/19 05:29 08/03/19 05:29 Lab results: Laboratory Results - last 24 hr 08/05/19 08/05/19 08/05/19 05:40 10:36 15:34 POC Glucose 87 114 H 98 Surgery Progress Note: A/P - Plan Plan: Age with poor by mouth tolerance and chronically dilated Benoit and biliary limb. She seems to be tolerating her diet better today so we will Hep-Lock her fluids and see if she is able to maintain with oral intake only. She is still on the waiting list for transfer to [facility], but if she is able to maintain her hydration and taken reasonable amount of calories by mouth, we may discharge her home and have her follow-up at [facility] outpatient. She has concerns about transportation so I have asked the bottle caser to help her with that.
--- NOTE | 2019-08-05 18:37 | PDOC.HOSPP ---
- Subjective Encounter Date: 08/05/19 Encounter Time: 08:00 Subjective: Pt seen for followup re: hypertension. Feels better, tolerating diet. - Objective Vital Signs & Weight: Vital Signs (12 hours) Temp Pulse Resp BP BP Pulse Ox 08/05/19 15:25 65 15 135/82 97 08/05/19 11:06 97.3 F L 66 15 136/84 97 08/05/19 08:33 63 128/82 08/05/19 08:32 63 128/82 08/05/19 07:15 98.5 F 63 15 128/82 99 Weight Weight 143 lb 8.335 oz I&O: 08/04/19 08/05/19 08/06/19 06:59 06:59 06:59 Intake Total 2595 2400 Balance 2595 2400 Result Diagrams: 08/03/19 05:29 08/03/19 05:29 Additional Labs: Accuchecks 08/05/19 08/05/19 08/05/19 15:34 10:36 05:40 POC Glucose 98 114 H 87 08/04/19 20:54 POC Glucose 83 Labs and MARs reviewed by hi Hospitalist ROS - Review of Systems Cardiovascular: denies: chest pain, palpitations, orthopnea, paroxysmal noc. dyspnea, edema, light headedness Gastrointestinal: reports: constipation. denies: nausea, vomiting, abdominal pain, diarrhea, melena, hematochezia - Medication Medications: Active Medications Generic Name Dose Route Start Last Admin Trade Name Freq PRN Reason Stop Dose Admin Acetaminophen 1,000 mg 08/04/19 17:06 08/04/19 17:21 Tylenol PO 1,000 mg Q6H PRN Administration Pain Acetaminophen/Butalbital/Caffeine 1 tab 08/03/19 20:40 08/03/19 20:52 Fioricet PO 08/08/19 20:41 1 tab Q8H PRN Administration Headache Amitriptyline HCl 150 mg 08/01/19 21:00 08/04/19 20:45 Elavil PO 150 mg HS JOSHUA Administration Atenolol 25 mg 08/02/19 09:00 08/05/19 08:33 Tenormin PO 25 mg DAILY JOSHUA Administration Divalproex Sodium 500 mg 08/01/19 21:00 08/05/19 08:33 Depakote Er PO 500 mg BID JOSHUA Administration Enoxaparin Sodium 40 mg 08/01/19 21:00 08/04/19 20:45 Lovenox SC 40 mg 2100 JOSHUA Administration Ketorolac Tromethamine 15 mg 08/04/19 15:47 08/04/19 15:52 Toradol IVP 08/09/19 15:48 15 mg Q6H PRN Administration Pain Lisinopril 5 mg 08/02/19 09:00 08/05/19 08:32 Zestril PO 5 mg DAILY JOSHUA Administration Pantoprazole Sodium 40 mg 08/01/19 21:00 08/05/19 08:34 Protonix IVP 40 mg Q12HR JOSHUA Administration Venlafaxine HCl 150 mg 08/02/19 09:00 08/05/19 08:32 Effexor Xr PO 150 mg DAILY JOSHUA Administration - Exam General Appearance: NAD ENT: normocephalic atraumatic, moist mucosa Neck: supple Heart: RRR Respiratory: CTAB Gastrointestinal: soft, non-tender Extremities: no cyanosis Psychiatric: normal affect, normal behavior Hosp A/P (1) Hypertension Code(s): I10 - ESSENTIAL (PRIMARY) HYPERTENSION Status: Chronic Qualifiers: Hypertension type: essential hypertension Qualified Code(s): I10 - Essential (primary) hypertension (2) GERD (gastroesophageal reflux disease) Code(s): K21.9 - GASTRO-ESOPHAGEAL REFLUX DISEASE WITHOUT ESOPHAGITIS Status: Chronic Qualifiers: Esophagitis presence: without esophagitis Qualified Code(s): K21.9 - Gastro -esophageal reflux disease without esophagitis (3) Anxiety and depression Code(s): F41.8 - OTHER SPECIFIED ANXIETY DISORDERS Status: Chronic (4) Fibromyalgia Status: Chronic - Plan out of bed/ambulate Pain improved with toradol. Pt tolerating diet better. Pt awaiting transfer to [facility]. HTN controlled. GERD stable.
[2019-08-05] MEDS: Enoxaparin Sodium 40 MG/0.4 ML SYRINGE SC SCH (20:10)
[2019-08-05] MEDS: Docusate Sodium 100 MG/10 ML UDCUP PO SCH (20:10)
--- NOTE | 2019-08-06 10:05 | PDOC.GSPN ---
Surgery Progress Note: Subj - Subjective Narrative: Patient is feeling okay today. She is tolerating her diet although unable to take large amounts that she gets full and a little nauseated. She is taking liquids well and states that she is making a normal amount of urine. She has not been saving this for measurement although I asked her to yesterday. She is somewhat forgetful. We discussed again her issues and transportation to dialysis and the counter caser is working on options for her. Her abdomen is soft and nontender and nondistended. Assessment/plan: Doing well with improvement in her nausea and abdominal pain. So far she seems to be tolerating her diet and maintaining her hydration. We are still awaiting a bed at [facility] but if this is unavailable today, we may discharge her home if she continues to tolerate her diet and try to arrange outpatient follow-up with Dr. Colon. If her symptoms recur after returning home , she should probably go to the emergency room at [facility] for direct admission since transfer has been somewhat problematic. Surgery Progress Note: Obj - Vital signs Vital signs: Vital Signs - Most Recent Temp Pulse Resp BP Pulse Ox 98.2 F 66 14 122/82 96 08/06/19 07:53 08/06/19 07:53 08/06/19 07:53 08/06/19 07:53 08/06/19 07:53 Surgery Progress Note: Results - Labs Result Diagrams: 08/03/19 05:29 08/03/19 05:29 Lab results: Laboratory Results - last 24 hr 08/05/19 08/06/19 22:20 05:13 POC Glucose 76 67 L
[2019-08-06] MEDS: Docusate Sodium 100 MG/10 ML UDCUP PO SCH (10:19)
[2019-08-06] MEDS: Venlafaxine HCl XR 150 MG CAP PO SCH (10:19)
[2019-08-06] MEDS: Atenolol 25 MG TAB PO SCH (10:19)
[2019-08-06] MEDS: Lisinopril 5 MG TAB PO SCH (10:19)
[2019-08-06] MEDS: Acetaminophen 500 MG TAB PO PRN (14:55)
[2019-08-06 15:27] VITALS: BP 120/74; TEMP 98.3
--- NOTE | 2019-08-06 17:42 | PDOC.HOSPP ---
- Subjective Encounter Date: 08/06/19 Encounter Time: 11:00 Subjective: Pt seen for followup re: hypertension. Feels better, no complaints. Still passing flatus, no bowel movement. - Objective Vital Signs & Weight: Vital Signs (12 hours) Temp Pulse Resp BP BP Pulse Ox 08/06/19 15:26 98.3 F 65 14 120/74 96 08/06/19 11:25 98.2 F 70 16 127/84 99 08/06/19 10:19 66 122/82 08/06/19 07:53 98.2 F 66 14 122/82 96 Weight Weight 143 lb 8.335 oz I&O: 08/05/19 08/06/19 08/07/19 06:59 06:59 06:59 Intake Total 2400 480 240 Balance 2400 480 240 Result Diagrams: 08/03/19 05:29 08/03/19 05:29 Additional Labs: Accuchecks 08/06/19 08/06/19 08/06/19 16:51 11:26 05:13 POC Glucose 61 L 79 67 L 08/05/19 22:20 POC Glucose 76 Labs and MARs reviewed by wv Hospitalist ROS - Review of Systems Constitutional: denies: fever, chills, sweats, weakness, malaise Cardiovascular: denies: chest pain, palpitations, orthopnea, paroxysmal noc. dyspnea, edema, light headedness - Medication Medications: Active Medications Generic Name Dose Route Start Last Admin Trade Name Freq PRN Reason Stop Dose Admin Acetaminophen 1,000 mg 08/04/19 17:06 08/06/19 14:55 Tylenol PO 1,000 mg Q6H PRN Administration Pain Acetaminophen/Butalbital/Caffeine 1 tab 08/03/19 20:40 08/03/19 20:52 Fioricet PO 08/08/19 20:41 1 tab Q8H PRN Administration Headache Amitriptyline HCl 150 mg 08/01/19 21:00 08/05/19 20:10 Elavil PO 150 mg HS JOSHUA Administration Atenolol 25 mg 08/02/19 09:00 08/06/19 10:19 Tenormin PO 25 mg DAILY JOSHUA Administration Divalproex Sodium 500 mg 08/01/19 21:00 08/06/19 10:19 Depakote Er PO 500 mg BID JOSHUA Administration Docusate Sodium 100 mg 08/05/19 21:00 08/06/19 10:19 Colace Liquid PO 100 mg BID JOSHUA Administration Enoxaparin Sodium 40 mg 08/01/19 21:00 08/05/19 20:10 Lovenox SC 40 mg 2100 JOSHUA Administration Ketorolac Tromethamine 15 mg 08/04/19 15:47 08/04/19 15:52 Toradol IVP 08/09/19 15:48 15 mg Q6H PRN Administration Pain Lisinopril 5 mg 08/02/19 09:00 08/06/19 10:19 Zestril PO 5 mg DAILY JOSHUA Administration Pantoprazole Sodium 40 mg 08/06/19 09:00 08/06/19 10:19 Protonix PO 40 mg BID JOSHUA Administration Venlafaxine HCl 150 mg 08/02/19 09:00 08/06/19 10:19 Effexor Xr PO 150 mg DAILY JOSHUA Administration - Exam General Appearance: NAD Eye: anicteric sclera ENT: moist mucosa Neck: supple, no JVD Heart: RRR Respiratory: CTAB Gastrointestinal: soft Extremities: no cyanosis Psychiatric: normal affect, normal behavior Hosp A/P (1) Hypertension Code(s): I10 - ESSENTIAL (PRIMARY) HYPERTENSION Status: Chronic Qualifiers: Hypertension type: essential hypertension Qualified Code(s): I10 - Essential (primary) hypertension (2) GERD (gastroesophageal reflux disease) Code(s): K21.9 - GASTRO-ESOPHAGEAL REFLUX DISEASE WITHOUT ESOPHAGITIS Status: Chronic Qualifiers: Esophagitis presence: without esophagitis Qualified Code(s): K21.9 - Gastro -esophageal reflux disease without esophagitis (3) Anxiety and depression Code(s): F41.8 - OTHER SPECIFIED ANXIETY DISORDERS Status: Chronic (4) Fibromyalgia Status: Chronic - Plan out of bed/ambulate Pt tolerating diet better. Pt awaiting discharge home, likely later today. HTN controlled. GERD stable. Will follow PRN if pt stays in hospital.
--- NOTE | 2019-08-07 05:13 | PQF ---
SAP Work Order Clerk Crystal Reports Winform GILBERTO Hernandez TREY ATKINSON [id number] SURG A- 3303 [id number] CLINICAL DOCUMENTATION CLARIFICATION FORM: POST DISCHARGE Addendum to original discharge summary date: ____ Late entry note date: __ DATE:08/07/2019 ATTN: TREY IVAN Please exercise your independent, professional judgment in responding to the clarification form. Clinical indicators are provided on the bottom of this form for your review Please check appropriate box(s): [ ] SBO is a complication of current/recent surgery [ ] SBO is not a complication of current/recent surgery [ ] Other diagnosis [ ] Unable to determine In addition, please specify: Present on Admission (POA): [ ] Yes [ ] No [ ] Unable to determine CLINICAL INDICATORS - SIGNS / SYMPTOMS / LABS abdominal pain and frequent Nausea and vomiting - Documented in H&P on 08/01 by Trudy Yates I asked our bariatric surgeons to evaluate her since it look like area of stemosis may be at her jejunostomy - Documented in H&P on 08/01 by Trudy Yates it is ulclear exactly what procedures the patient has had done but reportly had a gastric bypass in 2013 with subsequent revision for some sort of complication or leak - Documented in H&P on 08/01 by Trudy Yates Possible anotomic stricture - Documented in Consult note on 08/01 by Milan Hobson MD Recent exploratory was unsuccessful at alleviating , i do think it would be reasonable to purse upper endoscopy to try reach this jejunojunal anstomosis- Documented in Consult note on 08/01 by Milan Hobson MD There is no stricture evident - Documented in OP note RISK FACTORS she had Previous gastric bypass surgery - Documented in H&P on 08/01 by Trudy Yates Chronic obstruction apparently near the side of jenunostomy - Documented in H&P on 08/01 by Trudy Yates GERD TREATMENT: EGD CT abdomen (This form is maintained as a part of the permanent medical record) 2014 [employer]. All Rights Reserved SAP Work Order Clerk Crystal Reports Winform GILBERTO Hernandez DAVID [id number] SURG A- [id number] CLINICAL DOCUMENTATION CLARIFICATION FORM: POST DISCHARGE Addendum to original discharge summary date: ____ Late entry note date: __ DATE:08/07/2019 ATTN: TREY IVAN Please exercise your independent, professional judgment in responding to the clarification form. Clinical indicators are provided on the bottom of this form for your review Please check appropriate box(s): [ ] SBO is a complication of current/recent surgery [ ] SBO is not a complication of current/recent surgery [ ] Other diagnosis [ ] Unable to determine In addition, please specify: Present on Admission (POA): [ ] Yes [ ] No [ ] Unable to determine CLINICAL INDICATORS - SIGNS / SYMPTOMS / LABS abdominal pain and frequent Nausea and vomiting - Documented in H&P on 08/01 by Trudy Yates I asked our bariatric surgeons to evaluate her since it look like area of stenosis may be at her jejunostomy - Documented in H&P on 08/01 by Trudy Yates it is unclear exactly what procedures the patient has had done but remotely had a gastric bypass in 2013 with subsequent revision for some sort of complication or leak - Documented in H&P on 08/01 by Trudy Yates Possible anastomosis stricture - Documented in Consult note on 08/01 by Milan Hobson MD Recent exploratory was unsuccessful at alleviating , i do think it would be reasonable to purse upper endoscopy to try reach this jejunojejunal anastomosis - Documented in Consult note on 08/01 by Milan Hobson MD There is no stricture evident - Documented in OP note RISK FACTORS she had Previous gastric bypass surgery - Documented in H&P on 08/01 by Trudy Yates Chronic obstruction apparently near the side of jejunostomy - Documented in H&P on 08/01 by Trudy Yates GERD TREATMENT: EGD CT abdomen (This form is maintained as a part of the permanent medical record) 2014 [employer]. All Rights Reserved [facility]
--- NOTE | 2019-08-07 05:28 | PQF ---
SAP Inclusion Manager Crystal Reports Winform GILBERTO Hernandez DAVID [id number] [place] [address] [id number] CLINICAL DOCUMENTATION CLARIFICATION FORM: POST DISCHARGE Addendum to original discharge summary date: ____ Late entry note date: __ Date: 08/07/2019 ATTN: TREY IVAN Please exercise your independent, professional judgment in responding to the clarification form. Clinical indicators are provided on the bottom of this form for your review Please check appropriate box(s): [ ] Protein Calorie Malnutrition: [ ] Mild [ ] Moderate [ ] Severe [ ] Other Malnutrition (please specify) __ [ ] Underweight without malnutrition [ ] Cachexia [ ] Other diagnosis [ ] Unable to determine In addition, please specify: Present on Admission (POA): [ ] Yes [ ] No [ ] Unable to determine CLINICAL INDICATORS - SIGNS / SYMPTOMS / LABS BMI: 23.9 Albumin Level 2.3 on 08/03 - Documented in Laboratory HGB 8.2 on 08/03 - Documented in Laboratory nausea and vomiting - Documented in H&P on 08/01 by Milan Yates Significant weight loss over the past years - Documented in Consult note on by Milan Yates RISK FACTORS Small bowel Obstruction She had Previous gastric bypass surgery GERD TREATMENT: EGD need PEG and TPN - Documented in General surgery PNs on 08/02 by Milan Yates IV fluid normal saline - Medication report Moderate Malnutrition (in acute illness) Energy Intake: <75% of estimated energy requirement for > 7 days Weight Loss: 1-2%/1 week; 5%/ 1 month; 7.5%/3 months Other: mild body fat loss; mild muscle mass loss; mild fluid accumulation; SAP Inclusion Manager Crystal Reports Winform ViewerSevere Malnutrition (in acute illness) Energy Intake: < 50% of estimated energy requirement for > 5 days Weight Loss: >1-2%/1 week; >5%/1 month; >7.5%/3 months Other: moderate body fat loss; moderate muscle mass loss; moderate- severe fluid accumulation; measurably reduced energy manager strength Moderate Malnutrition (in chronic illness) Energy Intake: <75% of estimated energy requirement for >1 month Weight Loss: 5%/1 month; 7.5%/3 months; 10%/6 months; 20%/1 year Other: mild body fat loss; mild muscle mass loss; mild fluid accumulation Severe Malnutrition (in chronic illness) Energy Intake: <75% of estimated energy requirement for >1 month Weight Loss: >5%/1 month; >7.5%/3 months; >10%/6 months; >20%/1 year Other: severe body fat loss; severe muscle mass loss; severe fluid accumulation ; measurably reduced energy manager strength (This form is maintained as a part of the permanent medical record) 2014 [employer]. All Rights Reserved [email or web address] [email or web address] [not provided] MTDD
== END 2019-08-06 19:10 | disposition home or self-care (01) | DRG 390 ==
LOC: ERS 04:01 → SURG A 11:14
PROVIDERS: ADMIT Surgery; ATTEND Surgery
PROC: 0DJ08ZZ Inspection of Upper Intestinal Tract, Via Natural or Artificial Opening Endoscopic (ICD-10-PCS; principal; 2019-08-01)
DX: K56.600 Partial intestinal obstruction, unspecified as to cause (principal); K21.9 Gastro-esophageal reflux disease without esophagitis; R40.2132 Coma scale, eyes open, to sound, at arrival to emergency department; R40.2362 Coma scale, best motor response, obeys commands, at arrival to emergency department; R40.2242 Coma scale, best verbal response, confused conversation, at arrival to emergency department; Z90.49 Acquired absence of other specified parts of digestive tract; F32.9 Major depressive disorder, single episode, unspecified; E11.9 Type 2 diabetes mellitus without complications; I10 Essential (primary) hypertension; F41.9 Anxiety disorder, unspecified; Z98.84 Bariatric surgery status; Z88.0 Allergy status to penicillin; Z88.8 Allergy status to other drugs, medicaments and biological substances; Z79.899 Other long term (current) drug therapy; G47.00 Insomnia, unspecified; G43.909 Migraine, unspecified, not intractable, without status migrainosus; E87.5 Hyperkalemia; M79.7 Fibromyalgia
CPT/HCPCS: 36415; 36416; 51701; 70450; 74177; 80053; 80061; 80306; 80307; 81003; 81015; 83605; 83690; 84134; 85025; 85610; 85730; A4353; C9113; J1650; J1885; J2704; J3480; J7050; Q9967

== ENCOUNTER 2019-08-10 06:07 | Inpatient (IN) | payer OTHER ==
[2019-08-10] MEDS ORDERED: Gabapentin 300 MG CAP ONE (06:18)
[2019-08-10] MEDS ORDERED: CeleCOXIB 100 MG CAP ONE (06:18)
[2019-08-10] MEDS ORDERED: Famotidine/PF 20 mg/2ml Vial ONE (06:18)
[2019-08-10 07:44] LABS: Bilirubin Negative (Negative); Blood, Urine Negative (Negative); Clarity Clear (Clear); Glucose, Urine (Dipstick) Normal (Negative); Leukocyte Negative Leu/uL (Negative); Nitrite Negative (Negative); Protein, Urine (Dipstick) 20 mg/dL (Neg-Trace)
--- NOTE | 2019-08-10 08:01 | RAD ---
Exam: Chest one view HISTORY:Altered mental status. Emesis. Comparison: 06/28/2019 FINDINGS: Cardiac silhouette: Normal Aorta: Unremarkable Pulmonary vessels: Normal Costophrenic angles: Clear LUNGS: No masses or consolidation. Pneumothorax: None Osseous abnormalities: None IMPRESSION: No acute cardiopulmonary process.
[2019-08-10 08:10] LABS: ALT (SGPT) 10 U/L (8-55); AST (SGOT) 18 U/L (5-34); Albumin 2.4 g/dL (3.5-5.0); Alkaline Phosphatase 54 U/L (40-110); Anion Gap 13 mmol/L (10-20); BUN (Urea Nitrogen) 18 mg/dL (9.8-20.1); Bilirubin, Total 0.3 mg/dL (0.2-1.2); Calc. Creatinine Clearance 0 mL/min (70-130); Calcium 7.7 mg/dL (7.8-10.44); Carbon Dioxide 25 mmol/L (22-29); Chloride 107 mmol/L (98-107); Estimated GFR-MDRD Greater than 90; Globulin 2.5 g/dL (2.4-3.5); Glucose 102 mg/dL (70-105); Potassium 4.4 mmol/L (3.5-5.1); Protein, Total 4.9 g/dL (6.0-8.3); Sodium 141 mmol/L (136-145)
[2019-08-10 08:16] LABS: Acetaminophen Less than 6.0 mcg/mL (10.0-30.0); Alcohol Less than 10 mg/dL (Less than 10); CK (CPK) 52 U/L (29-168); Lipase 15 U/L (8-78); Salicylate Less than 8.0 mg/dL (15.0-30.0)
[2019-08-10] MEDS ORDERED: cefTRIAXone\\ROCEPHIN 2 GM VIAL ONE (08:18)
[2019-08-10 08:22] LABS: Amphetamine Not Detected (NotDetected); Barbiturates Screen Detected (NotDetected); Benzodiazepine Screen Not Detected (NotDetected); Cocaine Metabolite Screen Not Detected (NotDetected); Medtox Control Line Valid? VALID (VALID); Medtox Reader # READER 4; Methadone Not Detected (NotDetected); Methamphetamine Not Detected (NotDetected); Opiate Screen Not Detected (NotDetected); Oxycodone Screen Not Detected (NotDetected); Phencyclidine (PCP) Not Detected (NotDetected); THC/Cannabinoid Screen Not Detected (NotDetected); Tricyclic Screen Detected (NotDetected)
[2019-08-10 08:24] LABS: #Lymphocytes 0.7 thou/uL (1.20-3.40); #Monocytes 0.2 thou/uL (0.11-0.59); #Neutrophils 2.9 thou/uL (1.40-6.50); %Basophils 0.3 % (0.0-1.0); %Eosinophils 0.5 % (0.0-10.0); %Monocytes 4.4 % (0.0-10.0); %Neutrophils 75.8 % (42.0-75.0); Hemoglobin 8.4 g/dL (12.0-16.0); Mean Corpuscular HGB CONC 31.7 g/dL (32.0-36.0); Mean Corpuscular Hemoglobin 30.8 pg (27.0-31.0); Mean Corpuscular Volume 97.1 fL (78.0-98.0); Mean Platelet Volume 8.4 fL (7.4-10.4); Platelet Count 243 thou/uL (130-400); Red Blood Cell (RBC) Count 2.73 mill/uL (4.20-5.40); White Blood Cell (WBC) Count 3.8 thou/uL (4.8-10.8)
[2019-08-10 08:25] LABS: MDiff Complete? YES; Platelet Morphology Comment Appears Adequate
[2019-08-10 08:40] LABS: CKMB 1.6 ng/mL (0-6.6)
[2019-08-10] MEDS ORDERED: Sodium Chloride 0.9% 1,000 ML IV SCH (08:45)
[2019-08-10] MEDS ORDERED: Ondansetron PF 4 MG/2 ML Vial IVP PRN ×2 (08:45→18:33)
[2019-08-10] MEDS ORDERED: Ondansetron ODT 4 MG TAB SL PRN (08:45)
--- NOTE | 2019-08-10 09:25 | CT ---
CT ABDOMEN AND PELVIS WITH CONTRAST: Date: 08/10/19 COMPARISON: 08/01/19. HISTORY: Patient was found covered in vomit after sliding off the cough. Abdominal pain. TECHNIQUE: Multiple contiguous axial images were obtained in a CT of the abdomen and pelvis with contrast. Sagit riley and coronal reformats were performed. FINDINGS: Postsurgical changes are seen in the stomach. The gallbladder has been removed. There is enlargement of the proximal aspect of the jejunum, but this is less prominent than on the pr ior examination. This enlargement continues down to the anastomosis, which is similar to the transiti on point on the prior examination. No significant distention of the duodenum is seen. The distal smal l bowel loops are normal in caliber. The colon is normal in caliber. The patient is status post hysterectomy. The liver, kidneys, adrenal glands, spleen, and pancreas are unremarkable. No abdominal or pelvic lymphadenopathy seen. Degenerative changes are seen in the spine. Postsurgical changes are seen along the abdominal wall, w hich may be from prior hernia repair. There is an infiltrate in the left lower lobe. IMPRESSION: 1. Enlargement of the proximal jejunum is similar to the prior examination, but less significant. Th is suggests a possible narrowing at the anastomosis, which is unchanged in position compared to the p rior exam. 2. Left lower lobe pulmonary infiltrate. POS: [facility]
[2019-08-10] MEDS ORDERED: Azithromycin 500 MG VIAL ONE (09:54)
[2019-08-10 11:38] LABS: Troponin I Less than 0.010 ng/mL (< 0.028)
[2019-08-10 14:15] LABS: Troponin I Less than 0.010 ng/mL (< 0.028)
--- NOTE | 2019-08-10 17:49 | CON ---
DATE OF CONSULTATION: CHIEF COMPLAINT: Abdominal pain and fever. HISTORY OF PRESENT ILLNESS: The patient is a 54-year-old female, who underwent a Benoit-en-Y gastric bypass a few years in [place], complicated by a leak, complicated by hernia, status post multiple surgeries, who came in here with an afferent limb obstruction. She was taken to the operating room on June 28, where she underwent an extensive lysis of adhesions, and repair of enterotomies. Postoperatively, she initially did well, went home, came back with recurrent bowel obstruction. She has been back now, this is her third readmission. She has had obstructed afferent limbs and efferent limbs, that all seems to be at the anastomosis. She had an EGD done on August 02 that she was able to cannulate both limbs of the bowel, but there was some angulation. This current admission, she was found down with fever and was found to have pneumonia. She says she is passing gas. She was supposed to go back to [place] to have them evaluate her for surgical correction of this. PAST MEDICAL HISTORY: Significant for hypertension, fibromyalgia, headaches, and recurrent bowel obstructions. PAST SURGICAL HISTORY: She has had the Benoit-en-Y gastric bypass, hysterectomy, cholecystectomy, section, exploratory laparotomy, lysis of adhesions, and repair of enterotomies. MEDICATIONS: Include; 1. Atenolol. 2. Amitriptyline. 3. Lisinopril. 4. Depakote. ALLERGIES: TO PHENERGAN AND PENICILLIN. SOCIAL HISTORY: . No tobacco or alcohol. FAMILY HISTORY: Noncontributory. PHYSICAL EXAMINATION: VITAL SIGNS: Heart rate is 111, blood pressure 151/103, and temperature 98.5. GENERAL: She is a little bit confused. HEENT: She has an NG tube in draining bilious fluid. ABDOMEN: Soft and nondistended. Some mild tenderness. Well-healed surgical scar. EXTREMITIES: Unremarkable. LABORATORY DATA: Her white count is 3.8, H and H of 8.4 and 26, platelet count 243. Electrolytes show an elevated troponin. Creatinine is 0.5. She had a CT that showed that there was improvement in the dilatation of her bowel, but it was still a little bit dilated. She has a left lower lobe infiltrate consistent with pneumonia. ASSESSMENT: Pneumonia with recurrent small bowel obstructions. PLAN: Continue NG suction, IV antibiotics, may need TPN. No surgery indicated at this time. Job ID: [id number]
[2019-08-10] MEDS ORDERED: Labetalol HCl 100 MG/20 ML VIAL SLOW IVP PRN (18:33)
[2019-08-10] MEDS ORDERED: Ondansetron ODT 4 MG TAB PO PRN (18:33)
[2019-08-10] MEDS ORDERED: Chloraseptic Spray 180 ml Bottle PO PRN (18:33)
[2019-08-10] MEDS ORDERED: Acetaminophen 650 MG Suppository PR PRN (18:33)
[2019-08-10] MEDS ORDERED: hydrALAZINE 20 MG/ML VIAL SLOW IVP PRN (18:33)
[2019-08-10] MEDS: Sodium Chloride 0.9% 1,000 ML IV SCH (19:28)
[2019-08-10] MEDS: Famotidine/PF 20 mg/2ml Vial SLOW IVP SCH (21:03)
--- NOTE | 2019-08-10 21:58 | HP ---
PRIMARY CARE PROVIDER: Dr. Gretchen Hudson. CHIEF COMPLAINT: Altered mental status and fall. HISTORY OF PRESENT ILLNESS: This is a 54-year-old female with significant history of recent admission, 08/01/2019 through 08/06/2019, for similar presentation of altered mentation and falling out of her recliner. History is significant for multiple admissions regarding small bowel obstruction and bowel issues after apparent gastric bypass surgery remotely. The patient underwent exploratory laparotomy with lysis of adhesions with subsequent readmission for recurrent small-bowel obstructions. Most recently, the patient underwent EGD evaluation on 08/02/2019 showing afferent limb dilation filled with particulate food matter, but no evidence of obstruction or fibrosis. Afferent limb was examined to the gastric remnant, which appeared normal. Efferent limb was relatively small and angulated, but no stricture noted. Recommendations at that time were symptomatic and low residue liquid diet. The patient underwent evaluation in the emergency room after being noted confused, hypertensive after apparently having nausea and vomiting starting at 5 a.m. on the morning of admission, 08/10/2019. The patient is unable to provide a coherent history due to confusion and altered mentation and review of electronic medical records in conjunction with discussions with the ER attending and the patient's brother at the bedside completes the history. The patient underwent evaluation including CT imaging of the abdomen showing evidence of potential partial small bowel obstruction and left lower lobe infiltrate seen on the cephalad imaging of the abdomen. The patient received IV fluids in addition to azithromycin and Rocephin in the emergency room. NG tube was placed with return of bilious drainage and the patient was transferred to the telemetry unit. PAST MEDICAL HISTORY: 1. Recurrent small-bowel obstructions due to adhesions and multiple abdominal surgeries. 2. Gastroesophageal reflux disease. 3. Irritable bowel syndrome. 4. Rheumatoid arthritis. 5. Hypertension. 6. Migraine headaches. 7. Vertigo. 8. Fibromyalgia. 9. Polypharmacy. PAST SURGICAL HISTORY: 1. Status post gastric bypass in 2013 with subsequent revision in 2014. 2. Status post hernia repair. 3. Status post umbilical hernia. 4. Status post appendectomy. 5. Status post section. 6. Status post total abdominal hysterectomy. 7. Status post EGD. PSYCHIATRIC HISTORY: Anxiety/bipolar disorder. CURRENT MEDICATIONS: Based on admission on 07/22/2019, doses will need to be confirmed. 1. Zofran. 2. [place]. 3. Atenolol. 4. Pristiq. 5. Famotidine. 6. Lisinopril. 7. Savella. 8. MiraLAX. 9. Zonisamide. 10. Apixaban. 11. Divalproex. ALLERGIES: PENICILLIN, PHENERGAN AND PROMETHAZINE. FAMILY HISTORY: No inheritable diseases per family report. SOCIAL HISTORY: Accompanied by her brother in the hospital. No current alcohol, tobacco, or illicit drug use. REVIEW OF SYSTEMS: Unobtainable due to the patient's altered mental status. PHYSICAL EXAMINATION: VITAL SIGNS: On admission, blood pressure 151/103, pulse 105, respiratory rate 22, temperature 98.5 degrees Fahrenheit, O2 saturation 95% on room air. GENERAL APPEARANCE: This is a 54-year-old female, confused, responding to questions, in [id number] distress. HEENT: Pupils are equal, round, reactive to light and accommodation. Extraocular muscles are intact. No scleral icterus. No conjunctival injection. Nares patent. OP is clear. Bilious drainage noted at the edge of the lips. NG tube in place with bilious drainage. NECK: Supple. No cervical adenopathy. No thyromegaly. No carotid bruits. No JVD appreciated. Cervical spine with full active and passive range of motion. No meningeal signs noted. CHEST: Lungs are clear to auscultation bilaterally. CARDIOVASCULAR: S1, S2 with tachycardia. ABDOMEN: Rounded, firm, without guarding or rebound. Bowel sounds are positive in all 4 quadrants. EXTREMITIES: Warm and dry with fair turgor. No clubbing, cyanosis, or asymmetric edema appreciated. Pulses palpable distally at the dorsalis pedis, posterior tibial, and popliteal arteries bilaterally. Capillary refill less than 2 seconds. NEUROLOGIC: Cranial nerves 2 through 12 are grossly intact. Mild dysarthria. Bradykinesia. Alert and oriented to person. Not observed ambulatory during this exam. PERTINENT LABORATORY AND X-RAY FINDINGS: Sodium 141, potassium 4.4, chloride 107, CO2 of 25, BUN 18, creatinine 0.58, glucose 102, lactic acid level 1.4, calcium 7.7. LFTs within normal limits. Troponin I ranged between 0.010 to 0.030. Albumin 2.4. Lipase 15. CBC showed a white blood cell count of 3.8, hemoglobin 8.4, hematocrit 27, platelet count 243 with 76% neutrophils. Urinalysis positive for ketones. Urine drug screen dated 08/10/2019, positive for barbiturates and tricyclics. Plasma alcohol level less than 10. CT of the abdomen and pelvis dated 08/10/2019, showed enlargement of the proximal jejunum similar to prior exam and less significant. Possible narrowing at the anastomosis, which is unchanged compared to prior exam. Left lower lobe pulmonary infiltrate noted. Portable chest x-ray dated 08/10/2019, showed no acute cardiopulmonary process. EKG dated 08/10/2019, showed sinus bradycardia with heart rates in the 70s. Normal R-wave progression noted in precordial leads. Normal axis. No acute ST-T wave changes appreciated. ASSESSMENT AND PLAN: 1. Left lower lobe bacterial pneumonia. Suspect gram-positive cocci. Start Levaquin 750 mg IV q.24 hours. Blood cultures x2 pending. General pulmonary supportive management. Oxygen as needed to maintain O2 saturations greater than or equal to 90%. Confirm pneumonia vaccination status prior to discharge. 2. Small bowel obstruction. Recurrent. Continue NG tubes with low intermittent wall suction. General surgery consulted; however no recommendations for acute surgical intervention. Serial abdominal exams. N.p.o. except medications and sips of water. 3. Acute metabolic encephalopathy. Suspect multifactorial given the patient's small bowel obstruction and pneumonia. Continue treatment as outlined above. General supportive management. Family for bedside support. Limit psychotropic medications and narcotics. 4. Chronic normocytic anemia. We will continue to monitor serial hemoglobin trend. No current evidence to suggest acute blood loss. Pepcid 20 mg IV b.i.d. Repeat CBC in the a.m. 5. Bipolar disorder. We will confirm home medication regimen and initiate once confirmation from family members. 6. Hypertension. Labile. Suspect secondarily to decreased oral intake and not administering home blood pressure medications. P.r.n. hydralazine and labetalol. Confirm home blood pressure regimen. 7. Prophylaxis. SCDs while in bed. Pepcid 20 mg IV b.i.d. Confirm pneumonia vaccination status. 8. Code status is full. Surrogate medical decision maker is the patient's brother. Job ID: [id number]
[2019-08-11] MEDS: Sodium Chloride 0.9% 1,000 ML IV SCH ×2 (04:24→10:46)
[2019-08-11 04:33] LABS: ALT (SGPT) Less than 7 U/L (8-55); AST (SGOT) 15 U/L (5-34); Albumin 2.2 g/dL (3.5-5.0); Anion Gap 7 mmol/L (10-20); BUN (Urea Nitrogen) 14 mg/dL (9.8-20.1); Bilirubin, Total 0.4 mg/dL (0.2-1.2); Calc. Creatinine Clearance 118 mL/min (70-130); Calcium 7.6 mg/dL (7.8-10.44); Carbon Dioxide 24 mmol/L (22-29); Chloride 112 mmol/L (98-107); Estimated GFR-MDRD Greater than 90; Globulin 2.3 g/dL (2.4-3.5); Glucose 62 mg/dL (70-105); Potassium 4.3 mmol/L (3.5-5.1); Protein, Total 4.5 g/dL (6.0-8.3); Sodium 139 mmol/L (136-145)
[2019-08-11 04:54] LABS: Alkaline Phosphatase 52 U/L (40-110)
[2019-08-11 05:10] LABS: Anisocytosis SLIGHT = 6-15 cells (100X) (0-5/hpf); Band 33 % (5-11); Hemoglobin 8.6 g/dL (12.0-16.0); Lymphocytes 8 % (21-51); MDiff Complete? YES; Mean Corpuscular Hemoglobin 31.7 pg (27.0-31.0); Mean Corpuscular Volume 96.2 fL (78.0-98.0); Monocytes 10 % (0-10); Myelocyte 1 % (0-0); Neutrophil 47 % (42-75); Platelet Count 167 thou/uL (130-400); White Blood Cell (WBC) Count 10.6 thou/uL (4.8-10.8)
[2019-08-11] MEDS: Dextrose 5 % And 0.9 % NaCl 1,000 ML IV SCH ×2 (06:30→20:36)
[2019-08-11] MEDS ORDERED: MILNACIPRAN HCL 25 MG PO SCH (09:00)
[2019-08-11] MEDS: Atenolol 25 MG TAB PO SCH (09:04)
[2019-08-11] MEDS: Famotidine/PF 20 mg/2ml Vial SLOW IVP SCH ×2 (09:04→20:37)
[2019-08-11] MEDS: Venlafaxine HCl XR 150 MG CAP PO SCH (09:05)
[2019-08-11] MEDS: Lisinopril 5 MG TAB PO SCH (09:05)
--- NOTE | 2019-08-11 09:46 | PRG ---
DATE OF SERVICE: 08/11/2019 SUBJECTIVE: The patient says she feels a lot better today. She denies abdominal pain. No nausea or vomiting. She is passing flatus. PHYSICAL EXAMINATION: VITAL SIGNS: Her temperature is 97.7, pulse 95, blood pressure 122/68. GENERAL: She is awake, alert. ABDOMEN: Soft, nondistended, nontender. NG output is 300, but she has been taken ice chips and liquids. It is bilious in nature. LABORATORY DATA: White count is 10, hemoglobin and hematocrit 8 and 26, and platelet count 167. ASSESSMENT: Pneumonia with partial small-bowel obstruction at an anastomosis. PLAN: The plan is to clamp the NG tube. Check residual in 4 hours if less than 100. Discontinue NG. Job ID: [id number]
--- NOTE | 2019-08-11 12:22 | PDOC.HOSPP ---
- Subjective Encounter Date: 08/11/19 Encounter Time: 12:10 Subjective: f/u for PNA and partial SBO from prior anastomosis. Receiving Levaquin IV currently. - Objective Vital Signs & Weight: Vital Signs (12 hours) Temp Pulse Resp BP BP Pulse Ox 08/11/19 11:51 75 124/65 08/11/19 09:05 95 128/70 08/11/19 09:04 95 128/70 08/11/19 08:00 98.6 F 89 18 128/70 95 08/11/19 04:17 97.7 F 89 14 122/68 93 L 08/11/19 02:00 88 16 Weight Weight 154 lb 5.177 oz I&O: 08/10/19 08/11/19 08/12/19 06:59 06:59 06:59 Intake Total 1030 Output Total 300 Balance 730 Result Diagrams: 08/11/19 03:57 08/11/19 03:57 Additional Labs: Accuchecks 08/11/19 08/11/19 08/11/19 11:02 08:35 05:50 POC Glucose 84 72 64 L 08/10/19 20:43 POC Glucose 80 Microbiology 08/10/19 09:17 Venous blood - Right Arm Blood Culture - Preliminary NO GROWTH AT 24 HOURS 08/10/19 08:42 Picc Line - Right Brachiocephalic vein Blood Culture - Preliminary NO GROWTH AT 24 HOURS 08/10/19 06:20 Urine Straight Catheter Urine Culture - Preliminary NO GROWTH AT 24 HOURS Laboratory Tests 08/10/19 08/10/19 08/10/19 06:21 07:35 07:35 WBC 3.8 L Hgb 8.4 L Neutrophils % 75.8 H Neutrophils % (Manual) Band Neuts % (Manual) Ur Barbiturates Screen Detected H Ur Tricyclics Screen Detected H Plasma Alcohol Less than 10 08/11/19 03:57 WBC Hgb Neutrophils % Neutrophils % (Manual) 47 Band Neuts % (Manual) 33 H Ur Barbiturates Screen Ur Tricyclics Screen Plasma Alcohol EKG Reviewed by me: Yes (Tele - SR) Hospitalist ROS - Medication Medications: Active Medications Generic Name Dose Route Start Last Admin Trade Name Freq PRN Reason Stop Dose Admin Amitriptyline HCl 150 mg 08/10/19 21:00 08/10/19 21:03 Elavil PO 150 mg HS JOSHUA Administration Atenolol 25 mg 08/11/19 09:00 08/11/19 09:04 Tenormin PO 25 mg DAILY JOSHUA Administration Divalproex Sodium 500 mg 08/10/19 21:00 08/11/19 09:05 Depakote Er PO 500 mg BID JOSHUA Administration Famotidine 20 mg 08/10/19 21:00 08/11/19 09:04 Pepcid SLOW IVP 20 mg Q12HR JOSHUA Administration Levofloxacin 750 mg/ Device 150 mls @ 100 mls/hr 08/10/19 20:00 08/10/19 21: 02 IVPB 150 mls Q24HR JOSHUA Administration Dextrose/Sodium Chloride 1,000 mls @ 75 mls/hr 08/11/19 06:30 08/11/19 06:30 D5 0.9% Ns IV 1,000 mls .[id number] JOSHUA Administration Lisinopril 5 mg 08/11/19 09:00 08/11/19 09:05 Zestril PO 5 mg DAILY JOSHUA Administration Venlafaxine HCl 150 mg 08/11/19 09:00 08/11/19 09:05 Effexor Xr PO 150 mg DAILY JOSHUA Administration - Exam General - other findings: lethargic, groggy Eye: PERRL, anicteric sclera ENT: normocephalic atraumatic, no oropharyngeal lesions, dry oral mucosa ENT - other findings: NGT in place with bilious drainage Neck: supple, symmetric, no JVD, no thyromegaly Heart: RRR, no gallops, no rubs, normal peripheral pulses Respiratory: CTAB, no wheezes, no rales, no ronchi Gastrointestinal: soft, non-tender, non-distended, no palpable masses Extremities: no cyanosis, no clubbing, no edema Skin: normal turgor, no lesions Neurological: cranial nerve grossly intact, no new deficit Musculoskeletal: normal tone, generalized weakness Psychiatric: oriented to person, somnolent, lethargic Hosp A/P (1) Bacterial pneumonia Code(s): J15.9 - UNSPECIFIED BACTERIAL PNEUMONIA Status: Acute Plan: LLL involvement by CXR, continue Levaquin IV and general pulmonary support, O2 PRN, blood cx neg x 2 currently (2) SBO (small bowel obstruction) Code(s): K56.609 - UNSP INTESTNL OBST, UNSP TO PARTIAL VERSUS COMPLETE OBST Status: Acute Plan: Recurrent episode at anastomosis site, conservative mgmt, NGT LIWS, NPO except H2O (3) Acute metabolic encephalopathy Code(s): G93.41 - METABOLIC ENCEPHALOPATHY Status: Acute Plan: Improving slowly, continue supportive mgmt as outlined above (4) Normocytic anemia Code(s): D64.9 - ANEMIA, UNSPECIFIED Status: Chronic Plan: Stable, no active blood loss, serial H/H (5) Bipolar disorder Code(s): F31.9 - BIPOLAR DISORDER, UNSPECIFIED Status: Chronic Plan: Resume home regimen when tolerating po intake (6) Hypertension Code(s): I10 - ESSENTIAL (PRIMARY) HYPERTENSION Status: Chronic Qualifiers: Hypertension type: essential hypertension Qualified Code(s): I10 - Essential (primary) hypertension Plan: Stable, resume home BP regimen when tolerating po intake - Plan continue antibiotics, respiratory therapy, out of bed/ambulate, DVT proph w/SCDs Stable currently Continue NGT LIWS per surgery recs Continue Levaquin IV Continue D5NS IVF AM lab: BMP, CBC
[2019-08-11 13:30] VITALS: BMI 25.7
[2019-08-12 05:11] LABS: Anion Gap 7 mmol/L (10-20); BUN (Urea Nitrogen) 10 mg/dL (9.8-20.1); Calc. Creatinine Clearance 110 mL/min (70-130); Calcium 7.9 mg/dL (7.8-10.44); Carbon Dioxide 22 mmol/L (22-29); Chloride 116 mmol/L (98-107); Estimated GFR-MDRD Greater than 90; Glucose 98 mg/dL (70-105); Potassium 4.1 mmol/L (3.5-5.1); Sodium 141 mmol/L (136-145)
[2019-08-12 05:24] LABS: Band 10 % (5-11); Eosinophils 2 % (0-10); Hemoglobin 7.9 g/dL (12.0-16.0); Lymphocytes 9 % (21-51); MDiff Complete? YES; Mean Corpuscular HGB CONC 31.3 g/dL (32.0-36.0); Mean Corpuscular Hemoglobin 30.8 pg (27.0-31.0); Mean Corpuscular Volume 98.3 fL (78.0-98.0); Mean Platelet Volume 8.4 fL (7.4-10.4); Monocytes 3 % (0-10); Neutrophil 76 % (42-75); Platelet Count 218 thou/uL (130-400); Red Blood Cell (RBC) Count 2.57 mill/uL (4.20-5.40); White Blood Cell (WBC) Count 10.3 thou/uL (4.8-10.8)
[2019-08-12] MEDS ORDERED: Zonisamide 100 MG CAP PO SCH (09:00)
[2019-08-12] MEDS: Atenolol 25 MG TAB PO SCH (09:21)
[2019-08-12] MEDS: Famotidine/PF 20 mg/2ml Vial SLOW IVP SCH ×2 (09:21→21:07)
[2019-08-12] MEDS: Venlafaxine HCl XR 150 MG CAP PO SCH (09:21)
[2019-08-12] MEDS: Lisinopril 5 MG TAB PO SCH (09:21)
--- NOTE | 2019-08-12 10:47 | PRG ---
DATE OF SERVICE: 08/12/2019 SUBJECTIVE: She is doing a lot better. Her NG is out. She is tolerating clear liquids. She denies any nausea or vomiting. She has had passing of some flatus. OBJECTIVE: VITAL SIGNS: On examination; temperature is 98.6, pulse 77, and blood pressure 127/72. GENERAL: She is awake and alert. ABDOMEN: Soft, nondistended, and nontender. LABORATORY DATA: White count is 10, H and H are 7.9 and 25, and platelet count 218. ASSESSMENT: Partial small bowel obstruction, resolved. PLAN: Continue treatment for pneumonia. The patient has appointment to go to dialysis on August 24, for them to consider repair of this anastomotic issue. Job ID: [id number]
--- NOTE | 2019-08-12 11:26 | DIS ---
DATE OF ADMISSION: 08/10/2019 DATE OF DISCHARGE: 08/12/2019 DISCHARGE DIAGNOSES: 1. Left lower lobe bacterial pneumonia, suspected gram-positive cocci, stable. 2. Small bowel obstruction, recurrent, resolving. 3. Acute metabolic encephalopathy multifactorial, improved. 4. Normocytic anemia, chronic and stable. 5. Bipolar disorder. 6. Hypertension, stable. CONSULTATIONS: Chevy puente MD with General Surgery Service. PERTINENT LABORATORY AND X-RAY FINDINGS: Lactic acid level 1.4. LFTs within normal limits. Troponin I ranged between 0.010 to 0.030. Albumin 2.2 and lipase 15. CBC showed a white blood cell count ranged between 3.8 to 10.6 and hemoglobin ranged between 7.9 to 8.6. Urine drug screen dated 08/10/2019, positive for barbiturates and tricyclics. Urine culture dated 08/10/2019, showed no growth at 24 hours. Blood cultures dated 08/10/2019, 1/2 positive for Gram variable pedro. CT of the abdomen and pelvis dated 08/10/2019, showed enlargement of the proximal jejunum at previous anastomosis. Left lower lobe pulmonary infiltrate. Portable chest x-ray dated 08/10/2019, showed no acute cardiopulmonary process. HOSPITAL COURSE: The patient was initially admitted to the telemetry unit after presenting with altered mental status and fall. The patient underwent evaluation including CT of the abdomen and pelvis showing evidence of small bowel obstruction at a previous anastomosis after gastric bypass surgery. CT imaging did confirm dilation of the proximal portion of the small bowel, at which point, an NG tube was placed. The patient had return of bilious drainage and was kept n.p.o. The patient received IV fluids in addition, was discovered with a left lower lobe infiltrate on CT imaging of the abdomen and pelvis. The patient received IV Levaquin through the hospital course after concern for potential developing pneumonia. The patient continued on NG tube drainage for approximately 48 hours, at which point, the NG tube was clamped and the patient was able to tolerate discontinuation and clear liquid diet. The patient was advanced to full liquids and tolerated without complication. The patient's overall mental status had improved with general supportive management and the patient at baseline functional status. Current recommendations are to follow up in [place] at her bariatric surgeons clinic for evaluation on August 24. I have examined the patient at the time of discharge and discussed followup instructions. The patient verbalized understanding and agreement, ready for discharge on 08/12/2019. DISCHARGE MEDICATIONS: 1. Elavil 150 mg p.o. at bedtime. 2. Atenolol 25 mg p.o. daily. 3. Pristiq 100 mg p.o. daily. 4. Depakote extended release 500 mg p.o. b.i.d. 5. Pepcid 40 mg p.o. b.i.d. 6. Star 10/325 mg one tablet p.o. q.6 hours p.r.n. pain. 7. Lisinopril 5 mg p.o. daily. 8. Meclizine 25 mg p.o. t.i.d. p.r.n. dizziness. 9. Savella 25 mg p.o. daily. 10. Ambien 10 mg p.o. at bedtime p.r.n. 11. Zonisamide 100 mg p.o. daily. 12. Levaquin 500 mg p.o. daily x5 days. FOLLOWUP: The patient may follow up with Dr. Gretchen Hudson within 7 days of discharge. The patient will follow up with her primary bariatric surgeon in [place], [place] on August 24, 2019. ACTIVITY: Ad-jose. DIET: Full liquids. CODE STATUS: Full. DISPOSITION: Home on 08/12/2019. TIME SPENT: Total time preparing and coordinating discharge is 31 minutes. Job ID: [id number]
[2019-08-12] MEDS: Dextrose 5 % And 0.9 % NaCl 1,000 ML IV SCH (12:26)
--- NOTE | 2019-08-12 19:43 | PDOC.HOSPP ---
- Subjective Encounter Date: 08/12/19 Encounter Time: 10:30 Subjective: f/u for SBO with removal of NGT and overall improvement in abd pain. Feels weak and fatigued and needed 2-person assist to get out of bed and transfer. - Objective Vital Signs & Weight: Vital Signs (12 hours) Temp Pulse Resp BP Pulse Ox 08/12/19 16:35 99 08/12/19 16:15 98.4 F 78 18 154/78 H 99 08/12/19 11:59 98 F 77 15 145/84 H 97 08/12/19 07:50 98.6 F 77 16 127/72 100 Weight Admit Weight 158 lb 15.253 oz Weight 154 lb 5.177 oz I&O: 08/11/19 08/12/19 08/13/19 06:59 06:59 06:59 Intake Total 1030 2140 Output Total 300 600 Balance 730 1540 Result Diagrams: 08/12/19 04:36 08/12/19 04:36 Additional Labs: Accuchecks 08/12/19 08/12/19 08/12/19 16:38 10:57 05:36 POC Glucose 77 98 106 08/11/19 20:48 POC Glucose 84 Microbiology 08/10/19 09:17 Venous blood - Right Arm Blood Culture - Preliminary NO GROWTH AT 24 HOURS 08/10/19 08:42 Picc Line - Right Brachiocephalic vein Blood Culture - Preliminary NO GROWTH AT 24 HOURS 08/10/19 06:20 Urine Straight Catheter Urine Culture - Preliminary NO GROWTH AT 24 HOURS Laboratory Tests 08/10/19 08/10/19 08/10/19 06:21 07:35 07:35 WBC 3.8 L Hgb 8.4 L Neutrophils % 75.8 H Neutrophils % (Manual) Band Neuts % (Manual) Ur Barbiturates Screen Detected H Ur Tricyclics Screen Detected H Plasma Alcohol Less than 10 08/11/19 03:57 WBC Hgb Neutrophils % Neutrophils % (Manual) 47 Band Neuts % (Manual) 33 H Ur Barbiturates Screen Ur Tricyclics Screen Plasma Alcohol EKG Reviewed by me: Yes (Tele - SR) Hospitalist ROS - Medication Medications: Active Medications Generic Name Dose Route Start Last Admin Trade Name Freq PRN Reason Stop Dose Admin Amitriptyline HCl 150 mg 08/10/19 21:00 08/11/19 20:42 Elavil PO 150 mg HS JOSHUA Administration Atenolol 25 mg 08/11/19 09:00 08/12/19 09:21 Tenormin PO 25 mg DAILY JOSHUA Administration Divalproex Sodium 500 mg 08/10/19 21:00 08/12/19 09:21 Depakote Er PO 500 mg BID JOSHUA Administration Famotidine 20 mg 08/10/19 21:00 08/12/19 09:21 Pepcid SLOW IVP 20 mg Q12HR JOSHUA Administration Levofloxacin 750 mg/ Device 150 mls @ 100 mls/hr 08/10/19 20:00 08/11/19 20: 42 IVPB 150 mls Q24HR JOSHUA Administration Dextrose/Sodium Chloride 1,000 mls @ 75 mls/hr 08/11/19 06:30 08/12/19 12:26 D5 0.9% Ns IV 1,000 mls .[id number] JOSHUA Administration Lisinopril 5 mg 08/11/19 09:00 08/12/19 09:21 Zestril PO 5 mg DAILY JOSHUA Administration Venlafaxine HCl 150 mg 08/11/19 09:00 08/12/19 09:21 Effexor Xr PO 150 mg DAILY JOSHUA Administration Zonisamide 100 mg 08/12/19 09:00 08/12/19 09:21 Zonisamide PO 100 mg DAILY JOSHUA Administration - Exam General Appearance: awake alert General - other findings: frail appearing Eye: PERRL, anicteric sclera ENT: normocephalic atraumatic, no oropharyngeal lesions Neck: supple, symmetric, no JVD, no thyromegaly Heart: RRR, no gallops, no rubs, normal peripheral pulses Respiratory: CTAB, no wheezes, no rales, no ronchi Gastrointestinal: soft, non-tender, non-distended, normal bowel sounds Extremities: no cyanosis, no clubbing, no edema Skin: normal turgor, no lesions Neurological: cranial nerve grossly intact, no new deficit Musculoskeletal: normal tone, generalized weakness Psychiatric: oriented to person, oriented to place, lethargic Hosp A/P (1) Bacterial pneumonia Code(s): J15.9 - UNSPECIFIED BACTERIAL PNEUMONIA Status: Acute Plan: Continue Levaquin IV daily, general pulmonary support (2) SBO (small bowel obstruction) Code(s): K56.609 - UNSP INTESTNL OBST, UNSP TO PARTIAL VERSUS COMPLETE OBST Status: Acute Plan: s/p NGT removal, full liquids, no surgical intervention recommended (3) Acute metabolic encephalopathy Code(s): G93.41 - METABOLIC ENCEPHALOPATHY Status: Acute Plan: Mild improvement, continue to monitor clinical response, OOB with PT, ? polypharmacy (4) Normocytic anemia Code(s): D64.9 - ANEMIA, UNSPECIFIED Status: Chronic Plan: Serial H/H monitoring, no active blood loss noted (5) Bipolar disorder Code(s): F31.9 - BIPOLAR DISORDER, UNSPECIFIED Status: Chronic (6) Hypertension Code(s): I10 - ESSENTIAL (PRIMARY) HYPERTENSION Status: Chronic Qualifiers: Hypertension type: essential hypertension Qualified Code(s): I10 - Essential (primary) hypertension - Plan plan discussed w/ family, continue antibiotics, PT/OT, social media project manager, out of bed/ambulate, DVT proph w/SCDs Stable currently NGT d/c Continue Levaquin IV Continue D5NS IVF OOB with PT Transfer to medical floor AM lab: CBC
[2019-08-13] MEDS: Dextrose 5 % And 0.9 % NaCl 1,000 ML IV SCH ×2 (01:04→04:55)
[2019-08-13 07:00] LABS: Hemoglobin 8.9 g/dL (12.0-16.0); Mean Corpuscular HGB CONC 30.4 g/dL (32.0-36.0); Mean Corpuscular Hemoglobin 30.1 pg (27.0-31.0); Mean Corpuscular Volume 99.3 fL (78.0-98.0); Mean Platelet Volume 8.4 fL (7.4-10.4); Platelet Count 210 thou/uL (130-400); RBC Distribution Width 14.7 % (11.5-14.5); Red Blood Cell (RBC) Count 2.94 mill/uL (4.20-5.40); White Blood Cell (WBC) Count 10.7 thou/uL (4.8-10.8)
[2019-08-13] MEDS: Atenolol 25 MG TAB PO SCH (08:02)
[2019-08-13] MEDS: Famotidine/PF 20 mg/2ml Vial SLOW IVP SCH ×2 (08:02→22:15)
[2019-08-13] MEDS: Lisinopril 5 MG TAB PO SCH (08:02)
[2019-08-13] MEDS: Venlafaxine HCl XR 150 MG CAP PO SCH (08:02)
[2019-08-13] MEDS: Zonisamide 25 MG CAP PO SCH (08:21)
[2019-08-13 08:54] LABS: Band 1 % (5-11); Eosinophils 2 % (0-10); Lymphocytes 10 % (21-51); MDiff Complete? YES; Monocytes 2 % (0-10); Neutrophil 85 % (42-75); Platelet Morphology Comment Appears Adequate
--- NOTE | 2019-08-13 11:43 | PDOC.HOSPP ---
- Subjective Encounter Date: 08/13/19 Encounter Time: 11:35 Subjective: f/u after recent SBO tx conservatively with NGT now d/c'd. Remains lethargic and somnolent per brother. Needed 2-person assistance for sitting up and transfers yesterday. - Objective Vital Signs & Weight: Vital Signs (12 hours) Temp Pulse Resp BP Pulse Ox 08/13/19 08:02 64 08/13/19 08:00 97.7 F 66 14 160/85 H 99 08/13/19 04:00 97.9 F 64 20 149/85 H 97 08/13/19 00:00 97.8 F 64 20 135/88 100 Weight Admit Weight 158 lb 15.253 oz Weight 154 lb 5.177 oz I&O: 08/12/19 08/13/19 08/14/19 06:59 06:59 06:59 Intake Total 2140 360 Output Total 600 Balance 1540 360 Result Diagrams: 08/13/19 06:32 08/12/19 04:36 Additional Labs: Accuchecks 08/13/19 08/12/19 08/12/19 04:24 20:49 16:38 POC Glucose 97 87 77 08/12/19 10:57 POC Glucose 98 Microbiology 08/10/19 09:17 Venous blood - Right Arm Blood Culture - Preliminary NO GROWTH AT 24 HOURS 08/10/19 08:42 Picc Line - Right Brachiocephalic vein Blood Culture - Preliminary NO GROWTH AT 24 HOURS 08/10/19 06:20 Urine Straight Catheter Urine Culture - Preliminary NO GROWTH AT 24 HOURS Laboratory Tests 08/10/19 08/10/19 08/10/19 06:21 07:35 07:35 WBC 3.8 L Hgb 8.4 L Neutrophils % 75.8 H Neutrophils % (Manual) Band Neuts % (Manual) Ur Barbiturates Screen Detected H Ur Tricyclics Screen Detected H Plasma Alcohol Less than 10 08/11/19 03:57 WBC Hgb Neutrophils % Neutrophils % (Manual) 47 Band Neuts % (Manual) 33 H Ur Barbiturates Screen Ur Tricyclics Screen Plasma Alcohol Hospitalist ROS - Medication Medications: Active Medications Generic Name Dose Route Start Last Admin Trade Name Freq PRN Reason Stop Dose Admin Amitriptyline HCl 150 mg 08/10/19 21:00 08/12/19 21:17 Elavil PO 150 mg HS JOSHUA Administration Atenolol 25 mg 08/11/19 09:00 08/13/19 08:02 Tenormin PO 25 mg DAILY JOSHUA Administration Divalproex Sodium 500 mg 08/10/19 21:00 08/13/19 08:02 Depakote Er PO 500 mg BID JOSHUA Administration Famotidine 20 mg 08/10/19 21:00 08/13/19 08:02 Pepcid SLOW IVP 20 mg Q12HR JOSHUA Administration Levofloxacin 750 mg/ Device 150 mls @ 100 mls/hr 08/10/19 20:00 08/12/19 21: 04 IVPB 150 mls Q24HR JOSHUA Administration Dextrose/Sodium Chloride 1,000 mls @ 75 mls/hr 08/11/19 06:30 08/13/19 04:55 D5 0.9% Ns IV 1,000 mls .[id number] JOSHUA Administration Lisinopril 5 mg 08/11/19 09:00 08/13/19 08:02 Zestril PO 5 mg DAILY JOSHUA Administration Venlafaxine HCl 150 mg 08/11/19 09:00 08/13/19 08:02 Effexor Xr PO 150 mg DAILY JOSHUA Administration Zonisamide 100 mg 08/13/19 09:00 08/13/19 08:21 Zonisamide PO 100 mg DAILY JOSHUA Administration - Exam General Appearance: awake alert General - other findings: smiling, responsive to questions Eye: PERRL, anicteric sclera ENT: normocephalic atraumatic, no oropharyngeal lesions Neck: supple, symmetric, no JVD, no thyromegaly Heart: RRR, no murmur, no gallops, no rubs, normal peripheral pulses Respiratory: CTAB, no wheezes, no rales, no ronchi, normal chest expansion Gastrointestinal: soft, non-tender, non-distended, normal bowel sounds Extremities: no cyanosis, no clubbing, no edema Skin: normal turgor, no lesions Neurological: cranial nerve grossly intact, no new deficit Musculoskeletal: normal tone, generalized weakness Psychiatric: A&O x 3, flat affect Hosp A/P (1) Bacterial pneumonia Code(s): J15.9 - UNSPECIFIED BACTERIAL PNEUMONIA Status: Acute Plan: Improved, continue Levaquin (2) SBO (small bowel obstruction) Code(s): K56.609 - UNSP INTESTNL OBST, UNSP TO PARTIAL VERSUS COMPLETE OBST Status: Acute Plan: Resolved, full liquids, will follow up in [place] for surgical consultation first week of August (3) Acute metabolic encephalopathy Code(s): G93.41 - METABOLIC ENCEPHALOPATHY Status: Acute Plan: Suspect polypharmacy with multiple sedating medications, hold Elavil HS (4) Normocytic anemia Code(s): D64.9 - ANEMIA, UNSPECIFIED Status: Chronic Plan: Stable, no active blood loss (5) Bipolar disorder Code(s): F31.9 - BIPOLAR DISORDER, UNSPECIFIED Status: Chronic (6) Hypertension Code(s): I10 - ESSENTIAL (PRIMARY) HYPERTENSION Status: Chronic Qualifiers: Hypertension type: essential hypertension Qualified Code(s): I10 - Essential (primary) hypertension Plan: Stable, continue home BP regimen - Plan plan discussed w/ family, continue antibiotics, PT/OT, psychotherapist social worker, out of bed/ambulate, DVT proph w/SCDs Stable currently NGT d/c Continue Levaquin 750mg po daily Continue D5NS IVF another 24h then d/c OOB with PT Transfer to medical floor Likely home in 24h
[2019-08-14] MEDS: Dextrose 5 % And 0.9 % NaCl 1,000 ML IV SCH ×2 (00:16→14:42)
[2019-08-14] MEDS: Atenolol 25 MG TAB PO SCH (07:50)
[2019-08-14] MEDS: Zonisamide 25 MG CAP PO SCH (07:50)
[2019-08-14] MEDS: Lisinopril 5 MG TAB PO SCH (07:51)
[2019-08-14] MEDS: Venlafaxine HCl XR 150 MG CAP PO SCH (07:51)
[2019-08-14] MEDS: Famotidine/PF 20 mg/2ml Vial SLOW IVP SCH ×2 (07:51→20:28)
--- NOTE | 2019-08-14 13:21 | PDOC.HOSPP ---
- Subjective Encounter Date: 08/14/19 Encounter Time: 12:50 Subjective: Expresses no complaint.. - Objective Vital Signs & Weight: Vital Signs (12 hours) Temp Pulse Resp BP Pulse Ox 08/14/19 08:00 98 08/14/19 07:54 97.9 F 76 16 151/87 H 98 08/14/19 07:51 81 08/14/19 07:50 81 Weight Admit Weight 158 lb 15.253 oz Weight 154 lb 5.177 oz I&O: 08/13/19 08/14/19 08/15/19 06:59 06:59 06:59 Intake Total 1740 240 Balance 1740 240 Result Diagrams: 08/13/19 06:32 08/12/19 04:36 Additional Labs: Accuchecks 08/14/19 08/14/19 08/13/19 11:57 05:45 21:42 POC Glucose 85 92 108 08/13/19 17:07 POC Glucose 107 Hospitalist ROS - Medication Medications: Active Medications Generic Name Dose Route Start Last Admin Trade Name Herbert PRN Reason Stop Dose Admin Amitriptyline HCl 150 mg 08/10/19 21:00 08/12/19 21:17 Elavil PO 150 mg HS JOSHUA Administration Atenolol 25 mg 08/11/19 09:00 08/14/19 07:50 Tenormin PO 25 mg DAILY JOSHUA Administration Divalproex Sodium 500 mg 08/10/19 21:00 08/14/19 07:51 Depakote Er PO 500 mg BID JOSHUA Administration Famotidine 20 mg 08/10/19 21:00 08/14/19 07:51 Pepcid SLOW IVP 20 mg Q12HR JOSHUA Administration Dextrose/Sodium Chloride 1,000 mls @ 75 mls/hr 08/11/19 06:30 08/14/19 00:16 D5 0.9% Ns IV Not Given .[id number] JOSHUA Levofloxacin 750 mg 08/13/19 20:00 08/13/19 20:39 Levaquin PO 750 mg 2000 JOSHUA Administration Lisinopril 5 mg 08/11/19 09:00 08/14/19 07:51 Zestril PO 5 mg DAILY JOSHUA Administration Venlafaxine HCl 150 mg 08/11/19 09:00 08/14/19 07:51 Effexor Xr PO 150 mg DAILY JOSHUA Administration Zonisamide 100 mg 08/13/19 09:00 08/14/19 07:50 Zonisamide PO 100 mg DAILY JOSHUA Administration - Exam General Appearance: NAD Neck: no JVD Heart: RRR Respiratory: CTAB Gastrointestinal: soft Extremities: no edema Neurological: no weakness Psychiatric: normal affect Hosp A/P (1) Bacterial pneumonia Code(s): J15.9 - UNSPECIFIED BACTERIAL PNEUMONIA Status: Acute (2) SBO (small bowel obstruction) Code(s): K56.609 - UNSP INTESTNL OBST, UNSP TO PARTIAL VERSUS COMPLETE OBST Status: Acute (3) Bipolar disorder Code(s): F31.9 - BIPOLAR DISORDER, UNSPECIFIED Status: Chronic (4) Normocytic anemia Code(s): D64.9 - ANEMIA, UNSPECIFIED Status: Chronic (5) Hypertension Code(s): I10 - ESSENTIAL (PRIMARY) HYPERTENSION Status: Chronic Qualifiers: Hypertension type: essential hypertension Qualified Code(s): I10 - Essential (primary) hypertension - Plan Continue IV fluids, antibiotics.. Continue current therapy..
[2019-08-15] MEDS: Dextrose 5 % And 0.9 % NaCl 1,000 ML IV SCH ×3 (03:50→23:03)
[2019-08-15] MEDS: Zonisamide 25 MG CAP PO SCH (08:27)
[2019-08-15] MEDS: Venlafaxine HCl XR 150 MG CAP PO SCH (08:28)
[2019-08-15] MEDS: Lisinopril 5 MG TAB PO SCH (08:28)
[2019-08-15] MEDS: Atenolol 25 MG TAB PO SCH (08:28)
[2019-08-15] MEDS: Famotidine/PF 20 mg/2ml Vial SLOW IVP SCH ×2 (08:28→20:14)
--- NOTE | 2019-08-16 04:56 | DIS ---
DATE OF ADMISSION: 08/10/2019 DATE OF DISCHARGE: 08/15/2019 ADMISSION DIAGNOSES: 1. Left lower lobe pneumonia. 2. Small bowel obstruction. 3. Acute metabolic encephalopathy. 4. Chronic normocytic anemia. 5. Bipolar disorder. 6. Hypertension. DISCHARGE DIAGNOSES: 1. Left lower lobe pneumonia. 2. Small bowel obstruction. 3. Acute metabolic encephalopathy. 4. Chronic normocytic anemia. 5. Bipolar disorder. 6. Hypertension. WIND UP OPERATOR: Dr. Rodriguez. PROCEDURES: 1. Abdomen and pelvic CT. 2. Chest x-ray. COURSE OF HOSPITALIZATION: Uncomplicated, responded well to management. The patient is clinically stable at this time, did not require surgery. She is being discharged home. DISCHARGE MEDICATIONS: Please see discharge medication reconciliation sheet. The patient is to follow up with her primary care physician. PHYSICAL EXAMINATION: GENERAL: Today, the patient is alert, responsive, cooperative, in no distress. VITAL SIGNS: Her latest vital signs show a temperature of 97.5, pulse rate 99, respiratory rate 18, blood pressure 157/85. HEAD AND NECK : Normal. HEART: She has regular S1 and S2. LUNGS: Clear. ABDOMEN: Benign. EXTREMITIES: Showing no edema. NEUROLOGIC: She moves all extremities. DISCHARGE TIME: 31 minutes. The patient was seen much earlier than the stated dictation time... Job ID: [id number] MTDD
[2019-08-16] MEDS: Acetaminophen 500 MG TAB PO PRN (05:18)
[2019-08-16] MEDS: Dextrose 5 % And 0.9 % NaCl 1,000 ML IV SCH ×3 (06:34→20:41)
[2019-08-16] MEDS: Zonisamide 25 MG CAP PO SCH ×2 (08:35→09:21)
[2019-08-16] MEDS: Venlafaxine HCl XR 150 MG CAP PO SCH (08:37)
[2019-08-16] MEDS: Atenolol 25 MG TAB PO SCH (08:37)
[2019-08-16] MEDS: Lisinopril 5 MG TAB PO SCH (08:38)
[2019-08-16] MEDS: Famotidine/PF 20 mg/2ml Vial SLOW IVP SCH ×2 (08:38→20:40)
--- NOTE | 2019-08-16 12:06 | PDOC.HOSPP ---
- Subjective Encounter Date: 08/16/19 Encounter Time: 10:50 Subjective: No specific complaint.. - Objective Vital Signs & Weight: Vital Signs (12 hours) Temp Pulse Resp BP BP Pulse Ox 08/16/19 11:00 97.8 F 78 20 160/93 H 99 08/16/19 08:38 78 167/95 H 08/16/19 08:37 78 167/95 H 08/16/19 08:00 97.4 F L 78 18 167/95 H 99 Weight Admit Weight 158 lb 15.253 oz Weight 154 lb 5.177 oz I&O: 08/15/19 08/16/19 08/17/19 06:59 06:59 06:59 Intake Total 1520 600 100 Balance 1520 600 100 Result Diagrams: 08/13/19 06:32 08/12/19 04:36 Additional Labs: Accuchecks 08/16/19 08/16/19 08/15/19 11:37 04:50 21:03 POC Glucose 77 98 87 Hospitalist ROS - Medication Medications: Active Medications Generic Name Dose Route Start Last Admin Trade Name Freq PRN Reason Stop Dose Admin Acetaminophen 1,000 mg 08/10/19 18:33 08/16/19 05:18 Tylenol PO 1,000 mg Q6H PRN Administration Mild Pain (1-3) Amitriptyline HCl 150 mg 08/10/19 21:00 08/15/19 20:40 Elavil PO Not Given HS JOSHUA Atenolol 25 mg 08/11/19 09:00 08/16/19 08:37 Tenormin PO 25 mg DAILY JOSHUA Administration Divalproex Sodium 500 mg 08/10/19 21:00 08/16/19 09:34 Depakote Er PO Not Given BID JOSHUA Famotidine 20 mg 08/10/19 21:00 08/16/19 08:38 Pepcid SLOW IVP 20 mg Q12HR JOSHUA Administration Dextrose/Sodium Chloride 1,000 mls @ 75 mls/hr 08/11/19 06:30 08/16/19 06:34 D5 0.9% Ns IV Not Given .[id number] JOSHUA Levofloxacin 750 mg 08/13/19 20:00 08/15/19 20:14 Levaquin PO 750 mg 2000 JOSHUA Administration Lisinopril 5 mg 08/11/19 09:00 08/16/19 08:38 Zestril PO 5 mg DAILY JOSHUA Administration Venlafaxine HCl 150 mg 08/11/19 09:00 08/16/19 08:37 Effexor Xr PO 150 mg DAILY JOSHUA Administration Zonisamide 100 mg 08/13/19 09:00 08/16/19 09:21 Zonisamide PO 100 mg DAILY JOSHUA Administration - Exam Eye: anicteric sclera Neck: no JVD Heart: RRR Respiratory: CTAB Gastrointestinal: soft Extremities: no edema Neurological: no weakness Hosp A/P (1) Bacterial pneumonia Code(s): J15.9 - UNSPECIFIED BACTERIAL PNEUMONIA Status: Acute (2) SBO (small bowel obstruction) Code(s): K56.609 - UNSP INTESTNL OBST, UNSP TO PARTIAL VERSUS COMPLETE OBST Status: Acute (3) Bipolar disorder Code(s): F31.9 - BIPOLAR DISORDER, UNSPECIFIED Status: Chronic (4) Normocytic anemia Code(s): D64.9 - ANEMIA, UNSPECIFIED Status: Chronic (5) Hypertension Code(s): I10 - ESSENTIAL (PRIMARY) HYPERTENSION Status: Chronic Qualifiers: Hypertension type: essential hypertension Qualified Code(s): I10 - Essential (primary) hypertension - Plan Discharge held yesterday because family claims not to be able to take care of patient.. Case management consulted.
[2019-08-17] MEDS ORDERED: Senokot S 8.6-50 MG TAB PO SCH (00:45)
[2019-08-17] MEDS: Dextrose 5 % And 0.9 % NaCl 1,000 ML IV SCH (02:30)
[2019-08-17] MEDS: Venlafaxine HCl XR 150 MG CAP PO SCH (09:02)
[2019-08-17] MEDS: Atenolol 25 MG TAB PO SCH (09:02)
[2019-08-17] MEDS: Lisinopril 5 MG TAB PO SCH ×2 (09:03→20:25)
[2019-08-17] MEDS: Senokot S 8.6-50 MG TAB PO SCH ×2 (09:03→20:24)
[2019-08-17] MEDS: Zonisamide 25 MG CAP PO SCH (09:03)
[2019-08-17] MEDS: Famotidine/PF 20 mg/2ml Vial SLOW IVP SCH ×2 (09:04→20:26)
[2019-08-17 09:51] LABS: Hemoglobin 12.5 g/dL (12.0-16.0); Mean Corpuscular HGB CONC 30.8 g/dL (32.0-36.0); Mean Corpuscular Hemoglobin 29.8 pg (27.0-31.0); Mean Corpuscular Volume 96.7 fL (78.0-98.0); Mean Platelet Volume 8.8 fL (7.4-10.4); Platelet Count 263 thou/uL (130-400); RBC Distribution Width 15.1 % (11.5-14.5); White Blood Cell (WBC) Count 6.7 thou/uL (4.8-10.8)
[2019-08-17 09:53] LABS: Anion Gap 13 mmol/L (10-20); BUN (Urea Nitrogen) 4 mg/dL (9.8-20.1); Calc. Creatinine Clearance 116 mL/min (70-130); Calcium 8.7 mg/dL (7.8-10.44); Carbon Dioxide 22 mmol/L (22-29); Chloride 110 mmol/L (98-107); Estimated GFR-MDRD Greater than 90; Glucose 79 mg/dL (70-105); Potassium 3.9 mmol/L (3.5-5.1); Sodium 141 mmol/L (136-145)
[2019-08-17 11:05] LABS: Band 8 % (5-11); Lymphocytes 24 % (21-51); MDiff Complete? YES; Monocytes 8 % (0-10); Neutrophil 59 % (42-75); RBC Morphology Normal
[2019-08-17] MEDS ORDERED: Fleet Enema 133 ML BOT PR SCH (11:15)
--- NOTE | 2019-08-17 17:50 | PDOC.HOSPP ---
- Subjective Encounter Date: 08/17/19 Encounter Time: 11:45 Subjective: 54 y/o female with HTN, RA and obesity s/p gastric bypasse complicated with post operative leak and infection and adhesions assocviated with recurrent SBO admitted with AMS and fall. CT showed LLL infiltrates and features of partial SBO. Treated with NG decompression and antibiotics for posible pneumonia with improvement. Complains of no BM in 10 days. Denied nausea or vomiting but oral intake is poor. Awaiting rehab evaluation and placement. No fever. - Objective Vital Signs & Weight: Vital Signs (12 hours) Temp Pulse Resp BP BP Pulse Ox 08/17/19 09:03 83 157/92 H 08/17/19 09:02 83 157/92 H 08/17/19 08:00 95 08/17/19 07:51 98.3 F 83 16 157/92 H 100 Weight Admit Weight 158 lb 15.253 oz Weight 154 lb 5.177 oz I&O: 08/16/19 08/17/19 08/18/19 06:59 06:59 06:59 Intake Total 600 2110 Balance 600 2110 Result Diagrams: 08/17/19 08:45 08/17/19 08:45 Additional Labs: Accuchecks 08/17/19 08/17/19 08/17/19 16:20 11:57 04:43 POC Glucose 84 71 74 08/16/19 20:51 POC Glucose 95 Hospitalist ROS - Medication Medications: Active Medications Generic Name Dose Route Start Last Admin Trade Name Freq PRN Reason Stop Dose Admin Acetaminophen 1,000 mg 08/10/19 18:33 08/16/19 05:18 Tylenol PO 1,000 mg Q6H PRN Administration Mild Pain (1-3) Amitriptyline HCl 150 mg 08/10/19 21:00 08/16/19 20:43 Elavil PO Not Given HS JOSHUA Atenolol 25 mg 08/11/19 09:00 08/17/19 09:02 Tenormin PO 25 mg DAILY JOSHUA Administration Divalproex Sodium 500 mg 08/10/19 21:00 08/17/19 09:03 Depakote Er PO Not Given BID JOSHUA Famotidine 20 mg 08/10/19 21:00 08/17/19 09:04 Pepcid SLOW IVP 20 mg Q12HR JOSHUA Administration Levofloxacin 750 mg 08/13/19 20:00 08/16/19 20:41 Levaquin PO 750 mg 2000 JOSHUA Administration Lisinopril 5 mg 08/11/19 09:00 08/17/19 09:03 Zestril PO 5 mg DAILY JOSHUA Administration Ondansetron HCl 4 mg 08/10/19 18:33 08/16/19 18:06 Zofran IVP 4 mg Q6H PRN Administration Nausea/Vomiting Senna/Docusate Sodium 2 tab 08/17/19 09:00 08/17/19 09:03 Senokot S PO 2 tab BID JOSHUA Administration Venlafaxine HCl 150 mg 08/11/19 09:00 08/17/19 09:02 Effexor Xr PO 150 mg DAILY JOSHUA Administration Zonisamide 100 mg 08/13/19 09:00 08/17/19 09:03 Zonisamide PO 100 mg DAILY JOSHUA Administration - Exam General Appearance: awake alert General - other findings: chronically ill looking Eye: anicteric sclera ENT: normocephalic atraumatic, moist mucosa Neck: supple, no JVD Heart: RRR Respiratory: no wheezes, no rales, no ronchi, normal chest expansion Gastrointestinal: soft, non-tender, normal bowel sounds, distended Extremities: no cyanosis, no edema Neurological: cranial nerve grossly intact, no focal deficits Neurological - other findings: memory lapses and some confusion noted Musculoskeletal: generalized weakness, diffuse muscle atrophy Psychiatric: A&O x 3 Hosp A/P (1) Acute metabolic encephalopathy Code(s): G93.41 - METABOLIC ENCEPHALOPATHY Status: Acute (2) Constipation Code(s): K59.00 - CONSTIPATION, UNSPECIFIED Status: Acute (3) Rheumatoid arthritis Code(s): M06.9 - RHEUMATOID ARTHRITIS, UNSPECIFIED Status: Acute (4) Quadriparesis Code(s): G82.50 - QUADRIPLEGIA, UNSPECIFIED Status: Acute (5) SBO (small bowel obstruction) Code(s): K56.609 - UNSP INTESTNL OBST, UNSP TO PARTIAL VERSUS COMPLETE OBST Status: Acute (6) Anxiety and depression Code(s): F41.8 - OTHER SPECIFIED ANXIETY DISORDERS Status: Chronic (7) Fibromyalgia Status: Chronic (8) GERD (gastroesophageal reflux disease) Code(s): K21.9 - GASTRO-ESOPHAGEAL REFLUX DISEASE WITHOUT ESOPHAGITIS Status: Chronic Qualifiers: Esophagitis presence: without esophagitis Qualified Code(s): K21.9 - Gastro -esophageal reflux disease without esophagitis (9) Hypertension Code(s): I10 - ESSENTIAL (PRIMARY) HYPERTENSION Status: Chronic Qualifiers: Hypertension type: essential hypertension Qualified Code(s): I10 - Essential (primary) hypertension - Plan fleet enema x 1 Pt/OT to continue Will get KUB if no BM with fleet enema increase lisinopril dose to get beter BP control increase oral intake and activity. DC IV fluid.
[2019-08-18] MEDS: Acetaminophen 500 MG TAB PO PRN (02:52)
[2019-08-18 06:15] LABS: Albumin 2.7 g/dL (3.5-5.0); Anion Gap 12 mmol/L (10-20); BUN (Urea Nitrogen) 7 mg/dL (9.8-20.1); BUN/Creatinine Ratio 10.45; Calc. Creatinine Clearance 104 mL/min (70-130); Calcium 8.5 mg/dL (7.8-10.44); Carbon Dioxide 21 mmol/L (22-29); Chloride 113 mmol/L (98-107); Estimated GFR-MDRD Greater than 90; Glucose 82 mg/dL (70-105); Phosphorus 4.2 mg/dL (2.3-4.7); Potassium 3.8 mmol/L (3.5-5.1); Sodium 142 mmol/L (136-145)
[2019-08-18 09:09] LABS: Hemoglobin 10.1 g/dL (12.0-16.0); Mean Corpuscular HGB CONC 31.4 g/dL (32.0-36.0); Mean Corpuscular Hemoglobin 30.3 pg (27.0-31.0); Mean Corpuscular Volume 96.5 fL (78.0-98.0); Mean Platelet Volume 8.7 fL (7.4-10.4); Platelet Count 215 thou/uL (130-400); RBC Distribution Width 15.2 % (11.5-14.5); Red Blood Cell (RBC) Count 3.34 mill/uL (4.20-5.40)
[2019-08-18] MEDS: Polyethylene Glycol 3350 17 GM Packet PO SCH (10:05)
[2019-08-18] MEDS: Lisinopril 5 MG TAB PO SCH ×2 (10:06→20:31)
[2019-08-18] MEDS: Senokot S 8.6-50 MG TAB PO SCH ×2 (10:06→20:28)
[2019-08-18] MEDS: Venlafaxine HCl XR 150 MG CAP PO SCH (10:06)
[2019-08-18] MEDS: Famotidine/PF 20 mg/2ml Vial SLOW IVP SCH ×2 (10:07→20:28)
[2019-08-18] MEDS: Atenolol 25 MG TAB PO SCH (10:18)
[2019-08-18] MEDS ORDERED: Zonisamide 100 MG CAP PO SCH (10:45)
[2019-08-18] MEDS: Zonisamide 25 MG CAP PO SCH (11:35)
--- NOTE | 2019-08-18 13:57 | PDOC.HOSPP ---
- Subjective Encounter Date: 08/18/19 Encounter Time: 09:56 Subjective: 54 y/o female with HTN, RA and obesity s/p gastric bypasse complicated with post operative leak and infection and adhesions assocviated with recurrent SBO admitted with AMS and fall. CT showed LLL infiltrates and features of partial SBO. Treated with NG decompression and antibiotics for posible pneumonia with improvement. Had several BM yesterday with enema. Feeling better. Denied nausea or vomiting. Oral is improving but still suboptimal. Awaiting placement - Objective Vital Signs & Weight: Vital Signs (12 hours) Temp Pulse Resp BP BP Pulse Ox 08/18/19 10:18 61 145/89 H 08/18/19 10:06 61 145/89 H 08/18/19 07:36 97.4 F L 61 16 109/72 96 Weight Admit Weight 158 lb 15.253 oz Weight 154 lb 5.177 oz I&O: 08/17/19 08/18/19 08/19/19 06:59 06:59 06:59 Intake Total 2110 720 Balance 2110 720 Result Diagrams: 08/18/19 08:41 08/18/19 05:52 Additional Labs: Accuchecks 08/18/19 08/18/19 08/18/19 12:05 06:20 05:18 POC Glucose 78 74 67 L 08/17/19 08/17/19 20:01 16:20 POC Glucose 90 84 Hospitalist ROS - Medication Medications: Active Medications Generic Name Dose Route Start Last Admin Trade Name Freq PRN Reason Stop Dose Admin Acetaminophen 1,000 mg 08/10/19 18:33 08/18/19 02:52 Tylenol PO 1,000 mg Q6H PRN Administration Mild Pain (1-3) Amitriptyline HCl 150 mg 08/10/19 21:00 08/17/19 20:26 Elavil PO Not Given HS JOSHUA Atenolol 25 mg 08/11/19 09:00 08/18/19 10:18 Tenormin PO 25 mg DAILY JOSHUA Administration Divalproex Sodium 500 mg 08/10/19 21:00 08/18/19 10:07 Depakote Er PO Not Given BID JOSHUA Famotidine 20 mg 08/10/19 21:00 08/18/19 10:07 Pepcid SLOW IVP 20 mg Q12HR JOSHUA Administration Levofloxacin 750 mg 08/13/19 20:00 08/17/19 20:25 Levaquin PO 750 mg 2000 JOSHUA Administration Lisinopril 5 mg 08/17/19 21:00 08/18/19 10:06 Zestril PO 5 mg BID JOSHUA Administration Ondansetron HCl 4 mg 08/10/19 18:33 08/16/19 18:06 Zofran IVP 4 mg Q6H PRN Administration Nausea/Vomiting Polyethylene Glycol 17 gm 08/18/19 09:00 08/18/19 10:05 Miralax PO 17 gm DAILY JOSHUA Administration Senna/Docusate Sodium 2 tab 08/17/19 09:00 08/18/19 10:06 Senokot S PO 2 tab BID JOSHUA Administration Venlafaxine HCl 150 mg 08/11/19 09:00 08/18/19 10:06 Effexor Xr PO 150 mg DAILY JOSHUA Administration - Exam General Appearance: awake alert Eye: anicteric sclera ENT: normocephalic atraumatic Neck: symmetric, no JVD Heart: RRR Respiratory: no wheezes, no rales, no ronchi, normal chest expansion Gastrointestinal: soft, non-tender, non-distended, normal bowel sounds Extremities: no cyanosis, no edema Neurological: cranial nerve grossly intact, no new deficit Musculoskeletal: generalized weakness Psychiatric: A&O x 3 Hosp A/P (1) SBO (small bowel obstruction) Code(s): K56.609 - UNSP INTESTNL OBST, UNSP TO PARTIAL VERSUS COMPLETE OBST Status: Acute (2) Acute metabolic encephalopathy Code(s): G93.41 - METABOLIC ENCEPHALOPATHY Status: Acute (3) Constipation Code(s): K59.00 - CONSTIPATION, UNSPECIFIED Status: Acute (4) Rheumatoid arthritis Code(s): M06.9 - RHEUMATOID ARTHRITIS, UNSPECIFIED Status: Acute (5) Quadriparesis Code(s): G82.50 - QUADRIPLEGIA, UNSPECIFIED Status: Acute (6) Anxiety and depression Code(s): F41.8 - OTHER SPECIFIED ANXIETY DISORDERS Status: Chronic (7) Fibromyalgia Status: Chronic (8) GERD (gastroesophageal reflux disease) Code(s): K21.9 - GASTRO-ESOPHAGEAL REFLUX DISEASE WITHOUT ESOPHAGITIS Status: Chronic Qualifiers: Esophagitis presence: without esophagitis Qualified Code(s): K21.9 - Gastro -esophageal reflux disease without esophagitis (9) Hypertension Code(s): I10 - ESSENTIAL (PRIMARY) HYPERTENSION Status: Chronic Qualifiers: Hypertension type: essential hypertension Qualified Code(s): I10 - Essential (primary) hypertension - Plan Pt/OT to continue BP control better. Continue lisinopril 5 mg bid [place] oral intake advised Awaiting placement. SNF vs Rehab. Patient's brother reportedly cannot takre care of her at home.
[2019-08-19] MEDS: Senokot S 8.6-50 MG TAB PO SCH ×2 (08:28→20:54)
[2019-08-19] MEDS: Venlafaxine HCl XR 150 MG CAP PO SCH (08:28)
[2019-08-19] MEDS: Lisinopril 5 MG TAB PO SCH ×2 (08:28→20:54)
[2019-08-19] MEDS: Famotidine/PF 20 mg/2ml Vial SLOW IVP SCH ×3 (08:28→22:54)
[2019-08-19] MEDS: Atenolol 25 MG TAB PO SCH (08:28)
[2019-08-19] MEDS: Zonisamide 100 MG CAP PO SCH (08:29)
[2019-08-19] MEDS: Polyethylene Glycol 3350 17 GM Packet PO SCH (11:04)
--- NOTE | 2019-08-19 15:10 | PDOC.HOSPP ---
- Subjective Subjective: Seen and examined. Patient states that overall she is feeling much better. Tolerating diet, no longer having nausea or vomiting. Having solid bowel movements. Patient seen ambulating the halls with physical therapy and she is walking without a walker and minimal assistance. Patient has effectively been rehabilitated in the acute care hospital. Patient states that she is thinking about going home with home healthcare, and family support. - Objective Vital Signs & Weight: Vital Signs (12 hours) Temp Pulse Resp BP BP Pulse Ox 08/19/19 08:28 73 124/82 08/19/19 08:25 97 08/19/19 07:35 98.0 F 73 20 124/82 97 Weight Admit Weight 158 lb 15.253 oz Weight 154 lb 5.177 oz I&O: 08/18/19 08/19/19 08/20/19 06:59 06:59 06:59 Intake Total 720 Balance 720 Result Diagrams: 08/18/19 08:41 08/18/19 05:52 Additional Labs: Accuchecks 08/19/19 08/19/19 08/18/19 12:08 06:49 20:24 POC Glucose 74 70 123 H 08/18/19 16:28 POC Glucose 69 L Radiology Reviewed by me: Yes Hospitalist ROS - Review of Systems All other systems reviewed; all pertinent +/- noted in HPI/Subj - Medication Medications: Active Medications Generic Name Dose Route Start Last Admin Trade Name Freq PRN Reason Stop Dose Admin Acetaminophen 1,000 mg 08/10/19 18:33 08/18/19 02:52 Tylenol PO 1,000 mg Q6H PRN Administration Mild Pain (1-3) Amitriptyline HCl 150 mg 08/10/19 21:00 08/18/19 20:28 Elavil PO 150 mg HS JOSHUA Administration Atenolol 25 mg 08/11/19 09:00 08/19/19 08:28 Tenormin PO 25 mg DAILY JOSHUA Administration Divalproex Sodium 500 mg 08/10/19 21:00 08/19/19 08:28 Depakote Er PO Not Given BID JOSHUA Famotidine 20 mg 08/10/19 21:00 08/19/19 08:28 Pepcid SLOW IVP 20 mg Q12HR JOSHUA Administration Lisinopril 5 mg 08/17/19 21:00 08/19/19 08:28 Zestril PO 5 mg BID JOSHUA Administration Ondansetron HCl 4 mg 08/10/19 18:33 08/16/19 18:06 Zofran IVP 4 mg Q6H PRN Administration Nausea/Vomiting Polyethylene Glycol 17 gm 08/18/19 09:00 08/19/19 11:04 Miralax PO Not Given DAILY JOSHUA Senna/Docusate Sodium 2 tab 08/17/19 09:00 08/19/19 08:28 Senokot S PO 2 tab BID JOSHUA Administration Venlafaxine HCl 150 mg 08/11/19 09:00 08/19/19 08:28 Effexor Xr PO 150 mg DAILY JOSHUA Administration Zonisamide 100 mg 08/19/19 09:00 08/19/19 08:29 Zonisamide PO 100 mg DAILY JOSHUA Administration - Exam General Appearance: NAD, awake alert Eye: PERRL ENT: normocephalic atraumatic, moist mucosa Neck: supple, symmetric, no lymphadenopathy Heart: no murmur, no gallops, no rubs Respiratory: CTAB, no wheezes, no rales, no ronchi, normal chest expansion Gastrointestinal: soft, non-tender, no guarding, no rigidity Extremities: no clubbing, no edema Skin: no lesions, no rashes Neurological: cranial nerve grossly intact, no focal deficits Musculoskeletal: generalized weakness Psychiatric: normal affect, A&O x 3 Hosp A/P (1) Bacterial pneumonia Code(s): J15.9 - UNSPECIFIED BACTERIAL PNEUMONIA Status: Acute (2) Rheumatoid arthritis Code(s): M06.9 - RHEUMATOID ARTHRITIS, UNSPECIFIED Status: Acute (3) SBO (small bowel obstruction) Code(s): K56.609 - UNSP INTESTNL OBST, UNSP TO PARTIAL VERSUS COMPLETE OBST Status: Acute (4) Bipolar disorder Code(s): F31.9 - BIPOLAR DISORDER, UNSPECIFIED Status: Chronic (5) Normocytic anemia Code(s): D64.9 - ANEMIA, UNSPECIFIED Status: Chronic (6) Toxic metabolic encephalopathy Code(s): G92 - TOXIC ENCEPHALOPATHY Status: Acute (7) Anxiety and depression Code(s): F41.8 - OTHER SPECIFIED ANXIETY DISORDERS Status: Chronic (8) Fibromyalgia Status: Chronic (9) GERD (gastroesophageal reflux disease) Code(s): K21.9 - GASTRO-ESOPHAGEAL REFLUX DISEASE WITHOUT ESOPHAGITIS Status: Chronic Qualifiers: Esophagitis presence: without esophagitis Qualified Code(s): K21.9 - Gastro -esophageal reflux disease without esophagitis (10) Hypertension Code(s): I10 - ESSENTIAL (PRIMARY) HYPERTENSION Status: Chronic Qualifiers: Hypertension type: essential hypertension Qualified Code(s): I10 - Essential (primary) hypertension (11) Polypharmacy Code(s): Z79.899 - OTHER [facility] (CURRENT) DRUG THERAPY Status: Chronic - Plan Plan: medical/surgical unit General surgery consultation, recommendations appreciated No surgical intervention required and small bowel obstruction has resolved with medical therapy patient no longer having bowel obstruction tolerating diet without nausea or vomiting moving bowels which are now solid abdomen is soft and nontender, nondistended blood pressure control blood sugar control continue mood stabilizing medications patient has completed a full course of antibiotics for pneumonia patient has been effectively rehabilitated in the acute care hospital with physical therapy and occupational therapy patient may be a candidate for home with home healthcare and family support disposition: anticipate discharge home with home healthcare in the next 24 to 48 hours pending clinical improvement
[2019-08-19] MEDS ORDERED: Clopidogrel Bisulfate 75 MG TAB ONE (19:48)
[2019-08-19] MEDS ORDERED: Famotidine 20 MG TAB PO SCH (22:15)
[2019-08-20] MEDS: Senokot S 8.6-50 MG TAB PO SCH ×2 (08:58→20:13)
[2019-08-20] MEDS: Famotidine 20 MG TAB PO SCH ×2 (08:58→20:10)
[2019-08-20] MEDS: Polyethylene Glycol 3350 17 GM Packet PO SCH (08:58)
[2019-08-20] MEDS: Lisinopril 5 MG TAB PO SCH ×2 (08:59→20:10)
[2019-08-20] MEDS: Venlafaxine HCl XR 150 MG CAP PO SCH (08:59)
[2019-08-20] MEDS: Atenolol 25 MG TAB PO SCH (08:59)
[2019-08-20] MEDS: Zonisamide 100 MG CAP PO SCH (09:00)
[2019-08-20] MEDS ORDERED: Lidocaine 2% Viscous Solution 10 ML, Aluminum & Magnesium Hydroxide 30 ML SSW SCH (11:15)
[2019-08-20] MEDS ORDERED: Mag-Al 1200 mg/1200 mg/30 ML UDCUP PO PRN (11:16)
[2019-08-20] MEDS: Calcium Carbonate 500 MG ChewTAB PO PRN ×2 (11:44→20:13)
--- NOTE | 2019-08-20 13:05 | PDOC.HOSPP ---
- Subjective Subjective: Seen and examined. Patient complaining of epigastric/chest pain. EKG ordered, no acute abnormalities. Will try G.I. cocktail and symptomatic therapy for indigestion/GERD. Patient breathing comfortably on room air. Patient walking laps around the [place] without problems. Patient wants to go home with home healthcare when she is feeling better. Patient refusing some medications, recommended improved compliance. - Objective Vital Signs & Weight: Vital Signs (12 hours) Temp Pulse Resp BP Pulse Ox 08/20/19 08:57 98/67 08/20/19 08:54 97.4 F L 98 16 88/63 L 99 Weight Admit Weight 158 lb 15.253 oz Weight 154 lb 5.177 oz Result Diagrams: 08/18/19 08:41 08/18/19 05:52 Additional Labs: Accuchecks 08/20/19 08/20/19 08/19/19 12:10 05:05 21:13 POC Glucose 117 H 97 105 08/19/19 15:41 POC Glucose 65 L EKG Reviewed by me: Yes Hospitalist ROS - Review of Systems All other systems reviewed; all pertinent +/- noted in HPI/Subj - Medication Medications: Active Medications Generic Name Dose Route Start Last Admin Trade Name Freq PRN Reason Stop Dose Admin Acetaminophen 1,000 mg 08/10/19 18:33 08/18/19 02:52 Tylenol PO 1,000 mg Q6H PRN Administration Mild Pain (1-3) Amitriptyline HCl 150 mg 08/10/19 21:00 08/19/19 20:54 Elavil PO 150 mg HS JOSHUA Administration Atenolol 25 mg 08/11/19 09:00 08/20/19 08:59 Tenormin PO Not Given DAILY JOSHUA Calcium Carbonate 1,000 mg 08/20/19 11:17 08/20/19 11:44 Tums PO 1,000 mg Q4H PRN Administration Heartburn or Indigestion Divalproex Sodium 500 mg 08/10/19 21:00 08/20/19 08:58 Depakote Er PO Not Given BID JOSHUA Famotidine 20 mg 08/20/19 09:00 08/20/19 08:58 Pepcid PO 20 mg BID JOSHUA Administration Lisinopril 5 mg 08/17/19 21:00 08/20/19 08:59 Zestril PO Not Given BID [facility] Ondansetron HCl 4 mg 08/10/19 18:33 08/16/19 18:06 Zofran IVP 4 mg Q6H PRN Administration Nausea/Vomiting Polyethylene Glycol 17 gm 08/18/19 09:00 08/20/19 08:58 Miralax PO 17 gm DAILY JOSHUA Administration Senna/Docusate Sodium 2 tab 08/17/19 09:00 08/20/19 08:58 Senokot S PO 2 tab BID JOSHUA Administration Venlafaxine HCl 150 mg 08/11/19 09:00 08/20/19 08:59 Effexor Xr PO 150 mg DAILY JOSHUA Administration Zonisamide 100 mg 08/19/19 09:00 08/20/19 09:00 Zonisamide PO 100 mg DAILY JOSHUA Administration - Exam General Appearance: NAD, awake alert Eye: PERRL ENT: normocephalic atraumatic, moist mucosa Neck: supple, symmetric Heart: RRR, no murmur, normal peripheral pulses Respiratory: CTAB, no wheezes, no rales, no ronchi Gastrointestinal: soft, no guarding, no rigidity Gastrointestinal - other findings: Mildly tender epigastric Extremities: no edema, 1+ LE edema Skin: no lesions, no rashes Neurological: cranial nerve grossly intact, no weakness Musculoskeletal: normal strength, generalized weakness Psychiatric: normal affect, A&O x 3 Hosp A/P (1) Bacterial pneumonia Code(s): J15.9 - UNSPECIFIED BACTERIAL PNEUMONIA Status: Acute (2) Rheumatoid arthritis Code(s): M06.9 - RHEUMATOID ARTHRITIS, UNSPECIFIED Status: Acute (3) SBO (small bowel obstruction) Code(s): K56.609 - UNSP INTESTNL OBST, UNSP TO PARTIAL VERSUS COMPLETE OBST Status: Acute (4) Bipolar disorder Code(s): F31.9 - BIPOLAR DISORDER, UNSPECIFIED Status: Chronic (5) Normocytic anemia Code(s): D64.9 - ANEMIA, UNSPECIFIED Status: Chronic (6) Toxic metabolic encephalopathy Code(s): G92 - TOXIC ENCEPHALOPATHY Status: Acute (7) Anxiety and depression Code(s): F41.8 - OTHER SPECIFIED ANXIETY DISORDERS Status: Chronic (8) Fibromyalgia Status: Chronic (9) GERD (gastroesophageal reflux disease) Code(s): K21.9 - GASTRO-ESOPHAGEAL REFLUX DISEASE WITHOUT ESOPHAGITIS Status: Chronic Qualifiers: Esophagitis presence: without esophagitis Qualified Code(s): K21.9 - Gastro -esophageal reflux disease without esophagitis (10) Hypertension Code(s): I10 - ESSENTIAL (PRIMARY) HYPERTENSION Status: Chronic Qualifiers: Hypertension type: essential hypertension Qualified Code(s): I10 - Essential (primary) hypertension (11) Polypharmacy Code(s): Z79.899 - OTHER [facility] (CURRENT) DRUG THERAPY Status: Chronic - Plan Plan: medical/surgical unit GI cocktail PRN medications for GERD/ indigestion added EKG without acute ST-T segment abnormalities General surgery consultation, recommendations appreciated No surgical intervention required and small bowel obstruction has resolved with medical therapy patient no longer having bowel obstruction tolerating diet without nausea or vomiting moving bowels which are now solid abdomen is soft and nontender, nondistended blood pressure control blood sugar control continue mood stabilizing medications patient has completed a full course of antibiotics for pneumonia patient has been effectively rehabilitated in the acute care hospital with physical therapy and occupational therapy patient may be a candidate for home with home healthcare and family support disposition: anticipate discharge home with home healthcare in the next 24 to 48 hours pending clinical improvement
--- NOTE | 2019-08-20 16:56 | EKG ---
Test Reason : Blood Pressure : / mmHG Vent. Rate : 091 BPM Atrial Rate : 091 BPM P-R Int : 152 ms QRS Dur : 086 ms QT Int : 344 ms P-R-T Axes : 060 054 078 degrees QTc Int : 423 ms Normal sinus rhythm Nonspecific T wave abnormality Abnormal ECG When compared with ECG of 10-AUG-2019 06:40, No significant change was found Confirmed by DR. Deirdre JACOB ([id number]) on 08/20/2019 4:56:42 PM Referred By: MODESTA Confirmed By:DR. Deirdre JACOB
--- NOTE | 2019-08-20 22:19 | PDOC.EVN ---
Event Note - Event Note Event Note: Called to patient's bedside, she reportedly had a fall and hit the left side of her head. Patient denies a headache. States she hit the left side of her face into the fall. Denies any chest pain or sob. Reports having preceding lightheadedness. Has had BP checked while sitting, was 115 systolic while sitting, dropped to 70s while standing. Has been tolerating oral intake. Denies any n/v. No stool changes. No dizziness. On exam has tenderness to left side of her head. No bruising/swelling. No chest wall deformity or tenderness Heart sounds normal Lungs clear Abdomen SNT Left elbow tenderness, however range of motion intact and no pain present on ROM , movement against resistance. Exam of elbow inconsistent At times no tenderness at all (when distracted). LE without tenderness, full ROM, no brusing Skin appears generally dry Will obtain EKG, check CBC and BMP Obtain CT head/cspine Neuro checks as per fall protocol UA/UCx. Obtain Orthostatic BPs.
[2019-08-20] MEDS ORDERED: Sodium Chloride 0.9% 1,000 ML IV SCH (22:30)
[2019-08-20 22:43] LABS: #Eosinphils 0.1 thou/uL (0.0-0.7); #Lymphocytes 1.9 thou/uL (1.20-3.40); #Monocytes 0.6 thou/uL (0.11-0.59); #Neutrophils 4.9 thou/uL (1.40-6.50); %Basophils 0.2 % (0.0-1.0); %Eosinophils 1.4 % (0.0-10.0); %Lymphocytes 25.1 % (21.0-51.0); %Neutrophils 65.3 % (42.0-75.0); Hemoglobin 9.8 g/dL (12.0-16.0); Mean Corpuscular HGB CONC 31.7 g/dL (32.0-36.0); Mean Corpuscular Hemoglobin 29.8 pg (27.0-31.0); Mean Corpuscular Volume 93.9 fL (78.0-98.0); Mean Platelet Volume 7.1 fL (7.4-10.4); Platelet Count 362 thou/uL (130-400); RBC Distribution Width 15.2 % (11.5-14.5); White Blood Cell (WBC) Count 7.4 thou/uL (4.8-10.8)
--- NOTE | 2019-08-20 22:43 | CT ---
Exam: CT brain PROVIDED CLINICAL HISTORY: Head injury COMPARISON: 08/01/2019 FINDINGS: The ventricular system is normal in size and morphology. No evidence for intracranial hemorrhage or mass effect. The extracranial soft tissues and osseous structures demonstrate no evidence for an acute abnormality. IMPRESSION: No evidence for intracranial hemorrhage or mass effect.
--- NOTE | 2019-08-20 22:52 | CT ---
EXAM: CT cervical spine PROVIDED CLINICAL HISTORY: Fall COMPARISON: 06/28/2019 FINDINGS: No evidence for fracture or traumatic subluxation. No prevertebral soft tissue swelling apparent. Vi sualized lung apices appear clear. IMPRESSION: No evidence for fracture or traumatic subluxation.
[2019-08-20 22:54] LABS: Lactic Acid 1.3 mmol/L (0.5-2.2)
[2019-08-20 22:57] LABS: Anion Gap 12 mmol/L (10-20); BUN (Urea Nitrogen) 12 mg/dL (9.8-20.1); Calc. Creatinine Clearance 90 mL/min (70-130); Calcium 8.5 mg/dL (7.8-10.44); Carbon Dioxide 22 mmol/L (22-29); Chloride 110 mmol/L (98-107); Estimated GFR-MDRD Greater than 90; Glucose 92 mg/dL (70-105); Magnesium 2.1 mg/dL (1.6-2.6); Potassium 3.9 mmol/L (3.5-5.1); Sodium 140 mmol/L (136-145)
[2019-08-21] MEDS: Senokot S 8.6-50 MG TAB PO SCH (09:05)
[2019-08-21] MEDS: Atenolol 25 MG TAB PO SCH (09:06)
[2019-08-21] MEDS: Venlafaxine HCl XR 150 MG CAP PO SCH (09:07)
[2019-08-21] MEDS: Polyethylene Glycol 3350 17 GM Packet PO SCH (09:07)
[2019-08-21] MEDS: Zonisamide 100 MG CAP PO SCH (09:07)
[2019-08-21] MEDS: Famotidine 20 MG TAB PO SCH (09:07)
[2019-08-21 10:58] VITALS: BP 124/81; TEMP 97.7
--- NOTE | 2019-08-21 19:23 | DIS ---
DATE OF ADMISSION: 08/10/2019 DATE OF DISCHARGE: 08/21/2019 REASON FOR HOSPITALIZATION: Altered mental status and fall. PROCEDURES PERFORMED AND TREATMENTS RENDERED: The patient was admitted to the hospital for maximum medical therapy. The patient was diagnosed with pneumonia and also partial bowel obstruction. The patient was seen and evaluated by Dr. Rodriguez, General Surgery - please see full consultation notes and progress notes for details. Dr. Rodriguez recommending that bowel obstruction has resolved and the patient was recommended safe for discharge from a surgical perspective. The patient progressed as expected throughout her hospitalization and was recommended safe for discharge to rehabilitation facility on 08/21/2019. On the evening of one 08/20/2019, the patient did have, in which she might have bumped her head - please see full CT scan of the head and cervical spine for details - there was no acute intracranial process and no acute fractures identified. The patient having no focal neurologic deficits and having no pain from minor fall. The patient having blood work on 08/20/2019 - please see full laboratory data for details. The patient with normal white blood cell count. The patient with chronic anemia that is stable from her baseline with hemoglobin of 9.8 on the day prior to discharge. Platelets are normal at 362. The patient having electrolytes that are normal. The patient having a renal function that is normal with the creatinine 0.77. The patient's glucose is controlled. The patient having a urinalysis that is negative for infection. The patient recommended safe for discharge as she is breathing comfortably on room air, and she will benefit from inpatient physical therapy and occupational therapy in order to reduce her risks of fall in the future. CONDITION ON DISCHARGE: Stable. SPECIFIC INSTRUCTIONS FOR THE PATIENT/FAMILY: 1. The patient is recommended to take all medications as directed, to be readjusted by admitting physician at rehabilitation facility. 2. The patient is recommended to follow up with General Surgery in the next 1 to 2 weeks, or return to acute care hospital immediately if unable to be seen. 3. The patient is recommended to follow up with Neurology in the next 1 to 2 weeks, or return to acute care hospital immediately if unable to be seen. 4. The patient recommended to complete a full course of inpatient therapy and participate with physical therapy and occupational therapy, the patient is not to be released home until she has no fall risk, or she is to return to acute care hospital immediately. 5. The patient is recommended to return to acute care hospital immediately if signs or symptoms return, worsen, or any other new symptoms occur. DISCHARGE MEDICATIONS: 1. Depakote 500 mg one tablet p.o. b.i.d. 2. Meclizine 25 mg t.i.d. p.r.n. dizziness. 3. Zonisamide one tablet p.o. daily. 4. Atenolol 25 mg one tablet p.o. daily. 5. Amitriptyline 150 mg p.o. at bedtime. 6. Famotidine 40 mg one tablet p.o. b.i.d. 7. Desvenlafaxine 100 mg one tablet p.o. daily. 8. Fioricet 1 tablet p.o. q.8 hours p.r.n. migraine. 9. Ambien 10 mg one tablet p.o. at bedtime p.r.n. insomnia. 10. Milnacipran 25 mg p.o. daily. 11. Lisinopril 5 mg one tablet p.o. daily. 12. Senokot-S 2 tabs p.o. b.i.d. 13. MiraLAX 17 g p.o. daily p.r.n. constipation. 14. Zofran 4 mg p.o. q.6 hours p.r.n. nausea or vomiting. 15. Calcium carbonate or Tums 1000 mg p.o. q.4 hours p.r.n. indigestion. 16. Maalox 30 mL p.o. q.6 hours p.r.n. indigestion. 17. Tylenol Extra Strength 1000 mg p.o. q.6 hours p.r.n. pain or fever - not to exceed 3000 mg in a day. Greater than 36 minutes spent coordinating care and discharge process for this patient. Job ID: [id number]
== END 2019-08-21 14:36 | DRG 388 ==
LOC: ERS 06:07 → ERHOLD 09:37 → 2NO 16:25 → T4-B 08-12 16:05
PROVIDERS: ADMIT Family Medicine; ATTEND Family Medicine
DX: K56.690 Other partial intestinal obstruction (principal); J15.9 Unspecified bacterial pneumonia; G93.41 Metabolic encephalopathy; F41.9 Anxiety disorder, unspecified; F31.9 Bipolar disorder, unspecified; K21.9 Gastro-esophageal reflux disease without esophagitis; K58.9 Irritable bowel syndrome, unspecified; D50.9 Iron deficiency anemia, unspecified; M06.9 Rheumatoid arthritis, unspecified; E11.9 Type 2 diabetes mellitus without complications; I10 Essential (primary) hypertension; G43.909 Migraine, unspecified, not intractable, without status migrainosus; K59.00 Constipation, unspecified; M79.7 Fibromyalgia; Z98.84 Bariatric surgery status; Z90.710 Acquired absence of both cervix and uterus; Z90.49 Acquired absence of other specified parts of digestive tract
CPT/HCPCS: 36415; 36416; 51701; 70450; 71045; 72125; 74177; 80048; 80053; 80069; 80306; 80307; 81003; 82550; 82553; 83605; 83690; 83735; 84484; 85007; 85025; 85027; 87040; 87086; 87149; 93005; 93010; 96361; 96365; 96367; A4353; J0456; J0690; J0696; J1956; J2405; S0028

== ENCOUNTER 2019-09-19 12:03 | Emergency (ER) | payer OTHER ==
[2019-09-19 13:28] LABS: #Lymphocytes 1.4 thou/uL (1.20-3.40); #Monocytes 0.4 thou/uL (0.11-0.59); #Neutrophils 4.2 thou/uL (1.40-6.50); %Basophils 0.3 % (0.0-1.0); %Eosinophils 0.3 % (0.0-10.0); %Lymphocytes 23.3 % (21.0-51.0); %Monocytes 6.6 % (0.0-10.0); %Neutrophils 69.5 % (42.0-75.0); Mean Corpuscular HGB CONC 31.7 g/dL (32.0-36.0); Mean Corpuscular Volume 97.9 fL (78.0-98.0); Mean Platelet Volume 8.7 fL (7.4-10.4); Platelet Count 245 thou/uL (130-400); RBC Distribution Width 15.5 % (11.5-14.5); Red Blood Cell (RBC) Count 3.55 mill/uL (4.20-5.40)
[2019-09-19 13:49] LABS: ALT (SGPT) 44 U/L (8-55); AST (SGOT) 56 U/L (5-34); Albumin 2.9 g/dL (3.5-5.0); Alkaline Phosphatase 90 U/L (40-110); Anion Gap 15 mmol/L (10-20); BUN (Urea Nitrogen) 14 mg/dL (9.8-20.1); Bilirubin, Total 0.7 mg/dL (0.2-1.2); Calc. Creatinine Clearance 0 mL/min (70-130); Calcium 8.3 mg/dL (7.8-10.44); Carbon Dioxide 20 mmol/L (22-29); Chloride 109 mmol/L (98-107); Estimated GFR-MDRD 89; Globulin 3.6 g/dL (2.4-3.5); Glucose 93 mg/dL (70-105); Potassium 5.1 mmol/L (3.5-5.1); Protein, Total 6.5 g/dL (6.0-8.3); Sodium 139 mmol/L (136-145)
--- NOTE | 2019-09-19 13:55 | RAD ---
CHEST ONE VIEW: HISTORY: Chest pain. Burning sensation to mid sternum. COMPARISON: 08/26/2019 FINDINGS: Minimal rotation to the left. heart size is normal. Old granulomatous disease. No confluent pneumonia , overt edema or pleural effusion. IMPRESSION: No significant acute intrathoracic disease. POS: [facility]
[2019-09-19] MEDS ORDERED: Mag-Al 1200 mg/1200 mg/30 ML UDCUP ONE (14:50)
[2019-09-19] MEDS ORDERED: Lidocaine Viscous Sol 2% 15 ml UD Cup ONE (14:50)
[2019-09-19 15:14] LABS: Bacteria/HPF 2+ HPF (None Seen); Bilirubin Negative (Negative); Blood, Urine Negative (Negative); Clarity Turbid (Clear); Glucose, Urine (Dipstick) Normal (Negative); Leukocyte 500 Leu/uL (Negative); Nitrite Negative (Negative); Protein, Urine (Dipstick) 50 mg/dL (Neg-Trace); Squamous Epithelial 21-50 HPF (0-3); WBC/HPF 21-50 HPF (0-3)
== END 2019-09-19 16:42 | disposition home or self-care (01) ==
LOC: ERS 12:03
DX: K21.9 Gastro-esophageal reflux disease without esophagitis (principal); N39.0 Urinary tract infection, site not specified; E86.0 Dehydration; R11.0 Nausea; M06.9 Rheumatoid arthritis, unspecified; E11.9 Type 2 diabetes mellitus without complications; I10 Essential (primary) hypertension; G43.909 Migraine, unspecified, not intractable, without status migrainosus; M79.7 Fibromyalgia; F41.9 Anxiety disorder, unspecified; F31.9 Bipolar disorder, unspecified
CPT/HCPCS: 71045; 80053; 81003; 81015; 84484; 85025; 87077; 87086; 87186; 93005

== ENCOUNTER 2019-09-20 07:23 | Inpatient (IN) | payer OTHER ==
[2019-09-20] MEDS ORDERED: Ondansetron PF 4 MG/2 ML Vial ONE (07:45)
[2019-09-20] MEDS ORDERED: Ketorolac Tromethamine 30 MG/ML VIAL ONE (07:45)
[2019-09-20] MEDS ORDERED: Morphine 4 MG/ML VIAL ONE (08:00)
[2019-09-20 08:36] LABS: #Lymphocytes 0.7 thou/uL (1.20-3.40); #Monocytes 0.4 thou/uL (0.11-0.59); #Neutrophils 4.7 thou/uL (1.40-6.50); %Basophils 0.4 % (0.0-1.0); %Eosinophils 0.2 % (0.0-10.0); %Lymphocytes 12.4 % (21.0-51.0); %Monocytes 7.2 % (0.0-10.0); %Neutrophils 79.9 % (42.0-75.0); Hemoglobin 11.6 g/dL (12.0-16.0); Mean Corpuscular HGB CONC 31.7 g/dL (32.0-36.0); Mean Corpuscular Hemoglobin 30.7 pg (27.0-31.0); Mean Corpuscular Volume 96.8 fL (78.0-98.0); Mean Platelet Volume 8.8 fL (7.4-10.4); Platelet Count 223 thou/uL (130-400); RBC Distribution Width 15.7 % (11.5-14.5); Red Blood Cell (RBC) Count 3.78 mill/uL (4.20-5.40); White Blood Cell (WBC) Count 5.8 thou/uL (4.8-10.8)
[2019-09-20 08:53] LABS: ALT (SGPT) 41 U/L (8-55); AST (SGOT) 45 U/L (5-34); Albumin 2.8 g/dL (3.5-5.0); Alkaline Phosphatase 88 U/L (40-110); Anion Gap 15 mmol/L (10-20); BUN (Urea Nitrogen) 16 mg/dL (9.8-20.1); Bilirubin, Total 0.7 mg/dL (0.2-1.2); Calc. Creatinine Clearance 0 mL/min (70-130); Calcium 8.1 mg/dL (7.8-10.44); Carbon Dioxide 22 mmol/L (22-29); Chloride 107 mmol/L (98-107); Estimated GFR-MDRD Greater than 90; Globulin 3.2 g/dL (2.4-3.5); Glucose 93 mg/dL (70-105); Potassium 3.8 mmol/L (3.5-5.1); Sodium 140 mmol/L (136-145)
[2019-09-20 08:55] LABS: Bilirubin Negative (Negative); Blood, Urine Negative (Negative); Clarity Turbid (Clear); Glucose, Urine (Dipstick) Normal (Negative); Leukocyte 250 Leu/uL (Negative); Nitrite Negative (Negative); Protein, Urine (Dipstick) 70 mg/dL (Neg-Trace); Urobilinogen 12 mg/dL (Less than 2); WBC/HPF 21-50 HPF (0-3)
--- NOTE | 2019-09-20 09:02 | RAD ---
PORTABLE CHEST ONE VIEW: HISTORY: Injury from a fall out of bed. Left sided pain. Head pain. COMPARISON: 09/19/2019 FINDINGS: Heart size is within normal limits. There is less inspiration than on the prior study. No confluent p neumonia, overt edema or pleural effusion. IMPRESSION: Less inspiration than on the prior study with some mild increased markings in the perihilar regions, nonspecific, possible pneumonitis. No significant acute process. No pneumothorax or pleural effusion. POS: [facility]
--- NOTE | 2019-09-20 09:05 | CT ---
CT BRAIN WITHOUT IV CONTRAST: HISTORY: Injury from fall. COMPARISON: 08/26/2019 FINDINGS: Minimal left periorbital soft tissue swelling. Moderate atrophy for age. There is no focal mass or mi dline shift. No intraaxial or extraaxial hemorrhage. Stable appearance from prior study. IMPRESSION: Minimal soft tissue swelling over the left periorbital region. Moderate atrophy for age. No mass or b leed or other acute process. POS: [facility]
[2019-09-20 09:10] LABS: Bacteria/HPF 2+ HPF (None Seen); Mucous/LPF 2+ LPF (<2+)
--- NOTE | 2019-09-20 09:55 | CT ---
CT ABDOMEN AND PELVIS WITH IV CONTRAST: HISTORY: Injury from a fall. FINDINGS: Parenchymal changes are noted in the left mid and lower lung zone and minimal parenchymal changes are noted in the right lower lung zone, evidence for bilateral pneumonia or possible aspiration. Fatty changes in the liver. Postoperative changes within the stomach, evidence for prior bariatric eubanks rgery. Very marked dilatation of the efferent loop, up to 5 cm, as well as marked dilatation of the d uodenum, up to 4.7 cm in the third portion. There appears to be a very abrupt change in caliber from the abnormally dilated proximal bowel to nondilated bowel in the mid left abdomen region. Status pos t cholecystectomy. The common bile duct measures approximately 1 cm. The pancreas, spleen and adrenal glands are unremarkable. No renal calculus or acute obstruction. No abscess, adenopathy or abnorm al fluid collection. No evidence for acute fracture. IMPRESSION: 1. Alveolar parenchymal changes in the right and left mid lung zones, greater in the left lung, raisi ng concern for bilateral pneumonia or aspiration. 2. Very marked dilatation of the postoperative efferent loop and duodenum with an abrupt transition z one in the mid abdomen, probably related to adhesions. 3. No evidence for significant acute posttraumatic process in the abdomen or pelvis. POS: [facility]
[2019-09-20] MEDS ORDERED: Cefepime 2 GM VIAL ONE (10:02)
[2019-09-20] MEDS ORDERED: Benzocaine 20% Spray 60 ML CAN ONE (10:03)
[2019-09-20] MEDS ORDERED: Midazolam HCl 2 mg/2 ml Vial ONE (10:16)
--- NOTE | 2019-09-20 11:56 | RAD ---
Radiograph abdomen one view: DATE: 09/20/2019 Time: 11:47 AM HISTORY: Status post NG tube placement in 54-year-old female. FINDINGS: Esophagogastric tube is kinked at the side port in the lateral left upper quadrant. The distal portio n of the tube is directed medially almost to midline. Small volume stomach. Suture lines and surgical clips in left upper quadrant around the tube. Contrast material fills the urinary bladder an d is present in nondilated renal collecting systems. Another suture line at left mid abdomen. IMPRESSION: 1. Placement of esophagogastric tube into the left upper quadrant of the abdomen. 2. Evidence of bariatric surgery.
[2019-09-20] MEDS ORDERED: Fioricet 325/50/40 mg Tablet PO PRN (14:15)
[2019-09-20] MEDS ORDERED: Meclizine HCl 25 MG TAB PO PRN (14:15)
[2019-09-20] MEDS ORDERED: Ondansetron PF 4 MG/2 ML Vial IVP PRN (14:15)
[2019-09-20] MEDS ORDERED: Acetaminophen 650 MG Suppository PR PRN (14:15)
--- NOTE | 2019-09-20 14:29 | CON ---
DATE OF CONSULTATION: 09/20/2019 REASON FOR CONSULTATION: Small bowel obstruction after gastric bypass. CONSULTING PHYSICIAN: Dr. Mccormack (emergency department). HISTORY OF PRESENT ILLNESS: This is a 54-year-old female with a history of Benoit-en-Y gastric bypass with multiple complications and subsequent surgical interventions. She presents after a fall. She was transported to the emergency department via EMS. Reportedly, she has multiple presentations to the emergency department for various reasons. During her workup, she noted abdominal distention and emesis. CT of the abdomen and pelvis demonstrated a small bowel obstruction in the left lower quadrant. It is causing a severely dilated efferent limb through the duodenum. She does report nausea and emesis. She does not recall her last bowel movement. On further discussion, the patient underwent Benoit-en-Y gastric bypass in 2013. This was complicated by postoperative epigastric pain. She sought a specialist (Dr. Vikram Colon, [facility]). She describes a revision procedure, where it appears he did revision of her gastric pouch and gastrojejunal anastomosis. The reason is unknown, this was done as an open operation. Postoperatively, she continued to have problems and underwent an additional open procedure. It is described as lysis of adhesions. She has a history of frequent small bowel obstructions. Her last episode resolved spontaneously. REVIEW OF SYSTEMS: Negative except as stated above. A 12-point review of systems attempted to be obtained; however, given the patient's inability to provide an accurate history or answer questions clearly, it is difficult to ascertain. PAST MEDICAL HISTORY: Hypertension, questionable diabetes, bipolar disorder. PAST SURGICAL HISTORY: Cholecystectomy, appendectomy, hysterectomy, Benoit-en-Y gastric bypass, revision of Benoit-en-Y gastric bypass, lysis of adhesions? FAMILY HISTORY: Noncontributory. SOCIAL HISTORY: Denies illicit drug use, tobacco, or alcohol use. LABORATORY ANALYSIS: Laboratory analysis reviewed and is grossly normal. She does not have a leukocytosis. Her white blood cell count is 5.8. No lactic acid was drawn. She does have evidence of malnutrition with an albumin of 2.8. IMAGING: CT of the abdomen and pelvis reviewed as well as the radiologist interpretation. It demonstrates a grossly dilated efferent limb (up to 5 cm) that extends to the duodenum. It is difficult to evaluate the patient's afferent limb. It appears that she has minimal with any gastric pouch remaining. A large number of surgical clips and staple lines is suggestive of multiple complex operations. KUB also reviewed and demonstrates nasogastric tube in the pouch or proximal efferent limb. ASSESSMENT: A 54-year-old female with a complicated surgical history and recurrent small bowel obstruction. PLAN: The patient has also been diagnosed with urinary tract infection and possible aspiration pneumonia. She will be admitted to the Medicine service with surgical consultation. We will manage nonoperatively for now with decompression. Recommend upper GI with small bowel follow-through to better delineate anatomy. Aggressive bowel regimen given impacted stool demonstrated on KUB and CT scan. Job ID: [id number]
[2019-09-20] MEDS ORDERED: Iopamidol-370 76% 500 ML 1 ML ONE (15:07)
[2019-09-20 15:38] LABS: ALT (SGPT) 39 U/L (8-55); AST (SGOT) 44 U/L (5-34); Albumin 2.4 g/dL (3.5-5.0); Alkaline Phosphatase 74 U/L (40-110); Anion Gap 14 mmol/L (10-20); BUN (Urea Nitrogen) 16 mg/dL (9.8-20.1); Bilirubin, Total 0.6 mg/dL (0.2-1.2); Calc. Creatinine Clearance 0 mL/min (70-130); Calcium 7.9 mg/dL (7.8-10.44); Carbon Dioxide 19 mmol/L (22-29); Chloride 112 mmol/L (98-107); Estimated GFR-MDRD Greater than 90; Glucose 93 mg/dL (70-105); Protein, Total 5.4 g/dL (6.0-8.3); Sodium 141 mmol/L (136-145)
[2019-09-20] MEDS: Sodium Chloride 0.9% 1,000 ML IV SCH (17:08)
[2019-09-20] MEDS ORDERED: Ketorolac Tromethamine 30 MG/ML VIAL IVP SCH (19:45)
[2019-09-20] MEDS ORDERED: Zolpidem Tartrate 5 MG TAB PO PRN (21:00)
--- NOTE | 2019-09-20 21:10 | PDOC.HHP ---
Hospitalist HPI - History of Present Illness abdominal pain, fall History of Present Illness: 54yo F w/ MHx of Benoit-en-Y gastric bypass with multiple complications and recurrent partial SBO over the past year that resolved with medical management who presented to the ED fall and subsequent abdominal pain. Rolled off of bed and hit head and left hip, and afterwards started having upper abdominal pain with a single episode of vomiting. Pain described as epigastric, pressure and stabbing like, intermittent but over the past few hours constant, and 8/10 in intensity. ED Course: In the ED, abdomen was found to be distended and CT c/w SBO as well as possible pneumonia, so the patient was admitted to the surgical floor Hospitalist ROS - Review of Systems Constitutional: denies: fever, chills, sweats, weakness, malaise, other Respiratory: denies: cough, dry, shortness of breath, hemoptysis, SOB with excertion, pleuritic pain, sputum, wheezing, other Cardiovascular: reports: light headedness. denies: chest pain, palpitations, orthopnea, paroxysmal noc. dyspnea, edema, other Gastrointestinal: reports: nausea, vomiting, abdominal pain, constipation. denies: diarrhea, melena, hematochezia Genitourinary: denies: dysuria, frequency, incontinence, hematuria, retention, other Musculoskeletal: denies: neck pain, back pain, leg pain Neurological: denies: weakness, numbness, incoordination, change in speech, confusion, seizures, other - Medication Medications: Active Medications Generic Name Dose Route Start Last Admin Trade Name Freq PRN Reason Stop Dose Admin Sodium Chloride 1,000 mls @ 100 mls/hr 09/20/19 14:15 09/20/19 17:08 Normal Saline 0.9% IV 1,000 mls .Q10H JOSHUA Administration Hospitalist History - Past Medical History Cardiac: reports: HTN 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: reports: Migraine Gastrointestinal: reports: Constipation, GERD, Other (small bowel obstruction) Psych: reports: Anxiety, Bipolar Rheumatologic: reports: Rheumatoid arthritis - Past Surgical History Past Surgical History: reports: Appendectomy, Cholecystectomy, Hysterectomy, Other Other Surgical History: benoit en y with revision; possible lysis of adhesions - Family History Family History: reports: hypertension - Social History Smoking Status: Never smoker Alcohol: reports: None Drugs: reports: none Living Situation: With Family Activity level: independent ambulation - Exam General Appearance: awake alert General - other findings: confused, in apparent pain Eye: PERRL ENT: normocephalic atraumatic, no oropharyngeal lesions, moist mucosa Neck: supple, symmetric, no JVD, no thyromegaly, no lymphadenopathy, no carotid bruit Heart: RRR, no murmur, no gallops, no rubs, normal peripheral pulses Respiratory: CTAB, no wheezes, no rales, no ronchi, normal chest expansion, no tachypnea, normal percussion Gastrointestinal: tender to palpation, distended, diminished bowl sounds, voluntary guarding Gastrointestinal - other findings: mostly epigastric findings Extremities: no edema Neurological: cranial nerve grossly intact, normal sensation to touch, no weakness, no focal deficits, no new deficit Psychiatric: normal affect, normal behavior Psychiatric - other findings: alert and oriented to self and place, not to time. Hospitalist Results - Labs Result Diagrams: 09/20/19 08:19 09/20/19 15:00 Lab results: WBC 5.8 thou/uL (4.8-10.8) 09/20/19 08:19 Hgb 11.6 g/dL (12.0-16.0) L 09/20/19 08:19 Hct 36.6 % (36.0-47.0) 09/20/19 08:19 MCV 96.8 fL (78.0-98.0) 09/20/19 08:19 Plt Count 223 thou/uL (130-400) 09/20/19 08:19 Neutrophils % 79.9 % (42.0-75.0) H 09/20/19 08:19 Sodium 141 mmol/L (136-145) 09/20/19 15:00 Potassium 4.0 mmol/L (3.5-5.1) 09/20/19 15:00 Chloride 112 mmol/L (98-107) H 09/20/19 15:00 Carbon Dioxide 19 mmol/L (22-29) L 09/20/19 15:00 BUN 16 mg/dL (9.8-20.1) 09/20/19 15:00 Creatinine 0.66 mg/dL (0.6-1.1) 09/20/19 15:00 Glucose 93 mg/dL (70-105) 09/20/19 15:00 Calcium 7.9 mg/dL (7.8-10.44) 09/20/19 15:00 Total Bilirubin 0.6 mg/dL (0.2-1.2) 09/20/19 15:00 AST 44 U/L (5-34) H 09/20/19 15:00 ALT 39 U/L (8-55) 09/20/19 15:00 Alkaline Phosphatase 74 U/L (40-110) 09/20/19 15:00 Serum Total Protein 5.4 g/dL (6.0-8.3) L 09/20/19 15:00 Albumin 2.4 g/dL (3.5-5.0) L 09/20/19 15:00 Urine Ketones 20 mg/dL (Negative) A 09/20/19 08:42 Urine Blood Negative (Negative) 09/20/19 08:42 Urine Nitrite Negative (Negative) 09/20/19 08:42 Ur Leukocyte Esterase 250 Armando/uL (Negative) A 09/20/19 08:42 Urine RBC 4-6 HPF (0-3) A 09/20/19 08:42 Urine WBC 21-50 HPF (0-3) A 09/20/19 08:42 Ur Squamous Epith Cells 11-20 HPF (0-3) A 09/20/19 08:42 Urine Bacteria 2+ HPF (None Seen) A 09/20/19 08:42 - Radiology Interpretation CT scan - abdomen Status: image reviewed by oh Hospitalist H&P A/P - Problem (1) SBO (small bowel obstruction) Code(s): K56.609 - UNSP INTESTNL OBST, UNSP TO PARTIAL VERSUS COMPLETE OBST Status: Acute (2) Constipation Code(s): K59.00 - CONSTIPATION, UNSPECIFIED Status: Acute (3) Bacterial pneumonia Code(s): J15.9 - UNSPECIFIED BACTERIAL PNEUMONIA Status: Acute (4) Anxiety and depression Code(s): F41.8 - OTHER SPECIFIED ANXIETY DISORDERS Status: Chronic (5) Bipolar disorder Code(s): F31.9 - BIPOLAR DISORDER, UNSPECIFIED Status: Chronic (6) Hypertension Code(s): I10 - ESSENTIAL (PRIMARY) HYPERTENSION Status: Chronic Qualifiers: - Plan Plan: * 1. recurrent partial SBO * HD stable, passes gas * likely due to adhesions, as was the case in recent presentations over the past few months * no signs of ischemia or perforation * per surgery, no surgical intervention at this point * 2. aspiration pneumonia/pneumonitis * patient had episode of vomiting * Ct findings c/w aspiration * 3.contaminated urine sample * patient endorses no UTI symtoms * * Dispo/PPX * full code * GI PPX: pantoprazole * DVT PPX: heparin 5000u subq q8h * * Plan: * 1. NGT with intermittent suctioning, avoid antimotility agents for pain management (therefore received toradol once), per surgery supportive managment, upper GI with small bowel follow through; reviewed home medications and held nonessential medications that have GI side effects that may result in complications; per surgery should be receiving bowel regimen but am concerned regarding possible perforation in context of likely mechanical SBO; will clarify with surgery * 2. clinical picture inconsistent with pneumonia, however with regards to significant abovementioned comorbidity, will start on vanc, aztreonam, flagyl ( penicillin allergy); regimen may also function as abdominal abx PPX in case surgical intervention eventually required * 3. no UTI so no intervention necessary
[2019-09-20] MEDS ORDERED: Aztreonam 1 GM in Sodium Chloride 0.9% 100 ML IVPB SCH (22:00)
[2019-09-20] MEDS ORDERED: Vancomycin HCl 1 GM in Premix Bag 1 BAG IVPB SCH (23:00)
[2019-09-20] MEDS ORDERED: metroNIDAZOLE 500 MG in Premix Bag 1 BAG IVPB SCH (23:59)
[2019-09-21] MEDS: Sodium Chloride 0.9% 1,000 ML IV SCH ×3 (03:38→21:04)
[2019-09-21 06:16] LABS: #Eosinphils 0.1 thou/uL (0.0-0.7); #Lymphocytes 1.7 thou/uL (1.20-3.40); #Monocytes 0.5 thou/uL (0.11-0.59); #Neutrophils 5.1 thou/uL (1.40-6.50); %Basophils 0.2 % (0.0-1.0); %Eosinophils 1.1 % (0.0-10.0); %Lymphocytes 23.2 % (21.0-51.0); %Monocytes 7.3 % (0.0-10.0); %Neutrophils 68.2 % (42.0-75.0); Hemoglobin 9.3 g/dL (12.0-16.0); Mean Corpuscular HGB CONC 30.6 g/dL (32.0-36.0); Mean Corpuscular Volume 98.1 fL (78.0-98.0); Platelet Count 184 thou/uL (130-400); RBC Distribution Width 15.6 % (11.5-14.5); White Blood Cell (WBC) Count 7.5 thou/uL (4.8-10.8)
[2019-09-21 06:37] LABS: ALT (SGPT) 32 U/L (8-55); AST (SGOT) 38 U/L (5-34); Alkaline Phosphatase 65 U/L (40-110); Anion Gap 9 mmol/L (10-20); BUN (Urea Nitrogen) 15 mg/dL (9.8-20.1); Bilirubin, Total 0.5 mg/dL (0.2-1.2); Calc. Creatinine Clearance 0 mL/min (70-130); Calcium 7.5 mg/dL (7.8-10.44); Carbon Dioxide 22 mmol/L (22-29); Chloride 113 mmol/L (98-107); Estimated GFR-MDRD Greater than 90; Globulin 2.3 g/dL (2.4-3.5); Glucose 64 mg/dL (70-105); Potassium 3.9 mmol/L (3.5-5.1); Protein, Total 4.3 g/dL (6.0-8.3); Sodium 140 mmol/L (136-145)
[2019-09-21] MEDS ORDERED: Aztreonam 1 GM in Sodium Chloride 0.9% 100 ML IVPB SCH (08:00)
[2019-09-21] MEDS: Zonisamide 100 MG CAP PO SCH (08:00)
[2019-09-21] MEDS: Atenolol 25 MG TAB PO SCH (08:00)
[2019-09-21] MEDS: Lisinopril 5 MG TAB PO SCH (08:00)
[2019-09-21] MEDS: Heparin 5,000 UNITS/ML VIAL SC SCH ×3 (08:01→21:04)
[2019-09-21] MEDS ORDERED: MILNACIPRAN HCL 25 MG PO SCH (09:00)
[2019-09-21 10:27] LABS: Bacteria/HPF None Seen HPF (None Seen); Bilirubin Negative (Negative); Blood, Urine Negative (Negative); Clarity Clear (Clear); Glucose, Urine (Dipstick) Normal (Negative); Leukocyte Negative Leu/uL (Negative); Nitrite Negative (Negative); Protein, Urine (Dipstick) Negative (Neg-Trace); RBC/HPF 0-3 HPF (0-3); Squamous Epithelial 0-3 HPF (0-3); WBC/HPF 0-3 HPF (0-3)
[2019-09-21 10:46] LABS: Urine Culture Reflex No No
[2019-09-21] MEDS ORDERED: metroNIDAZOLE 500 MG in Premix Bag 1 BAG IVPB SCH (12:00)
[2019-09-21] MEDS ORDERED: Ketorolac Tromethamine 30 MG/ML VIAL IVP SCH (12:30)
--- NOTE | 2019-09-21 13:42 | PRG ---
DATE OF SERVICE: 09/21/2019 SUBJECTIVE: The patient had a small bowel follow-through with Gastrografin today. She is having multiple bowel movements. She feels much better. OBJECTIVE: VITAL SIGNS: Her temperature is 98.1, pulse 90, and blood pressure 114/82. GENERAL: She is awake, alert. ABDOMEN: Soft, nondistended. She looks good. LABORATORY DATA: White count 7.5, H and H 9.3 and 30, platelet count 184. Electrolytes elevated chloride, glucose is 64. ASSESSMENT: Small bowel obstruction, resolving. PLAN: Discontinue NG. Start clear liquids. Job ID: [id number]
--- NOTE | 2019-09-21 13:43 | RAD ---
Upper GI series Small bowel series (follow-through): DATE: 54-year-old female with abdominal pain. Abnormally dilated bowel loops found on CT. TECHNIQUE: With patient 45 degree recumbent on fluoroscopy table, Gastrografin was injected into the NG tube und er brief, intermittent fluoroscopy. FINDINGS: NG tube is kinked in the left upper quadrant within remnant gastric chamber. Contrast immediately rob ws into bowel loop adjacent to this vertically oriented. Delayed overhead later images demonstrate that this is a dilated bowel loop, with surrounding suture line. This corresponds to the dilated loop of bowel demonstrated on the recent CT. Contrast progresses rapidly through multiple nondilated small bowel loops after that with normal fold pattern. Contrast reaches the hepatic flexure of the co aysha by 15 minutes. IMPRESSION: 1. Status post bariatric surgery with anastomosis of small chamber gastric lumen to a dilated bowel l oop in the left upper quadrant. 2. No bowel obstruction.
[2019-09-21] MEDS ORDERED: MD-Gastroview 120 ML BOT ONE (15:23)
--- NOTE | 2019-09-21 20:56 | PDOC.HOSPP ---
- Subjective Encounter Date: 09/21/19 Encounter Time: 08:00 Subjective: no overnight events. This morning, had two regular bowel movements. Feeling much better though epigastric pain persists. - Objective Vital Signs & Weight: Vital Signs (12 hours) Temp Pulse Resp BP Pulse Ox 09/21/19 20:48 97.7 F 76 16 123/82 100 09/21/19 15:46 97.6 F 93 16 151/88 H 100 09/21/19 12:23 90 16 114/82 98 Weight Weight 4.656 oz I&O: 09/20/19 09/21/19 09/22/19 06:59 06:59 06:59 Intake Total 1300 1680 Output Total 150 Balance 1150 1680 Result Diagrams: 09/21/19 06:06 09/21/19 06:06 Hospitalist ROS - Review of Systems Constitutional: denies: fever, chills, sweats, weakness, malaise, other Respiratory: denies: cough, dry, shortness of breath, hemoptysis, SOB with excertion, pleuritic pain, sputum, wheezing, other Cardiovascular: denies: chest pain, palpitations, orthopnea, paroxysmal noc. dyspnea, edema, light headedness, other Gastrointestinal: reports: abdominal pain. denies: nausea, vomiting, diarrhea, constipation, melena, hematochezia, other Genitourinary: denies: dysuria, frequency, incontinence, hematuria, retention, other Neurological: denies: weakness, numbness - Medication Medications: Active Medications Generic Name Dose Route Start Last Admin Trade Name Freq PRN Reason Stop Dose Admin Atenolol 25 mg 09/21/19 09:00 09/21/19 08:00 Tenormin PO 25 mg DAILY JOSHUA Administration Divalproex Sodium 500 mg 09/20/19 21:00 09/21/19 08:00 Depakote Er PO 500 mg BID JOSHUA Administration Heparin Sodium (Porcine) 5,000 units 09/21/19 09:00 09/21/19 14:59 Heparin SC 5,000 units TID JOSHUA Administration Sodium Chloride 1,000 mls @ 100 mls/hr 09/20/19 14:15 09/21/19 03:38 Normal Saline 0.9% IV 1,000 mls .Q10H JOSHUA Administration Lisinopril 5 mg 09/21/19 09:00 09/21/19 08:00 Zestril PO 5 mg DAILY JOSHUA Administration Zonisamide 100 mg 09/21/19 09:00 09/21/19 08:00 Zonisamide PO 100 mg DAILY JOSHUA Administration - Exam General Appearance: NAD, awake alert Heart: RRR, no murmur, no gallops, no rubs, normal peripheral pulses Respiratory: CTAB, no wheezes, no rales, no ronchi, normal chest expansion, no tachypnea, normal percussion Gastrointestinal: soft Gastrointestinal - other findings: mildly tender epigastrium; mildly distended, improved compared to yesterday Extremities: no edema Psychiatric: normal affect, normal behavior, A&O x 3 Hosp A/P (1) SBO (small bowel obstruction) Code(s): K56.609 - UNSP INTESTNL OBST, UNSP TO PARTIAL VERSUS COMPLETE OBST Status: Acute (2) Constipation Code(s): K59.00 - CONSTIPATION, UNSPECIFIED Status: Acute (3) Bacterial pneumonia Code(s): J15.9 - UNSPECIFIED BACTERIAL PNEUMONIA Status: Acute (4) Anxiety and depression Code(s): F41.8 - OTHER SPECIFIED ANXIETY DISORDERS Status: Chronic (5) Bipolar disorder Code(s): F31.9 - BIPOLAR DISORDER, UNSPECIFIED Status: Chronic (6) Hypertension Code(s): I10 - ESSENTIAL (PRIMARY) HYPERTENSION Status: Chronic Qualifiers: - Plan 1. recurrent partial SBO (resolved) * 2 normal bowel movements (2/3) * EGD with pass through showing dilated loop but no bowel obstruction * likely due to adhesions, as was the case in recent presentations over the past few months * * likely discharge (2/) pending advising surgery * 2. aspiration pneumonia/pneumonitis * patient had episode of vomiting * Ct findings c/w aspiration * however, patient endorses diagnosis and treatment for pneumonia 3 weeks ago so likely nonresolving radiographic pneumonia * * stop abx * 3.contaminated urine sample * patient endorses no UTI symtoms * * Dispo/PPX * full code * GI PPX: pantoprazole * DVT PPX: heparin 5000u subq q8h * DC 2/4 pending discussion with surgery
[2019-09-21] MEDS ORDERED: Acetaminophen 325 MG TAB PO PRN (21:50)
[2019-09-21] MEDS ORDERED: traMADol HCl 50 MG TAB PO SCH (22:00)
[2019-09-22] MEDS: Sodium Chloride 0.9% 1,000 ML IV SCH (05:51)
--- NOTE | 2019-09-22 08:46 | PRG ---
DATE OF SERVICE: 09/22/2019 SUBJECTIVE: The patient states she feels great. She had like 9 bowel movements. Pain is gone. OBJECTIVE: VITAL SIGNS: On examination, her temperature is 98.3, pulse 76, and blood pressure 109/73. GENERAL: She is in no apparent distress. ABDOMEN: Soft, nondistended, and nontender. ASSESSMENT: Partial obstruction, had anastomosis. PLAN: This patient is extremely high risk for surgery here as she has a very hostile abdomen. The surgery should be done in [place], where she had the original procedures and multiple procedures afterwards. They should be the ones to assess whether or not that anastomosis can be redone, but the surgery itself would be too high risk for us to perform here. The patient should remain on full liquids until after the surgery. She should make her way back to [facility], where her surgery was done. Job ID: [id number]
[2019-09-22] MEDS: Atenolol 25 MG TAB PO SCH (08:58)
[2019-09-22] MEDS: Zonisamide 100 MG CAP PO SCH (08:59)
[2019-09-22] MEDS: Heparin 5,000 UNITS/ML VIAL SC SCH (08:59)
[2019-09-22] MEDS: Lisinopril 5 MG TAB PO SCH (08:59)
[2019-09-22 11:13] VITALS: BP 129/81; TEMP 98.4
--- NOTE | 2019-09-23 14:53 | DIS ---
DATE OF ADMISSION: 09/20/2019 DATE OF DISCHARGE: 09/22/2019 HOSPITAL COURSE: Ms. Small is a 54-year-old female with a medical history of Benoit-en-Y gastric bypass with multiple complications and recurrent partial small bowel obstruction over the past year that resolved with medical management, presented to the ED after a fall and subsequent abdominal pain. She was diagnosed with partial small bowel obstruction, most likely due to adhesions. The surgical team was consulted and decided that medical management is indicated, as well as an EGD was passed through. The day following hospitalization, the patient's symptoms resolved and she had two normal bowel movements. The EGD was passed through, showed some dilation. This was consistent with imaging scanning. However, there was no obstruction found. The surgical team reassessed the patient after the pass through and decided that the patient requires evaluation by the surgical team, who managed her previously and did surgical adhesion removal on her in [place]. The patient was informed to remain on full liquid diet until she is seen by her original surgical team. She was discharged home hemodynamically stable with no nausea or vomiting, and no abdominal pain. Vitals were unremarkable. PHYSICAL EXAMINATION: GENERAL: No apparent distress. Alert and oriented x3. CARDIAC EXAMINATION: Regular rate and rhythm. No murmurs. No gallops. RESPIRATORY: Clear to auscultation bilaterally. No rhonchi, rales or wheezing. ABDOMEN: Mildly diffuse tenderness, mild distention, midline abdominal scar that is well healed. Normal bowel sounds. PSYCHIATRIC: Proper mood and affect. Alert and oriented x3. ASSESSMENT AND PLAN: Ms. Small is a 54-year-old female with a medical history of Benoit-en-Y gastric bypass and multiple complications as well as recurrent partial small bowel obstruction and surgical adhesions removal, who presented with another episode of partial small bowel obstruction that resolved after medical management. The patient was evaluated by the surgical team and requested to return to her original surgical team in [place] for further evaluation and possible interventions for prevention of recurrent small bowel obstruction. She was discharged hemodynamically stable after symptoms have resolved with clear directions regarding diet pending further medical evaluation. Job ID: [id number]
== END 2019-09-22 14:17 | disposition home or self-care (01) | DRG 388 ==
LOC: ERS 07:23 → SUATTDRO 07:23 → SURG A 13:56
PROVIDERS: ADMIT Internal Medicine; ATTEND Internal Medicine
DX: K56.51 Intestinal adhesions [bands], with partial obstruction (principal); J69.0 Pneumonitis due to inhalation of food and vomit; N39.0 Urinary tract infection, site not specified; W01.0XXA Fall on same level from slipping, tripping and stumbling without subsequent striking against object, initial encounter; K21.9 Gastro-esophageal reflux disease without esophagitis; K58.9 Irritable bowel syndrome, unspecified; M06.9 Rheumatoid arthritis, unspecified; E11.9 Type 2 diabetes mellitus without complications; I10 Essential (primary) hypertension; G43.909 Migraine, unspecified, not intractable, without status migrainosus; F41.9 Anxiety disorder, unspecified; F31.9 Bipolar disorder, unspecified; K59.00 Constipation, unspecified; M79.7 Fibromyalgia; Y92.092 Bedroom in other non-institutional residence as the place of occurrence of the external cause; Z98.84 Bariatric surgery status; Z88.0 Allergy status to penicillin; Z88.8 Allergy status to other drugs, medicaments and biological substances; Z90.710 Acquired absence of both cervix and uterus
CPT/HCPCS: 36415; 70450; 71045; 74018; 74177; 74240; 80053; 81001; 81003; 81015; 84484; 85025; 87077; 87086; 87186; 93005; 93010; 96361; 96365; 96375; J0692; J1644; J1885; J2250; J2270; J2405; J3370; J3490; Q9963; Q9967

== ENCOUNTER 2019-10-06 13:40 | Emergency (ER) | payer OTHER ==
[2019-10-06 14:46] LABS: #Lymphocytes 1.2 thou/uL (1.20-3.40); #Monocytes 0.4 thou/uL (0.11-0.59); #Neutrophils 3.8 thou/uL (1.40-6.50); %Basophils 0.6 % (0.0-1.0); %Eosinophils 0.6 % (0.0-10.0); %Lymphocytes 21.6 % (21.0-51.0); %Neutrophils 69.3 % (42.0-75.0); Hemoglobin 11.2 g/dL (12.0-16.0); Mean Corpuscular HGB CONC 31.3 g/dL (32.0-36.0); Mean Corpuscular Hemoglobin 31.1 pg (27.0-31.0); Mean Corpuscular Volume 99.2 fL (78.0-98.0); Mean Platelet Volume 7.6 fL (7.4-10.4); Platelet Count 408 thou/uL (130-400); RBC Distribution Width 15.4 % (11.5-14.5); Red Blood Cell (RBC) Count 3.61 mill/uL (4.20-5.40); White Blood Cell (WBC) Count 5.5 thou/uL (4.8-10.8)
[2019-10-06 15:20] LABS: ALT (SGPT) 48 U/L (8-55); AST (SGOT) 53 U/L (5-34); Albumin 2.6 g/dL (3.5-5.0); Alkaline Phosphatase 76 U/L (40-110); Anion Gap 13 mmol/L (10-20); BUN (Urea Nitrogen) 15 mg/dL (9.8-20.1); Bilirubin, Total 0.8 mg/dL (0.2-1.2); Calc. Creatinine Clearance 0 mL/min (70-130); Calcium 8.2 mg/dL (7.8-10.44); Carbon Dioxide 23 mmol/L (22-29); Chloride 109 mmol/L (98-107); Estimated GFR-MDRD 90; Globulin 3.2 g/dL (2.4-3.5); Glucose 96 mg/dL (70-105); Lipase 7 U/L (8-78); Potassium 3.3 mmol/L (3.5-5.1); Protein, Total 5.8 g/dL (6.0-8.3); Sodium 142 mmol/L (136-145)
[2019-10-06] MEDS ORDERED: Fentanyl 100 MCG/2 ML VIAL ONE (17:15)
--- NOTE | 2019-10-06 17:18 | CT ---
CT OF BRAIN PERFORMED WITHOUT CONTRAST ENHANCEMENT: 10/06/19 HISTORY: Head injury. COMPARISON: 09/20/19 study. There is generalized ventricular and sulcal prominence. There is no signs of intracerebral hemorrhage or extra-axial fluid collections. The mastoid air cells and visualized sinuses are clear. IMPRESSION: No acute intracranial abnormalities. POS: [facility]
== END 2019-10-06 17:37 | disposition home or self-care (01) ==
LOC: ERS 13:40
DX: S09.90XA Unspecified injury of head, initial encounter (principal); R53.1 Weakness; E11.9 Type 2 diabetes mellitus without complications; K21.9 Gastro-esophageal reflux disease without esophagitis; I10 Essential (primary) hypertension; M06.9 Rheumatoid arthritis, unspecified; F31.9 Bipolar disorder, unspecified; F41.9 Anxiety disorder, unspecified; Z79.899 Other long term (current) drug therapy; W22.8XXA Striking against or struck by other objects, initial encounter
CPT/HCPCS: 36415; 70450; 80053; 83690; 85025; 93005; 96372; J3010

== ENCOUNTER 2019-10-09 17:36 | Emergency (ER) | payer OTHER ==
[2019-10-09] MEDS ORDERED: Acetaminophen 500 MG TAB ONE (18:54)
[2019-10-09] MEDS ORDERED: Ketorolac Tromethamine 30 MG/ML VIAL ONE (18:54)
--- NOTE | 2019-10-09 19:13 | CT ---
CT head noncontrast HISTORY: Fall. Head injury. COMPARISON: 10/06/2019. FINDINGS: There is no evidence of acute intracranial hemorrhage or infarct. Tiny hyperdensity along t he left side of the posterior falx is stable and likely related to chronic thickening/calcification. There is no mass effect or shift of midline structures. Soft tissue swellin g over the left supratemporal scalp. IMPRESSION: No acute intracranial abnormalities are demonstrated.
== END 2019-10-09 19:27 | disposition home or self-care (01) ==
LOC: ERS 17:36
DX: S00.03XA Contusion of scalp, initial encounter (principal); E11.9 Type 2 diabetes mellitus without complications; K21.9 Gastro-esophageal reflux disease without esophagitis; I10 Essential (primary) hypertension; G43.909 Migraine, unspecified, not intractable, without status migrainosus; F41.9 Anxiety disorder, unspecified; F31.9 Bipolar disorder, unspecified; Z79.899 Other long term (current) drug therapy; W01.0XXA Fall on same level from slipping, tripping and stumbling without subsequent striking against object, initial encounter
CPT/HCPCS: 70450; 96372; J1885

== ENCOUNTER 2019-10-10 11:07 | Emergency (ER) | payer OTHER ==
[2019-10-10] MEDS ORDERED: diphenhydrAMINE 50 MG/ML VIAL ONE (12:15)
[2019-10-10] MEDS ORDERED: Metoclopramide HCl 10 MG/2 ML VIAL ONE (12:15)
[2019-10-10] MEDS ORDERED: Magnesium 2 GM/50 ML BAG (IN WATER) ONE (12:15)
[2019-10-10] MEDS ORDERED: Ketorolac Tromethamine 30 MG/ML VIAL ONE (12:15)
== END 2019-10-10 13:57 | disposition home or self-care (01) ==
LOC: ERS 11:07
DX: S06.0X0A Concussion without loss of consciousness, initial encounter (principal); G44.309 Post-traumatic headache, unspecified, not intractable; E11.9 Type 2 diabetes mellitus without complications; K21.9 Gastro-esophageal reflux disease without esophagitis; I10 Essential (primary) hypertension; M79.7 Fibromyalgia; M06.9 Rheumatoid arthritis, unspecified; G43.909 Migraine, unspecified, not intractable, without status migrainosus; F41.9 Anxiety disorder, unspecified; F31.9 Bipolar disorder, unspecified; Z79.899 Other long term (current) drug therapy; W01.198A Fall on same level from slipping, tripping and stumbling with subsequent striking against other object, initial encounter
CPT/HCPCS: 96365; 96368; 96375; J1200; J1885; J2765; J3475

== ENCOUNTER 2019-10-18 10:47 | Emergency (ER) | payer OTHER ==
[2019-10-18] MEDS ORDERED: Ondansetron PF 4 MG/2 ML Vial ONE (12:10)
[2019-10-18] MEDS ORDERED: diphenhydrAMINE 50 MG/ML VIAL ONE (12:10)
[2019-10-18] MEDS ORDERED: Ketorolac Tromethamine 30 MG/ML VIAL ONE (12:10)
[2019-10-18] MEDS ORDERED: Metoclopramide HCl 10 MG/2 ML VIAL ONE (12:10)
--- NOTE | 2019-10-18 12:54 | CT ---
CT Abdomen Pelvis WO Con History: Abdominal pain Comparison: CT abdomen and pelvis September 20, 2019 Findings: Improving left basilar airspace opacity from the comparison exam. No pericardial effusion. Diffuse hepatic steatosis. There is contrast throughout the colon. No nephroureterolithiasis or hydroureteronephrosis. No secondary evidence of a recently passed stone. Prior gastric surgery. No evidence for bowel obstruction. No acute osseous abnormality. The aortoiliac contour is nonaneurysmal. Impression: 1. No acute inflammatory process in the abdomen or pelvis. 2. Improving left basilar consolidation from the comparison exam. 3. Contrast is seen transiting through the colon. 4. No nephroureterolithiasis or hydroureteronephrosis. No secondary evidence of a recently passed sto ne.
[2019-10-18 13:33] LABS: #Lymphocytes 1.5 thou/uL (1.20-3.40); #Monocytes 0.6 thou/uL (0.11-0.59); #Neutrophils 6.5 thou/uL (1.40-6.50); %Basophils 0.4 % (0.0-1.0); %Eosinophils 0.2 % (0.0-10.0); %Lymphocytes 16.9 % (21.0-51.0); %Monocytes 6.6 % (0.0-10.0); %Neutrophils 75.9 % (42.0-75.0); Hemoglobin 11.2 g/dL (12.0-16.0); Mean Corpuscular HGB CONC 32.6 g/dL (32.0-36.0); Mean Corpuscular Hemoglobin 32.3 pg (27.0-31.0); Mean Corpuscular Volume 99.1 fL (78.0-98.0); Mean Platelet Volume 8.5 fL (7.4-10.4); Platelet Count 274 thou/uL (130-400); Red Blood Cell (RBC) Count 3.46 mill/uL (4.20-5.40); White Blood Cell (WBC) Count 8.6 thou/uL (4.8-10.8)
[2019-10-18] MEDS ORDERED: Ketorolac Tromethamine 60 MG/2 ML VIAL ONE (13:40)
[2019-10-18] MEDS ORDERED: Ondansetron ODT 4 MG TAB ONE (13:40)
[2019-10-18] MEDS ORDERED: diphenhydrAMINE 25 MG CAP ONE (13:40)
[2019-10-18 13:41] LABS: ALT (SGPT) 83 U/L (8-55); AST (SGOT) 66 U/L (5-34); Albumin 2.5 g/dL (3.5-5.0); Alkaline Phosphatase 91 U/L (40-110); Anion Gap 12 mmol/L (10-20); BUN (Urea Nitrogen) 15 mg/dL (9.8-20.1); Bilirubin, Total 0.9 mg/dL (0.2-1.2); Calc. Creatinine Clearance 0 mL/min (70-130); Calcium 8.4 mg/dL (7.8-10.44); Carbon Dioxide 26 mmol/L (22-29); Chloride 108 mmol/L (98-107); Estimated GFR-MDRD Greater than 90; Globulin 3.2 g/dL (2.4-3.5); Glucose 75 mg/dL (70-105); Lipase 13 U/L (8-78); Potassium 4.2 mmol/L (3.5-5.1); Protein, Total 5.7 g/dL (6.0-8.3); Sodium 142 mmol/L (136-145)
[2019-10-18] MEDS ORDERED: Metoclopramide HCl 10 MG TAB PO SCH (14:00)
== END 2019-10-18 15:05 | disposition home or self-care (01) ==
LOC: ERS 10:47
DX: R10.84 Generalized abdominal pain (principal); K21.9 Gastro-esophageal reflux disease without esophagitis; I10 Essential (primary) hypertension; M06.9 Rheumatoid arthritis, unspecified; F41.9 Anxiety disorder, unspecified; F31.9 Bipolar disorder, unspecified; E11.9 Type 2 diabetes mellitus without complications; G43.909 Migraine, unspecified, not intractable, without status migrainosus; Z79.899 Other long term (current) drug therapy
CPT/HCPCS: 74176; 80053; 83690; 84484; 85025; 93005; 96372; J1200; J1885; J2405; J2765; Q0162; Q0163

== ENCOUNTER 2019-10-21 16:33 | Emergency (ER) | payer OTHER ==
[2019-10-21] MEDS ORDERED: HYDROcodone/Acetaminophen 10/325 mg Tablet ONE (17:12)
== END 2019-10-21 18:05 | disposition home or self-care (01) ==
LOC: ERS 16:33
DX: S09.90XA Unspecified injury of head, initial encounter (principal); E11.9 Type 2 diabetes mellitus without complications; K21.9 Gastro-esophageal reflux disease without esophagitis; I10 Essential (primary) hypertension; G43.909 Migraine, unspecified, not intractable, without status migrainosus; M06.9 Rheumatoid arthritis, unspecified; F41.9 Anxiety disorder, unspecified; F31.9 Bipolar disorder, unspecified; W01.10XA Fall on same level from slipping, tripping and stumbling with subsequent striking against unspecified object, initial encounter
CPT/HCPCS: 99283

== ENCOUNTER 2019-10-27 20:07 | Emergency (ER) | payer OTHER ==
[2019-10-27 21:26] LABS: #Lymphocytes 1.5 thou/uL (1.20-3.40); #Monocytes 0.4 thou/uL (0.11-0.59); #Neutrophils 2.5 thou/uL (1.40-6.50); %Basophils 0.9 % (0.0-1.0); %Eosinophils 0.4 % (0.0-10.0); %Lymphocytes 33.9 % (21.0-51.0); %Monocytes 9.6 % (0.0-10.0); %Neutrophils 55.2 % (42.0-75.0); Hemoglobin 11.8 g/dL (12.0-16.0); Mean Corpuscular HGB CONC 32.3 g/dL (32.0-36.0); Mean Platelet Volume 7.8 fL (7.4-10.4); Platelet Count 487 thou/uL (130-400); RBC Distribution Width 15.9 % (11.5-14.5); Red Blood Cell (RBC) Count 3.57 mill/uL (4.20-5.40); White Blood Cell (WBC) Count 4.4 thou/uL (4.8-10.8)
[2019-10-27 21:50] LABS: ALT (SGPT) 80 U/L (8-55); AST (SGOT) 77 U/L (5-34); Albumin 2.4 g/dL (3.5-5.0); Alkaline Phosphatase 93 U/L (40-110); Anion Gap 14 mmol/L (10-20); BUN (Urea Nitrogen) 21 mg/dL (9.8-20.1); Bilirubin, Total 1.1 mg/dL (0.2-1.2); Calc. Creatinine Clearance 0 mL/min (70-130); Calcium 8.1 mg/dL (7.8-10.44); Carbon Dioxide 20 mmol/L (22-29); Chloride 110 mmol/L (98-107); Estimated GFR-MDRD 86; Globulin 3.2 g/dL (2.4-3.5); Glucose 113 mg/dL (70-105); Protein, Total 5.6 g/dL (6.0-8.3); Sodium 140 mmol/L (136-145)
--- NOTE | 2019-10-27 22:00 | CT ---
CT Brain WO Con HISTORY: Fall with head injury. COMPARISON: 10/09/2019 exam. FINDINGS: The ventricular and cisternal system shows generalized atrophy. There are no signs of intra cerebral hemorrhage or extra-axial fluid collections. Right-sided scalp injury is noted. The mastoid air cells and visualized sinuses are clear. IMPRESSION: No acute intracranial abnormalities.
[2019-10-27 23:35] LABS: Bilirubin 1+ (Negative); Blood, Urine Negative (Negative); Clarity Clear (Clear); Glucose, Urine (Dipstick) Normal (Negative); Leukocyte 500 Leu/uL (Negative); Mucous/LPF 2+ LPF (<2+); Nitrite Negative (Negative); Protein, Urine (Dipstick) 50 mg/dL (Neg-Trace); Squamous Epithelial 0-3 HPF (0-3); Urobilinogen 12 mg/dL (Less than 2); WBC/HPF 21-50 HPF (0-3)
[2019-10-27 23:39] LABS: Bacteria/HPF Rare-Few HPF (None Seen)
--- NOTE | 2019-10-27 23:47 | RAD ---
XR Abdomen 1 View/KUB HISTORY: Constipation. Abdominal pain. COMPARISON: 09/20/2019 exam. FINDINGS: The bowel gas pattern appears nonobstructed. Residual contrast from a CT examination is see n within the left colon. The fecal burden is decreased as compared to the prior exam. Postop changes are again noted. IMPRESSION: No acute findings. See above discussion.
[2019-10-28] MEDS ORDERED: Magnesium Citrate 300 ML BOT ONE
== END 2019-10-28 00:34 | disposition home or self-care (01) ==
LOC: ERS 20:07
DX: K59.00 Constipation, unspecified (principal); N39.0 Urinary tract infection, site not specified; E11.9 Type 2 diabetes mellitus without complications; K21.9 Gastro-esophageal reflux disease without esophagitis; I10 Essential (primary) hypertension; M79.7 Fibromyalgia; M06.9 Rheumatoid arthritis, unspecified; G43.909 Migraine, unspecified, not intractable, without status migrainosus; F41.9 Anxiety disorder, unspecified; F31.9 Bipolar disorder, unspecified; Z79.899 Other long term (current) drug therapy
CPT/HCPCS: 36415; 70450; 74018; 80053; 81003; 81015; 85025

== ENCOUNTER 2019-11-20 10:00 | Outpatient (CLI) | payer OTHER | END 2019-11-20 10:01 | disposition home or self-care (01) | LOC: DTY/OP 10:00 | PROVIDERS: ATTEND Surgery | DX: E46 Unspecified protein-calorie malnutrition (principal) | CPT/HCPCS: 97802 ==

== ENCOUNTER 2019-11-29 12:38 | Emergency (ER) | payer OTHER ==
[2019-11-29 13:39] LABS: #Basophils 0.1 thou/uL (0.0-0.2); #Lymphocytes 1.1 thou/uL (1.20-3.40); #Monocytes 0.2 thou/uL (0.11-0.59); #Neutrophils 2.5 thou/uL (1.40-6.50); %Eosinophils 0.2 % (0.0-10.0); %Lymphocytes 28.2 % (21.0-51.0); %Monocytes 4.9 % (0.0-10.0); %Neutrophils 64.7 % (42.0-75.0); Hemoglobin 11.7 g/dL (12.0-16.0); Mean Corpuscular HGB CONC 33.8 g/dL (32.0-36.0); Mean Platelet Volume 7.6 fL (7.4-10.4); Platelet Count 323 thou/uL (130-400); RBC Distribution Width 12.7 % (11.5-14.5); Red Blood Cell (RBC) Count 3.26 mill/uL (4.20-5.40); White Blood Cell (WBC) Count 3.8 thou/uL (4.8-10.8)
[2019-11-29 14:02] LABS: Hypochromia SLIGHT = 6-15 cells (100X) (0-5/hpf); MDiff Complete? YES; Macrocytosis SLIGHT = 6-15 cells (100X) (0-5/hpf); Platelet Morphology Comment Appears Adequate; Polychromasia SLIGHT = 2-3 cells (100X) (0-2/hpf); Target Cells SLIGHT = 2-5 cells (100X) (0-1/hpf); Tear Drops SLIGHT = 2-5 cells (100X) (0-1/hpf)
[2019-11-29 14:03] LABS: ALT (SGPT) 81 U/L (8-55); AST (SGOT) 79 U/L (5-34); Albumin 2.3 g/dL (3.5-5.0); Alkaline Phosphatase 86 U/L (40-110); Anion Gap 16 mmol/L (10-20); BUN (Urea Nitrogen) 22 mg/dL (9.8-20.1); Calc. Creatinine Clearance 0 mL/min (70-130); Calcium 7.9 mg/dL (7.8-10.44); Carbon Dioxide 16 mmol/L (22-29); Chloride 111 mmol/L (98-107); Estimated GFR-MDRD Greater than 90; Globulin 3.2 g/dL (2.4-3.5); Glucose 64 mg/dL (70-105); Potassium 3.9 mmol/L (3.5-5.1); Protein, Total 5.5 g/dL (6.0-8.3); Sodium 139 mmol/L (136-145)
--- NOTE | 2019-11-29 14:26 | ULT ---
BILATERAL LOWER EXTREMITY VENOUS ULTRASOUND: Date: 11/29/2019 COMPARISON: None. HISTORY: Bilateral lower extremity edema. TECHNIQUE: Multiplanar Carreon scale and color Doppler images were obtained in a bilateral lower extremity venous u ltrasound. Spectral analysis of the Doppler waveforms were performed. FINDINGS: Bilateral common femoral veins, profunda femoral veins, superficial femoral veins, and popliteal vein s are normal in appearance without visible thrombus. These vessels demonstrate normal compression, fl ow, and augmentation. The posterior tibial veins and greater saphenous veins are also patent. IMPRESSION: No evidence of deep venous thrombosis. POS: [facility]
== END 2019-11-29 15:00 | disposition home or self-care (01) ==
LOC: ERS 12:38
DX: R60.0 Localized edema (principal); E11.9 Type 2 diabetes mellitus without complications; K58.9 Irritable bowel syndrome, unspecified; I10 Essential (primary) hypertension; G43.909 Migraine, unspecified, not intractable, without status migrainosus; F41.9 Anxiety disorder, unspecified; F31.9 Bipolar disorder, unspecified; M06.9 Rheumatoid arthritis, unspecified; Z79.899 Other long term (current) drug therapy
CPT/HCPCS: 36415; 80053; 83880; 84484; 85025; 93005; 93970

== ENCOUNTER 2019-12-07 11:31 | Emergency (ER) | payer OTHER ==
[2019-12-07 13:20] LABS: ALT (SGPT) 61 U/L (8-55); AST (SGOT) 92 U/L (5-34); Albumin 1.7 g/dL (3.5-5.0); Alkaline Phosphatase 68 U/L (40-110); Anion Gap 15 mmol/L (10-20); BUN (Urea Nitrogen) 16 mg/dL (9.8-20.1); Bilirubin, Total 1.3 mg/dL (0.2-1.2); Calc. Creatinine Clearance 0 mL/min (70-130); Calcium 7.3 mg/dL (7.8-10.44); Carbon Dioxide 15 mmol/L (22-29); Chloride 116 mmol/L (98-107); Estimated GFR-MDRD Greater than 90; Globulin 2.7 g/dL (2.4-3.5); Glucose 98 mg/dL (70-105); Lipase 6 U/L (8-78); Potassium 5.3 mmol/L (3.5-5.1); Protein, Total 4.4 g/dL (6.0-8.3); Sodium 141 mmol/L (136-145)
[2019-12-07 13:48] LABS: #Monocytes 0.2 thou/uL (0.11-0.59); #Neutrophils 3.3 thou/uL (1.40-6.50); %Basophils 0.9 % (0.0-1.0); %Eosinophils 0.2 % (0.0-10.0); %Monocytes 4.2 % (0.0-10.0); %Neutrophils 58.8 % (42.0-75.0); Hemoglobin 9.9 g/dL (12.0-16.0); Mean Corpuscular HGB CONC 32.1 g/dL (32.0-36.0); Mean Corpuscular Hemoglobin 34.2 pg (27.0-31.0); Mean Platelet Volume 7.9 fL (7.4-10.4); Platelet Count 329 thou/uL (130-400); RBC Distribution Width 13.3 % (11.5-14.5); Red Blood Cell (RBC) Count 2.88 mill/uL (4.20-5.40); White Blood Cell (WBC) Count 5.6 thou/uL (4.8-10.8)
== END 2019-12-07 15:23 | disposition home or self-care (01) ==
LOC: ERS 11:31
DX: R10.84 Generalized abdominal pain (principal); G89.29 Other chronic pain; K58.9 Irritable bowel syndrome, unspecified; M06.9 Rheumatoid arthritis, unspecified; G43.909 Migraine, unspecified, not intractable, without status migrainosus; F41.9 Anxiety disorder, unspecified; F31.9 Bipolar disorder, unspecified; E11.9 Type 2 diabetes mellitus without complications; I10 Essential (primary) hypertension; Z79.899 Other long term (current) drug therapy
CPT/HCPCS: 36415; 80053; 83690; 85025; 99281

== ENCOUNTER 2019-12-16 11:06 | Inpatient (IN) | payer OTHER ==
[2019-12-16] MEDS ORDERED: Ondansetron PF 4 MG/2 ML Vial ONE (12:23)
[2019-12-16] MEDS ORDERED: Lorazepam 2 MG/ML VIAL ONE (12:23)
--- NOTE | 2019-12-16 13:41 | CT ---
CT ABDOMEN NONCONTRAST CT PELVIS NONCONTRAST: (Urolithiasis protocol) DATE: 12/16/2019 HISTORY: 54-year-old female with generalized abdominal pain. Rule out bowel obstruction. COMPARISON: 10/18/2019 TECHNIQUE: IV injection of iodinated contrast media: None Oral contrast media: None This was ordered as CT with contrast. However, IV contrast injection extravasated, resulting in a non contrast scan. According to the production technologist, a nurse has attended to the infiltrated upper extremity. FINDINGS: Other than for urolithiasis, the lack of IV and oral contrast limits the evaluation. There is a new small left pleural effusion. There is minimal groundglass changes in the adjacent port ion of left lower lobe, nonspecific. No right pleural effusion. Right lung base is clear. No pneumoperitoneum. No high-volume ascites. Diffuse edema throughout the subcutaneous fat, consistent with anasarca. There is no small bowel dilation. Again noted are the suture lines around the stomach, and suture lines around a postsurgical loop of b owel in the left upper quadrant of the peritoneal cavity. This is filled with air and fluid, and is more dilated than it was previously. No definite fat stranding or mural thickening around this. No renal, ureteral, or bladder calculus. Decompressed urinary bladder. No definitive evidence of colonic diverticulitis. Again noted is the diffusely fatty liver. No hydronephrosis, abdominal aortic aneurysm, or splenomegaly. Limited evaluation, due to lack of IV contrast of the atrophic pancreas. Gallbladder not visualized. Appendix and uterus absent. Extensive postsurgical changes throughout the anterior abdominal wall. No cardiomegaly. IMPRESSION: 1) new small left pleural effusion. 2) no small bowel obstruction. 3) status post bariatric surgery 4) distention of postsurgical bowel loop in the left upper quadrant, nonspecific. 5) hepatic steatosis. 6) anasarca. 7) extensive post laparotomy changes throughout the abdominal wall. 8) status post cholecystectomy, appendectomy, and hysterectomy.
[2019-12-16 14:42] LABS: #Lymphocytes 1.4 thou/uL (1.20-3.40); #Monocytes 0.3 thou/uL (0.11-0.59); %Basophils 0.8 % (0.0-1.0); %Eosinophils 0.1 % (0.0-10.0); %Lymphocytes 29.3 % (21.0-51.0); %Monocytes 6.7 % (0.0-10.0); %Neutrophils 63.1 % (42.0-75.0); Hemoglobin 9.4 g/dL (12.0-16.0); Mean Corpuscular HGB CONC 32.3 g/dL (32.0-36.0); Mean Corpuscular Hemoglobin 35.2 pg (27.0-31.0); Mean Platelet Volume 8.4 fL (7.4-10.4); Platelet Count 199 thou/uL (130-400); RBC Distribution Width 14.4 % (11.5-14.5); Red Blood Cell (RBC) Count 2.67 mill/uL (4.20-5.40); White Blood Cell (WBC) Count 4.7 thou/uL (4.8-10.8)
[2019-12-16] MEDS ORDERED: Fentanyl 100 MCG/2 ML VIAL ONE (14:46)
[2019-12-16 15:04] LABS: Pregnancy Test - Urine (BHCG) Negative (Negative); Specific Gravity 1.034 (1.002-1.036)
[2019-12-16 15:05] LABS: Bacteria/HPF None Seen HPF (None Seen); Bilirubin 2+ (Negative); Blood, Urine Negative (Negative); Clarity Clear (Clear); Glucose, Urine (Dipstick) Normal (Negative); Leukocyte Negative Leu/uL (Negative); Nitrite Negative (Negative); Pregu Control Background? CLEAR/WHITE (CLR/WHITE); Pregu Control Bar Appear? YES (CONTROL BAR); Protein, Urine (Dipstick) 100 mg/dL (Neg-Trace); RBC/HPF 0-3 HPF (0-3); Squamous Epithelial None Seen HPF (0-3); Urobilinogen Greater than 12 mg/dL (Less than 2); WBC/HPF 0-3 HPF (0-3)
[2019-12-16 15:07] LABS: ALT (SGPT) 63 U/L (8-55); AST (SGOT) 44 U/L (5-34); Albumin 1.7 g/dL (3.5-5.0); Alkaline Phosphatase 68 U/L (40-110); Anion Gap 13 mmol/L (10-20); BUN (Urea Nitrogen) 14 mg/dL (9.8-20.1); Calc. Creatinine Clearance 0 mL/min (70-130); Calcium 7.2 mg/dL (7.8-10.44); Carbon Dioxide 20 mmol/L (22-29); Chloride 114 mmol/L (98-107); Estimated GFR-MDRD Greater than 90; Globulin 2.5 g/dL (2.4-3.5); Glucose 83 mg/dL (70-105); Lipase 6 U/L (8-78); Potassium 3.9 mmol/L (3.5-5.1); Protein, Total 4.2 g/dL (6.0-8.3); Sodium 143 mmol/L (136-145)
[2019-12-16] MEDS ORDERED: Morphine 4 MG/ML VIAL ONE (16:19)
[2019-12-16] MEDS ORDERED: Ondansetron PF 4 MG/2 ML Vial IVP PRN (20:03)
[2019-12-16] MEDS ORDERED: Ondansetron ODT 4 MG TAB PO PRN (20:03)
[2019-12-16] MEDS ORDERED: Acetaminophen 325 MG TAB PO PRN (20:03)
[2019-12-16] MEDS ORDERED: Acetaminophen 650 MG Suppository PR PRN (20:03)
[2019-12-16 20:23] VITALS: BMI 17.2
[2019-12-16] MEDS: Famotidine/PF 20 mg/2ml Vial SLOW IVP SCH (20:48)
[2019-12-16] MEDS: Lorazepam 2 MG/ML VIAL SLOW IVP PRN (20:48)
--- NOTE | 2019-12-16 21:06 | PDOC.HHP ---
Hospitalist HPI - History of Present Illness Abdominal pain History of Present Illness: Patient brought in by family due to generalized weakness. She has been able to walk with her walker up until this morning. Patient has had long standing issues with abdominal pain associated with previous gastric bypass. Unable to tolerate any oral intake and has had frequent admissions in the past. She was recommended feeding tube placement however the patient declined. She was last seen and discharged in 09/2019. Reports having the first meal last night in 3 weeks without subsequent vomiting. Her pain has persisted and she reports having no bowel movement for 3 weeks. She has continued to lose weight. Has not been maintaining adequate hydration. Patient reportedly crying for several weeks with subsequent edema of both eyelids. She states it is partially due to her pain but mostly due to fear and frustration. Currently she is feeling very scared about being in the hospital and exposure to COVID 19. Patient crying constantly during assessment. ED Course: EKG done in ED showed sinus tachycardia, HR 104. No ST changes, T waves flattened. CT A/P: 1) new small left pleural effusion. 2) no small bowel obstruction. 3) status post bariatric surgery 4) distention of postsurgical bowel loop in the left upper quadrant, nonspecific. 5) hepatic steatosis. 6) anasarca. 7) extensive post laparotomy changes throughout the abdominal wall. 8) status post cholecystectomy, appendectomy, and hysterectomy. Labs done showing slight elevation in LFTs, with T. bili of 2.0 Lipase was normal. WCC 4.7, Hgb 9.4, Platelets 199. UA without evidence of UTI. She was given a total of 2L of NS in the ED. Zofran 4 mg IV Lorazepam 1 mg and Fentanyl as well as Morphine for pain. Hospitalist ROS - Review of Systems Constitutional: reports: weakness, malaise Eyes: reports: pain, eyelid inflammation (due to constant crying for several days/weeks) ENT: reports: other (dry mouth/throat) Respiratory: denies: cough, dry, shortness of breath, hemoptysis, SOB with excertion, pleuritic pain, sputum, wheezing, other Cardiovascular: denies: chest pain, palpitations, orthopnea, paroxysmal noc. dyspnea, edema, light headedness, other Gastrointestinal: reports: nausea, vomiting (with any oral intake except with dinner last night), abdominal pain (constant for several days), constipation ( no bowel movement in 3 weeks per patient) Genitourinary: denies: dysuria, frequency, incontinence, hematuria, retention Musculoskeletal: denies: neck pain, shoulder pain, arm pain, back pain, hand pain, leg pain, foot pain, other - Medication Medications: Active Medications Generic Name Dose Route Start Last Admin Trade Name Freq PRN Reason Stop Dose Admin Famotidine 20 mg 12/16/19 21:00 12/16/19 20:48 Pepcid SLOW IVP 20 mg Q12HR JOSHUA Administration Lorazepam 0.5 mg 12/16/19 20:27 12/16/19 20:48 Ativan SLOW IVP 0.5 mg Q6H PRN Administration Anxiety/Agitation Hospitalist History - Past Medical History Source: patient Cardiac: reports: HTN [employer]: reports: Migraine Gastrointestinal: reports: GERD, Irritable bowel disease Psych: reports: Anxiety, Bipolar, Depression Musculoskeletal: reports: Other (Fibromyalgia) Rheumatologic: reports: Rheumatoid arthritis Endocrine: reports: Diabetes - Past Surgical History Past Surgical History: reports: Appendectomy, Cholecystectomy, , Hysterectomy, Hernia Repair, Other (Right arm surgery Obstruction surgery in 2019 Gastric bypass) - Family History Family History: reports: no pertinent history - Social History Smoking Status: Never smoker Alcohol: reports: None Drugs: reports: none Activity level: uses cane/walker - Exam General - other findings: Patient crying and states she is afraid Eye: PERRL Eye - other findings: swelling of both eyelids ENT: dry oral mucosa ENT - other findings: stomatitis Neck: supple, no lymphadenopathy Heart: RRR, normal peripheral pulses Respiratory: CTAB, normal chest expansion, no tachypnea Gastrointestinal: soft, no guarding, no rigidity, diminished bowl sounds Extremities: no edema Skin: tenting Neurological: cranial nerve grossly intact Musculoskeletal: normal tone, generalized weakness Psychiatric: A&O x 3 Psychiatric - other findings: patient crying and distressed emotionally, afraid of COVID19 exposure Hospitalist Results - Labs Result Diagrams: 12/16/19 14:30 12/16/19 14:30 Lab results: WBC 4.7 thou/uL (4.8-10.8) L 12/16/19 14:30 Hgb 9.4 g/dL (12.0-16.0) L 12/16/19 14:30 Hct 29.1 % (36.0-47.0) L 12/16/19 14:30 MCV 109.0 fL (78.0-98.0) H 12/16/19 14:30 Plt Count 199 thou/uL (130-400) 12/16/19 14:30 Neutrophils % 63.1 % (42.0-75.0) 12/16/19 14:30 Sodium 143 mmol/L (136-145) 12/16/19 14:30 Potassium 3.9 mmol/L (3.5-5.1) 12/16/19 14:30 Chloride 114 mmol/L (98-107) H 12/16/19 14:30 Carbon Dioxide 20 mmol/L (22-29) L 12/16/19 14:30 BUN 14 mg/dL (9.8-20.1) 12/16/19 14:30 Creatinine 0.68 mg/dL (0.6-1.1) 12/16/19 14:30 Glucose 83 mg/dL (70-105) 12/16/19 14:30 Calcium 7.2 mg/dL (7.8-10.44) L 12/16/19 14:30 Total Bilirubin 2.0 mg/dL (0.2-1.2) H 12/16/19 14:30 AST 44 U/L (5-34) H 12/16/19 14:30 ALT 63 U/L (8-55) H 12/16/19 14:30 Alkaline Phosphatase 68 U/L (40-110) 12/16/19 14:30 Serum Total Protein 4.2 g/dL (6.0-8.3) L 12/16/19 14:30 Albumin 1.7 g/dL (3.5-5.0) L 12/16/19 14:30 Lipase 6 U/L (8-78) L 12/16/19 14:30 Urine Ketones 20 mg/dL (Negative) A 12/16/19 14:33 Urine Blood Negative (Negative) 12/16/19 14:33 Urine Nitrite Negative (Negative) 12/16/19 14:33 Ur Leukocyte Esterase Negative Armando/uL (Negative) 12/16/19 14:33 Urine RBC 0-3 HPF (0-3) 12/16/19 14:33 Urine WBC 0-3 HPF (0-3) 12/16/19 14:33 Ur Squamous Epith Cells None Seen HPF (0-3) 12/16/19 14:33 Urine Bacteria None Seen HPF (None Seen) 12/16/19 14:33 - Radiology Interpretation CT scan - abdomen Status: report reviewed by nd Hospitalist H&P A/P - Problem (1) Generalized weakness Code(s): R53.1 - WEAKNESS Status: Acute (2) Chronic abdominal pain Code(s): R10.9 - UNSPECIFIED ABDOMINAL PAIN; G89.29 - OTHER CHRONIC PAIN Status: Acute (3) Postprandial vomiting Code(s): R11.10 - VOMITING, UNSPECIFIED Status: Acute (4) Decreased oral intake Code(s): R63.8 - OTHER SYMPTOMS AND SIGNS CONCERNING FOOD AND FLUID INTAKE Status: Acute (5) Cachexia Code(s): R64 - CACHEXIA Status: Acute (6) Dehydration Code(s): E86.0 - DEHYDRATION Status: Acute (7) Elevated LFTs Code(s): R79.89 - OTHER SPECIFIED ABNORMAL FINDINGS OF BLOOD CHEMISTRY Status : Acute (8) Excessive crying of adult Code(s): R45.83 - EXCESSIVE CRYING OF CHILD, ADOLESCENT OR ADULT Status: Acute (9) Anemia Code(s): D64.9 - ANEMIA, UNSPECIFIED Status: Chronic (10) Rheumatoid arthritis Code(s): M06.9 - RHEUMATOID ARTHRITIS, UNSPECIFIED Status: Acute (11) Bipolar disorder Code(s): F31.9 - BIPOLAR DISORDER, UNSPECIFIED Status: Chronic (12) GERD (gastroesophageal reflux disease) Code(s): K21.9 - GASTRO-ESOPHAGEAL REFLUX DISEASE WITHOUT ESOPHAGITIS Status: Chronic Qualifiers: Esophagitis presence: without esophagitis Qualified Code(s): K21.9 - Gastro -esophageal reflux disease without esophagitis - Plan Plan: Patient requesting to discuss feeding tube placement with surgery, as previously recommended by Dr. Rodriguez. Continue with pain control. Monitor BP. IV fluids. Ativan for anxiety/distress. Palliative Care Consult for complex decision making and coping issues. Consult PT/OT. Consider MHMR. Monitor LFTs. Mechanical SCDs. CODE STATUS: FULL Surrogate decision maker is her brother Rayo Mahajan.
[2019-12-16 21:27] LABS: CK (CPK) 138 U/L (29-168); Magnesium 1.9 mg/dL (1.6-2.6)
[2019-12-17] MEDS: Dextrose 5 %-0.45 % NaCl 1,000 ML IV SCH ×2 (01:36→15:41)
[2019-12-17] MEDS ORDERED: Zolpidem Tartrate 5 MG TAB PO PRN (04:22)
[2019-12-17] MEDS ORDERED: Calcium Carbonate 500 MG ChewTAB PO PRN (04:22)
[2019-12-17] MEDS ORDERED: Meclizine HCl 25 MG TAB PO PRN (04:22)
[2019-12-17] MEDS: Lorazepam 2 MG/ML VIAL SLOW IVP PRN ×2 (05:04→18:32)
[2019-12-17] MEDS: Zonisamide 100 MG CAP PO SCH ×2 (10:10→11:52)
[2019-12-17] MEDS: Venlafaxine HCl XR 150 MG CAP PO SCH ×2 (10:10→11:52)
[2019-12-17] MEDS: Atenolol 25 MG TAB PO SCH (10:10)
[2019-12-17] MEDS: Famotidine/PF 20 mg/2ml Vial SLOW IVP SCH ×2 (10:11→20:59)
[2019-12-17] MEDS: Lisinopril 5 MG TAB PO SCH ×2 (10:11→11:52)
--- NOTE | 2019-12-17 12:19 | PDOC.HOSPP ---
- Subjective Encounter Date: 12/17/19 Encounter Time: 09:00 Subjective: is very emotional, says her body hurts everywhere says her eye is swelling up has not been walking much at home lives with her brother has not been eating much at all - Objective Vital Signs & Weight: Vital Signs (12 hours) Temp Pulse Resp BP BP BP Pulse Ox 12/17/19 11:55 97.3 F L 81 17 107/72 100 12/17/19 10:24 97 12/17/19 10:10 142/93 H 12/17/19 07:46 97.9 F 71 17 101/65 97 12/17/19 04:00 97.4 F L 71 18 92/56 L 97 Weight Weight 113 lb 1.6 oz I&O: 12/16/19 12/17/19 12/18/19 06:59 06:59 06:59 Intake Total 650 Output Total 200 Balance 450 Result Diagrams: 12/16/19 14:30 12/16/19 14:30 Hospitalist ROS - Medication Medications: Active Medications Generic Name Dose Route Start Last Admin Trade Name Freq PRN Reason Stop Dose Admin Acetaminophen 650 mg 12/16/19 20:03 12/17/19 12:03 Tylenol PO 650 mg Q4H PRN Administration Headache/Fever/Mild Pain (1-3) Atenolol 25 mg 12/17/19 09:00 12/17/19 10:10 Tenormin PO 25 mg DAILY JOSHUA Administration Divalproex Sodium 500 mg 12/17/19 09:00 12/17/19 11:35 Depakote Er PO Not Given BID JOSHUA Famotidine 20 mg 12/16/19 21:00 12/17/19 10:11 Pepcid SLOW IVP 20 mg Q12HR JOSHUA Administration Dextrose/Sodium Chloride 1,000 mls @ 75 mls/hr 12/17/19 01:30 12/17/19 01:36 D5 1/2 Ns IV 1,000 mls .[id number] JOSHUA Administration Lisinopril 5 mg 12/17/19 09:00 12/17/19 11:52 Zestril PO Not Given DAILY JOSHUA Lorazepam 0.5 mg 12/16/19 20:27 12/17/19 05:04 Ativan SLOW IVP 0.5 mg Q6H PRN Administration Anxiety/Agitation Venlafaxine HCl 150 mg 12/17/19 09:00 12/17/19 11:52 Effexor Xr PO Not Given DAILY JOSHUA Zonisamide 100 mg 12/17/19 09:00 12/17/19 11:52 Zonisamide PO Not Given DAILY JOSHUA - Exam General Appearance: awake alert, ill appearing Eye: PERRL, anicteric sclera Eye - other findings: mild chemosis right eye ENT: no oropharyngeal lesions, moist mucosa Neck: supple, no JVD Heart: RRR, no murmur Respiratory: no wheezes, no rales Gastrointestinal: soft, non-tender, non-distended, normal bowel sounds, no guarding, no rigidity Extremities: no cyanosis, no edema Neurological: cranial nerve grossly intact, no focal deficits Psychiatric: A&O x 3 Hosp A/P (1) Severe protein-calorie malnutrition Code(s): E43 - UNSPECIFIED SEVERE PROTEIN-CALORIE MALNUTRITION Status: Acute (2) H/O bariatric surgery Code(s): Z98.84 - BARIATRIC SURGERY STATUS Status: Acute (3) FTT (failure to thrive) in adult Status: Acute (4) Cachexia Code(s): R64 - CACHEXIA Status: Acute (5) Dehydration Code(s): E86.0 - DEHYDRATION Status: Acute (6) Generalized weakness Code(s): R53.1 - WEAKNESS Status: Acute (7) Anemia Code(s): D64.9 - ANEMIA, UNSPECIFIED Status: Chronic Qualifiers: Anemia type: unspecified type Qualified Code(s): D64.9 - Anemia, unspecified (8) Quadriparesis Code(s): G82.50 - QUADRIPLEGIA, UNSPECIFIED Status: Acute Plan: functional due to severe deconditioning (9) Rheumatoid arthritis Code(s): M06.9 - RHEUMATOID ARTHRITIS, UNSPECIFIED Status: Chronic Qualifiers: Rheumatoid arthritis location: unspecified site (10) Anxiety and depression Code(s): F41.8 - OTHER SPECIFIED ANXIETY DISORDERS Status: Chronic (11) Bipolar disorder Code(s): F31.9 - BIPOLAR DISORDER, UNSPECIFIED Status: Chronic Qualifiers: Active/Remission status: currently active Current bipolar episode type: depressed Current episode severity: moderate Qualified Code(s): F31.32 - Bipolar disorder, current episode depressed, moderate (12) Fibromyalgia Status: Chronic (13) GERD (gastroesophageal reflux disease) Code(s): K21.9 - GASTRO-ESOPHAGEAL REFLUX DISEASE WITHOUT ESOPHAGITIS Status: Chronic Qualifiers: Esophagitis presence: esophagitis presence not specified Qualified Code(s) : K21.9 - Gastro-esophageal reflux disease without esophagitis (14) Hypertension Code(s): I10 - ESSENTIAL (PRIMARY) HYPERTENSION Status: Chronic Qualifiers: Hypertension type: essential hypertension - Plan will likely peg/jejunal feeding or TPN. Await gen surgery advice will get PICC line needs rehab/snf, is severely deconditioned has very low albumin levels with anasarca, 1.7 MCV is 109, is on B12 and folic, chronic anemia PT/OT/Dietitician/Pastoral help continue depakote, zonisamide, effexor, atenolol, lisinopril will dc iv fluids once nutritional access is obtained poor prognosis, palliative care consultation has lost significant amount of weight with poor nutrition will need outpt psych counselling for underlying bipolar/depression issues
--- NOTE | 2019-12-17 15:17 | SPC ---
Ultrasound and Fluoroscopic guided right upper extremity PICC placement HISTORY: Need for central vascular access. FINDINGS: Informed consent obtained prior to the procedure. An appropriate access site was determined with ultrasound guidance. The area was then meticulously pr epped and draped in usual sterile fashion. Skin overlying the right brachial vein anesthetized with 1% buffered lidocaine. Utilizing direct sono graphic guidance, vascular access is obtained via the right brachial vein, and an 0.018in guidewire was advanced to the distal SVC. Intravascular length is calculated at 35 cm, and the PICC is cut acco rdingly. The guidewire was placed into the IVC to confirm placement in the venous system is Needle is removed and replaced with a peel-away sheath. The PICC was advanced over the wire. Wire and peel-away sheath were removed. The tip of the catheter overlies the distal SVC. The catheter was accessed and aspirated/flushed easily. Exposure data: 1.1 minutes of fluoroscopic time 1454 mGy centimeter squared FINDINGS: Technically successful placement of a 35 centimeter single lumen 5 Macedonian right upper extremity PICC line. IMPRESSION: Successful ultrasound guided placement of a right upper extremity PICC.
[2019-12-17 15:51] LABS: Hemoglobin 9.5 g/dL (12.0-16.0); Mean Corpuscular HGB CONC 31.7 g/dL (32.0-36.0); Mean Corpuscular Hemoglobin 34.3 pg (27.0-31.0); Mean Platelet Volume 8.3 fL (7.4-10.4); Platelet Count 192 thou/uL (130-400); RBC Distribution Width 14.5 % (11.5-14.5); Red Blood Cell (RBC) Count 2.76 mill/uL (4.20-5.40); White Blood Cell (WBC) Count 5.3 thou/uL (4.8-10.8)
[2019-12-17 16:07] LABS: Lactic Acid 0.9 mmol/L (0.5-2.2)
[2019-12-17 16:13] LABS: ALT (SGPT) 61 U/L (8-55); AST (SGOT) 39 U/L (5-34); Albumin 1.7 g/dL (3.5-5.0); Alkaline Phosphatase 68 U/L (40-110); Anion Gap 9 mmol/L (10-20); BUN (Urea Nitrogen) 13 mg/dL (9.8-20.1); Bilirubin, Total 1.8 mg/dL (0.2-1.2); Calc. Creatinine Clearance 78 mL/min (70-130); Calcium 7.4 mg/dL (7.8-10.44); Carbon Dioxide 24 mmol/L (22-29); Chloride 113 mmol/L (98-107); Estimated GFR-MDRD Greater than 90; Globulin 2.6 g/dL (2.4-3.5); Glucose 85 mg/dL (70-105); Potassium 3.5 mmol/L (3.5-5.1); Protein, Total 4.3 g/dL (6.0-8.3); Sodium 142 mmol/L (136-145)
[2019-12-17] MEDS ORDERED: Dicyclomine 10 MG/5 ML UDCUP PO PRN (16:18)
[2019-12-17 16:25] LABS: Lymphocytes 13 % (21-51); MDiff Complete? YES; Macrocytosis SLIGHT = 6-15 cells (100X) (0-5/hpf); Monocytes 2 % (0-10); Neutrophil 85 % (42-75); Platelet Morphology Comment Appears Adequate; Polychromasia SLIGHT = 2-3 cells (100X) (0-2/hpf); Target Cells SLIGHT = 2-5 cells (100X) (0-1/hpf)
--- NOTE | 2019-12-17 16:40 | PDOC.PALCO ---
Palliative Care Consult - Consult Details Requesting Physician: Dr Foster Reason for Consult: goals of care, symptom management, family support, complex decision-making - Pertinent HPI 54 year old female who presented to the emergency room by her family for increase in weakness and decline in ability to carry out ADL without assistance. In visiting with Ms Small she states she was aprox 180lbs and had a gastric bypass for weight reduction. Unable to recall specific year bet believe surgery was aprox 10-12 years ago. The past several years she has had difficulty tolerating po intake related to abdominal pain. Secondary to compromised nutritional status was offered a feeding tube but previously declined. Intake is associated with increase in abdominal discomfort, vomiting. Also states constipation. Has two grown sons,lives with one of her brothers. Labile emotions. Admitted after emergency room evaluation secondary to cachexia , anorexia, dehydration, elevated lft, and consideration of PEG placement. Intermittently walks with walker/cane. Previous patient of [facility], not certain if currently being treated there. - Pertinent PMH Bi polar, post bariatric surgery, rheumatoid arthritis, - Social History Smoking Status: Never smoker Smoking: no tobacco exposure Alcohol Use: none Drug Use History: none Living Situation: other (Lives with her brother) - Medications MAR Reviewed: Yes - Allergies Allergies/Adverse Reactions: Allergies Allergy/AdvReac Type Severity Reaction Status Date / Time promethazine [From Phenergan] Allergy Severe Short of Verified 11/07/19 17:49 Breath Penicillins Allergy Intermediate Severe Verified 11/07/19 17:49 Hives - ROS Constitutional: loss appetite, weakness, weight changes ENT: difficulty swallowing Respiratory: other (denies shortness of breath, cough) Cardiology: other (Denies chest pain, palpitations) Gastrointestinal: abdominal pain, constipation, intolerance of foods, nausea Musculoskeletal: arthritis/arthralgias, limited mobility Neurological: weakness Skin: other Psychological: anxiety, depression - Objective Vital Signs: Vital Signs - Most Recent Temp Pulse Resp BP Pulse Ox 97.9 F 82 18 127/80 100 12/17/19 16:05 12/17/19 16:05 12/17/19 16:05 12/17/19 16:05 12/17/19 16:05 Palliative Performance Scale: 40 - Physical Exam Constitutional: cachectic, emaciated, ill appearing, mild distress HEENT: EOMI, moist MMs, sclera anicteric Respiratory: clear to auscultation bilateral, unlabored breathing Cardiovascular: no significant murmur, RRR Gastrointestinal: soft, positive bowel sounds Deviation from normal: tenderness ot right lower quadrant, mild guarding. Genitourinary: lae catheter Deviation from normal: Dark urine Musculoskeletal: no cyanosis, no clubbing, diffuse muscle atrophy Neurology: moves all 4 limbs Skin: cap refill <2 seconds Psychiatric: A&O x 3 Deviation from normal: emotionally labile - Problem List (1) Palliative care encounter Code(s): Z51.5 - ENCOUNTER FOR PALLIATIVE CARE Current Visit: Yes Status: Acute (2) Cachexia Code(s): R64 - CACHEXIA Current Visit: Yes Status: Acute (3) Chronic abdominal pain Code(s): R10.9 - UNSPECIFIED ABDOMINAL PAIN; G89.29 - OTHER CHRONIC PAIN Current Visit: Yes Status: Acute (4) Decreased oral intake Code(s): R63.8 - OTHER SYMPTOMS AND SIGNS CONCERNING FOOD AND FLUID INTAKE Current Visit: Yes Status: Acute (5) Excessive crying of adult Code(s): R45.83 - EXCESSIVE CRYING OF CHILD, ADOLESCENT OR ADULT Current Visit : Yes Status: Acute (6) FTT (failure to thrive) in adult Current Visit: Yes Status: Acute (7) Generalized weakness Code(s): R53.1 - WEAKNESS Current Visit: Yes Status: Acute (8) Severe protein-calorie malnutrition Code(s): E43 - UNSPECIFIED SEVERE PROTEIN-CALORIE MALNUTRITION Current Visit: Yes Status: Acute (9) Anxiety and depression Code(s): F41.8 - OTHER SPECIFIED ANXIETY DISORDERS Current Visit: No Status : Chronic - Plan/Recommendations Plan: Introduced Palliative Care. Discussed if she has a MPOA, she states that she has paperwork and it is her sister. Emotionally labile during visit, re-directable. States she would like to pursue feeding tube so she can get "stronger" *Already sees a dietitian next to Dr Rodriguez, Dietary consult for further teaching here *States that although she has difficulty swallowing she has had tests and no cause has been identified. *Consideration for speech to eval for swallow *Spiritual care consult *May consider Marinol, however she states that he appetite is fair, just food makes her abdomen hurt. [70] minutes spent on this encounter with >50% of the time in counseling and coordination of care. Thank you for this very appropriate consult.
[2019-12-17] MEDS: Calcium Carbonate 600 MG + Vit D TAB PO SCH (17:49)
--- NOTE | 2019-12-17 18:46 | CON ---
DATE OF CONSULTATION: CHIEF COMPLAINT: Nausea, abdominal pain. HISTORY OF PRESENT ILLNESS: The patient is a 54-year-old female, who underwent a Benoit-en-Y gastric bypass in [place], [place] in 2013 or 2014 complicated by some type of obstruction that required redo done open by Dr. Colon at [facility] in [place] that was complicated by a leak with another redo of that required leaving her abdomen open and possible skin graft. She has had multiple small-bowel obstructions since. In May 2019, she came in with an obstruction and I took her to the operating room. The obstruction was that she had a transition zone near her jejunojejunostomy. Though I was able to free up, but she had a very hostile abdomen with incredible adhesions. The anastomosis was basically inaccessible due to these what of bowel that was stuck together. She seemed to get better for few months and then returned to the hospital and has been back at the hospital several times. 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 She is going to require a revision of the entire anastomosis. However, that procedure is not something that I can do here at this hospital due to the extent of these hostile adhesions. She was to go back to [place] to see Dr. Colon. She had an appointment, but then she missed that appointment. She has returned to the hospital again with recurrent abdominal pain. She denies or refuses NG tube. She is severely malnourished. Her last flatus was yesterday or this morning. Last bowel movement was Saturday. PAST MEDICAL HISTORY: Significant for severe malnutrition with anasarca. She also has hypertension, fibromyalgia, chronic headaches. PAST SURGICAL HISTORY: Include the gastric bypass, hysterectomy, 2 redo's, cholecystectomy, section, lysis of adhesions. MEDICATIONS: Include: 1. Atenolol. 2. Amitriptyline. 3. Lisinopril. 4. Depakote. ALLERGIES: TO PHENERGAN AND PENICILLIN. SOCIAL HISTORY: She is . No tobacco or alcohol. PHYSICAL EXAMINATION: GENERAL: Very emotional. She is awake. VITAL SIGNS: Her temperature is 97.9, pulse 82, blood pressure 127/80. HEENT: She has bitemporal wasting. LUNGS: Clear. HEART: Regular rate and rhythm. ABDOMEN: Nondistended, diffusely tender, but no peritoneal signs. EXTREMITIES: Unremarkable. LABORATORY DATA: Her white count is 5.3, H and H of 9.5 and 29, platelet count 192. Electrolytes are fine. Her total bilirubin is elevated at 1.8. Her LFTs are elevated mildly. 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 PLAN: Recommend that her family take her back to Dr. Colon in [facility] in [place] for assessment of revision of this anastomosis. Job ID: [id number]
[2019-12-17] MEDS ORDERED: Morphine 2 MG/ML SYRINGE SLOW IVP SCH (22:15)
[2019-12-18] MEDS: Dextrose 5 %-0.45 % NaCl 1,000 ML IV SCH (03:40)
[2019-12-18] MEDS ORDERED: Clopidogrel Bisulfate 75 MG TAB ONE (08:51)
[2019-12-18] MEDS ORDERED: Saccharomyces boulardii 250 MG CAP PO SCH (09:00)
[2019-12-18] MEDS ORDERED: Folic Acid 1 MG TAB PO SCH (09:00)
[2019-12-18] MEDS ORDERED: Multivits W-Minerals Liquid 15 ML LIQ PER TUBE SCH (09:00)
[2019-12-18] MEDS ORDERED: Cyanocobalamin (Vitamin B-12) 1,000 MCG TAB PO SCH (09:00)
[2019-12-18] MEDS ORDERED: Ascorbic Acid 500 mg Chewable Tablet PO SCH (09:00)
[2019-12-18] MEDS ORDERED: Zinc Sulfate 220 MG CAP PO SCH (09:00)
--- NOTE | 2019-12-18 09:24 | PRG ---
DATE OF SERVICE: 12/18/2019 SUBJECTIVE: The patient is very emotional today, but is doing fine. I was able to get a hold of Dr. Vikram Colon in [place] at [facility], who was the surgeon who last did the revision on her gastric bypass, explained the situation, he is accepting her in transfer for further care, so we are currently making arrangements to have her to go dialysis. Again, she is pretty emotional right now. She is afraid of the surgery and that is understandable, but she is stable. She is not vomiting. OBJECTIVE: VITAL SIGNS: Her temperature is 97.3, pulse 69, blood pressure 114/77. GENERAL: She is awake, alert. ABDOMEN: Soft, nondistended. 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 PLAN: Transfer to Dialysis under the care of Dr. Vikram Colon, [facility]. Job ID: [id number]
[2019-12-18] MEDS: Zonisamide 100 MG CAP PO SCH (09:27)
[2019-12-18] MEDS: Calcium Carbonate 600 MG + Vit D TAB PO SCH (09:30)
[2019-12-18] MEDS: Atenolol 25 MG TAB PO SCH (09:32)
[2019-12-18] MEDS: Venlafaxine HCl XR 150 MG CAP PO SCH (09:33)
[2019-12-18] MEDS: Lisinopril 5 MG TAB PO SCH (09:35)
[2019-12-18] MEDS: Famotidine/PF 20 mg/2ml Vial SLOW IVP SCH (09:36)
[2019-12-18] MEDS ORDERED: Morphine 2 MG/ML SYRINGE SLOW IVP PRN (10:09)
[2019-12-18 11:45] VITALS: BP 108/70; TEMP 97.9
--- NOTE | 2019-12-18 12:04 | PDOC.HOSPP ---
- Subjective Encounter Date: 12/18/19 Encounter Time: 07:45 Subjective: no sob or nausea feels better no new complaints - Objective Vital Signs & Weight: Vital Signs (12 hours) Temp Pulse Resp BP BP BP Pulse Ox 12/18/19 11:42 97.9 F 62 16 108/70 97 12/18/19 09:35 69 12/18/19 09:32 66 114/77 12/18/19 08:00 94 L 12/18/19 07:34 97.3 F L 69 18 114/77 94 L 12/18/19 03:43 97.6 F 58 L 16 95/58 L 100 Weight Admit Weight 113 lb 1.6 oz Weight 113 lb 1.6 oz I&O: 12/17/19 12/18/19 12/19/19 06:59 06:59 06:59 Intake Total 650 1458 Output Total 200 625 Balance 450 833 Result Diagrams: 12/17/19 15:34 12/17/19 15:34 Hospitalist ROS - Medication Medications: Active Medications Generic Name Dose Route Start Last Admin Trade Name Freq PRN Reason Stop Dose Admin Acetaminophen 650 mg 12/16/19 20:03 12/17/19 12:03 Tylenol PO 650 mg Q4H PRN Administration Headache/Fever/Mild Pain (1-3) Ascorbic Acid 1,000 mg 12/18/19 09:00 12/18/19 09:33 Vitamin C PO 1,000 mg DAILY JOSHUA Administration Atenolol 25 mg 12/17/19 09:00 12/18/19 09:32 Tenormin PO 25 mg DAILY JOSHUA Administration Calcium/Vitamin D 1 tab 12/17/19 17:00 12/18/19 09:30 Caltrate 600 + Vit D PO 1 tab BID-WM JOSHUA Administration Cyanocobalamin 1,000 mcg 12/18/19 09:00 12/18/19 09:35 Vitamin B-12 PO 1,000 mcg DAILY JOSHUA Administration Dicyclomine HCl 10 mg 12/17/19 16:18 12/17/19 17:49 Bentyl PO 10 mg QIDPRN PRN Administration abdominal pain Divalproex Sodium 500 mg 12/17/19 09:00 12/18/19 09:34 Depakote Er PO Not Given BID JOSHUA Famotidine 20 mg 12/16/19 21:00 12/18/19 09:36 Pepcid SLOW IVP 20 mg Q12HR JOSHUA Administration Folic Acid 1 mg 12/18/19 09:00 12/18/19 09:35 Folvite PO 1 mg DAILY JOSHUA Administration Dextrose/Sodium Chloride 1,000 mls @ 75 mls/hr 12/17/19 01:30 12/18/19 03:40 D5 1/2 Ns IV 1,000 mls .[id number] JOSHUA Administration Iron/Minerals/Multivitamins 15 ml 12/18/19 09:00 12/18/19 09:27 Certa Yomi Liquid PER TUBE 15 ml DAILY JOSHUA Administration Lisinopril 5 mg 12/17/19 09:00 12/18/19 09:35 Zestril PO Not Given DAILY JOSHUA Lorazepam 0.5 mg 12/16/19 20:27 12/17/19 18:32 Ativan SLOW IVP 0.5 mg Q6H PRN Administration Anxiety/Agitation Saccharomyces Boulardii 250 mg 12/18/19 09:00 12/18/19 09:30 Florastor PO 250 mg DAILY JOSHUA Administration Venlafaxine HCl 150 mg 12/17/19 09:00 12/18/19 09:33 Effexor Xr PO 150 mg DAILY JOSHUA Administration Zinc Sulfate 220 mg 12/18/19 09:00 12/18/19 09:29 Zinc Sulfate PO 220 mg DAILY JOSHUA Administration Zolpidem Tartrate 10 mg 12/17/19 04:22 12/17/19 21:29 Ambien PO 10 mg HSPRN PRN Administration Insomnia Zonisamide 100 mg 12/17/19 09:00 12/18/19 09:27 Zonisamide PO Not Given DAILY JOSHUA - Exam General Appearance: awake alert Eye: PERRL, anicteric sclera ENT: no oropharyngeal lesions, moist mucosa Neck: supple, no JVD Heart: RRR, no murmur Respiratory: no wheezes, no rales Gastrointestinal: soft, non-distended, normal bowel sounds Extremities: no cyanosis, 1+ LE edema Neurological: cranial nerve grossly intact, no focal deficits Hosp A/P (1) Severe protein-calorie malnutrition Code(s): E43 - UNSPECIFIED SEVERE PROTEIN-CALORIE MALNUTRITION Status: Acute (2) H/O bariatric surgery Code(s): Z98.84 - BARIATRIC SURGERY STATUS Status: Acute (3) FTT (failure to thrive) in adult Status: Acute (4) Cachexia Code(s): R64 - CACHEXIA Status: Acute (5) Dehydration Code(s): E86.0 - DEHYDRATION Status: Resolved (6) Generalized weakness Code(s): R53.1 - WEAKNESS Status: Acute (7) Anemia Code(s): D64.9 - ANEMIA, UNSPECIFIED Status: Chronic Qualifiers: Anemia type: unspecified type Qualified Code(s): D64.9 - Anemia, unspecified (8) Quadriparesis Code(s): G82.50 - QUADRIPLEGIA, UNSPECIFIED Status: Acute Plan: functional due to severe deconditioning (9) Rheumatoid arthritis Code(s): M06.9 - RHEUMATOID ARTHRITIS, UNSPECIFIED Status: Chronic Qualifiers: Rheumatoid arthritis location: unspecified site (10) Anxiety and depression Code(s): F41.8 - OTHER SPECIFIED ANXIETY DISORDERS Status: Chronic (11) Bipolar disorder Code(s): F31.9 - BIPOLAR DISORDER, UNSPECIFIED Status: Chronic Qualifiers: Active/Remission status: currently active Current bipolar episode type: depressed Current episode severity: moderate Qualified Code(s): F31.32 - Bipolar disorder, current episode depressed, moderate (12) Fibromyalgia Status: Chronic (13) GERD (gastroesophageal reflux disease) Code(s): K21.9 - GASTRO-ESOPHAGEAL REFLUX DISEASE WITHOUT ESOPHAGITIS Status: Chronic Qualifiers: Esophagitis presence: esophagitis presence not specified Qualified Code(s) : K21.9 - Gastro-esophageal reflux disease without esophagitis (14) Hypertension Code(s): I10 - ESSENTIAL (PRIMARY) HYPERTENSION Status: Chronic Qualifiers: Hypertension type: essential hypertension - Plan d/w , plan is to transfer her to [facility] under 's care for likely revision of he jejunojejunostomy site. dc her with PICC line is severely deconditioned has very low albumin levels with anasarca, 1.7 MCV is 109, is on B12 and folic, chronic anemia PT/OT/Dietitician/Pastoral consultations continue depakote, zonisamide, effexor, atenolol, lisinopril will dc iv fluids poor prognosis, palliative care consultation has lost significant amount of weight with poor nutrition will need outpt psych counselling for underlying bipolar/depression issues May dc anytime she has a bed and is ready for transfer
--- NOTE | 2019-12-18 13:15 | DIS ---
DATE OF ADMISSION: 12/16/2019 DATE OF DISCHARGE: 12/18/2019 DISCHARGE DISPOSITION: To [facility] in [place] under Dr. Colon. PRIMARY DISCHARGE DIAGNOSES: Jejunojejunostomy anastomosis partial obstruction, severe protein-calorie malnutrition, prior history of bariatric procedure and redo, failure to thrive, severe hypoalbuminemia with numbers of 1.7, initial dehydration resolved, cachexia, generalized weakness, chronic pain, functional quadriplegia due to severe deconditioning, chronic anemia, history of rheumatoid arthritis, bipolar disorder, anxiety, depression, fibromyalgia. PROCEDURES DONE DURING HOSPITALIZATION: Abdominal and pelvic CAT scan done on the day of admission showed findings of distention of postsurgical bowel loop in the left upper quadrant with anasarca and multiple other postsurgical changes. Had a PICC line placed on 12/17/2019. H and H 9.5 and 29, platelet count 192, MCV is 108 with 85% neutrophils. Albumin 1.7. Total serum protein is 4.3. BNP 394. Vitamin B12 greater than 2000. Folic acid 12.3. Total bilirubin 1.8, AST 39, ALT 61, alkaline phosphatase 68, BUN 13, and creatinine 0.6. Urine test was negative. DISCHARGE MEDICATIONS: 1. Pristiq 100 mg p.o. daily. 2. Atenolol 25 mg p.o. daily. 3. Depakote extended release 500 mg twice daily. 4. Zonisamide 100 mg daily. 5. Vitamin C 1000 mg daily. 6. Vitamin D with calcium 1 tablet twice daily. 7. Vitamin B12 of 1000 mcg p.o. daily. 8. Folic acid 1 mg p.o. daily. 9. Bentyl 10 mg 4 times daily p.r.n. 10. Multivitamin daily. 11. Florastor 250 mg daily. 12. Zinc sulfate 220 mg daily. ALLERGIES: ALLERGIC TO PENICILLIN AND PROMETHAZINE. INPATIENT CONSULT: Dr. Rodriguez for General Surgery. BRIEF COURSE DURING HOSPITALIZATION: The patient initially came to ER with complaints of nausea, vomiting, and unable to keep food down. She also had generalized weakness. The patient had postprandial vomiting episodes and was scared to eat. On clinical exam, the patient was cachectic with severe deconditioning and is barely able to flex her knees 10 degrees. She has had evaluation done by Dr. Rodriguez, general surgeon, here. She has a chronic partial obstruction of jejunojejunostomy site from prior revision of gastric bypass. Dr. Rodriguez has spoken to Dr. Vikram Colon, general surgeon, at [facility] and he has accepted her for further procedures to relieve the partial obstruction as mentioned above. A total of 35 minutes was spent on discharge plan. She has been accepted to [facility] and will be shortly discharged. Please see a [id number] documentation for the day of discharge on [facility]. I have given updates to her brother over phone and the reason for transfering her to [place]. Job ID: [id number] [id number]
== END 2019-12-18 15:12 | disposition short-term general hospital (02) | DRG 388 ==
LOC: ERS 11:06 → OBSVTOIN 19:04 → T4-B 19:04
PROVIDERS: ADMIT Family Medicine; ATTEND Internal Medicine
PROC: 02HV33Z Insertion of Infusion Device into Superior Vena Cava, Percutaneous Approach (ICD-10-PCS; principal; 2019-12-17)
PROC: B518YZA Fluoroscopy of Superior Vena Cava using Other Contrast, Guidance (ICD-10-PCS; 2019-12-17)
PROC: B548ZZA Ultrasonography of Superior Vena Cava, Guidance (ICD-10-PCS; 2019-12-17)
DX: K91.31 Postprocedural partial intestinal obstruction (principal); E43 Unspecified severe protein-calorie malnutrition; R53.2 Functional quadriplegia; K94.19 Other complications of enterostomy; R64 Cachexia; F31.32 Bipolar disorder, current episode depressed, moderate; Z68.1 Body mass index [BMI] 19.9 or less, adult; I10 Essential (primary) hypertension; G43.909 Migraine, unspecified, not intractable, without status migrainosus; K21.9 Gastro-esophageal reflux disease without esophagitis; M79.7 Fibromyalgia; M06.9 Rheumatoid arthritis, unspecified; E11.9 Type 2 diabetes mellitus without complications; G89.29 Other chronic pain; E86.0 Dehydration; R62.7 Adult failure to thrive; R53.81 Other malaise; F41.8 Other specified anxiety disorders; R45.83 Excessive crying of child, adolescent or adult; R79.89 Other specified abnormal findings of blood chemistry; D64.9 Anemia, unspecified; Z90.49 Acquired absence of other specified parts of digestive tract; Z90.710 Acquired absence of both cervix and uterus; Z98.84 Bariatric surgery status
CPT/HCPCS: 36415; 36569; 51701; 74176; 80053; 81003; 81015; 81025; 82550; 82607; 82746; 83605; 83690; 83735; 83880; 84100; 85025; 93005; 96361; 96374; 96375; A4353; C1751; J2060; J2270; J2405; J3010; S0028